=== PATIENT | female | born 1980 | race Caucasian/White ===

== ENCOUNTER 2022-10-31 08:38 | Outpatient (REF) | payer OTHER, SELFPAY ==
[2022-10-31 11:30] LABS: MANUAL DIFF FLAG NO
[2022-10-31 11:47] LABS: Basophils Absolute Auto 0.1 X10*3/uL (0.0-0.2); Eosinophils Absolute Auto 0.1 X10*3/uL (0.0-0.4); Eosinophils Percent Auto 0.8 % (0-4); Hematocrit 46.6 % (37.0-47.0); Hemoglobin 15.2 g/dl (12.0-16.0); Imm Gran Abs Auto 0.03 X10*3/uL (0.00-0.03); Imm Gran Pct Auto 0.4 % (0.0-0.4); Lymphocytes Absolute Auto 1.5 X10*3/uL (1.2-4.9); Lymphocytes Percent Auto 18.4 % (20-40); Mean Corpuscular HGB Conc 32.6 g/dl (31.0-35.0); Mean Corpuscular Volume 91.9 fL (80.0-98.0); Mean Platelet Volume 10.5 fL (9.4-12.3); Monocytes Absolute Auto 0.4 X10*3/uL (0.1-1.2); Monocytes Percent Auto 4.7 % (2-11); Neutrophils Absolute Auto 6.2 x10*3/uL (2.0-8.3); Neutrophils Percent Auto 74.7 % (45-73); Platelet Count 249 X10*3/uL (160-400); Red Blood Count 5.07 X10*6/uL (4.20-5.50); Red Cell Distribution Width 12.3 % (11.0-16.0); White Blood Count 8.3 X10*3/uL (4.8-10.8)
[2022-10-31 12:28] LABS: Alanine Aminotransferase 21 U/L (0-31); Albumin Level 3.7 g/dL (3.5-5.0); Alkaline Phosphatase 87 U/L (39-117); Anion Gap 13 (12-20); Aspartate Amino Transferase 16 U/L (5-31); Bilirubin Total 0.6 mg/dL (0.0-1.0); Blood Urea Nitrogen 11 mg/dL (9-16); Calcium 9.1 mg/dL (8.4-10.2); Carbon Dioxide 24 mmol/L (22-29); Chloride 103 mmol/L (96-108); Cholesterol 165 mg/dL; Estimated Glomerular Filt Rate > 60; Glucose Fasting 103 mg/dL (60-99); HDL Cholesterol 71 mg/dL; LDL Cholesterol Calculated 77 mg/dl; Potassium 4.3 mmol/L (3.3-5.1); Sodium 136 mmol/L (135-145); TSH reflex Free T4 2.16 uIU/mL (0.32-4.0); Total Protein 6.5 g/dL (6.5-8.0); Triglycerides 86 mg/dL
[2022-10-31 12:44] LABS: Vitamin B12 738 pg/mL (200-900)
[2022-11-06 12:33] LABS: Vitamin D 25-OH, D2 <4 ng/mL; Vitamin D 25-OH, D3 32 ng/mL; Vitamin D 25-OH, Total 32 ng/mL (30-100)
== END 2022-10-31 08:39 | disposition home or self-care (01) ==
LOC: HO.HMGCLDS 08:38
PROVIDERS: PCP Internal Medicine; Visit Provider Internal Medicine
DX: Z00.01 Encounter for general adult medical examination with abnormal findings (principal); E66.09 Other obesity due to excess calories; F33.9 Major depressive disorder, recurrent, unspecified; F41.1 Generalized anxiety disorder
CPT/HCPCS: 36415; 80053; 80061; 82306; 82607; 84443; 85025

== ENCOUNTER 2023-04-24 08:58 | Outpatient (REF) | payer OTHER, SELFPAY ==
[2023-04-24 11:34] LABS: MANUAL DIFF FLAG NO
[2023-04-24 11:43] LABS: Basophils Absolute Auto 0.1 X10*3/uL (0.0-0.2); Basophils Percent Auto 0.8 % (0-2); Eosinophils Absolute Auto 0.2 X10*3/uL (0.0-0.4); Eosinophils Percent Auto 2.2 % (0-4); Hematocrit 46.6 % (37.0-47.0); Hemoglobin 15.1 g/dl (12.0-16.0); Imm Gran Abs Auto 0.04 X10*3/uL (0.00-0.03); Imm Gran Pct Auto 0.5 % (0.0-0.4); Lymphocytes Absolute Auto 1.7 X10*3/uL (1.2-4.9); Lymphocytes Percent Auto 23.8 % (20-40); Mean Corpuscular HGB Conc 32.4 g/dl (31.0-35.0); Mean Corpuscular Hemoglobin 30.6 pg (27.0-33.0); Mean Corpuscular Volume 94.3 fL (80.0-98.0); Mean Platelet Volume 10.4 fL (9.4-12.3); Monocytes Absolute Auto 0.4 X10*3/uL (0.1-1.2); Monocytes Percent Auto 4.9 % (2-11); Neutrophils Percent Auto 67.8 % (45-73); Platelet Count 276 X10*3/uL (160-400); Red Blood Count 4.94 X10*6/uL (4.20-5.50); Red Cell Distribution Width 12.7 % (11.0-16.0); White Blood Count 7.3 X10*3/uL (4.8-10.8)
[2023-04-24 12:07] LABS: Alanine Aminotransferase 22 U/L (0-31); Albumin Level 3.6 g/dL (3.5-5.0); Alkaline Phosphatase 102 U/L (39-117); Anion Gap 11 (12-20); Aspartate Amino Transferase 19 U/L (5-31); Bilirubin Total 0.7 mg/dL (0.0-1.0); Blood Urea Nitrogen 14 mg/dL (9-16); Calcium 8.8 mg/dL (8.4-10.2); Carbon Dioxide 25 mmol/L (22-29); Chloride 104 mmol/L (96-108); Estimated Glomerular Filt Rate > 60; Glucose Random 144 mg/dL (60-115); Potassium 4.3 mmol/L (3.3-5.1); Sodium 136 mmol/L (135-145); Total Protein 6.4 g/dL (6.5-8.0)
== END 2023-04-24 08:59 | disposition home or self-care (01) ==
LOC: HO.HMGCLDS 08:58
PROVIDERS: PCP Internal Medicine; Visit Provider Internal Medicine
DX: E66.09 Other obesity due to excess calories (principal); F33.9 Major depressive disorder, recurrent, unspecified; F41.1 Generalized anxiety disorder; R73.01 Impaired fasting glucose
CPT/HCPCS: 36415; 80053; 85025

== ENCOUNTER 2023-07-24 14:59 | Outpatient (AMB) | payer OTHER, SELFPAY ==
[2023-07-24 15:02] VITALS: BP 132/80; PULSE 76; O2SAT 97; BMI 39.0
--- NOTE | 2023-07-24 15:02 | MHC.PC.OV ---
Vital Signs 07/24/23 15:02 Height 5 ft 3 in Weight 220 lb BMI 39.0 BP 132/80 Blood Pressure Location Rt brachial Position Sitting Pulse 76 Pulse Source Pulse Oximeter Pulse Oximetry (%) 97 Oxygen Delivery Method Room Air Intake Visit Reasons: 3m follow up Allergies bupropion [From Wellbutrin] Adverse Reaction (Verified 07/24/23 15:02) Panic Medication List - Last Reconciled 07/24/23 by Idalia Clements MD albuterol sulfate 90 mcg/actuation (Ventolin HFA) 1 inh inhalation QID PRN 30 days buspirone 10 mg PO TID PRN 30 days dapsone 5% topical QAM escitalopram oxalate 10 mg PO DAILY 90 days spironolactone 50 mg PO BID tretinoin 0.05% appl topical Tobacco use date assessed: 07/24/23 Dental Screening Dental Screen Date: 07/24/23 Did you have a dental visit in the last 12 months?: Yes Did you have a dental problem in the last 6 months where you did not have access to dental care?: No Was dental information given to patient?: Patient has dentist HPI 3m follow up HPI Details Patient is 43-year-old female came in today for her follow-up appointment Anxiety and depression stable with Lexapro 10 mg Impaired fasting sugar and obesity patient currently seeing a weight loss provider and is taking a new medication now Patient is questioning whether the medication is causing diarrhea. However she is trying to take more protein, she is sensitive to so a so she is trying other form of protein The other day she had protein shake and started having severe bloating. We talked about a milk protein which can also cause the symptoms. Patient would like to repeat labs and also check a mild is as she had pancreatic problem in the past She also have Raynaud's and have difficulty in winter time. Asthma is stable Follow-up 3 months [facility] Social History Housing: House Patient Tobacco Use Status: Never used Tobacco e-Cigarette/Vaping Use: Never Used service: No Current occupational status: employed Current occupational exposures/hazards: No Cognitive needs: No Hearing needs: No Vision needs: Yes Questionnaire Thrive Questionnaire Date Thrive assessed: 01/09/23 AUDIT C Alcohol Use Questionnaire (AUDIT-C) 1. How often do you have a drink containing alcohol?: Never 3. How often do you have six or more drinks on one occasion?: Never Total Score: 0 Score Reviewed/Action Taken: Yes ESTRELLA-7 AMB Questionnaire ESTRELLA-7 Date ESTRELLA - 7 assessed: 10/28/22 Source: Developed by Drs. Dickson Cates, Marni Boggs, Freeman Beckford and colleagues, with an educational monica from [employer]. Review of Systems Const Denies chills and Denies fever(s) ENT Denies epistaxis and Denies nasal discharge Card Denies chest pain Resp Denies chest congestion, Denies cough and Denies hemoptysis GI Denies diarrhea and Denies nausea Skin/Breast Denies rash Neuro Reports no additional complaints Psych Reports no additional complaints Endo Reports no additional complaints Physical exam (Primary Care) Vital Signs: Last Vital Signs Pulse 76 07/24/23 15:02 BP 132/80 07/24/23 15:02 Pulse Ox 97 07/24/23 15:02 Oxygen Delivery Method Room Air 07/24/23 15:02 BMI result Body Mass Index 39.0 Tobacco/Smoking Status: Tobacco use Status Tobacco use date assessed 07/24/23 07/24/23 15:11 Patient Tobacco Use Status Never used Tobacco 07/24/23 15:11 e-Cigarette/Vaping Use Never Used 07/24/23 15:11 Thrive Assessment: Date of Thrive Assessment Date Thrive assessed 01/09/23 07/24/23 15:11 Const General: cooperative, comfortable and no acute distress Orientation/consciousness: patient oriented x3 HENMT Head: Yes normocephalic Eyes General: appearance normal, both eyes and all related structures Neck Neck: Yes supple Resp Effort & Inspection: normal respiratory effort, no cough and no stridor Cardio Rhythm: regular rhythm Heart sounds: S1 normal heart sound present and S2 normal heart sound present Skin General skin exam: turgor normal Neuro General: patient oriented x3, tone normal and moves all extremities Extrem Right lower extremity: no edema Left lower extremity: no edema Assessment and Plan Assessment & Plan (1) Major depression, recurrent: Code(s): F33.9 - Major depressive disorder, recurrent, unspecified Qualifiers: Active/Remission status: in full remission Qualified Code(s): F33.42 - Major depressive disorder, recurrent, in full remission (2) Anxiety, generalized: Code(s): F41.1 - Generalized anxiety disorder (3) Raynaud's phenomenon: Code(s): I73.00 - Raynaud's syndrome without gangrene Qualifiers: Raynaud?s-associated gangrene presence: without gangrene Qualified Code(s): I73.00 - Raynaud's syndrome without gangrene (4) Impaired fasting blood sugar: Code(s): R73.01 - Impaired fasting glucose (5) Intermittent asthma: Code(s): J45.20 - Mild intermittent asthma, uncomplicated Qualifiers: Asthma severity: mild Asthma complication type: uncomplicated Qualified Code(s): J45.20 - Mild intermittent asthma, uncomplicated (6) Obesity due to excess calories: Code(s): E66.09 - Other obesity due to excess calories Qualifiers: Obesity classification: adult class 2 (BMI 35 - 39.9) Serious obesity comorbidity presence: without serious comorbidity Body mass index: BMI 39.0-39.9 Qualified Code(s): E66.09 - Other obesity due to excess calories; Z68.39 - Body mass index [BMI] 39.0-39.9, adult Plan Patient is 43-year-old female came in today for her follow-up appointment Anxiety and depression stable with Lexapro 10 mg Impaired fasting sugar and obesity patient currently seeing a weight loss provider and is taking a new medication now Patient is questioning whether the medication is causing diarrhea. However she is trying to take more protein, she is sensitive to so a so she is trying other form of protein The other day she had protein shake and started having severe bloating. We talked about a milk protein which can also cause the symptoms. Patient would like to repeat labs and also check a mild is as she had pancreatic problem in the past She also have Raynaud's and have difficulty in winter time. BMI is 39.0 patient is working on that No asthma flare up Asthma is stable Follow-up 3 months Orders: Orders Lipase Today E66.09 - Other obesity due to excess calories, F33.9 - Major depressive disorder, recurrent, unspecified, F41.1 - Generalized anxiety disorder, I73.00 - Raynaud's syndrome without gangrene, J45.20 - Mild intermittent asthma, uncomplicated, R73.01 - Impaired fasting glucose Complete Blood Count Auto Diff Today E66.09 - Other obesity due to excess calories, F33.9 - Major depressive disorder, recurrent, unspecified, F41.1 - Generalized anxiety disorder, I73.00 - Raynaud's syndrome without gangrene, J45.20 - Mild intermittent asthma, uncomplicated, R73.01 - Impaired fasting glucose Comprehensive Met. Panel Today E66.09 - Other obesity due to excess calories, F33.9 - Major depressive disorder, recurrent, unspecified, F41.1 - Generalized anxiety disorder, I73.00 - Raynaud's syndrome without gangrene, J45.20 - Mild intermittent asthma, uncomplicated, R73.01 - Impaired fasting glucose TSH reflex Free T4 Today E66.09 - Other obesity due to excess calories, F33.9 - Major depressive disorder, recurrent, unspecified, F41.1 - Generalized anxiety disorder, I73.00 - Raynaud's syndrome without gangrene, J45.20 - Mild intermittent asthma, uncomplicated, R73.01 - Impaired fasting glucose Amylase Today E66.09 - Other obesity due to excess calories, F33.9 - Major depressive disorder, recurrent, unspecified, F41.1 - Generalized anxiety disorder, I73.00 - Raynaud's syndrome without gangrene, J45.20 - Mild intermittent asthma, uncomplicated, R73.01 - Impaired fasting glucose Hemoglobin A1c Today R73.01 - Impaired fasting glucose Coding Level of Care Code Est Pt Level 4 (85924) Diagnoses Recurrent major depressive disorder, in full remission F33.42 Active/Remission status: in full remission Anxiety, generalized F41.1 Raynaud's phenomenon without gangrene I73.00 Raynaud?s-associated gangrene presence: without gangrene Impaired fasting blood sugar R73.01 Mild intermittent asthma without complication J45.20 Asthma severity: mild Asthma complication type: uncomplicated Class 2 obesity due to excess calories without serious comorbidity with body mass index (BMI) of 39.0 to 39.9 in adult E66.09; Z68.39 Obesity classification: adult class 2 (BMI 35 - 39.9) Serious obesity comorbidity presence: without serious comorbidity Body mass index: BMI 39.0-39.9
== END 2023-07-24 15:31 | disposition home or self-care (01) ==
PROVIDERS: Visit Provider Internal Medicine
DX: J45.20 Mild intermittent asthma, uncomplicated (principal); F33.42 Major depressive disorder, recurrent, in full remission; E66.09 Other obesity due to excess calories; Z68.39 Body mass index [BMI] 39.0-39.9, adult; F41.1 Generalized anxiety disorder; I73.00 Raynaud's syndrome without gangrene; R73.01 Impaired fasting glucose
CPT/HCPCS: 99214

== ENCOUNTER 2023-10-30 13:20 | Outpatient (AMB) | payer OTHER, SELFPAY ==
[2023-10-30 13:24] VITALS: BP 120/80; PULSE 83; O2SAT 97; BMI 39.7
--- NOTE | 2023-10-30 13:24 | MHC.PC.OV ---
Vital Signs 10/30/23 13:24 Height 5 ft 3 in Weight 224 lb BMI 39.7 BP 120/80 Blood Pressure Location Lt brachial Position Sitting Pulse 83 Pulse Source Pulse Oximeter Pulse Oximetry (%) 97 Oxygen Delivery Method Room Air Intake Visit Reasons: Annual Physical/New Patient Allergies bupropion [From Wellbutrin] Adverse Reaction (Verified 10/30/23 13:25) Panic Medication List - Last Reconciled 10/30/23 by Idalia Clements MD albuterol sulfate 90 mcg/actuation (Ventolin HFA) 1 inh inhalation QID PRN 30 days buspirone 10 mg PO TID PRN 30 days dapsone 5% topical QAM escitalopram oxalate 10 mg PO DAILY 90 days spironolactone 50 mg PO BID tretinoin 0.05% appl topical Tobacco use date assessed: 10/30/23 Dental Screening Dental Screen Date: 10/30/23 Did you have a dental visit in the last 12 months?: Yes Did you have a dental problem in the last 6 months where you did not have access to dental care?: No Was dental information given to patient?: Patient has dentist HPI Annual Physical/New Patient HPI Details Patient is 43 year female came in today for physical exam Anxiety stable patient is taking both medications Mammogram was June of this year She goes to [facility], mammograms and Pap smear through them and see Zofia Ayoub BMI is elevated patient is trying to lose weight Last set of lab in chart is from April of this year Order was placed in July has not been yet Patient fell on ice last year She does not have any back pain but every now and then she gets numbness and pain right lower extremity. I am ordering EMG, Nerve conduction to further evaluate this symptom Follow-up 4 months [facility] Social History Housing: House Patient Tobacco Use Status: Never used Tobacco e-Cigarette/Vaping Use: Never Used service: No Current occupational status: employed Current occupational exposures/hazards: No Cognitive needs: No Hearing needs: No Vision needs: Yes Questionnaire Thrive Questionnaire Date Thrive assessed: 01/09/23 AUDIT C Alcohol Use Questionnaire (AUDIT-C) 1. How often do you have a drink containing alcohol?: Monthly or less 2. How many drinks containing alcohol do you have on a typical day when you are drinking?: 1 or 2 Total Score: 1 ESTRELLA-7 AMB Questionnaire ESTRELLA-7 Date ESTRELLA - 7 assessed: 10/28/22 Source: Developed by Drs. Dickson Cates, Marni Boggs, Freeman Beckford and colleagues, with an educational monica from [employer]. ACT Questionnaire In the past 4 weeks, how much of the time did your asthma keep you from getting as much done at work, school or at home?: None of the time During the past 4 weeks, how often have you had shortness of breath?: 1-2 times a week During the past 4 weeks, how often did your asthma symptoms wake you up at night or earlier than usual in the morning?: Once or twice per week During the past 4 weeks, how often have you had to use your rescue inhaler or nebulizer medication?: Once a week or less How would you rate your asthma control during the past 4 weeks?: Well controlled ACT Interpretation: Negative Score: 21 Review of Systems Const Denies chills, Denies fever(s) and Denies headache(s) Eyes Denies blurry vision ENT Denies headache(s), Denies nasal discharge, Denies nasal obstruction, Denies odynophagia and Denies sinus pain Card Denies chest pain at rest and Denies chest pain with activity Resp Denies cough and Denies hemoptysis GI Denies diarrhea, Denies odynophagia, Denies vomiting and Denies hematemesis Reports as per HPI Musc Denies abnormal gait Skin/Breast Reports as per HPI Neuro Denies Neuro-related abnormal movements, Denies Abnormal speech present, Denies abnormal gait and Denies headache(s) Psych Denies mood swings and Denies paranoia Endo Reports as per HPI Todd/Lymph Reports as per HPI Aller/Immun Reports as per HPI Physical exam (Primary Care) Vital Signs: Last Vital Signs Pulse 83 10/30/23 13:24 BP 120/80 10/30/23 13:24 Pulse Ox 97 10/30/23 13:24 Oxygen Delivery Method Room Air 10/30/23 13:24 BMI result Body Mass Index 39.7 Tobacco/Smoking Status: Tobacco use Status Tobacco use date assessed 10/30/23 10/30/23 13:25 Patient Tobacco Use Status Never used Tobacco 10/30/23 13:25 e-Cigarette/Vaping Use Never Used 10/30/23 13:25 Thrive Assessment: Date of Thrive Assessment Date Thrive assessed 01/09/23 10/30/23 13:25 Const General: cooperative, comfortable and no acute distress Orientation/consciousness: patient oriented x3 HENMT Head: Yes normocephalic and Yes atraumatic Eyes General: appearance normal, both eyes and all related structures Pupils: Equal, round and reactive pupils present EOM: EOMs intact bilaterally Neck Neck: Yes supple and No lymphadenopathy Thyroid: Thyroid normal Lymphatic: no lymphadenopathy noted Resp Effort & Inspection: normal respiratory effort and able to speak in complete sentences Auscultation: clear to auscultation bilaterally Cardio Heart sounds: S1 normal heart sound present and S2 normal heart sound present GI Palpation (GI): Soft to palpation and nontender Auscultation: normal bowel sounds General: Yes no CVA tenderness Back/Spine/Pelvis Back: no CVA tenderness Skin General skin exam: elasticity normal and turgor normal Neuro General: patient oriented x3 and gait normal Cranial nerves: Yes Equal, round and reactive pupils present Speech: No Abnormal speech present Coordination: tandem gait normal and Romberg test negative Extrem General: Yes normal exam except as noted and No edema Assessment and Plan Assessment & Plan (1) Encounter for general adult medical examination with abnormal findings: Code(s): Z00.01 - Encounter for general adult medical examination with abnormal findings (2) Obesity due to excess calories: Code(s): E66.09 - Other obesity due to excess calories Qualifiers: Body mass index: BMI 39.0-39.9 Obesity classification: adult class 2 (BMI 35 - 39.9) Serious obesity comorbidity presence: without serious comorbidity Qualified Code(s): E66.09 - Other obesity due to excess calories; Z68.39 - Body mass index [BMI] 39.0-39.9, adult (3) Major depression, recurrent: Code(s): F33.9 - Major depressive disorder, recurrent, unspecified Qualifiers: Active/Remission status: in full remission Qualified Code(s): F33.42 - Major depressive disorder, recurrent, in full remission (4) Anxiety, generalized: Code(s): F41.1 - Generalized anxiety disorder (5) Impaired fasting blood sugar: Code(s): R73.01 - Impaired fasting glucose (6) Raynaud's phenomenon: Code(s): I73.00 - Raynaud's syndrome without gangrene Qualifiers: Raynaud?s-associated gangrene presence: without gangrene Qualified Code(s): I73.00 - Raynaud's syndrome without gangrene (7) Intermittent asthma: Code(s): J45.20 - Mild intermittent asthma, uncomplicated Qualifiers: Asthma complication type: uncomplicated Asthma severity: mild Qualified Code(s): J45.20 - Mild intermittent asthma, uncomplicated (8) Paresthesia of right lower extremity: Code(s): R20.2 - Paresthesia of skin Plan Patient is 43 year female came in today for physical exam Anxiety stable patient is taking both medications Mammogram was June of this year She goes to [facility], mammograms and Pap smear through them and see Zofia Ayoub BMI is elevated patient is trying to lose weight Last set of lab in chart is from April of this year Order was placed in July has not been yet Patient fell on ice last year She does not have any back pain but every now and then she gets numbness and pain right lower extremity. I am ordering EMG, Nerve conduction to further evaluate this symptom Follow-up 4 months Orders: Orders NE electromyogram (EMG) Today R20.2 - Paresthesia of skin NE nerve conduction velocity Today R20.2 - Paresthesia of skin Coding Level of Care Code Est Pt Prev Care 40-64y(31582) Diagnoses Encounter for general adult medical examination with abnormal findings Z00.01 Class 2 obesity due to excess calories without serious comorbidity with body mass index (BMI) of 39.0 to 39.9 in adult E66.09; Z68.39 Body mass index: BMI 39.0-39.9 Obesity classification: adult class 2 (BMI 35 - 39.9) Serious obesity comorbidity presence: without serious comorbidity Recurrent major depressive disorder, in full remission F33.42 Active/Remission status: in full remission Anxiety, generalized F41.1 Impaired fasting blood sugar R73.01 Raynaud's phenomenon without gangrene I73.00 Raynaud?s-associated gangrene presence: without gangrene Mild intermittent asthma without complication J45.20 Asthma complication type: uncomplicated Asthma severity: mild Paresthesia of right lower extremity R20.2
== END 2023-10-30 15:33 | disposition home or self-care (01) ==
PROVIDERS: Visit Provider Internal Medicine
DX: Z00.00 Encounter for general adult medical examination without abnormal findings (principal); E66.09 Other obesity due to excess calories; Z68.39 Body mass index [BMI] 39.0-39.9, adult; F33.42 Major depressive disorder, recurrent, in full remission; F41.1 Generalized anxiety disorder; R73.01 Impaired fasting glucose; I73.00 Raynaud's syndrome without gangrene; J45.20 Mild intermittent asthma, uncomplicated; R20.2 Paresthesia of skin
CPT/HCPCS: 99396

== ENCOUNTER 2023-10-30 14:00 | Outpatient (REF) | payer OTHER, SELFPAY ==
[2023-10-30 16:25] LABS: MANUAL DIFF FLAG NO
[2023-10-30 16:31] LABS: Basophils Absolute Auto 0.1 X10*3/uL (0.0-0.2); Basophils Percent Auto 0.6 % (0-2); Eosinophils Absolute Auto 0.1 X10*3/uL (0.0-0.4); Eosinophils Percent Auto 1.5 % (0-4); Hematocrit 44.5 % (37.0-47.0); Hemoglobin 15.1 g/dl (12.0-16.0); Imm Gran Abs Auto 0.03 X10*3/uL (0.00-0.03); Imm Gran Pct Auto 0.3 % (0.0-0.4); Lymphocytes Percent Auto 21.1 % (20-40); Mean Corpuscular HGB Conc 33.9 g/dl (31.0-35.0); Mean Corpuscular Hemoglobin 30.9 pg (27.0-33.0); Mean Corpuscular Volume 91.2 fL (80.0-98.0); Mean Platelet Volume 10.1 fL (9.4-12.3); Monocytes Absolute Auto 0.7 X10*3/uL (0.1-1.2); Monocytes Percent Auto 7.3 % (2-11); Neutrophils Absolute Auto 6.5 x10*3/uL (2.0-8.3); Neutrophils Percent Auto 69.2 % (45-73); Platelet Count 306 X10*3/uL (160-400); Red Blood Count 4.88 X10*6/uL (4.20-5.50); Red Cell Distribution Width 12.8 % (11.0-16.0); White Blood Count 9.3 X10*3/uL (4.8-10.8)
[2023-10-30 16:37] LABS: Estimated Average Glucose 91 mg/dL; Hemoglobin A1c % 4.8 % (<6.0)
[2023-10-30 16:49] LABS: Alanine Aminotransferase 26 U/L (0-31); Albumin Level 3.7 g/dL (3.5-5.0); Alkaline Phosphatase 88 U/L (39-117); Anion Gap 14 (12-20); Aspartate Amino Transferase 19 U/L (5-31); Bilirubin Total 0.4 mg/dL (0.0-1.0); Blood Urea Nitrogen 15 mg/dL (9-16); Calcium 9.6 mg/dL (8.4-10.2); Carbon Dioxide 24 mmol/L (22-29); Chloride 103 mmol/L (96-108); Estimated Glomerular Filt Rate > 60; Glucose Random 86 mg/dL (60-115); Potassium 4.4 mmol/L (3.3-5.1); Sodium 137 mmol/L (135-145); Total Protein 7.2 g/dL (6.5-8.0)
[2023-10-30 17:04] LABS: TSH reflex Free T4 1.81 uIU/mL (0.32-4.0)
== END 2023-10-30 14:01 | disposition home or self-care (01) ==
LOC: HO.HMGCLDS 14:00
PROVIDERS: PCP Internal Medicine; Visit Provider Internal Medicine
DX: F33.9 Major depressive disorder, recurrent, unspecified (principal); F41.1 Generalized anxiety disorder; I73.00 Raynaud's syndrome without gangrene; R73.01 Impaired fasting glucose; J45.20 Mild intermittent asthma, uncomplicated; E66.09 Other obesity due to excess calories
CPT/HCPCS: 36415; 80053; 83036; 84443; 85025

== ENCOUNTER 2023-12-11 13:57 | Outpatient (REF) | payer OTHER, SELFPAY ==
--- NOTE | 2023-12-11 13:59 | EMG_ITS ---
Chief complaint: Fell last fall, then started having sciatic pain in the spring, now intermittent numbness on right lateral knee down to right dorsal foot. Reason for referral: Evaluate for peroneal neuropathy versus sciatic neuropathy Referred by: Dr. Idalia Clements Procedure done: Right lower extremity NCS/EMG Precautions and/or limitations: None The limb temperature was monitored continuously and remained between 32-36 degrees C during the performance of the NCS. Nerve Conduction Studies Anti Sensory Summary Table ?Stim Site NR Onset (ms) Norm Onset (ms) Peak (ms) Norm Peak (ms) O-P Amp (?V) Norm O-P Amp Site1 Site2 Delta-0 (ms) Dist (cm) Rick (m/s) Norm Rick (m/s) Right Sup Peron Anti Sensory (Ankle) Lateral Leg ? 1.9 2.9 <4.4 15.1 >5.0 Lateral Leg Ankle 1.9 14.0 74 Right Sural Anti Sensory (Lat Mall) Calf ? 2.6 3.3 <4.0 11.6 >5.0 Calf Lat Mall 2.6 14.0 54 Motor Summary Table ?Stim Site NR Onset (ms) Norm Onset (ms) O-P Amp (mV) Norm O-P Amp iAmp (mV) Amp (1st) (%) Site1 Site2 Delta-0 (ms) Dist (cm) Rick (m/s) Norm Rick (m/s) Right Peroneal Motor (Ext Dig Brev) Ankle ? 3.4 <4.0 4.8 >2.5 5.2 100.0 Ankle Ext Dig Brev 3.4 0.0 B Fib ? 8.8 4.3 4.7 89.6 B Fib Ankle 5.4 30.5 56 >40 Poplt ? 9.5 4.1 4.4 85.4 Poplt B Fib 0.7 5.0 71 >40 Right Tibial Motor (Abd Bear Brev) Ankle ? 4.1 <5 3.4 >2.5 4.5 100.0 Ankle Abd Bear Brev 4.1 0.0 Knee ? 9.4 2.9 4.2 85.3 Knee Ankle 5.3 35.0 66 >40 EMG ?Side Muscle Nerve Root Ins Act Fibs Psw Amp Dur Poly Recrt Int Pat Comment Right AbdHallucis MedPlantar S1-2 Nml Nml Nml Nml Nml 0 Nml Complete Right AntTibialis Dp Br Peron L4-5 Nml Nml Nml Nml Nml 0 Nml Complete Right MedGastroc Tibial S1-2 Nml Nml Nml Nml Nml 0 Nml Complete Right VastusMed Femoral L2-4 Nml Nml Nml Nml Nml 0 Nml Complete Right Peroneus Long Sup Br Peron L5-S1 Nml Nml Nml Nml Nml 0 Nml Complete Paraspinal EMG ?Side Muscle Nerve Root Ins Act Fibs Psw Comment Right Lumbar Upper Rami Nml Nml Nml Right Lumbar Mid Rami Nml Nml Nml Right Lumbar Lower Rami Nml Nml Nml FINDINGS: All motor and sensory nerves tested showed normal latencies, amplitudes and conduction velocities. Concentric needle EMG was performed in selected muscles of the right lower extremity and lumbar paraspinals. Study did not reveal signs of electric abnormalities as shown in the table below. IMPRESSION: 1. This is a normal study. 2. There is no electrodiagnostic evidence for peroneal neuropathy, tibial neuropathy, lumbosacral plexopathy, lumbar radiculopathy, or peripheral neuropathy. CLINICAL COMMENT: Symptoms were in the distribution of sciatic or peroneal nerve, but testing normal. Consider repeat study in 3-6 months if symptoms persist. Thank you for your kind referral. Caroline Munoz MD, BARON Board Certified, [place] [employer] and [employer] (ABPMR) Board Certified, [place] Board of Electrodiagnostic Medicine (ABEM) CODIN [id number] MTDD
== END 2023-12-11 13:58 | disposition home or self-care (01) ==
LOC: HO.NEURO 13:57
PROVIDERS: PCP Internal Medicine; Visit Provider Internal Medicine
DX: R20.2 Paresthesia of skin (principal)
CPT/HCPCS: 95886; 95908

== ENCOUNTER → 2023-12-11 13:59 | Outpatient (BNV) | payer OTHER, SELFPAY | PROVIDERS: PCP Internal Medicine; Visit Provider Physical Medicine & Rehabilitation | DX: M79.661 Pain in right lower leg (principal) | CPT/HCPCS: 95886; 95908 ==

== ENCOUNTER 2024-03-08 15:12 | Outpatient (AMB) | payer OTHER, SELFPAY ==
[2024-03-08 15:13] VITALS: BP 122/84; PULSE 86; O2SAT 96; BMI 38.1
--- NOTE | 2024-03-08 15:13 | MHC.PC.OV ---
Vital Signs 03/08/24 15:13 Height 5 ft 3 in Weight 215 lb BMI 38.1 BP 122/84 Blood Pressure Location Rt brachial Position Sitting Pulse 86 Pulse Source Pulse Oximeter Pulse Oximetry (%) 96 Oxygen Delivery Method Room Air Intake Visit Reasons: 4 Month follow up Allergies bupropion [From Wellbutrin] Adverse Reaction (Verified 03/08/24 15:16) Panic Medication List - Last Reconciled 03/08/24 by Idalia Clements MD albuterol sulfate 90 mcg/actuation (Ventolin HFA) 1 inh inhalation QID PRN 30 days buspirone 10 mg PO TID PRN 30 days dapsone 5% topical QAM escitalopram oxalate 10 mg PO DAILY 90 days semaglutide (weight loss) (Wegovy) 2.4 mg subcut QWEEK spironolactone 50 mg PO BID tretinoin 0.05% appl topical Tobacco use date assessed: 03/08/24 Dental Screening Dental Screen Date: 03/08/24 Did you have a dental visit in the last 12 months?: Yes Did you have a dental problem in the last 6 months where you did not have access to dental care?: No Was dental information given to patient?: Patient has dentist HPI 4 Month follow up HPI Details Patient is a 43-year-old female came in today to have a follow-up on anxiety Patient is currently taking buspirone 10 mg t.i.d. and escitalopram 10 mg daily Anxiety stable patient is tolerating medication no side effects Her other medications as spironolactone anterior toenail through Dermatology And Semaglutide 2.5 mg for weight loss through a different prescriber Patient will return in October for physical exam now [facility] Social History Housing: House Patient Tobacco Use Status: Never used Tobacco e-Cigarette/Vaping Use: Never Used service: No Current occupational status: employed Current occupational exposures/hazards: No Cognitive needs: No Hearing needs: No Vision needs: Yes Questionnaire PHQ-9 Over the last 2 weeks, how often have you been bothered by any of the following problems? 1. Little interest or pleasure in doing things: not at all 2. Feeling down, depressed, or hopeless: not at all 3. Trouble falling or staying asleep, or sleeping too much: not at all 4. Feeling tired or having little energy: several days 5. Poor appetite or overeating: not at all 6. Feeling bad about yourself - or that you are a failure or have let yourself or your family down: not at all 7. Trouble concentrating on things, such as reading the newspaper or watching television: not at all 8. Moving or speaking so slowly that other people could have noticed. Or the opposite - being so fidgety or restless that you have been moving around a lot more than usual: not at all 9. Thoughts that you would be better off or of hurting yourself in some way: not at all Total score: 1 Depression Screening Interpretation: Negative Depression Screening Done: Yes 45865 - PHQ-9 Billing: Yes Source: Developed by Drs. Dickson Cates, Marni Boggs, Freeman Beckford and colleagues, with an educational monica from [employer]. Thrive Questionnaire Date Thrive assessed: 01/09/23 I am a: Patient What is your living situation today?: I have a steady place to live Within the past 12 months, did the food you bought not last and you didn't have the money to get more?: Never true Within the past 12 months, did you worry whether your food would run out before you got money to buy more?: Never true Please select the resources that you would like help with: None THRIVE Score: 0 AUDIT C Alcohol Use Questionnaire (AUDIT-C) 1. How often do you have a drink containing alcohol?: 2-4 times a month 2. How many drinks containing alcohol do you have on a typical day when you are drinking?: 1 or 2 3. How often do you have six or more drinks on one occasion?: Never Total Score: 2 Score Reviewed/Action Taken: Yes ESTRELLA-7 AMB Questionnaire ESTRELLA-7 Date ESTRELLA - 7 assessed: 03/08/24 Feeling nervous, anxious, or on edge: 1 = Several days Not being able to stop or control worryin = Not at all Worrying too much about different things: 1 = Several days Trouble relaxin = Not at all Being so restless that it is hard to sit still: 0 = Not at all Becoming easily annoyed or irritable: 0 = Not at all Feeling afraid as if something awful might happen: 1 = Several days Total ESTRELLA-7 score (0-4 normal; 5-9 mild; 10-14 moderate; 15-21 severe): 3 Source: Developed by Drs. Dickson Cates, Marni Boggs, Freeman Beckford and colleagues, with an educational monica from [employer]. ESTRELLA-7 Assessment Billing ESTRELLA-7 Assessment Tool: ESTRELLA-7 Assessment 54459 Review of Systems Const Denies chills and Denies fever(s) ENT Denies epistaxis and Denies nasal discharge Card Denies chest pain Resp Denies chest congestion, Denies cough and Denies hemoptysis GI Denies diarrhea and Denies nausea Skin/Breast Denies rash Neuro Reports no additional complaints Psych Reports no additional complaints Endo Reports no additional complaints Physical exam (Primary Care) Vital Signs: Last Vital Signs Pulse 86 03/08/24 15:13 BP 122/84 03/08/24 15:13 Pulse Ox 96 03/08/24 15:13 Oxygen Delivery Method Room Air 03/08/24 15:13 BMI result Body Mass Index 38.1 Tobacco/Smoking Status: Tobacco use Status Tobacco use date assessed 03/08/24 03/08/24 15:21 Patient Tobacco Use Status Never used Tobacco 03/08/24 15:13 e-Cigarette/Vaping Use Never Used 03/08/24 15:13 PHQ-9: PHQ-9 Score PHQ-9: Total score 1 03/08/24 15:22 Depression Screening Interpretation: Negative Thrive Assessment: Date of Thrive Assessment Date Thrive assessed 01/09/23 03/08/24 15:13 Const General: cooperative, comfortable and no acute distress Orientation/consciousness: patient oriented x3 HENMT Head: Yes normocephalic Eyes General: appearance normal, both eyes and all related structures Neck Neck: Yes supple Resp Effort & Inspection: normal respiratory effort, no cough and no stridor Cardio Rhythm: regular rhythm Heart sounds: S1 normal heart sound present and S2 normal heart sound present Skin General skin exam: turgor normal Neuro General: patient oriented x3, tone normal and moves all extremities Extrem Right lower extremity: no edema Left lower extremity: no edema Assessment and Plan Assessment & Plan (1) Anxiety, generalized: Code(s): F41.1 - Generalized anxiety disorder (2) Major depression, recurrent: Code(s): F33.9 - Major depressive disorder, recurrent, unspecified Qualifiers: Active/Remission status: in full remission Qualified Code(s): F33.42 - Major depressive disorder, recurrent, in full remission Plan Patient is a 43-year-old female came in today to have a follow-up on anxiety Patient is currently taking buspirone 10 mg t.i.d. and escitalopram 10 mg daily Anxiety stable patient is tolerating medication no side effects Her other medications as spironolactone anterior toenail through Dermatology And Semaglutide 2.5 mg for weight loss through a different prescriber Patient will return in October for physical exam now Coding Level of Care Code Est Pt Level 3 (49568) Diagnoses Anxiety, generalized F41.1 Recurrent major depressive disorder, in full remission F33.42 Active/Remission status: in full remission Additional Codes ESTRELLA-7 Assessment Billing - ESTRELLA-7 Assessment Tool: ESTRELLA-7 Assessment 09453 ([id number])
== END 2024-03-08 15:31 | disposition home or self-care (01) ==
PROVIDERS: PCP Internal Medicine; Visit Provider Internal Medicine
DX: F41.1 Generalized anxiety disorder (principal); F33.42 Major depressive disorder, recurrent, in full remission
CPT/HCPCS: 99213

== ENCOUNTER 2024-11-04 15:51 | Outpatient (AMB) | payer OTHER, SELFPAY ==
--- NOTE | 2024-11-04 15:52 | A.OFFPC_ITS ---
Vital Signs 11/04/24 15:53 Height 5 ft 3 in Weight 213 lb 4 oz BMI 37.8 BP 132/84 Blood Pressure Location Lt brachial Position Sitting Pulse 88 Pulse Source Pulse Oximeter Pulse Oximetry (%) 98 Oxygen Delivery Method Room Air Intake Visit Reasons: annual PE Allergies bupropion [From Wellbutrin] Adverse Reaction (Verified 11/04/24 15:54) Panic Medication List - Last Reconciled 11/04/24 by Idalia Clements MD albuterol sulfate 90 mcg/actuation (Ventolin HFA) 1 inh inhalation QID PRN 30 days buspirone 10 mg PO TID PRN 30 days dapsone 5% topical QAM escitalopram oxalate 10 mg PO DAILY 90 days semaglutide (weight loss) (Wegovy) 2.4 mg subcut QWEEK spironolactone 50 mg PO BID tretinoin 0.05% appl topical Tobacco use date assessed: 11/04/24 Dental Screening Dental Screen Date: 11/04/24 Did you have a dental visit in the last 12 months?: Yes Did you have a dental problem in the last 6 months where you did not have access to dental care?: No Was dental information given to patient?: Patient has dentist HPI annual PE HPI Details Patient is a 43-year-old female came in today to have a follow-up on anxiety Patient is currently taking buspirone 10 mg up to t.i.d. and escitalopram 10 mg daily Anxiety stable patient is tolerating medication no side effects Patient is questioning tapering off the medication she is feeling well I am reducing buspirone to 5 mg b.i.d. p.r.n. in next three-month she may taper that off Continue Lexapro for now and we will have another visit in 3 months to re- evaluate Her other medications as spironolactone anterior toenail through Dermatology Was on Semaglutide 2.5 mg for weight loss through a different prescriber But was not able to lose weight so now is taking zepbound Mammogram was November of this year [facility] for obgyn, last pap smear 2022 Labs done October of last year reviewed CBC and metabolic profile within normal limit TSH within normal limit Low vaccine up-to-date Tdap was given today [facility] Social History Housing: House Patient Tobacco Use Status: Never used Tobacco e-Cigarette/Vaping Use: Never Used service: No Current occupational status: employed Current occupational exposures/hazards: No Cognitive needs: No Hearing needs: No Vision needs: Yes Questionnaire Thrive Questionnaire Date Thrive assessed: 11/04/24 I am a: Patient What is your living situation today?: I have a steady place to live Within the past 12 months, did the food you bought not last and you didn't have the money to get more?: Never true Within the past 12 months, did you worry whether your food would run out before you got money to buy more?: Never true Do you have trouble paying for medicines?: No Do you have trouble getting transportation to medical appointments?: No Do you have trouble paying your heating and electricity bill?: No Do you have trouble taking care of your child, family member or friend?: No Do you have trouble with day-to-day activities such as bathing, preparing meals, shopping, managing finances, etc.?: No Are you currently unemployed and looking for a job?: No Are you interested in more education?: No Please select the resources that you would like help with: None Currently or been in a relationship where the following occur: No concerns reported THRIVE Score: 0 AUDIT C Alcohol Use Questionnaire (AUDIT-C) 1. How often do you have a drink containing alcohol?: 2-4 times a month 2. How many drinks containing alcohol do you have on a typical day when you are drinking?: 1 or 2 3. How often do you have six or more drinks on one occasion?: Never Total Score: 2 Score Reviewed/Action Taken: Yes ESTRELLA-7 AMB Questionnaire ESTRELLA-7 Date ESTRELLA - 7 assessed: 11/04/24 Feeling nervous, anxious, or on edge: 0 = Not at all Not being able to stop or control worryin = Not at all Worrying too much about different things: 1 = Several days Trouble relaxin = Not at all Being so restless that it is hard to sit still: 0 = Not at all Becoming easily annoyed or irritable: 0 = Not at all Feeling afraid as if something awful might happen: 0 = Not at all Total ESTRELLA-7 score (0-4 normal; 5-9 mild; 10-14 moderate; 15-21 severe): 1 Source: Developed by Drs. Dickson Cates, Marni Boggs, Freeman Beckford and colleagues, with an educational monica from [employer]. ESTRELLA-7 Assessment Billing ESTRELLA-7 Assessment Tool: ESTRELLA-7 Assessment 92612 Review of Systems Const Denies chills, Denies fever(s) and Denies headache(s) Eyes Denies blurry vision ENT Denies headache(s), Denies nasal discharge, Denies nasal obstruction, Denies odynophagia and Denies sinus pain Card Denies chest pain at rest and Denies chest pain with activity Resp Denies cough and Denies hemoptysis GI Denies diarrhea, Denies odynophagia, Denies vomiting and Denies hematemesis Reports as per HPI Musc Denies abnormal gait Skin/Breast Reports as per HPI Neuro Denies Neuro-related abnormal movements, Denies Abnormal speech present, Denies abnormal gait, Denies headache(s) and Denies Sensory deficit (Neuro) Psych Denies mood swings and Denies paranoia Endo Reports as per HPI Todd/Lymph Reports as per HPI Aller/Immun Reports as per HPI Physical exam (Primary Care) Vital Signs: Last Vital Signs Pulse 88 11/04/24 15:53 BP 132/84 11/04/24 15:53 Pulse Ox 98 11/04/24 15:53 Oxygen Delivery Method Room Air 11/04/24 15:53 BMI result Body Mass Index 37.8 Tobacco/Smoking Status: Tobacco use Status Tobacco use date assessed 11/04/24 11/04/24 15:55 Patient Tobacco Use Status Never used Tobacco 11/04/24 15:53 e-Cigarette/Vaping Use Never Used 11/04/24 15:53 Thrive Assessment: Date of Thrive Assessment Date Thrive assessed 11/04/24 11/04/24 15:55 Currently or been in a relationship where the following occur: No concerns reported Const General: cooperative, comfortable and no acute distress Orientation/consciousness: patient oriented x3 HENMT Head: Yes normocephalic and Yes atraumatic Eyes General: appearance normal, both eyes and all related structures Pupils: Equal, round and reactive pupils present EOM: EOMs intact bilaterally Neck Neck: Yes supple and No lymphadenopathy Thyroid: Thyroid normal Lymphatic: no lymphadenopathy noted Resp Effort & Inspection: normal respiratory effort and able to speak in complete sentences Auscultation: clear to auscultation bilaterally Cardio Heart sounds: S1 normal heart sound present and S2 normal heart sound present GI Palpation (GI): Soft to palpation and nontender Auscultation: normal bowel sounds General: Yes no CVA tenderness Back/Spine/Pelvis Back: no CVA tenderness Skin General skin exam: elasticity normal and turgor normal Neuro General: patient oriented x3 and gait normal Cranial nerves: Yes Equal, round and reactive pupils present Speech: No Abnormal speech present Sensory Exam: No Sensory deficit (Neuro) Coordination: tandem gait normal and Romberg test negative Extrem General: Yes normal exam except as noted and No edema Immunizations Boostrix Tdap 2.5 Lf unit-8 mcg-5 Lf/0.5 mL intramuscular syringe Performing Provider: Idalia Clements MD [place] [facility] Administered by: Gerard Escobedo CMA on 11/04/24 16:08 Dose Route Admin Location Dispensed Lot Number Expiration Date [facility] [employer] [employer] 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 0.5 mL IM Left Deltoid 0.5 mL [id number] 12/07/26 [id number] 8hands VIS Given Date VIS Provided VIS Publication Date 11/04/24 Single Vaccine 21 Eligibility Eligibility Date Funding Source Not [facility] Eligible 11/04/24 Private Coding Level of Care Code Est Pt Level 3 (78935) Est Pt Prev Care 40-64y(57059) Diagnoses Encounter for general adult medical examination with abnormal findings Z00.01 Class 2 obesity due to excess calories without serious comorbidity with body mass index (BMI) of 39.0 to 39.9 in adult E66.09; Z68.39 Body mass index: BMI 39.0-39.9 Obesity classification: adult class 2 (BMI 35 - 39.9) Serious obesity comorbidity presence: without serious comorbidity Recurrent major depressive disorder, in full remission F33.42 Active/Remission status: in full remission Anxiety, generalized F41.1 Impaired fasting blood sugar R73.01 Mild intermittent asthma without complication J45.20 Asthma complication type: uncomplicated Asthma severity: mild Additional Codes ESTRELLA-7 Assessment Billing - ESTRELLA-7 Assessment Tool: ESTRELLA-7 Assessment 79704 ([id number]) Assessment & Plan Assessment & Plan (1) Encounter for general adult medical examination with abnormal findings: Code(s): Z00.01 - Encounter for general adult medical examination with abnormal findings Category: Medical (2) Obesity due to excess calories: Code(s): E66.09 - Other obesity due to excess calories Category: Medical Qualifiers: Body mass index: BMI 39.0-39.9 Obesity classification: adult class 2 (BMI 35 - 39.9) Serious obesity comorbidity presence: without serious comorbidity Qualified Code(s): E66.09 - Other obesity due to excess calories; Z68.39 - Body mass index [BMI] 39.0-39.9, adult (3) Major depression, recurrent: Code(s): F33.9 - Major depressive disorder, recurrent, unspecified Category: Medical Qualifiers: Active/Remission status: in full remission Qualified Code(s): F33.42 - Major depressive disorder, recurrent, in full remission (4) Anxiety, generalized: Code(s): F41.1 - Generalized anxiety disorder Category: Medical (5) Impaired fasting blood sugar: Code(s): R73.01 - Impaired fasting glucose Category: Medical (6) Intermittent asthma: Code(s): J45.20 - Mild intermittent asthma, uncomplicated Category: Medical Qualifiers: Asthma complication type: uncomplicated Asthma severity: mild Qualified Code(s): J45.20 - Mild intermittent asthma, uncomplicated Plan Patient is a 43-year-old female came in today to have a follow-up on anxiety Patient is currently taking buspirone 10 mg up to t.i.d. and escitalopram 10 mg daily Anxiety stable patient is tolerating medication no side effects Patient is questioning tapering off the medication she is feeling well I am reducing buspirone to 5 mg b.i.d. p.r.n. in next three-month she may taper that off Continue Lexapro for now and we will have another visit in 3 months to re- evaluate Her other medications as spironolactone anterior toenail through Dermatology Was on Semaglutide 2.5 mg for weight loss through a different prescriber But was not able to lose weight so now is taking zepbound Mammogram was November of this year [facility] for obgyn, last pap smear 2022 Labs done October of last year reviewed CBC and metabolic profile within normal limit TSH within normal limit Low vaccine up-to-date Tdap was given today Orders: Orders Amylase Today E66.09 - Other obesity due to excess calories, F33.42 - Major depressive disorder, recurrent, in full remission, F41.1 - Generalized anxiety disorder, J45.20 - Mild intermittent asthma, uncomplicated, R73.01 - Impaired fasting glucose, Z00.01 - Encounter for general adult medical examination with abnormal findings, Z68.39 - Body mass index [BMI] 39.0-39.9, adult Hemoglobin A1c Today E66.09 - Other obesity due to excess calories, F33.42 - Major depressive disorder, recurrent, in full remission, F41.1 - Generalized anxiety disorder, J45.20 - Mild intermittent asthma, uncomplicated, R73.01 - Impaired fasting glucose, Z00.01 - Encounter for general adult medical examination with abnormal findings, Z68.39 - Body mass index [BMI] 39.0-39.9, adult Complete Blood Count Auto Diff Today E66.09 - Other obesity due to excess calories, F33.42 - Major depressive disorder, recurrent, in full remission, F41.1 - Generalized anxiety disorder, J45.20 - Mild intermittent asthma, uncomplicated, R73.01 - Impaired fasting glucose, Z00.01 - Encounter for general adult medical examination with abnormal findings, Z68.39 - Body mass index [BMI] 39.0-39.9, adult Comprehensive [place]. Panel Fast Today E66.09 - Other obesity due to excess calories, F33.42 - Major depressive disorder, recurrent, in full remission, F41.1 - Generalized anxiety disorder, J45.20 - Mild intermittent asthma, uncomplicated, R73.01 - Impaired fasting glucose, Z00.01 - Encounter for general adult medical examination with abnormal findings, Z68.39 - Body mass index [BMI] 39.0-39.9, adult Lipid Panel Today E66.09 - Other obesity due to excess calories, F33.42 - Major depressive disorder, recurrent, in full remission, F41.1 - Generalized anxiety disorder, J45.20 - Mild intermittent asthma, uncomplicated, R73.01 - Impaired fasting glucose, Z00.01 - Encounter for general adult medical examination with abnormal findings, Z68.39 - Body mass index [BMI] 39.0-39.9, adult TSH reflex Free T4 Today E66.09 - Other obesity due to excess calories, F33.42 - Major depressive disorder, recurrent, in full remission, F41.1 - Generalized anxiety disorder, J45.20 - Mild intermittent asthma, uncomplicated, R73.01 - Impaired fasting glucose, Z00.01 - Encounter for general adult medical examination with abnormal findings, Z68.39 - Body mass index [BMI] 39.0-39.9, adult Lipase Today E66.09 - Other obesity due to excess calories, F33.42 - Major depressive disorder, recurrent, in full remission, F41.1 - Generalized anxiety disorder, J45.20 - Mild intermittent asthma, uncomplicated, R73.01 - Impaired fasting glucose, Z00.01 - Encounter for general adult medical examination with abnormal findings, Z68.39 - Body mass index [BMI] 39.0-39.9, adult TDaP Immunization Today Z23 - Encounter for immunization Medications: Changed From buspirone 10 mg PO TID 30 days PRN 90 tabs 2RF anxiety To buspirone 5 mg PO BID PRN 60 tabs 2RF anxiety 30 days
[2024-11-04 15:53] VITALS: BP 132/84; PULSE 88; O2SAT 98; BMI 37.8
== END 2024-11-04 16:10 | disposition home or self-care (01) ==
LOC: HO.HMCC 15:51
PROVIDERS: PCP Internal Medicine; Visit Provider Internal Medicine
DX: Z00.00 Encounter for general adult medical examination without abnormal findings (principal); F33.42 Major depressive disorder, recurrent, in full remission; E66.09 Other obesity due to excess calories; Z68.39 Body mass index [BMI] 39.0-39.9, adult; F41.1 Generalized anxiety disorder; R73.01 Impaired fasting glucose; J45.20 Mild intermittent asthma, uncomplicated; Z23 Encounter for immunization

== ENCOUNTER → 2024-11-04 15:51 | Outpatient (BNVA) | payer OTHER, SELFPAY | PROVIDERS: PCP Internal Medicine; Visit Provider Internal Medicine | DX: Z00.01 Encounter for general adult medical examination with abnormal findings (principal); Z23 Encounter for immunization; E66.09 Other obesity due to excess calories; Z68.39 Body mass index [BMI] 39.0-39.9, adult; F33.42 Major depressive disorder, recurrent, in full remission; F41.1 Generalized anxiety disorder; R73.01 Impaired fasting glucose; J45.20 Mild intermittent asthma, uncomplicated; Z79.899 Other long term (current) drug therapy | CPT/HCPCS: 90471; 90715; 96127 ==

== ENCOUNTER 2025-02-03 15:28 | Outpatient (AMB) | payer OTHER, SELFPAY ==
--- NOTE | 2025-02-03 15:29 | MHC.PC.OV ---
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: No Accompanied by: Self / Same As Patient Allergies bupropion [From Wellbutrin] Adverse Reaction (Verified 02/03/25 15:30) Panic Medication List - Last Reconciled 02/03/25 by Idalia Clements MD albuterol sulfate 90 mcg/actuation (Ventolin HFA) 1 inh inhalation QID PRN 30 days buspirone 5 mg PO BID PRN 30 days dapsone 5% topical QAM escitalopram oxalate 10 mg PO DAILY 90 days spironolactone 50 mg PO BID tirzepatide (weight loss) (Zepbound) mg subcut tretinoin 0.05% appl topical Tobacco use date assessed: 02/03/25 Dental Screening Dental Screen Date: 02/03/25 Did you have a dental visit in the last 12 months?: Yes Did you have a dental problem in the last 6 months where you did not have access to dental care?: No Was dental information given to patient?: Patient has dentist HPI 3m follow up HPI Details History The patient is a 44-year-old female presenting with medication management for anxiety. - Patient experiences anxiety, managed with buspirone 5 mg daily, escitalopram, She shows concern about discontinuing buspirone despite effective symptom control and is testing to reduce or stop its use. - Anxiety episodes, particularly when driving, were significant, but the patient successfully managed a recent long trip, indicating medication effectiveness. - The current regimen has stabilized anxiety symptoms, though further lab testing will confirm ongoing management. - Pet ownership transition from a cat to a dog has provided emotional benefit after the cat?s demise, aiding in anxiety reduction. Problem List - Generalized Anxiety Disorder - History of Obesity - taking Zepbound through different provider - also taking spironolactone - history of impaired sugar Patient Instructions - Continue taking escitalopram as prescribed; do not discontinue. - Consider stopping buspirone; if experiencing anxiety, resume as needed. - Schedule lab tests promptly; hours of operation are from 7:30 to 2:30. - Monitor anxiety levels and report significant changes, especially during driving. - Stay active with the dog, including regular walks, to support weight management and anxiety control. - Return for follow-up in four months or earlier if issues arise. Review of Systems - General: No fever no chills - Neurological: No headaches no dizziness - Ear nose throat: No sore throat no hearing difficulty no ear pain - Cardiovascular: No syncope, no chest pain, no palpitations - Gastrointestinal: No nausea vomiting or diarrhea - Endocrine: No polyuria polydipsia no heat intolerance - Genitourinary: No dysuria , no blood in urine Physical Exam - General: No acute distress - HEENT: No acute findings - Neck: Supple - Respiratory system: Able to talk in full sentences, no audible wheeze - cardiovascular: S1-S2 regular in rate and rhythm - Gastrointestinal: No pain - Extremities: No new findings - STATEMENT PROCESSOR: Alert awake oriented x3 motor sensory intact - Skin: Normal turgor [facility] Surgical History No pertinent past surgical history Social History Housing: House Patient Tobacco Use Status: Never used Tobacco e-Cigarette/Vaping Use: Never Used service: No Current occupational status: employed Current occupational exposures/hazards: No Cognitive needs: No Hearing needs: No Vision needs: Yes Questionnaire PHQ-9 Over the last 2 weeks, how often have you been bothered by any of the following problems? 1. Little interest or pleasure in doing things: not at all 2. Feeling down, depressed, or hopeless: not at all 3. Trouble falling or staying asleep, or sleeping too much: not at all 4. Feeling tired or having little energy: not at all 5. Poor appetite or overeating: not at all 6. Feeling bad about yourself - or that you are a failure or have let yourself or your family down: not at all 7. Trouble concentrating on things, such as reading the newspaper or watching television: not at all 8. Moving or speaking so slowly that other people could have noticed. Or the opposite - being so fidgety or restless that you have been moving around a lot more than usual: not at all 9. Thoughts that you would be better off or of hurting yourself in some way: not at all Total score: 0 Depression Screening Interpretation: Negative Depression Screening Done: Yes 37064 - PHQ-9 Billing: Yes Source: Developed by Drs. Dickson Cates, Marni Boggs, Freeman Beckford and colleagues, with an educational monica from [employer]. Thrive Questionnaire Date Thrive assessed: 02/03/25 I am a: Patient What is your living situation today?: I have a steady place to live Within the past 12 months, did the food you bought not last and you didn't have the money to get more?: Never true Within the past 12 months, did you worry whether your food would run out before you got money to buy more?: Never true Do you have trouble paying for medicines?: No Do you have trouble getting transportation to medical appointments?: No Do you have trouble paying your heating and electricity bill?: No Do you have trouble taking care of your child, family member or friend?: No Do you have trouble with day-to-day activities such as bathing, preparing meals, shopping, managing finances, etc.?: No Are you currently unemployed and looking for a job?: No Are you interested in more education?: No Please select the resources that you would like help with: None Currently or been in a relationship where the following occur: No concerns reported THRIVE Score: 0 AUDIT C Alcohol Use Questionnaire (AUDIT-C) 1. How often do you have a drink containing alcohol?: Monthly or less 2. How many drinks containing alcohol do you have on a typical day when you are drinking?: 1 or 2 3. How often do you have six or more drinks on one occasion?: Never Total Score: 1 Score Reviewed/Action Taken: Yes ESTRELLA-7 AMB Questionnaire ESTRELLA-7 Date ESTRELLA - 7 assessed: 02/03/25 Feeling nervous, anxious, or on edge: 1 = Several days Not being able to stop or control worryin = Not at all Worrying too much about different things: 1 = Several days Trouble relaxin = Not at all Being so restless that it is hard to sit still: 0 = Not at all Becoming easily annoyed or irritable: 1 = Several days Feeling afraid as if something awful might happen: 0 = Not at all Total ESTRELLA-7 score (0-4 normal; 5-9 mild; 10-14 moderate; 15-21 severe): 3 Source: Developed by Drs. Dickson Cates, Marni Boggs, Freeman Beckford and colleagues, with an educational monica from [employer]. ESTRELLA-7 Assessment Billing ESTRELLA-7 Assessment Tool: ESTRELLA-7 Assessment 12176 Physical exam (Primary Care) Vital Signs: Last Vital Signs Pulse 82 02/03/25 15:30 BP 128/80 02/03/25 15:30 Pulse Ox 98 02/03/25 15:30 Oxygen Delivery Method Room Air 02/03/25 15:30 BMI result Body Mass Index 37.0 Tobacco/Smoking Status: Tobacco use Status Tobacco use date assessed 02/03/25 02/03/25 15:34 Patient Tobacco Use Status Never used Tobacco 02/03/25 15:34 e-Cigarette/Vaping Use Never Used 02/03/25 15:34 PHQ-9: PHQ-9 Score PHQ-9: Total score 0 02/03/25 15:53 Depression Screening Interpretation: Negative Thrive Assessment: Date of Thrive Assessment Date Thrive assessed 02/03/25 02/03/25 15:34 Currently or been in a relationship where the following occur: No concerns reported Coding Level of Care Code Est Pt Level 3 (68348) Diagnoses Recurrent major depressive disorder, in full remission F33.42 Active/Remission status: in full remission Anxiety, generalized F41.1 Impaired fasting blood sugar R73.01 Class 2 obesity due to excess calories without serious comorbidity with body mass index (BMI) of 39.0 to 39.9 in adult E66.09; Z68.39 Obesity classification: adult class 2 (BMI 35 - 39.9) Serious obesity comorbidity presence: without serious comorbidity Body mass index: BMI 39.0-39.9 Additional Codes ESTRELLA-7 Assessment Billing - ESTRELLA-7 Assessment Tool: ESTRELLA-7 Assessment 19945 ([id number]) PHQ-9 - 55211 - PHQ-9 Billing: Yes ([id number]) Assessment & Plan Assessment & Plan (1) Major depression, recurrent: Code(s): F33.9 - Major depressive disorder, recurrent, unspecified Category: Medical Qualifiers: Active/Remission status: in full remission Qualified Code(s): F33.42 - Major depressive disorder, recurrent, in full remission (2) Anxiety, generalized: Code(s): F41.1 - Generalized anxiety disorder Category: Medical (3) Impaired fasting blood sugar: Code(s): R73.01 - Impaired fasting glucose Category: Medical (4) Obesity due to excess calories: Code(s): E66.09 - Other obesity due to excess calories Category: Medical Qualifiers: Obesity classification: adult class 2 (BMI 35 - 39.9) Serious obesity comorbidity presence: without serious comorbidity Body mass index: BMI 39.0-39.9 Qualified Code(s): E66.09 - Other obesity due to excess calories; Z68.39 - Body mass index [BMI] 39.0-39.9, adult Plan History The patient is a 44-year-old female presenting with medication management for anxiety. - Patient experiences anxiety, managed with buspirone 5 mg daily, escitalopram, She shows concern about discontinuing buspirone despite effective symptom control and is testing to reduce or stop its use. - Anxiety episodes, particularly when driving, were significant, but the patient successfully managed a recent long trip, indicating medication effectiveness. - The current regimen has stabilized anxiety symptoms, though further lab testing will confirm ongoing management. - Pet ownership transition from a cat to a dog has provided emotional benefit after the cat?s demise, aiding in anxiety reduction. Problem List - Generalized Anxiety Disorder - History of Obesity - taking Zepbound through different provider - also taking spironolactone - history of impaired sugar Patient Instructions - Continue taking escitalopram as prescribed; do not discontinue. - Consider stopping buspirone; if experiencing anxiety, resume as needed. - Schedule lab tests promptly; hours of operation are from 7:30 to 2:30. - Monitor anxiety levels and report significant changes, especially during driving. - Stay active with the dog, including regular walks, to support weight management and anxiety control. - Return for follow-up in four months or earlier if issues arise.
[2025-02-03 15:30] VITALS: BP 128/80; PULSE 82; O2SAT 98; BMI 37.0
--- OUTSIDE RECORDS SUMMARY | 2025-02-03 17:22 | XMS_ITS ---
Author Organization [facility] Address [address] [place] [address] Care Team Providers Care Warp Changer Name Role Phone JOHANA CH Unavailable [phone] ALLERGIES Allergen (clinical drug ingredient) Drug/Non Drug Allergy documented on EMR Reaction Allergy Type Onset Date Status Wellbutrin Unknown Drug Allergy Active REASON FOR VISIT Patient presents for weight management follow up. Previous weight [id number]. Current weight is standing at 209.0lbs. No concerns needed to be addressed at this moment. MEDICATIONS Medication SIG (Take, Route, Fr equency, Duration) Notes Start Date End Date Status Zepbound 5 MG/0.5ML 5 mg Subcutaneous we ekly for 30 days 09/08/2024 Active busPIRone HCl 10 MG 1 tablet Orally Twice a day Active Spironolactone 50 MG 1 tablet Orally Once a day Active Lexapro 10 MG 1 tablet Orally Once a day Active SOCIAL HISTORY Tobacco Use: Social History Observation Description Date Details (start date - stop date) Never Smoker NA - NA Sex Assigned At : Social History Observation Description Sex Assigned At Unknown Tobacco Use/Smoking Question Answer Notes Are you a nonsmoker Section Notes: rn alcohol: 2x/month tob: denies drugs: denies caffeine: limited due to jitters PROBLEMS Problem Type ICD Code Onset Dates Problem Status W/U Status Risk SNOMED Code Notes Problem Anxiety (F41.9) Active confirmed Anxiety (06339533) Problem Raynaud's disease without gangrene (I73.00) Active confirmed Raynaud's disease (338421357) Problem History of cervical cancer (Z85.41) Active confirmed History of malignant neoplasm of cervix (666344616) VITAL SIGNS Blood pressure systolic 124 mm Hg 10/31/20 24 Blood pressure diastolic 84 mm Hg 024 Heart Rate 73 /min 10/31/2024 Height 63 in 10/31/2024 Weight 209.0 lbs 10/31/2024 BMI 37.02 kg/m2 10/31/2024 Oximetry 97 % 10/31/2024 Encounters Encounter Location Date Provider Diagnosis [facility] [address] [place] [address] 10/31/2024 JOHANA CH Obesity (BMI 30-39.9 ) E66.9 ; BMI 37.0-37.9, adult Z68.37 ; Depression, unspecified depression type F32.A and Other acne L70.8 ASSESSMENTS Encounter Date Diagnosis Assessment Notes Treatment Notes Treatment Clinical Notes Section Notes 10/31/2024 Obesity (BMI 30-39.9) (ICD-10 - E66.9) Angie Is a 42-year-old female who presented the office for weight f/u. 02/17/23: weight 215.2, BMI 38.12- Patient educated excessively on lifestyle modifications including diet, exercise, sleep hygiene, stress reduction, high-protein foods, low-cut hydrate snacks, healthy fats. She was provided with educational documentation regarding all of this as well as a new patient packet. SECA reviewed. MICC provided in office today. Most recent labs without concern. Patient was interested in Wegovy had a conversation with her regarding three consecutive months of weight loss with her insurance. Patient is understanding and aware of this protocol. Will continue with lifestyle modifications and MICC injection and try to submit for GLP-1 first month of May. 03/26/23: weight 216.2, BMI 38.29- SECA reviewed showing 1 pound of fat loss, 1 pound of muscle gain. Patient was congratulated on this. She is also on her period therefore she did gain a little of water weight/is bloated. Patient interested in Wegovy, and can submit after three consecutive months of weight loss as she does qualify. This will be at the first week of May. Patient is excited for this, but is working on lifestyle modifications in the meantime which is strongly encouraged. MICC provided. 04/27/2023: Weight 221.3, BMI 39.2-patient is struggling with lifestyle modifications/struggl ing to lose weight. Did have COVID that put her behind as well. She states that she is motivated, and interested in weight loss medications at this time. Would prefer Wegovy, but unable to get due to supply at this time. Educated on compounded semaglutide, as well as Saxenda. Patient interested in trying to submit for Saxenda. Educated on proper use, as well as side effects. 05/28/2023: Weight 223.1, BMI 39.52. Body composition scale reviewed showing fat gain. Patient is frustrated, as she is trying to make multiple lifestyle changes but is still gaining weight. We did try sending Saxenda, but will try to resubmit through [facility]. Saxenda prescription does not need to be resent, just submitting prior Auth through [facility] and will call patient. Thank patient for being understanding. Should continue with lifestyle. If unable to get covered, will consider compounded semaglutide. Obtain insulin/hemoglobin A1c prior to next visit.If compounded semaglutide, will go to [facility] for nursing visits, and follow-up in [facility] for provider visits with myself. 06/29/2023: Weight 217.8, BMI 38.58. Patient congratulated on efforts. Taking Saxenda daily with compliance, denies any known side effects. She has successfully incorporated increased physical activity into her lifestyle and reports recent hikes/bike rides. She has found portion control much easier secondary to the appetite suppression effect of Saxenda. She continues to maintain adequate water intake. Seca demonstrated maintenance of muscle mass with loss of fat mass. She is encouraged to continue to maintain her current lifestyle modifications. Patient is happy with progress and is motivated to continue pursuing weight loss/better overall health. Will provide refills for Saxenda today, discussed recent supply issues. Patient understands she may have to call around to local pharmacies to find available medication 07/20/2023: Weight 218.3, BMI 38.67. Patient states that she feels slightly discouraged as she has not significantly lost weight taking Saxenda 2.4 mg with compliance, states that she would like to continue as she is motivated to continue lose weight and doing very well with lifestyle modifications. Does admit to some localized injection site reaction that goes away fairly quickly. Educated to alternate injection sites, may be try to inject into the leg/arm, also educated to clean the area with alcohol, and let the area completely dry before injecting. She is aware. We will try for 1 more month, and if still no success, we will talk about other options. 09/07/2023: Weight 225.2 pounds, BMI 39.89. Patient gained weight since last visit. Had to stop semaglutide because of the national shortage. Patient is questioning other options. Educated on compounded semaglutide in the meantime in order to submit for Wegovy 1.7 mg. Patient understanding. We will start with semaglutide 0.25 for the next 2 weeks, and could consider increasing to 0.5 sooner than 4 weeks of patient tolerating well because she has been on Saxenda 3 mg recently. 10/13/2023: Weight 225.3, BMI 39.91. Patient's weight has plateaued over the past month. 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 In the meantime will increase to semaglutide 1 mg and submit for Wegovy 1 mg. Educated on proper use, side effects. 11/12/2023: Weight 223.5, BMI 39.59. Patient is lost 2 pounds since last visit. Will get body composition scan next visit. Taking Wegovy 1 mg with compliance, without any side effects. Doing well overall. Will try to send for Wegovy 1.7 mg, but if unable to find will taper back down to 1 mg. Discussed the importance of exercise in conjunction with weight management medications for successful weight overall. Educated on small portions and snacks at the day instead of large meals secondary to lack of appetite. 12/15/23: BMI 38, weight 219. Increase to Wegovy 2.4 given patient cannot find 1.7 mg anywhere. Denies side effects including nausea/vomiting. Discussed water intake of 80 oz of water, and increase protein intake goal of 100 gm. 02/01/2024: Weight 213.8, BMI 37.87. Patient graduated an effort, continuing to lose slow, steady weight. Very pleased with progress overall. He is going to work more on the exercise piece, as portion control has been improving. M STEVEN provided.Focused on high-protein, implementing more resistance training. 03/29/2024: Weight 210.7, BMI 37.32. Patient congratulated on effort, is losing slow, steady weight, although in reviewing body scan has lost some fat, and some muscle. Patient continues to lose muscle mass. Really focusing on eating more high-protein and implementing more resistance training.Continue Wegovy 2.4 mg. Could consider adding Topamax or metformin. Avoid Contrave as she has an intolerance to Wellbutrin 05/12/2024: Weight 207, BMI 36.79. Patient congratulated and effort, continues to lose slow, steady weight. Patient lost 3 pounds of fat, gained 2 pounds of muscle. Congratulated on effort, continuing with high-protein and resistance training. Changing body composition for the better. Patient has been feeling well on the medication, but still noticing positive effects without side effects. 07/25/2024: Weight 208, BMI 36.86. Body scan unable to be completed today as machine is out of service, will complete next visit. Continue with Wegovy 2.4 mg, could consider potentially switching over to Zepbound, patient is going to contact [employer] to see if there is coverage with that medication. Having some fatigue/bloating. Focusing on whole proteins. 09/08/2024: Weight 206 BMI 36.61. Body composition showing maintenance overall. Will discontinue Wegovy, and initiate PA for Zepbound 2.5 mg that she has not noticing significant effect on Wegovy anymore. Discussed proper use, side effects.Patient did call [employer] and they stated that they would cover the medication with PA. 10/31/2024: Weight 209, BMI 37. Patient is overall maintained weight since last visit transitioning off of Wegovy and on to Zepbound. Taking Zepbound 2.5 mg and is noticing less fatigue, less side effects overall. Is feeling better. Will continue, increase Zepbound to 5 mg and continue with Peloton/walking. #Depression: patient to continue buspirone 10 mg, Lexapro 10 mg #Acne: patient follows with dermatology, she should continue taking spironolactone 50 mg Follow-up in 6 weeks, sooner as needed. Time spent with patient 30 minutes with greater than 50% on care coordination and patient education. All quetsions answered to patients satisfaction. Patient verbalized understanding of diagnosis and treatments explained. To call sooner prior to next visit it any questions/concerns arise. Case discussed with collaborating physician Madalyn Velasquez who reviewed the assessment and plan. Chart, medications, labs, vital signs reviewed. Dictation was accomplished with the use of [employer] voice recognition software, prone to medical misidentifications and grammatical errors. This is unintentional and the practitioner does try to identify and correct these, but some could still be present. Please do not hesitate to contact practitioner for clarification. 10/31/2024 BMI 37.0-37.9, adult (ICD-10 - Z68.37) Angie Is a 42-year-old female who presented the office for weight f/u. 02/17/23: weight 215.2, BMI 38.12- Patient educated excessively on lifestyle modifications including diet, exercise, sleep hygiene, stress reduction, high-protein foods, low-cut hydrate snacks, healthy fats. She was provided with educational documentation regarding all of this as well as a new patient packet. SECA reviewed. MICC provided in office today. Most recent labs without concern. Patient was interested in Wegovy had a conversation with her regarding three consecutive months of weight loss with her insurance. Patient is understanding and aware of this protocol. Will continue with lifestyle modifications and MICC injection and try to submit for GLP-1 first month of May. 03/26/23: weight 216.2, BMI 38.29- SECA reviewed showing 1 pound of fat loss, 1 pound of muscle gain. Patient was congratulated on this. She is also on her period therefore she did gain a little of water weight/is bloated. Patient interested in Wegovy, and can submit after three consecutive months of weight loss as she does qualify. This will be at the first week of May. Patient is excited for this, but is working on lifestyle modifications in the meantime which is strongly encouraged. MICC provided. 04/27/2023: Weight 221.3, BMI 39.2-patient is struggling with lifestyle modifications/struggl ing to lose weight. Did have COVID that put her behind as well. She states that she is motivated, and interested in weight loss medications at this time. Would prefer Wegovy, but unable to get due to supply at this time. Educated on compounded semaglutide, as well as Saxenda. Patient interested in trying to submit for Saxenda. Educated on proper use, as well as side effects. 05/28/2023: Weight 223.1, BMI 39.52. Body composition scale reviewed showing fat gain. Patient is frustrated, as she is trying to make multiple lifestyle changes but is still gaining weight. We did try sending Saxenda, but will try to resubmit through [facility]. Saxenda prescription does not need to be resent, just submitting prior Auth through [facility] and will call patient. Thank patient for being understanding. Should continue with lifestyle. If unable to get covered, will consider compounded semaglutide. Obtain insulin/hemoglobin A1c prior to next visit.If compounded semaglutide, will go to [facility] for nursing visits, and follow-up in [facility] for provider visits with myself. 06/29/2023: Weight 217.8, BMI 38.58. Patient congratulated on efforts. Taking Saxenda daily with compliance, denies any known side effects. She has successfully incorporated increased physical activity into her lifestyle and reports recent hikes/bike rides. She has found portion control much easier secondary to the appetite suppression effect of Saxenda. She continues to maintain adequate water intake. Seca demonstrated maintenance of muscle mass with loss of fat mass. She is encouraged to continue to maintain her current lifestyle modifications. Patient is happy with progress and is motivated to continue pursuing weight loss/better overall health. Will provide refills for Saxenda today, discussed recent supply issues. Patient understands she may have to call around to local pharmacies to find available medication 07/20/2023: Weight 218.3, BMI 38.67. Patient states that she feels slightly discouraged as she has not significantly lost weight taking Saxenda 2.4 mg with compliance, states that she would like to continue as she is motivated to continue lose weight and doing very well with lifestyle modifications. Does admit to some localized injection site reaction that goes away fairly quickly. Educated to alternate injection sites, may be try to inject into the leg/arm, also educated to clean the area with alcohol, and let the area completely dry before injecting. She is aware. We will try for 1 more month, and if still no success, we will talk about other options. 09/07/2023: Weight 225.2 pounds, BMI 39.89. Patient gained weight since last visit. Had to stop semaglutide because of the national shortage. Patient is questioning other options. Educated on compounded semaglutide in the meantime in order to submit for Wegovy 1.7 mg. Patient understanding. We will start with semaglutide 0.25 for the next 2 weeks, and could consider increasing to 0.5 sooner than 4 weeks of patient tolerating well because she has been on Saxenda 3 mg recently. 10/13/2023: Weight 225.3, BMI 39.91. Patient's weight has plateaued over the past month. 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 In the meantime will increase to semaglutide 1 mg and submit for Wegovy 1 mg. Educated on proper use, side effects. 11/12/2023: Weight 223.5, BMI 39.59. Patient is lost 2 pounds since last visit. Will get body composition scan next visit. Taking Wegovy 1 mg with compliance, without any side effects. Doing well overall. Will try to send for Wegovy 1.7 mg, but if unable to find will taper back down to 1 mg. Discussed the importance of exercise in conjunction with weight management medications for successful weight overall. Educated on small portions and snacks at the day instead of large meals secondary to lack of appetite. 12/15/23: BMI 38, weight 219. Increase to Wegovy 2.4 given patient cannot find 1.7 mg anywhere. Denies side effects including nausea/vomiting. Discussed water intake of 80 oz of water, and increase protein intake goal of 100 gm. 02/01/2024: Weight 213.8, BMI 37.87. Patient graduated an effort, continuing to lose slow, steady weight. Very pleased with progress overall. He is going to work more on the exercise piece, as portion control has been improving. Alfonso cerrato.Focused on high-protein, implementing more resistance training. 03/29/2024: Weight 210.7, BMI 37.32. Patient congratulated on effort, is losing slow, steady weight, although in reviewing body scan has lost some fat, and some muscle. Patient continues to lose muscle mass. Really focusing on eating more high-protein and implementing more resistance training.Continue Wegovy 2.4 mg. Could consider adding Topamax or metformin. Avoid Contrave as she has an intolerance to Wellbutrin 05/12/2024: Weight 207, BMI 36.79. Patient congratulated and effort, continues to lose slow, steady weight. Patient lost 3 pounds of fat, gained 2 pounds of muscle. Congratulated on effort, continuing with high-protein and resistance training. Changing body composition for the better. Patient has been feeling well on the medication, but still noticing positive effects without side effects. 07/25/2024: Weight 208, BMI 36.86. Body scan unable to be completed today as machine is out of service, will complete next visit. Continue with Wegovy 2.4 mg, could consider potentially switching over to Zepbound, patient is going to contact [employer] to see if there is coverage with that medication. Having some fatigue/bloating. Focusing on whole proteins. 09/08/2024: Weight 206 BMI 36.61. Body composition showing maintenance overall. Will discontinue Wegovy, and initiate PA for Zepbound 2.5 mg that she has not noticing significant effect on Wegovy anymore. Discussed proper use, side effects.Patient did call [employer] and they stated that they would cover the medication with PA. 10/31/2024: Weight 209, BMI 37. Patient is overall maintained weight since last visit transitioning off of Wegovy and on to Zepbound. Taking Zepbound 2.5 mg and is noticing less fatigue, less side effects overall. Is feeling better. Will continue, increase Zepbound to 5 mg and continue with Peloton/walking. #Depression: patient to continue buspirone 10 mg, Lexapro 10 mg #Acne: patient follows with dermatology, she should continue taking spironolactone 50 mg Follow-up in 6 weeks, sooner as needed. Time spent with patient 30 minutes with greater than 50% on care coordination and patient education. All quetsions answered to patients satisfaction. Patient verbalized understanding of diagnosis and treatments explained. To call sooner prior to next visit it any questions/concerns arise. Case discussed with collaborating physician Madalyn Velasquez who reviewed the assessment and plan. Chart, medications, labs, vital signs reviewed. Dictation was accomplished with the use of [employer] voice recognition software, prone to medical misidentifications and grammatical errors. This is unintentional and the practitioner does try to identify and correct these, but some could still be present. Please do not hesitate to contact practitioner for clarification. 10/31/2024 Depression, unspecified depression type (ICD-10 - F32.A) Angie Is a 42-year-old female who presented the office for weight f/u. 02/17/23: weight 215.2, BMI 38.12- Patient educated excessively on lifestyle modifications including diet, exercise, sleep hygiene, stress reduction, high-protein foods, low-cut hydrate snacks, healthy fats. She was provided with educational documentation regarding all of this as well as a new patient packet. SECA reviewed. MICC provided in office today. Most recent labs without concern. Patient was interested in Wegovy had a conversation with her regarding three consecutive months of weight loss with her insurance. Patient is understanding and aware of this protocol. Will continue with lifestyle modifications and MICC injection and try to submit for GLP-1 first month of May. 03/26/23: weight 216.2, BMI 38.29- SECA reviewed showing 1 pound of fat loss, 1 pound of muscle gain. Patient was congratulated on this. She is also on her period therefore she did gain a little of water weight/is bloated. Patient interested in Wegovy, and can submit after three consecutive months of weight loss as she does qualify. This will be at the first week of May. Patient is excited for this, but is working on lifestyle modifications in the meantime which is strongly encouraged. MICC provided. 04/27/2023: Weight 221.3, BMI 39.2-patient is struggling with lifestyle modifications/struggl ing to lose weight. Did have COVID that put her behind as well. She states that she is motivated, and interested in weight loss medications at this time. Would prefer Wegovy, but unable to get due to supply at this time. Educated on compounded semaglutide, as well as Saxenda. Patient interested in trying to submit for Saxenda. Educated on proper use, as well as side effects. 05/28/2023: Weight 223.1, BMI 39.52. Body composition scale reviewed showing fat gain. Patient is frustrated, as she is trying to make multiple lifestyle changes but is still gaining weight. We did try sending Saxenda, but will try to resubmit through [facility]. Saxenda prescription does not need to be resent, just submitting prior Auth through [facility] and will call patient. Thank patient for being understanding. Should continue with lifestyle. If unable to get covered, will consider compounded semaglutide. Obtain insulin/hemoglobin A1c prior to next visit.If compounded semaglutide, will go to [facility] for nursing visits, and follow-up in [facility] for provider visits with myself. 06/29/2023: Weight 217.8, BMI 38.58. Patient congratulated on efforts. Taking Saxenda daily with compliance, denies any known side effects. She has successfully incorporated increased physical activity into her lifestyle and reports recent hikes/bike rides. She has found portion control much easier secondary to the appetite suppression effect of Saxenda. She continues to maintain adequate water intake. Seca demonstrated maintenance of muscle mass with loss of fat mass. She is encouraged to continue to maintain her current lifestyle modifications. Patient is happy with progress and is motivated to continue pursuing weight loss/better overall health. Will provide refills for Saxenda today, discussed recent supply issues. Patient understands she may have to call around to local pharmacies to find available medication 07/20/2023: Weight 218.3, BMI 38.67. Patient states that she feels slightly discouraged as she has not significantly lost weight taking Saxenda 2.4 mg with compliance, states that she would like to continue as she is motivated to continue lose weight and doing very well with lifestyle modifications. Does admit to some localized injection site reaction that goes away fairly quickly. Educated to alternate injection sites, may be try to inject into the leg/arm, also educated to clean the area with alcohol, and let the area completely dry before injecting. She is aware. We will try for 1 more month, and if still no success, we will talk about other options. 09/07/2023: Weight 225.2 pounds, BMI 39.89. Patient gained weight since last visit. Had to stop semaglutide because of the national shortage. Patient is questioning other options. Educated on compounded semaglutide in the meantime in order to submit for Wegovy 1.7 mg. Patient understanding. We will start with semaglutide 0.25 for the next 2 weeks, and could consider increasing to 0.5 sooner than 4 weeks of patient tolerating well because she has been on Saxenda 3 mg recently. 10/13/2023: Weight 225.3, BMI 39.91. Patient's weight has plateaued over the past month. 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 In the meantime will increase to semaglutide 1 mg and submit for Wegovy 1 mg. Educated on proper use, side effects. 11/12/2023: Weight 223.5, BMI 39.59. Patient is lost 2 pounds since last visit. Will get body composition scan next visit. Taking Wegovy 1 mg with compliance, without any side effects. Doing well overall. Will try to send for Wegovy 1.7 mg, but if unable to find will taper back down to 1 mg. Discussed the importance of exercise in conjunction with weight management medications for successful weight overall. Educated on small portions and snacks at the day instead of large meals secondary to lack of appetite. 12/15/23: BMI 38, weight 219. Increase to Wegovy 2.4 given patient cannot find 1.7 mg anywhere. Denies side effects including nausea/vomiting. Discussed water intake of 80 oz of water, and increase protein intake goal of 100 gm. 02/01/2024: Weight 213.8, BMI 37.87. Patient graduated an effort, continuing to lose slow, steady weight. Very pleased with progress overall. He is going to work more on the exercise piece, as portion control has been improving. M STEVEN provided.Focused on high-protein, implementing more resistance training. 03/29/2024: Weight 210.7, BMI 37.32. Patient congratulated on effort, is losing slow, steady weight, although in reviewing body scan has lost some fat, and some muscle. Patient continues to lose muscle mass. Really focusing on eating more high-protein and implementing more resistance training.Continue Wegovy 2.4 mg. Could consider adding Topamax or metformin. Avoid Contrave as she has an intolerance to Wellbutrin 05/12/2024: Weight 207, BMI 36.79. Patient congratulated and effort, continues to lose slow, steady weight. Patient lost 3 pounds of fat, gained 2 pounds of muscle. Congratulated on effort, continuing with high-protein and resistance training. Changing body composition for the better. Patient has been feeling well on the medication, but still noticing positive effects without side effects. 07/25/2024: Weight 208, BMI 36.86. Body scan unable to be completed today as machine is out of service, will complete next visit. Continue with Wegovy 2.4 mg, could consider potentially switching over to Zepbound, patient is going to contact [employer] to see if there is coverage with that medication. Having some fatigue/bloating. Focusing on whole proteins. 09/08/2024: Weight 206 BMI 36.61. Body composition showing maintenance overall. Will discontinue Wegovy, and initiate PA for Zepbound 2.5 mg that she has not noticing significant effect on Wegovy anymore. Discussed proper use, side effects.Patient did call [employer] and they stated that they would cover the medication with PA. 10/31/2024: Weight 209, BMI 37. Patient is overall maintained weight since last visit transitioning off of Wegovy and on to Zepbound. Taking Zepbound 2.5 mg and is noticing less fatigue, less side effects overall. Is feeling better. Will continue, increase Zepbound to 5 mg and continue with Peloton/walking. #Depression: patient to continue buspirone 10 mg, Lexapro 10 mg #Acne: patient follows with dermatology, she should continue taking spironolactone 50 mg Follow-up in 6 weeks, sooner as needed. Time spent with patient 30 minutes with greater than 50% on care coordination and patient education. All quetsions answered to patients satisfaction. Patient verbalized understanding of diagnosis and treatments explained. To call sooner prior to next visit it any questions/concerns arise. Case discussed with collaborating physician Madalyn Velasquez who reviewed the assessment and plan. Chart, medications, labs, vital signs reviewed. Dictation was accomplished with the use of [employer] voice recognition software, prone to medical misidentifications and grammatical errors. This is unintentional and the practitioner does try to identify and correct these, but some could still be present. Please do not hesitate to contact practitioner for clarification. 10/31/2024 Other acne (ICD-10 - L70.8) Angie Is a 42-year-old female who presented the office for weight f/u. 02/17/23: weight 215.2, BMI 38.12- Patient educated excessively on lifestyle modifications including diet, exercise, sleep hygiene, stress reduction, high-protein foods, low-cut hydrate snacks, healthy fats. She was provided with educational documentation regarding all of this as well as a new patient packet. SECA reviewed. MICC provided in office today. Most recent labs without concern. Patient was interested in Wegovy had a conversation with her regarding three consecutive months of weight loss with her insurance. Patient is understanding and aware of this protocol. Will continue with lifestyle modifications and MICC injection and try to submit for GLP-1 first month of May. 03/26/23: weight 216.2, BMI 38.29- SECA reviewed showing 1 pound of fat loss, 1 pound of muscle gain. Patient was congratulated on this. She is also on her period therefore she did gain a little of water weight/is bloated. Patient interested in Wegovy, and can submit after three consecutive months of weight loss as she does qualify. This will be at the first week of May. Patient is excited for this, but is working on lifestyle modifications in the meantime which is strongly encouraged. MICC provided. 04/27/2023: Weight 221.3, BMI 39.2-patient is struggling with lifestyle modifications/struggl ing to lose weight. Did have COVID that put her behind as well. She states that she is motivated, and interested in weight loss medications at this time. Would prefer Wegovy, but unable to get due to supply at this time. Educated on compounded semaglutide, as well as Saxenda. Patient interested in trying to submit for Saxenda. Educated on proper use, as well as side effects. 05/28/2023: Weight 223.1, BMI 39.52. Body composition scale reviewed showing fat gain. Patient is frustrated, as she is trying to make multiple lifestyle changes but is still gaining weight. We did try sending Saxenda, but will try to resubmit through [facility]. Saxenda prescription does not need to be resent, just submitting prior Auth through [facility] and will call patient. Thank patient for being understanding. Should continue with lifestyle. If unable to get covered, will consider compounded semaglutide. Obtain insulin/hemoglobin A1c prior to next visit.If compounded semaglutide, will go to [facility] for nursing visits, and follow-up in [facility] for provider visits with myself. 06/29/2023: Weight 217.8, BMI 38.58. Patient congratulated on efforts. Taking Saxenda daily with compliance, denies any known side effects. She has successfully incorporated increased physical activity into her lifestyle and reports recent hikes/bike rides. She has found portion control much easier secondary to the appetite suppression effect of Saxenda. She continues to maintain adequate water intake. Seca demonstrated maintenance of muscle mass with loss of fat mass. She is encouraged to continue to maintain her current lifestyle modifications. Patient is happy with progress and is motivated to continue pursuing weight loss/better overall health. Will provide refills for Saxenda today, discussed recent supply issues. Patient understands she may have to call around to local pharmacies to find available medication 07/20/2023: Weight 218.3, BMI 38.67. Patient states that she feels slightly discouraged as she has not significantly lost weight taking Saxenda 2.4 mg with compliance, states that she would like to continue as she is motivated to continue lose weight and doing very well with lifestyle modifications. Does admit to some localized injection site reaction that goes away fairly quickly. Educated to alternate injection sites, may be try to inject into the leg/arm, also educated to clean the area with alcohol, and let the area completely dry before injecting. She is aware. We will try for 1 more month, and if still no success, we will talk about other options. 09/07/2023: Weight 225.2 pounds, BMI 39.89. Patient gained weight since last visit. Had to stop semaglutide because of the national shortage. Patient is questioning other options. Educated on compounded semaglutide in the meantime in order to submit for Wegovy 1.7 mg. Patient understanding. We will start with semaglutide 0.25 for the next 2 weeks, and could consider increasing to 0.5 sooner than 4 weeks of patient tolerating well because she has been on Saxenda 3 mg recently. 10/13/2023: Weight 225.3, BMI 39.91. Patient's weight has plateaued over the past month. 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 In the meantime will increase to semaglutide 1 mg and submit for Wegovy 1 mg. Educated on proper use, side effects. 11/12/2023: Weight 223.5, BMI 39.59. Patient is lost 2 pounds since last visit. Will get body composition scan next visit. Taking Wegovy 1 mg with compliance, without any side effects. Doing well overall. Will try to send for Wegovy 1.7 mg, but if unable to find will taper back down to 1 mg. Discussed the importance of exercise in conjunction with weight management medications for successful weight overall. Educated on small portions and snacks at the day instead of large meals secondary to lack of appetite. 12/15/23: BMI 38, weight 219. Increase to Wegovy 2.4 given patient cannot find 1.7 mg anywhere. Denies side effects including nausea/vomiting. Discussed water intake of 80 oz of water, and increase protein intake goal of 100 gm. 02/01/2024: Weight 213.8, BMI 37.87. Patient graduated an effort, continuing to lose slow, steady weight. Very pleased with progress overall. He is going to work more on the exercise piece, as portion control has been improving. M STEVEN provided.Focused on high-protein, implementing more resistance training. 03/29/2024: Weight 210.7, BMI 37.32. Patient congratulated on effort, is losing slow, steady weight, although in reviewing body scan has lost some fat, and some muscle. Patient continues to lose muscle mass. Really focusing on eating more high-protein and implementing more resistance training.Continue Wegovy 2.4 mg. Could consider adding Topamax or metformin. Avoid Contrave as she has an intolerance to Wellbutrin 05/12/2024: Weight 207, BMI 36.79. Patient congratulated and effort, continues to lose slow, steady weight. Patient lost 3 pounds of fat, gained 2 pounds of muscle. Congratulated on effort, continuing with high-protein and resistance training. Changing body composition for the better. Patient has been feeling well on the medication, but still noticing positive effects without side effects. 07/25/2024: Weight 208, BMI 36.86. Body scan unable to be completed today as machine is out of service, will complete next visit. Continue with Wegovy 2.4 mg, could consider potentially switching over to Zepbound, patient is going to contact [employer] to see if there is coverage with that medication. Having some fatigue/bloating. Focusing on whole proteins. 09/08/2024: Weight 206 BMI 36.61. Body composition showing maintenance overall. Will discontinue Wegovy, and initiate PA for Zepbound 2.5 mg that she has not noticing significant effect on Wegovy anymore. Discussed proper use, side effects.Patient did call [employer] and they stated that they would cover the medication with PA. 10/31/2024: Weight 209, BMI 37. Patient is overall maintained weight since last visit transitioning off of Wegovy and on to Zepbound. Taking Zepbound 2.5 mg and is noticing less fatigue, less side effects overall. Is feeling better. Will continue, increase Zepbound to 5 mg and continue with Peloton/walking. #Depression: patient to continue buspirone 10 mg, Lexapro 10 mg #Acne: patient follows with dermatology, she should continue taking spironolactone 50 mg Follow-up in 6 weeks, sooner as needed. Time spent with patient 30 minutes with greater than 50% on care coordination and patient education. All quetsions answered to patients satisfaction. Patient verbalized understanding of diagnosis and treatments explained. To call sooner prior to next visit it any questions/concerns arise. Case discussed with collaborating physician Madalyn Velasquez who reviewed the assessment and plan. Chart, medications, labs, vital signs reviewed. Dictation was accomplished with the use of [employer] voice recognition software, prone to medical misidentifications and grammatical errors. This is unintentional and the practitioner does try to identify and correct these, but some could still be present. Please do not hesitate to contact practitioner for clarification. PLAN OF TREATMENT Medication Medication Name Sig Start Date Stop Date Notes Zepbound 5 MG/0.5ML 5 mg Subcutaneous weekly for 30 days 1 Next Appt Details Provider Name:JOHANA CH, 0 02/28/2025 02:45:00 PM, [address], [place], [id number], Progress Notes * Angie WILSONDOB: [birth year] (44 yo F)Acc No.[id number]:10/31/2024 Patient:??Angie WILSON Provider:??JOHANA CH PA-C :1980?Age:44 Y?Sex:Fe male Date:10/31/2024 Address:[address] [place], [place] [id number] Subjective: * Chief Complaints: * ?1. Patient presents fo r weight management follow up. Previous weight qvn085.7lbs. Current weight is standing at 209.0lbs. No concerns needed to be addressed at this moment.. * HPI: ?Constitutional:? Angie is a pleasant 44-year-old female who presents the office for a weight management follow-up. Last seen 09/08/2024. Tried discontinuing Wegovy 2.4 mg, and initiating Zepbound 2.5 mg. No side effects on medication and is not as tired. More motivated and having more energy. Hard to exercise with the holidays but more active. Enjoys weight lifting. Had a Pelaton as well.Very motivated, and is pleased with how she is feeling at this time. Like to increase to Zepbound 5 mg. * ROS:?Constitutional: Denies sudden weight loss, fever, night sweats, excessive fatigue, or changes in sleep. ???CV: Denies chest pain or heart palpitations. ???Respiratory: Denies SOB, cough, hemoptysis, sputum production, wheezing, or pleuritic pain. ???GI: Denies nausea, vomiting, diarrhea, constipation, blood in stools, pain associated with eating, indigestion, or difficulty/pain with swallowing. ???Integumentary: Denies skin changes. ???Neuro: Denies confusion, language dysfunction, localized weakness, dizziness, numbness or tingling. ???Psychiatric: Denies worsening symptoms of depression, anxiety, or suicidal thoughts. Feels safe at home. ???Endocrine: Denies polyuria, polyphagia, or polydipsia. No heat/cold intolerance or excessive thirst. ???Hematological: Denies easy bruising/bleeding, no lymph node swelling. * Medical History:??Depression , Anxiety, Raynaud's disease without gangrene, History of cervical cancer. * Surgical History:??trachioto my 2015, lap inocente 2020. * Hospitalization/Major Diagno stic Procedure:??Denies Past Hospitalization. * Family History:??Father: dec eased 48 yrs.??Mother: 65 yrs.??1 sister(s) . 1 daughter(s) . .?? dad lung cancer mom dm and htn. * Social History:?Tobacco Use:??Tobacco Use/Smoking??Are you a??nonsmoker.?rn ???alcohol: 2x/month ???tob: denies ???drugs: denies ???caffeine: limited due to jitters. * Medications:??Taking Lexapro 10 MG Tablet 1 tablet Orally Once a day , Taking Spironolactone 50 MG Tablet 1 tablet Orally Once a day , Taking busPIRone HCl 10 MG Tablet 1 tablet Orally Twice a day , Taking Zepbound 2.5 MG/0.5ML Solution Auto-injector 2.5 mg Subcutaneous weekly , Discontinued Sprintec 28 0.25-35 MG- MCG Tablet 1 tablet Orally Once a day , Discontinued Wegovy 2.4 MG/0.75ML Solution Auto-injector 0.75 mL Subcutaneous weekly , Medication List reviewed and reconciled with the patient * Allergies:??Wellbutrin. Objective: * Vitals:??HR:73/min, BP:124/8 4mm Hg, Wt:209.0lbs, BMI:37.02Index, Ht: 63 in, Oxygen sat %:97%. * Physical Examination:?General: Well appearing 43-year-old female in no acute distress, speaking in full sentences without respiratory compromise. Well groomed, well developed. Alert, interactive. ?Skin: Warm, dry and intact. No lesions/rashes/erythema. ?HEENT: Normocephalic/atraumatic. ?Neck/Thyroid: Supple, with no lymphadenopathy. Full ROM. ?Lungs: Clear to auscultation bilaterally, no wheezes, rales or rhonchi. Equal chest rise and fall bilaterally. ?CV: No murmurs/rubs or gallops on auscultation. ?Neuro: CN II-XI grossly intact. Steady gait with ambulation observed. ?Psych: Stable mood and affect. Assessment: * Assessment: 1.??Obesity (BMI 30-39.9) - E66.9 (Primary)??2.??BMI 37.0-37.9, adult - Z68.37??3.??Depression, unspecified depression type - F32.A??4.??Other acne - L70.8?? Angie Is a 42-year-old fem trace who presented the office for weight f/u. 02/17/23: weight 215.2, BMI 38.12- Patient educated excessively on lifestyle modifications including diet, exercise, sleep hygiene, stress reduction, high- protein foods, low-cut hydrate snacks, healthy fats. She was provided with educational documentation regarding all of this as well as a new patient packet. SECA reviewed. MICC provided in office today. Most recent labs without concern. Patient was interested in Peakosy had a conversation with her regarding three consecutive months of weight loss with her insurance. Patient is understanding and aware of this protocol. Will continue with lifestyle modifications and MICC injection and try to submit for GLP-1 first month of May. 03/26/23: weight 216.2, BMI 38.29- SECA reviewed showing 1 pound of fat loss, 1 pound of muscle gain. Patient was congratulated on this. She is also on her period therefore she did gain a little of water weight/is bloated. Patient interested in Wegovy, and can submit after three consecutive months of weight loss as she does qualify. This will be at the first week of May. Patient is excited for this, but is working on lifestyle modifications in the meantime which is strongly encouraged. [facility] provided. 04/27/2023: Weight 221.3, BMI 39.2-patient is struggling with lifestyle modifications/struggling to lose weight. Did have COVID that put her behind as well. She states that she is motivated, and interested in weight loss medications at this time. Would prefer Wegovy, but unable to get due to supply at this time. Educated on compounded semaglutide, as well as Saxenda. Patient interested in trying to submit for Saxenda. Educated on proper use, as well as side effects. 05/28/2023: Weight 223.1, BMI 39.52. Body composition scale reviewed showing fat gain. Patient is frustrated, as she is trying to make multiple lifestyle changes but is still gaining weight. We did try sending Saxenda, but will try to resubmit through [facility]. Saxenda prescription does not need to be resent, just submitting prior Auth through [facility] and will call patient. Thank patient for being understanding. Should continue with lifestyle. If unable to get covered, will consider compounded semaglutide. Obtain insulin/hemoglobin A1c prior to next visit.If compounded semaglutide, will go to [facility] for nursing visits, and follow-up in [facility] for provider visits with myself. 06/29/2023: Weight 217.8, BMI 38.58. Patient congratulated on efforts. Taking Saxenda daily with compliance, denies any known side effects. She has successfully incorporated increased physical activity into her lifestyle and reports recent hikes/bike rides. She has found portion control much easier secondary to the appetite suppression effect of Saxenda. She continues to maintain adequate water intake. Seca demonstrated maintenance of muscle mass with loss of fat mass. She is encouraged to continue to maintain her current lifestyle modifications. Patient is happy with progress and is motivated to continue pursuing weight loss/better overall health. Will provide refills for Saxenda today, discussed recent supply issues. Patient understands she may have to call around to local pharmacies to find available medication 07/20/2023: Weight 218.3, BMI 38.67. Patient states that she feels slightly discouraged as she has not significantly lost weight taking Saxenda 2.4 mg with compliance, states that she would like to continue as she is motivated to continue lose weight and doing very well with lifestyle modifications. Does admit to some localized injection site reaction that goes away fairly quickly. Educated to alternate injection sites, may be try to inject into the leg/arm, also educated to clean the area with alcohol, and let the area completely dry before injecting. She is aware. We will try for 1 more month, and if still no success, we will talk about other options. 09/07/2023: Weight 225.2 pounds, BMI 39.89. Patient gained weight since last visit. Had to stop semaglutide because of the national shortage. Patient is questioning other options. Educated on compounded semaglutide in the meantime in order to submit for Wegovy 1.7 mg. Patient understanding. We will start with semaglutide 0.25 for the next 2 weeks, and could consider increasing to 0.5 sooner than 4 weeks of patient tolerating well because she has been on Saxenda 3 mg recently. 10/13/2023: Weight 225.3, BMI 39.91. Patient's weight has plateaued over the past month. 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 In the meantime will increase to semaglutide 1 mg and submit for Wegovy 1 mg. Educated on proper use, side effects. 11/12/2023: Weight 223.5, BMI 39.59. Patient is lost 2 pounds since last visit. Will get body composition scan next visit. Taking Wegovy 1 mg with compliance, without any side effects. Doing well overall. Will try to send for Wegovy 1.7 mg, but if unable to find will taper back down to 1 mg. Discussed the importance of exercise in conjunction with weight management medications for successful weight overall. Educated on small portions and snacks at the day instead of large meals secondary to lack of appetite. 12/15/23: BMI 38, weight 219. Increase to Wegovy 2.4 given patient cannot find 1.7 mg anywhere. Denies side effects including nausea/vomiting. Discussed water intake of 80 oz of water, and increase protein intake goal of 100 gm. 02/01/2024: Weight 213.8, BMI 37.87. Patient graduated an effort, continuing to lose slow, steady weight. Very pleased with progress overall. He is going to work more on the exercise piece, as portion control has been improving. M STEVEN provided.Focused on high-protein, implementing more resistance training. 03/29/2024: Weight 210.7, BMI 37.32. Patient congratulated on effort, is losing slow, steady weight, although in reviewing body scan has lost some fat, and some muscle. Patient continues to lose muscle mass. Really focusing on eating more high- protein and implementing more resistance training.Continue Wegovy 2.4 mg. Could consider adding Topamax or metformin. Avoid Contrave as she has an intolerance to Wellbutrin 05/12/2024: Weight 207, BMI 36.79. Patient congratulated and effort, continues to lose slow, steady weight. Patient lost 3 pounds of fat, gained 2 pounds of muscle. Congratulated on effort, continuing with high-protein and resistance training. Changing body composition for the better. Patient has been feeling well on the medication, but still noticing positive effects without side effects. 07/25/2024: Weight 208, BMI 36.86. Body scan unable to be completed today as machine is out of service, will complete next visit. Continue with Wegovy 2.4 mg, could consider potentially switching over to Zepbound, patient is going to contact [employer] to see if there is coverage with that medication. Having some fatigue/bloating. Focusing on whole proteins. 09/08/2024: Weight 206 BMI 36.61. Body composition showing maintenance overall. Will discontinue Wegovy, and initiate PA for Zepbound 2.5 mg that she has not noticing significant effect on Wegovy anymore. Discussed proper use, side effects.Patient did call [employer] and they stated that they would cover the medication with PA. 10/31/2024: Weight 209, BMI 37. Patient is overall maintained weight since last visit transitioning off of Wegovy and on to Zepbound. Taking Zepbound 2.5 mg and is noticing less fatigue, less side effects overall. Is feeling better. Will continue, increase Zepbound to 5 mg and continue with Peloton/walking. #Depression: patient to continue buspirone 10 mg, Lexapro 10 mg #Acne: patient follows with dermatology, she should continue taking spironolactone 50 mg Follow-up in 6 weeks, sooner as needed. Time spent with patient 30 minutes with greater than 50% on care coordination and patient education. All quetsions answered to patients satisfaction. Patient verbalized understanding of diagnosis and treatments explained. To call sooner prior to next visit it any questions/concerns arise. Case discussed with collaborating physician Madalyn Velasquez who reviewed the assessment and plan. Chart, medications, labs, vital signs reviewed. Dictation was accomplished with the use of [employer] voice recognition software, prone to medical misidentifications and grammatical errors. This is unintentional and the practitioner does try to identify and correct these, but some could still be present. Please do not hesitate to contact practitioner for clarification. Plan: * Treatment: * Procedure Codes:??10467 P/M GENERAL PURCHASING AGENT, INDIV 15 MIN * Images: Billing Information: * Visit Code:?? 42725 Office Visit, Est Pt., Level 3. Modifiers: SA * Procedure Codes:?? 65380 P/M GENERAL PURCHASING AGENT, INDIV 15 MIN. * Sign off status: Completed true * Provider:??JOHANA CH PA-C Date:??10/16 History and Physical Notes * HPI (History of Present Illness) Category Sub-Category Detail Notes Category Not es Constitutional Angie is a pleasant 44-year-old female who presents the office for a weight management follow-up. Last seen 09/08/2024. Tried discontinuing Wegovy 2.4 mg, and initiating Zepbound 2.5 mg. No side effects on medication and is not as tired. More motivated and having more energy. Hard to exercise with the holidays but more active. Enjoys weight lifting. Had a Pel[employer] as well.Very motivated, and is pleased with how she is feeling at this time. Like to increase to Zepbound 5 mg. Physical Examination Category Sub-Category Detail Notes Section Note s General: Well appearing 43-year-old female in no acute distress, speaking in full sentences without respiratory compromise. Well groomed, well developed. Alert, interactive. Skin: Warm, dry and intact. No lesions/rashes/erythema. HEENT: Normocephalic/atraumatic. Neck/Thyroid: Supple, with no lymphadenopathy. Full ROM. Lungs: Clear to auscultation bilaterally, no wheezes, rales or rhonchi. Equal chest rise and fall bilaterally. CV: No murmurs/rubs or gallops on auscultation. Neuro: CN II-XI grossly intact. Steady gait with ambulation observed. Psych: Stable mood and affect.
--- OUTSIDE RECORDS SUMMARY | 2025-02-03 17:22 | XMS_ITS ---
Author Organization [facility] Address [address] [place] [address] Care Team Providers Care Cephalometric Tracer Name Role Phone JOHANA CH Unavailable [phone] ALLERGIES Allergen (clinical drug ingredient) Drug/Non Drug Allergy documented on EMR Reaction Allergy Type Onset Date Status Wellbutrin Unknown Drug Allergy Active REASON FOR VISIT Patient presents for weight management follow up. Previous weight was 209.0lbs, current weight is standing at 211.3lbs. The patient is interested in increasing the Zepbound 5mg to 7.5mg, she feels discouraged with the weight management & feels she is at a plateau. No additional concerns needed to be addressed MEDICATIONS Medication SIG (Take, Route, Fr equency, Duration) Notes Start Date End Date Status Zepbound 7.5 MG/0.5ML 7.5 mg Subcutaneou s weekly for 30 days 09/08/2024 Active Spironolactone 50 MG 1 tablet Orally Once a day Active busPIRone HCl 10 MG 1 tablet Orally Twice a day Active Lexapro 10 MG 1 [...] drugs: denies caffeine: limited due to jitters VITAL SIGNS Blood pressure systolic 118 mm Hg 12/05/19 25 Blood pressure diastolic 82 mm Hg 025 Heart Rate 78 /min 12/05/2024 Height 63 in 12/05/2024 Weight 211.3 lbs 12/05/2024 BMI 37.43 kg/m2 12/05/2024 Oximetry 98 % 12/05/2024 Encounters Encounter Location Date Provider Diagnosis [facility] [address] [place] [address] 12/05/2024 JOHANA CH Obesity (BMI 30-39.9 ) E66.9 ; BMI 37.0-37.9, adult Z68.37 ; Depression, unspecified depression type F32.A and Other acne L70.8 ASSESSMENTS Encounter Date Diagnosis Assessment Notes Treatment Notes Treatment Clinical Notes Section Notes 12/05/2024 Obesity (BMI 30-39.9) (ICD-10 - E66.9) Melissa Is a 42-year-old female who presented the [...] next visit.If compounded semaglutide, will go to [facility] for nursing visits, and follow-up in [facility] for provider visits with myself. 06/29/2023: Weight [...] to Zepbound, patient is going to contact [employer] to see if there is coverage with that medication. Having some fatigue/bloating. Focusing on whole proteins. 09/08/2024: Weight 206 BMI 36.61. Body composition showing maintenance overall. Will discontinue Wegovy, and initiate PA for Zepbound 2.5 mg that she has not noticing significant effect on Wegovy anymore. Discussed proper use, side effects.Patient did call [employer] and they stated that they would cover the medication with PA. 10/31/2024: Weight 209, BMI 37. Patient is overall maintained weight since last visit transitioning off of Wegovy and on to Zepbound. Taking Zepbound 2.5 mg and is noticing less fatigue, less side effects overall. Is feeling better. Will continue, increase Zepbound to 5 mg and continue with Peloton/walking. 12/05/2024: Weight 211, BMI 37. Patient expresses frustration because she has been exercising more, and focusing on nutrition with weight gain, and she is interested in increasing Zepbound from 5 mg to 7-1/2 mg. Will increase, encouraged to continue with lifestyle, follow-up in 4 to 6 weeks. #Depression: patient to continue buspirone 10 mg, Lexapro 10 mg, Discussed cortisol event sales manager, and magnesium glycinate For adrenal fatigue #Acne: patient follows with dermatology, she should continue taking spironolactone 50 mg Follow-up in 4- 6 weeks, sooner as needed. Time spent [...] Dictation was accomplished with the use of [employer] voice recognition software, prone to medical misidentifications and grammatical errors. This is unintentional and the practitioner does try to identify and correct these, but some could still be present. Please do not hesitate to contact practitioner for clarification. 12/05/2024 BMI 37.0-37.9, adult (ICD-10 - Z68.37) Melissa Is a 42-year-old female who presented the [...] next visit.If compounded semaglutide, will go to [facility] for nursing visits, and follow-up in [facility] for provider visits with myself. 06/29/2023: Weight [...] to Zepbound, patient is going to contact [employer] to see if there is coverage with that medication. Having some fatigue/bloating. Focusing on whole proteins. 09/08/2024: Weight 206 BMI 36.61. Body composition showing maintenance overall. Will discontinue Wegovy, and initiate PA for Zepbound 2.5 mg that she has not noticing significant effect on Wegovy anymore. Discussed proper use, side effects.Patient did call [employer] and they stated that they would cover the medication with PA. 10/31/2024: Weight 209, BMI 37. Patient is overall maintained weight since last visit transitioning off of Wegovy and on to Zepbound. Taking Zepbound 2.5 mg and is noticing less fatigue, less side effects overall. Is feeling better. Will continue, increase Zepbound to 5 mg and continue with Peloton/walking. 12/05/2024: Weight 211, BMI 37. Patient expresses frustration because she has been exercising more, and focusing on nutrition with weight gain, and she is interested in increasing Zepbound from 5 mg to 7-1/2 mg. Will increase, encouraged to continue with lifestyle, follow-up in 4 to 6 weeks. #Depression: patient to continue buspirone 10 mg, Lexapro 10 mg, Discussed cortisol event sales manager, and magnesium glycinate For adrenal fatigue #Acne: patient follows with dermatology, she should continue taking spironolactone 50 mg Follow-up in 4- 6 weeks, sooner as needed. Time spent [...] Dictation was accomplished with the use of [employer] voice recognition software, prone to medical misidentifications and grammatical errors. This is unintentional and the practitioner does try to identify and correct these, but some could still be present. Please do not hesitate to contact practitioner for clarification. 12/05/2024 Depression, unspecified depression type (ICD-10 - F32.A) Melissa Is a 42-year-old female who presented the [...] next visit.If compounded semaglutide, will go to [facility] for nursing visits, and follow-up in [facility] for provider visits with myself. 06/29/2023: Weight [...] to Zepbound, patient is going to contact [employer] to see if there is coverage with that medication. Having some fatigue/bloating. Focusing on whole proteins. 09/08/2024: Weight 206 BMI 36.61. Body composition showing maintenance overall. Will discontinue Wegovy, and initiate PA for Zepbound 2.5 mg that she has not noticing significant effect on Wegovy anymore. Discussed proper use, side effects.Patient did call [employer] and they stated that they would cover the medication with PA. 10/31/2024: Weight 209, BMI 37. Patient is overall maintained weight since last visit transitioning off of Wegovy and on to Zepbound. Taking Zepbound 2.5 mg and is noticing less fatigue, less side effects overall. Is feeling better. Will continue, increase Zepbound to 5 mg and continue with Peloton/walking. 12/05/2024: Weight 211, BMI 37. Patient expresses frustration because she has been exercising more, and focusing on nutrition with weight gain, and she is interested in increasing Zepbound from 5 mg to 7-1/2 mg. Will increase, encouraged to continue with lifestyle, follow-up in 4 to 6 weeks. #Depression: patient to continue buspirone 10 mg, Lexapro 10 mg, Discussed cortisol event sales manager, and magnesium glycinate For adrenal fatigue #Acne: patient follows with dermatology, she should continue taking spironolactone 50 mg Follow-up in 4- 6 weeks, sooner as needed. Time spent [...] Dictation was accomplished with the use of [employer] voice recognition software, prone to medical misidentifications and grammatical errors. This is unintentional and the practitioner does try to identify and correct these, but some could still be present. Please do not hesitate to contact practitioner for clarification. 12/05/2024 Other acne (ICD-10 - L70.8) Melissa Is a 42-year-old female who presented the [...] in the meantime which is strongly encouraged. [facility] provided. 04/27/2023: Weight 221.3, BMI [...] next visit.If compounded semaglutide, will go to [facility] for nursing visits, and follow-up in [facility] for provider visits with myself. 06/29/2023: Weight [...] to Zepbound, patient is going to contact [employer] to see if there is coverage with that medication. Having some fatigue/bloating. Focusing on whole proteins. 09/08/2024: Weight 206 BMI 36.61. Body composition showing maintenance overall. Will discontinue Wegovy, and initiate PA for Zepbound 2.5 mg that she has not noticing significant effect on Wegovy anymore. Discussed proper use, side effects.Patient did call [employer] and they stated that they would cover the medication with PA. 10/31/2024: Weight 209, BMI 37. Patient is overall maintained weight since last visit transitioning off of Wegovy and on to Zepbound. Taking Zepbound 2.5 mg and is noticing less fatigue, less side effects overall. Is feeling better. Will continue, increase Zepbound to 5 mg and continue with Peloton/walking. 12/05/2024: Weight 211, BMI 37. Patient expresses frustration because she has been exercising more, and focusing on nutrition with weight gain, and she is interested in increasing Zepbound from 5 mg to 7-1/2 mg. Will increase, encouraged to continue with lifestyle, follow-up in 4 to 6 weeks. #Depression: patient to continue buspirone 10 mg, Lexapro 10 mg, Discussed cortisol event sales manager, and magnesium glycinate For adrenal fatigue #Acne: patient follows with dermatology, she should continue taking spironolactone 50 mg Follow-up in 4- 6 weeks, sooner as needed. Time spent [...] Dictation was accomplished with the use of [employer] voice recognition software, prone to medical misidentifications and grammatical errors. This is unintentional and the practitioner does try to identify and correct these, but some could still be present. Please do not hesitate to contact practitioner for clarification. PLAN OF TREATMENT Medication Medication Name Sig Start Date Stop Date Notes Zepbound 7.5 MG/0.5ML 7.5 mg Subcutaneou s weekly for 30 days 09/08/2024 Next Appt Details Provider Name:Laurita DOWLING 02/28/2025 02:45:00 PM, [address] , [place], [address], Progress Notes * Melissa WILSONDOB: [birth year] (44 yo F)Acc No.[id number]:12/05/2024 Patient:??Melissa WILSON Provider:??JOHANA CH PA-C :1980?Age:44 Y?Sex:Fe male Date:12/05/2024 Address:[address] [place], [place] [id number] Subjective: * Chief Complaints: * ?1. Patient presents fo r weight management follow up. Previous weight was 209.0lbs, current weight is standing at 211.3lbs. The patient is interested in increasing the Zepbound 5mg to 7.5mg, she feels discouraged with the weight management & feels she is at a plateau. No additional concerns needed to be addressed. * HPI: ?Constitutional:? Heidi is a pleasant 44-year-old female who presents the office for a weight management follow-up. Currently, taking Zepbound 5 mg. Patient was last seen 10/31/2024. At that visit, patient's weight was 209 pounds, today patient's weight is 211 pounds. Patient states that she wants to increase Zepbound from 5 mg to 7.5 mg. She is feeling discouraged. Has been focusing on working out more. Twice-weekly on the [employer] or walking around the hospital. Wants to fo back to the gym. Started taking more prebiotics and more protein. Has been drinking protein shakes. Sleep and stress controlled. Water intake is better as well. * ROS:?Constitutional: Denies sudden weight loss, fever, [...] cervical cancer. * Surgical History:??trachioto my 2015, nasrin brower 2020. * Hospitalization/Major Diagno stic Procedure:??Denies Past [...] Orally Twice a day , Taking Zepbound 5 MG/0.5ML Solution Auto-injector 5 mg Subcutaneous weekly , Medication List reviewed and reconciled with the patient * Allergies:??Wellbutrin. Objective: * Vitals:??HR:78/min, BP:118/8 2mm Hg, Wt:211.3lbs, BMI:37.43Index, Ht: 63 in, Oxygen sat %:98%. * Physical Examination:?General: Well appearing 43-year-old female [...] depression type - F32.A??4.??Other acne - L70.8?? Melissa Is a 42-year-old fem trace who presented [...] next visit.If compounded semaglutide, will go to [facility] for nursing visits, and follow-up in [facility] for provider visits with myself. 06/29/2023: Weight [...] to Zepbound, patient is going to contact [employer] to see if there is coverage with that medication. Having some fatigue/bloating. Focusing on whole proteins. 09/08/2024: Weight 206 BMI 36.61. Body composition showing maintenance overall. Will discontinue Wegovy, and initiate PA for Zepbound 2.5 mg that she has not noticing significant effect on Wegovy anymore. Discussed proper use, side effects.Patient did call [employer] and they stated that they would cover the medication with PA. 10/31/2024: Weight 209, BMI 37. Patient is overall maintained weight since last visit transitioning off of Wegovy and on to Zepbound. Taking Zepbound 2.5 mg and is noticing less fatigue, less side effects overall. Is feeling better. Will continue, increase Zepbound to 5 mg and continue with Peloton/walking. 12/05/2024: Weight 211, BMI 37. Patient expresses frustration because she has been exercising more, and focusing on nutrition with weight gain, and she is interested in increasing Zepbound from 5 mg to 7-1/2 mg. Will increase, encouraged to continue with lifestyle, follow-up in 4 to 6 weeks. #Depression: patient to continue buspirone 10 mg, Lexapro 10 mg, Discussed cortisol event sales manager, and magnesium glycinate For adrenal fatigue #Acne: patient follows with dermatology, she should continue taking spironolactone 50 mg Follow-up in 4- 6 weeks, sooner as needed. Time spent [...] Dictation was accomplished with the use of [employer] voice recognition software, prone to medical misidentifications and grammatical errors. This is unintentional and the practitioner does try to identify and correct these, but some could still be present. Please do not hesitate to contact practitioner for clarification. Plan: * Treatment: * Procedure Codes:??44990 P/M ORDER WORKER, INDIV 15 MIN * Images: Billing Information: * Visit Code:?? 11591 Office Visit, Est Pt., Level 3. Modifiers: SA * Procedure Codes:?? 80404 P/M ORDER WORKER, INDIV 15 MIN. * Sign off status: Completed true * Provider:??JOHANA CH PA-C Date:??11/17 History and Physical Notes * HPI (History of Present Illness) Category Sub-Category Detail Notes Category Not es Constitutional Heidi is a pleasant 44-year-old female who presents the office for a weight management follow-up. Currently, taking Zepbound 5 mg. Patient was last seen 10/31/2024. At that visit, patient's weight was 209 pounds, today patient's weight is 211 pounds. Patient states that she wants to increase Zepbound from 5 mg to 7.5 mg. She is feeling discouraged. Has been focusing on working out more. Twice-weekly on the [employer] or walking around the hospital. Wants to fo back to the gym. Started taking more prebiotics and more protein. Has been drinking protein shakes. Sleep and stress controlled. Water intake is better as well. Physical Examination Category Sub-Category Detail Notes Section [...]
--- OUTSIDE RECORDS SUMMARY | 2025-02-03 17:22 | XMS_ITS | Patient Health Record ---
Author Organization [employer] [facility] Address [address] [place] [address] Care Team Providers Care Targeteer Name Role Phone JOHANA CH Unavailable [phone] ALLERGIES Allergen (clinical drug ingredient) Drug/Non Drug Allergy documented on EMR Reaction Allergy Type Onset Date Status Wellbutrin Unknown Drug Allergy Active REASON FOR REFERRAL No Information MEDICATIONS Medication SIG (Take, Route, Fr equency, Duration) Notes Start Date End Date Status busPIRone HCl 10 MG 1 tablet Orally Twice a day Active Lexapro 10 MG 1 tablet Orally Once a day Active Zepbound 10 MG/0.5ML 10 mg Subcutaneous weekly for 30 days Active Spironolactone 50 MG 1 tablet Orally [...] drugs: denies caffeine: limited due to jitters rn alcohol: 2x/month tob: denies drugs: denies caffeine: limited due to jitters rn alcohol: 2x/month tob: denies drugs: denies caffeine: limited due to jitters rn alcohol: 2x/month tob: denies drugs: denies caffeine: limited due to jitters rn alcohol: 2x/month tob: denies drugs: denies caffeine: limited due to jitters rn alcohol: 2x/month tob: denies drugs: denies caffeine: limited due to jitters rn alcohol: 2x/month tob: denies drugs: denies caffeine: limited due to jitters rn alcohol: 2x/month tob: denies drugs: denies caffeine: limited due to jitters rn alcohol: 2x/month tob: denies drugs: denies caffeine: limited due to jitters rn alcohol: 2x/month tob: denies drugs: denies caffeine: limited due to jitters Nurse alcohol: 2x/month tob: denies drugs: denies caffeine: limited due to jitters rn alcohol: 2x/month tob: denies drugs: denies caffeine: limited due to jitters rn alcohol: 2x/month tob: denies drugs: denies caffeine: limited due to jitters rn alcohol: 2x/month tob: denies drugs: denies caffeine: limited due to jitters rn alcohol: 2x/month tob: denies drugs: denies caffeine: limited due to jitters rn alcohol: 2x/month tob: denies drugs: denies caffeine: limited due to jitters rn alcohol: 2x/month tob: denies drugs: denies caffeine: limited due to jitters rn alcohol: 2x/month tob: denies drugs: denies caffeine: limited due to jitters PROBLEMS Problem Type ICD Code Onset Dates Problem Status W/U Status Risk SNOMED Code Notes Problem Other obesity (E66.8) Active confirmed 705728159 Problem Anxiety (F41.9) Active confirmed Anxiety (32345571) Problem Obesity (BMI 30-39.9) (E66.9) Active confirmed 603869612 Problem BMI 37.0-37.9, adult (Z68.37) Active confirmed 053208178 Problem Raynaud's disease without gangrene (I73.00) Active confirmed Raynaud's disease (860586019) Problem BMI 39.0-39.9,adul t (Z68.39) Active confirmed 443051806 Problem BMI 36.0-36.9,adul t (Z68.36) Active confirmed 781407770 Problem BMI 38.0-38.9,adul t (Z68.38) Active confirmed 400001985 Problem History of cervical cancer (Z85.41) Active confirmed History of malignant neoplasm of cervix (908235573) VITAL SIGNS Heart Rate 93 /min 01/17/2025 Oximetry 98 % 01/17/2025 Blood pressure diastolic 78 mm Hg 01/17/2025 Height 63 in 01/17/2025 Blood pressure systolic 114 mm Hg 01/17/2025 Weight 209.9 lbs 01/17/2025 BMI 37.18 kg/m2 01/17/2025 Encounters Encounter Location Date Provider Diagnosis [address] [address] 03/29/2024 JOHANA JING Other obesity E66.8 ; BMI 37.0-37.9, adult Z68.37 ; Depression, unspecified depression type F32.A and Other acne L70.8 [facility] [address] [place] [address] 05/12/2024 JOHANA JING Other obesity E66.8 ; BMI 36.0-36.9,adult Z68.36 ; Depression, unspecified depression type F32.A and Other acne L70.8 [facility] [address] [place] [address] 07/25/2024 JOHANA JING Other obesity E66.8 ; BMI 36.0-36.9,adult Z68.36 ; Depression, unspecified depression type F32.A and Other acne L70.8 [facility] [address] [place] [address] 09/08/2024 JOHANA JING BMI 36.0-36.9,adult Z68.36 ; Obesity (BMI 30-39.9) E66.9 ; Depression, unspecified depression type F32.A and Other acne L70.8 [facility] [address] [place] [address] 10/31/2024 JOHANA JING Obesity (BMI 30-39.9 ) E66.9 ; BMI 37.0-37.9, adult Z68.37 ; Depression, unspecified depression type F32.A and Other acne L70.8 [facility] [address] [place] [address] 12/05/2024 JOHANA JING Obesity (BMI 30-39.9 ) E66.9 ; BMI 37.0-37.9, adult Z68.37 ; Depression, unspecified depression type F32.A and Other acne L70.8 [facility] [address] [place] [address] 01/17/2025 JOHANA CH Obesity (BMI 30-39.9 ) E66.9 ; BMI 37.0-37.9, adult Z68.37 ; Depression, unspecified depression type F32.A and Other acne L70.[phone] [address] 03/11/2024 JOHANA JING [phone] [address] 10/07/2024 JOHANA CH ASSESSMENTS Encounter Date Diagnosis Assessment Notes Treatment Notes Treatment Clinical Notes Section Notes 03/29/2024 Other obesity (ICD-10 - E66.8) Melissa Is a 89-yjcu-rbp female who presented the office for weight [...] next visit.If compounded semaglutide, will go to [place] office for nursing visits, and follow-up in [facility] for provider visits with myself. 06/29/2023: Weight [...] as she has an intolerance to Wellbutrin #Depression: patient to continue buspirone 10 mg, Lexapro 10 mg #Acne: patient follows with dermatology, she should continue taking spironolactone 50 mg Patient with up in 6 weeks, sooner as needed. Time [...] Dictation was accomplished with the use of [employer] voice recognition software, prone to medical misidentifications and grammatical errors. This is unintentional and the practitioner does try to identify and correct these, but some could still be present. Please do not hesitate to contact practitioner for clarification. 05/12/2024 Other obesity (ICD-10 - E66.8) Melissa Is a [id number]-rzg female who presented the office for weight [...] in the meantime which is strongly encouraged. [facility] provided. 04/27/2023: Weight 221.3, BMI 39.2-patient [...] next visit.If compounded semaglutide, will go to [facility] for nursing visits, and follow-up in [facility] for provider visits with myself. 06/29/2023: Weight [...] still noticing positive effects without side effects. #Depression: patient to continue buspirone 10 mg, Lexapro 10 mg #Acne: patient follows with dermatology, she should continue taking spironolactone 50 mg Patient to follow-up in July, sooner as needed. Time spent with patient [...] Dictation was accomplished with the use of [employer] voice recognition software, prone to medical misidentifications and grammatical errors. This is unintentional and the practitioner does try to identify and correct these, but some could still be present. Please do not hesitate to contact practitioner for clarification. 05/12/2024 BMI 36.0-36.9,adul t (ICD-10 - Z68.36) Melissa Is a 89-txyv-gdd female who presented the office for weight [...] next visit.If compounded semaglutide, will go to [facility] for nursing visits, and follow-up in [place] for provider visits with myself. 06/29/2023: Weight [...] as portion control has been improving. [facility] provided.Focused on high-protein, implementing more resistance training. [...] still noticing positive effects without side effects. #Depression: patient to continue buspirone 10 mg, Lexapro 10 mg #Acne: patient follows with dermatology, she should continue taking spironolactone 50 mg Patient to follow-up in July, sooner as needed. Time spent with patient [...] Dictation was accomplished with the use of [employer] voice recognition software, prone to medical misidentifications and grammatical errors. This is unintentional and the practitioner does try to identify and correct these, but some could still be present. Please do not hesitate to contact practitioner for clarification. 09/08/2024 Obesity (BMI 30-39.9) (ICD-10 - E66.9) Melissa [...] next visit.If compounded semaglutide, will go to [facility] for nursing visits, and follow-up in [facility] for provider visits with myself. 06/29/2023: Weight [...] to Zepbound, patient is going to contact [employer] to see if there is coverage with that medication. Having some fatigue/bloating. Focusing on whole proteins. 09/08/2024: Weight 206 BMI 36.61. Body composition showing maintenance overall. Will discontinue Wegovy, and initiate PA for Zepbound 2.5 mg that she has not noticing significant effect on Wegovy anymore. Discussed proper use, side effects.Patient did call [employer] and they stated that they would cover the medication with PA. #Depression: patient to continue buspirone 10 mg, [...] Dictation was accomplished with the use of [employer] voice recognition software, prone to medical misidentifications and grammatical errors. This is unintentional and the practitioner does try to identify and correct these, but some could still be present. Please do not hesitate to contact practitioner for clarification. 09/08/2024 BMI 36.0-36.9,adul t (ICD-10 - Z68.36) Melissa Is a 42-year-old female who presented [...] next visit.If compounded semaglutide, will go to [facility] for nursing visits, and follow-up in [facility] for provider visits with myself. 06/29/2023: Weight [...] to Zepbound, patient is going to contact [employer] to see if there is coverage with that medication. Having some fatigue/bloating. Focusing on whole proteins. 09/08/2024: Weight 206 BMI 36.61. Body composition showing maintenance overall. Will discontinue Wegovy, and initiate PA for Zepbound 2.5 mg that she has not noticing significant effect on Wegovy anymore. Discussed proper use, side effects.Patient did call [employer] and they stated that they would cover the medication with PA. #Depression: patient to continue buspirone 10 mg, [...] Dictation was accomplished with the use of [employer] voice recognition software, prone to medical misidentifications and grammatical errors. This is unintentional and the practitioner does try to identify and correct these, but some could still be present. Please do not hesitate to contact practitioner for clarification. 10/31/2024 Obesity (BMI 30-39.9) (ICD-10 - E66.9) Melissa [...] next visit.If compounded semaglutide, will go to [place] office for nursing visits, and follow-up in [facility] for provider visits with myself. 06/29/2023: Weight 217.8, BMI 38.58. Patient congratulated on efforts. Taking Saxenda daily with compliance, denies any known side effects. She has successfully incorporated increased physical activity into her lifestyle and reports recent hikes/bike rides. She has found portion control much easier secondary to the appetite suppression effect of Saxenda. She continues to maintain adequate water intake. Alan demonstrated maintenance of muscle mass with loss [...] to Zepbound, patient is going to contact [employer] to see if there is coverage with that medication. Having some fatigue/bloating. Focusing on whole proteins. 09/08/2024: Weight 206 BMI 36.61. Body composition showing maintenance overall. Will discontinue Wegovy, and initiate PA for Zepbound 2.5 mg that she has not noticing significant effect on Wegovy anymore. Discussed proper use, side effects.Patient did call [employer] and they stated that they would cover [...] Dictation was accomplished with the use of [employer] voice recognition software, prone to medical misidentifications and grammatical errors. This is unintentional and the practitioner does try to identify and correct these, but some could still be present. Please do not hesitate to contact practitioner for clarification. 10/31/2024 BMI 37.0-37.9, adult (ICD-10 - Z68.37) Melissa [...] in the meantime which is strongly encouraged. [facility] provided. 04/27/2023: Weight 221.3, BMI 39.2-patient [...] next visit.If compounded semaglutide, will go to [place] office for nursing visits, and follow-up in [facility] for provider visits with myself. 06/29/2023: Weight [...] to Zepbound, patient is going to contact [employer] to see if there is coverage with that medication. Having some fatigue/bloating. Focusing on whole proteins. 09/08/2024: Weight 206 BMI 36.61. Body composition showing maintenance overall. Will discontinue Wegovy, and initiate PA for Zepbound 2.5 mg that she has not noticing significant effect on Wegovy anymore. Discussed proper use, side effects.Patient did call [employer] and they stated that they would cover [...] Dictation was accomplished with the use of [employer] voice recognition software, prone to medical misidentifications and grammatical errors. This is unintentional and the practitioner does try to identify and correct these, but some could still be present. Please do not hesitate to contact practitioner for clarification. 12/05/2024 Obesity (BMI 30-39.9) (ICD-10 - E66.9) [...] in the meantime which is strongly encouraged. [facility] provided. 04/27/2023: Weight 221.3, BMI 39.2-patient [...] next visit.If compounded semaglutide, will go to [facility] for nursing visits, and follow-up in [facility] for provider visits with myself. 06/29/2023: Weight [...] to Zepbound, patient is going to contact [employer] to see if there is coverage with that medication. Having some fatigue/bloating. Focusing on whole proteins. 09/08/2024: Weight 206 BMI 36.61. Body composition showing maintenance overall. Will discontinue Wegovy, and initiate PA for Zepbound 2.5 mg that she has not noticing significant effect on Wegovy anymore. Discussed proper use, side effects.Patient did call [employer] and they stated that they would cover [...] 10 mg, Lexapro 10 mg, Discussed cortisol supportive employment case manager, and magnesium glycinate For adrenal fatigue [...] Dictation was accomplished with the use of [employer] voice recognition software, prone to medical misidentifications [...] in the meantime which is strongly encouraged. [facility] provided. 04/27/2023: Weight 221.3, BMI 39.2-patient [...] next visit.If compounded semaglutide, will go to [facility] for nursing visits, and follow-up in [facility] for provider visits with myself. 06/29/2023: Weight [...] to Zepbound, patient is going to contact [employer] to see if there is coverage with that medication. Having some fatigue/bloating. Focusing on whole proteins. 09/08/2024: Weight 206 BMI 36.61. Body composition showing maintenance overall. Will discontinue Wegovy, and initiate PA for Zepbound 2.5 mg that she has not noticing significant effect on Wegovy anymore. Discussed proper use, side effects.Patient did call [employer] and they stated that they would cover [...] 10 mg, Lexapro 10 mg, Discussed cortisol supportive employment case manager, and magnesium glycinate For adrenal fatigue [...] Dictation was accomplished with the use of [employer] voice recognition software, prone to medical misidentifications and grammatical errors. This is unintentional and the practitioner does try to identify and correct these, but some could still be present. Please do not hesitate to contact practitioner for clarification. 01/17/2025 Obesity (BMI 30-39.9) (ICD-10 - E66.9) Melissa Is a 44-year-old female who presented the office for weight [...] next visit.If compounded semaglutide, will go to [facility] for nursing visits, and follow-up in [facility] for provider visits with myself. 06/29/2023: Weight [...] to Zepbound, patient is going to contact [employer] to see if there is coverage with that medication. Having some fatigue/bloating. Focusing on whole proteins. 09/08/2024: Weight 206 BMI 36.61. Body composition showing maintenance overall. Will discontinue Wegovy, and initiate PA for Zepbound 2.5 mg that she has not noticing significant effect on Wegovy anymore. Discussed proper use, side effects.Patient did call [employer] and they stated that they would cover [...] lifestyle, follow-up in 4 to 6 weeks. 01/17/2025: Weight 209, BMI 37. Increase Zepbound to 10 mg, patient states that she pleased with progress overall although she does wish that it was quicker. She is losing slow, steady weight, maintaining muscle, targeting fat loss which was reassuring in regards to composition. Patient thankful. Questioning Lexapro making it more challenging for patient to lose weight, but will Continue with medication for now. #Depression: patient to continue buspirone 10 mg, Lexapro 10 mg, Discussed cortisol supportive employment case manager, and magnesium glycinate For adrenal fatigue [...] Dictation was accomplished with the use of [employer] voice recognition software, prone to medical misidentifications and grammatical errors. This is unintentional and the practitioner does try to identify and correct these, but some could still be present. Please do not hesitate to contact practitioner for clarification. 07/25/2024 Other obesity (ICD-10 - E66.8) Melissa Is a 89-yjdp-pqu female who presented the office for weight [...] next visit.If compounded semaglutide, will go to [place] office for nursing visits, and [facility] with myself. 06/29/2023: Weight [...] to Zepbound, patient is going to contact [employer] to see if there is coverage with that medication. Having some fatigue/bloating. Focusing on whole proteins. #Depression: patient to continue buspirone 10 mg, [...] Dictation was accomplished with the use of [employer] voice recognition software, prone to medical misidentifications and grammatical errors. This is unintentional and the practitioner does try to identify and correct these, but some could still be present. Please do not hesitate to contact practitioner for clarification. 07/25/2024 BMI 36.0-36.9,adul t (ICD-10 - Z68.36) Melissa Is a [id number]-fah female who presented the office for weight [...] in the meantime which is strongly encouraged. [facility] provided. 04/27/2023: Weight 221.3, BMI 39.2-patient [...] next visit.If compounded semaglutide, will go to [facility] for nursing visits, and follow-up in [facility] for provider visits with myself. 06/29/2023: Weight [...] to Zepbound, patient is going to contact [employer] to see if there is coverage with that medication. Having some fatigue/bloating. Focusing on whole proteins. #Depression: patient to continue buspirone 10 mg, [...] Dictation was accomplished with the use of [employer] voice recognition software, prone to medical misidentifications and grammatical errors. This is unintentional and the practitioner does try to identify and correct these, but some could still be present. Please do not hesitate to contact practitioner for clarification. 01/17/2025 BMI 37.0-37.9, adult (ICD-10 - Z68.37) Melissa Is a 44-year-old female who presented the office for weight [...] next visit.If compounded semaglutide, will go to [facility] for nursing visits, and follow-up in [facility] for provider visits with myself. 06/29/2023: Weight [...] to Zepbound, patient is going to contact [employer] to see if there is coverage with that medication. Having some fatigue/bloating. Focusing on whole proteins. 09/08/2024: Weight 206 BMI 36.61. Body composition showing maintenance overall. Will discontinue Wegovy, and initiate PA for Zepbound 2.5 mg that she has not noticing significant effect on Wegovy anymore. Discussed proper use, side effects.Patient did call [employer] and they stated that they would cover [...] lifestyle, follow-up in 4 to 6 weeks. 01/17/2025: Weight 209, BMI 37. Increase Zepbound to 10 mg, patient states that she pleased with progress overall although she does wish that it was quicker. She is losing slow, steady weight, maintaining muscle, targeting fat loss which was reassuring in regards to composition. Patient thankful. Questioning Lexapro making it more challenging for patient to lose weight, but will Continue with medication for now. #Depression: patient to continue buspirone 10 mg, Lexapro 10 mg, Discussed cortisol supportive employment case manager, and magnesium glycinate For adrenal fatigue [...] Dictation was accomplished with the use of [employer] voice recognition software, prone to medical misidentifications [...] next visit.If compounded semaglutide, will go to [facility] for nursing visits, and follow-up in [facility] for provider visits with myself. 06/29/2023: Weight [...] to Zepbound, patient is going to contact [employer] to see if there is coverage with that medication. Having some fatigue/bloating. Focusing on whole proteins. 09/08/2024: Weight 206 BMI 36.61. Body composition showing maintenance overall. Will discontinue Wegovy, and initiate PA for Zepbound 2.5 mg that she has not noticing significant effect on Wegovy anymore. Discussed proper use, side effects.Patient did call [employer] and they stated that they would cover [...] 10 mg, Lexapro 10 mg, Discussed cortisol supportive employment case manager, and magnesium glycinate For adrenal fatigue [...] Dictation was accomplished with the use of [employer] voice recognition software, prone to medical misidentifications [...] next visit.If compounded semaglutide, will go to [facility] for nursing visits, and follow-up in [facility] for provider visits with myself. 06/29/2023: Weight [...] to Zepbound, patient is going to contact [employer] to see if there is coverage with that medication. Having some fatigue/bloating. Focusing on whole proteins. 09/08/2024: Weight 206 BMI 36.61. Body composition showing maintenance overall. Will discontinue Wegovy, and initiate PA for Zepbound 2.5 mg that she has not noticing significant effect on Wegovy anymore. Discussed proper use, side effects.Patient did call [employer] and they stated that they would cover [...] Dictation was accomplished with the use of [employer] voice recognition software, prone to medical misidentifications and grammatical errors. This is unintentional and the practitioner does try to identify and correct these, but some could still be present. Please do not hesitate to contact practitioner for clarification. 09/08/2024 Depression, unspecified depression type (ICD-10 - F32.A) [...] next visit.If compounded semaglutide, will go to [facility] for nursing visits, and follow-up in [facility] for provider visits with myself. 06/29/2023: Weight [...] to Zepbound, patient is going to contact [employer] to see if there is coverage with that medication. Having some fatigue/bloating. Focusing on whole proteins. 09/08/2024: Weight 206 BMI 36.61. Body composition showing maintenance overall. Will discontinue Wegovy, and initiate PA for Zepbound 2.5 mg that she has not noticing significant effect on Wegovy anymore. Discussed proper use, side effects.Patient did call [employer] and they stated that they would cover the medication with PA. #Depression: patient to continue buspirone 10 mg, [...] Dictation was accomplished with the use of [employer] voice recognition software, prone to medical misidentifications and grammatical errors. This is unintentional and the practitioner does try to identify and correct these, but some could still be present. Please do not hesitate to contact practitioner for clarification. 05/12/2024 Depression, unspecified depression type (ICD-10 - F32.A) Melissa Is a [id number] female who presented the office for weight [...] next visit.If compounded semaglutide, will go to [facility] for nursing visits, and follow-up in [facility] for provider visits with myself. 06/29/2023: Weight [...] still noticing positive effects without side effects. #Depression: patient to continue buspirone 10 mg, Lexapro 10 mg #Acne: patient follows with dermatology, she should continue taking spironolactone 50 mg Patient to follow-up in July, sooner as needed. Time spent with patient [...] Dictation was accomplished with the use of [employer] voice recognition software, prone to medical misidentifications and grammatical errors. This is unintentional and the practitioner does try to identify and correct these, but some could still be present. Please do not hesitate to contact practitioner for clarification. 03/29/2024 BMI 37.0-37.9, adult (ICD-10 - Z68.37) Melissa Is a [id number] female who presented the office for weight [...] next visit.If compounded semaglutide, will go to [facility] for nursing visits, and follow-up in [facility] for provider visits with myself. 06/29/2023: Weight [...] as she has an intolerance to Wellbutrin #Depression: patient to continue buspirone 10 mg, Lexapro 10 mg #Acne: patient follows with dermatology, she should continue taking spironolactone 50 mg Patient with up in 6 weeks, sooner as needed. Time [...] Dictation was accomplished with the use of [employer] voice recognition software, prone to medical misidentifications and grammatical errors. This is unintentional and the practitioner does try to identify and correct these, but some could still be present. Please do not hesitate to contact practitioner for clarification. 03/29/2024 Depression, unspecified depression type (ICD-10 - F32.A) Melissa Is a [id number] female who presented the office for weight [...] in the meantime which is strongly encouraged. [facility] provided. 04/27/2023: Weight 221.3, BMI 39.2-patient [...] next visit.If compounded semaglutide, will go to [facility] for nursing visits, and follow-up in [facility] for provider visits with myself. 06/29/2023: Weight [...] as she has an intolerance to Wellbutrin #Depression: patient to continue buspirone 10 mg, Lexapro 10 mg #Acne: patient follows with dermatology, she should continue taking spironolactone 50 mg Patient with up in 6 weeks, sooner as needed. Time [...] Dictation was accomplished with the use of [employer] voice recognition software, prone to medical misidentifications and grammatical errors. This is unintentional and the practitioner does try to identify and correct these, but some could still be present. Please do not hesitate to contact practitioner for clarification. 09/08/2024 Other acne (ICD-10 - L70.8) Melissa Is [...] next visit.If compounded semaglutide, will go to [place] office for nursing visits, and follow-up in [facility] for provider visits with myself. 06/29/2023: Weight 217.8, BMI 38.58. Patient congratulated on efforts. Taking Saxenda daily with compliance, denies any known side effects. She has successfully incorporated increased physical activity into her lifestyle and reports recent hikes/bike rides. She has found portion control much easier secondary to the appetite suppression effect of Saxenda. She continues to maintain adequate water intake. aMximea demonstrated maintenance of muscle mass with loss [...] to Zepbound, patient is going to contact [employer] to see if there is coverage with that medication. Having some fatigue/bloating. Focusing on whole proteins. 09/08/2024: Weight 206 BMI 36.61. Body composition showing maintenance overall. Will discontinue Wegovy, and initiate PA for Zepbound 2.5 mg that she has not noticing significant effect on Wegovy anymore. Discussed proper use, side effects.Patient did call [employer] and they stated that they would cover the medication with PA. #Depression: patient to continue buspirone 10 mg, [...] Dictation was accomplished with the use of [employer] voice recognition software, prone to medical misidentifications and grammatical errors. This is unintentional and the practitioner does try to identify and correct these, but some could still be present. Please do not hesitate to contact practitioner for clarification. 05/12/2024 Other acne (ICD-10 - L70.8) Melissa Is a [id number] female who presented the office for weight [...] in the meantime which is strongly encouraged. [facility] provided. 04/27/2023: Weight 221.3, BMI 39.2-patient [...] next visit.If compounded semaglutide, will go to [place] office for nursing visits, and follow-up in [facility] for provider visits with myself. 06/29/2023: Weight [...] still noticing positive effects without side effects. #Depression: patient to continue buspirone 10 mg, Lexapro 10 mg #Acne: patient follows with dermatology, she should continue taking spironolactone 50 mg Patient to follow-up in July, sooner as needed. Time spent with patient [...] Dictation was accomplished with the use of [employer] voice recognition software, prone to medical misidentifications and grammatical errors. This is unintentional and the practitioner does try to identify and correct these, but some could still be present. Please do not hesitate to contact practitioner for clarification. 10/31/2024 Other acne (ICD-10 - L70.8) Melissa Is [...] next visit.If compounded semaglutide, will go to [place] office for nursing visits, and follow-up in [place] for provider visits with myself. 06/29/2023: Weight [...] to Zepbound, patient is going to contact [employer] to see if there is coverage with that medication. Having some fatigue/bloating. Focusing on whole proteins. 09/08/2024: Weight 206 BMI 36.61. Body composition showing maintenance overall. Will discontinue Wegovy, and initiate PA for Zepbound 2.5 mg that she has not noticing significant effect on Wegovy anymore. Discussed proper use, side effects.Patient did call [employer] and they stated that they would cover [...] Dictation was accomplished with the use of [employer] voice recognition software, prone to medical misidentifications [...] as well as a new patient packet. ALAN reviewed. MICC provided in office today. Most [...] next visit.If compounded semaglutide, will go to [place] office for nursing visits, and follow-up in [facility] for provider visits with myself. 06/29/2023: Weight 217.8, BMI 38.58. Patient congratulated on efforts. Taking Saxenda daily with compliance, denies any known side effects. She has successfully incorporated increased physical activity into her lifestyle and reports recent hikes/bike rides. She has found portion control much easier secondary to the appetite suppression effect of Saxenda. She continues to maintain adequate water intake. Alan demonstrated maintenance of muscle mass with loss [...] to Zepbound, patient is going to contact [employer] to see if there is coverage with that medication. Having some fatigue/bloating. Focusing on whole proteins. 09/08/2024: Weight 206 BMI 36.61. Body composition showing maintenance overall. Will discontinue Wegovy, and initiate PA for Zepbound 2.5 mg that she has not noticing significant effect on Wegovy anymore. Discussed proper use, side effects.Patient did call [employer] and they stated that they would cover [...] 10 mg, Lexapro 10 mg, Discussed cortisol supportive employment case manager, and magnesium glycinate For adrenal fatigue [...] Dictation was accomplished with the use of [employer] voice recognition software, prone to medical misidentifications and grammatical errors. This is unintentional and the practitioner does try to identify and correct these, but some could still be present. Please do not hesitate to contact practitioner for clarification. 01/17/2025 Depression, unspecified depression type (ICD-10 - F32.A) Melissa Is a 44-year-old female who presented the office for weight [...] next visit.If compounded semaglutide, will go to [facility] for nursing visits, and follow-up in [facility] for provider visits with myself. 06/29/2023: Weight 217.8, BMI 38.58. Patient congratulated on efforts. Taking Saxenda daily with compliance, denies any known side effects. She has successfully incorporated increased physical activity into her lifestyle and reports recent hikes/bike rides. She has found portion control much easier secondary to the appetite suppression effect of Saxenda. She continues to maintain adequate water intake. aMximea demonstrated maintenance of muscle mass with loss [...] to Zepbound, patient is going to contact [employer] to see if there is coverage with that medication. Having some fatigue/bloating. Focusing on whole proteins. 09/08/2024: Weight 206 BMI 36.61. Body composition showing maintenance overall. Will discontinue Wegovy, and initiate PA for Zepbound 2.5 mg that she has not noticing significant effect on Wegovy anymore. Discussed proper use, side effects.Patient did call [employer] and they stated that they would cover [...] lifestyle, follow-up in 4 to 6 weeks. 01/17/2025: Weight 209, BMI 37. Increase Zepbound to 10 mg, patient states that she pleased with progress overall although she does wish that it was quicker. She is losing slow, steady weight, maintaining muscle, targeting fat loss which was reassuring in regards to composition. Patient thankful. Questioning Lexapro making it more challenging for patient to lose weight, but will Continue with medication for now. #Depression: patient to continue buspirone 10 mg, Lexapro 10 mg, Discussed cortisol supportive employment case manager, and magnesium glycinate For adrenal fatigue [...] Dictation was accomplished with the use of [employer] voice recognition software, prone to medical misidentifications and grammatical errors. This is unintentional and the practitioner does try to identify and correct these, but some could still be present. Please do not hesitate to contact practitioner for clarification. 07/25/2024 Depression, unspecified depression type (ICD-10 - F32.A) Melissa Is a [id number] female who presented the office for weight [...] next visit.If compounded semaglutide, will go to [facility] for nursing visits, and follow-up in [facility] for provider visits with myself. 06/29/2023: Weight [...] to Zepbound, patient is going to contact [employer] to see if there is coverage with that medication. Having some fatigue/bloating. Focusing on whole proteins. #Depression: patient to continue buspirone 10 mg, [...] Dictation was accomplished with the use of [employer] voice recognition software, prone to medical misidentifications and grammatical errors. This is unintentional and the practitioner does try to identify and correct these, but some could still be present. Please do not hesitate to contact practitioner for clarification. 07/25/2024 Other acne (ICD-10 - L70.8) Melissa Is a [id number] female who presented the office for weight [...] in the meantime which is strongly encouraged. [facility] provided. 04/27/2023: Weight 221.3, BMI 39.2-patient [...] next visit.If compounded semaglutide, will go to [place] office for nursing visits, and follow-up in [facility] for provider visits with myself. 06/29/2023: Weight [...] large meals secondary to lack of appetite. 1/30/24: BMI 38, weight 219. Increase to Wegovy [...] to Zepbound, patient is going to contact [employer] to see if there is coverage with that medication. Having some fatigue/bloating. Focusing on whole proteins. #Depression: patient to continue buspirone 10 mg, [...] Dictation was accomplished with the use of [employer] voice recognition software, prone to medical misidentifications and grammatical errors. This is unintentional and the practitioner does try to identify and correct these, but some could still be present. Please do not hesitate to contact practitioner for clarification. 01/17/2025 Other acne (ICD-10 - L70.8) Melissa Is a 44-year-old female who presented the office for weight [...] next visit.If compounded semaglutide, will go to [facility] for nursing visits, and follow-up in [facility] for provider visits with myself. 06/29/2023: Weight [...] as portion control has been improving. [facility] provided.Focused on high-protein, implementing more resistance training. [...] to Zepbound, patient is going to contact [employer] to see if there is coverage with that medication. Having some fatigue/bloating. Focusing on whole proteins. 09/08/2024: Weight 206 BMI 36.61. Body composition showing maintenance overall. Will discontinue Wegovy, and initiate PA for Zepbound 2.5 mg that she has not noticing significant effect on Wegovy anymore. Discussed proper use, side effects.Patient did call [employer] and they stated that they would cover [...] lifestyle, follow-up in 4 to 6 weeks. 01/17/2025: Weight 209, BMI 37. Increase Zepbound to 10 mg, patient states that she pleased with progress overall although she does wish that it was quicker. She is losing slow, steady weight, maintaining muscle, targeting fat loss which was reassuring in regards to composition. Patient thankful. Questioning Lexapro making it more challenging for patient to lose weight, but will Continue with medication for now. #Depression: patient to continue buspirone 10 mg, Lexapro 10 mg, Discussed cortisol supportive employment case manager, and magnesium glycinate For adrenal fatigue [...] Dictation was accomplished with the use of [employer] voice recognition software, prone to medical misidentifications and grammatical errors. This is unintentional and the practitioner does try to identify and correct these, but some could still be present. Please do not hesitate to contact practitioner for clarification. 03/29/2024 Other acne (ICD-10 - L70.8) Melissa Is a [id number] female who presented the office for weight [...] next visit.If compounded semaglutide, will go to [facility] for nursing visits, and follow-up in [facility] for provider visits with myself. 06/29/2023: Weight [...] as she has an intolerance to Wellbutrin #Depression: patient to continue buspirone 10 mg, Lexapro 10 mg #Acne: patient follows with dermatology, she should continue taking spironolactone 50 mg Patient with up in 6 weeks, sooner as needed. Time [...] Dictation was accomplished with the use of [employer] voice recognition software, prone to medical misidentifications and grammatical errors. This is unintentional and the practitioner does try to identify and correct these, but some could still be present. Please do not hesitate to contact practitioner for clarification. PLAN OF TREATMENT Pending Test Test Name Order Date HEMOGLOBIN A1c 05/28/2023 INSULIN 05/28/2023 Next Appt Details Provider Name:Laurita DOWLING 02/28/2025 02:45:00 PM, [address], [place], [id number], Insurance Providers Payer Name Payer Address Payer Phone Subscriber Number Group Number Insured Name Patient Relationship to Insured Coverage Start Date Coverage End Date [facility] [address] [place] [address] [id number] Melissa Wilson Self - patient is the insured MEDICATIONS ADMINISTERED Medication Instructions Date of Administration Dosage Notes [facility] B12 INJECTION 02/17/2023 [facility] B12 INJECTION 03/26/2023 [facility] B12 INJECTION 04/27/2023 [facility] B12 INJECTION 05/28/2023 [facility] B[facility]JE[facility] 02/01/2024 lot# [id number] Semaglutide 09/07/2023 0.25 SEMA 0.25 Semaglutide 09/14/2023 Semaglutide 09/21/2023 Semaglutide 09/28/2023 Semaglutide 10/05/2023 Semaglutide 10/13/2023 1 mg MEDICAL (GENERAL) HISTORY Medical History History ICD Code Depression F32.A Anxiety F41.9 Raynaud's disease without gangrene I73.0 0 History of cervical cancer Z85.41 Surgical History Surgery Date(Month/Year) trachiotomy 2015 lap inocente 2020
--- OUTSIDE RECORDS SUMMARY | 2025-02-03 17:22 | XMS_ITS ---
Author Organization [facility] Address [address] [facility] [place] [address] Care Team Providers Care Media Marketing Coordinator Name Role Phone JOHANA CH Unavailable [phone] ALLERGIES Allergen (clinical drug ingredient) Drug/Non Drug Allergy documented on EMR Reaction Allergy Type Onset Date Status Wellbutrin Unknown Drug Allergy Active REASON FOR VISIT Patient presents for weight management follow up. Previous weight was 211lbs, currently weight is standing at 209lbs. 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: denies drugs: denies caffeine: limited due to jitters VITAL SIGNS Blood pressure systolic 114 mm Hg 01/18/20 25 Blood pressure diastolic 78 mm Hg 025 Heart Rate 93 /min 01/17/2025 Height 63 in 01/17/2025 Weight 209.9 lbs 01/17/2025 BMI 37.18 kg/m2 01/17/2025 Oximetry 98 % 01/17/2025 Encounters Encounter Location Date Provider Diagnosis [facility] [address] [place] [address] 01/17/2025 JOHANA CH Obesity (BMI 30-39.9 ) E66.9 ; BMI 37.0-37.9, adult Z68.37 ; Depression, unspecified depression type F32.A and Other acne L70.8 ASSESSMENTS Encounter Date Diagnosis Assessment Notes Treatment Notes Treatment Clinical Notes Section Notes 01/17/2025 Obesity (BMI 30-39.9) (ICD-10 - E66.9) [...] next visit.If compounded semaglutide, will go to [facility] for nursing visits, and follow-up in [facility] for provider visits with myself. 06/29/2023: Weight [...] to Zepbound, patient is going to contact [employer] to see if there is coverage with that medication. Having some fatigue/bloating. Focusing on whole proteins. 09/08/2024: Weight 206 BMI 36.61. Body composition showing maintenance overall. Will discontinue Wegovy, and initiate PA for Zepbound 2.5 mg that she has not noticing significant effect on Wegovy anymore. Discussed proper use, side effects.Patient did call [employer] and they stated that they would cover [...] 10 mg, Lexapro 10 mg, Discussed cortisol network project manager, and magnesium glycinate For adrenal fatigue [...] Dictation was accomplished with the use of [employer]me voice recognition software, prone to medical misidentifications [...] labs without concern. Patient was interested in [employer] had a conversation with her regarding three [...] in the meantime which is strongly encouraged. [facility] provided. 04/27/2023: Weight 221.3, BMI [...] next visit.If compounded semaglutide, will go to [facility] for nursing visits, and follow-up in [facility] for provider visits with myself. 06/29/2023: Weight [...] to Zepbound, patient is going to contact [employer] to see if there is coverage with that medication. Having some fatigue/bloating. Focusing on whole proteins. 09/08/2024: Weight 206 BMI 36.61. Body composition showing maintenance overall. Will discontinue Wegovy, and initiate PA for Zepbound 2.5 mg that she has not noticing significant effect on Wegovy anymore. Discussed proper use, side effects.Patient did call [employer] and they stated that they would cover [...] 10 mg, Lexapro 10 mg, Discussed cortisol network project manager, and magnesium glycinate For adrenal fatigue [...] Dictation was accomplished with the use of [employer]me voice recognition software, prone to medical misidentifications [...] next visit.If compounded semaglutide, will go to [place] office for nursing visits, and follow-up in [facility] for provider visits with myself. 06/29/2023: Weight [...] to Zepbound, patient is going to contact [employer] to see if there is coverage with that medication. Having some fatigue/bloating. Focusing on whole proteins. 09/08/2024: Weight 206 BMI 36.61. Body composition showing maintenance overall. Will discontinue Wegovy, and initiate PA for Zepbound 2.5 mg that she has not noticing significant effect on Wegovy anymore. Discussed proper use, side effects.Patient did call [employer] and they stated that they would cover [...] 10 mg, Lexapro 10 mg, Discussed cortisol network project manager, and magnesium glycinate For adrenal fatigue [...] Dictation was accomplished with the use of [employer]me voice recognition software, prone to medical misidentifications [...] She continues to maintain adequate water intake. Maximea demonstrated maintenance of muscle mass with loss [...] to Zepbound, patient is going to contact [employer] to see if there is coverage with that medication. Having some fatigue/bloating. Focusing on whole proteins. 09/08/2024: Weight 206 BMI 36.61. Body composition showing maintenance overall. Will discontinue Wegovy, and initiate PA for Zepbound 2.5 mg that she has not noticing significant effect on Wegovy anymore. Discussed proper use, side effects.Patient did call [employer] and they stated that they would cover [...] 10 mg, Lexapro 10 mg, Discussed cortisol network project manager, and magnesium glycinate For adrenal fatigue [...] Dictation was accomplished with the use of [employer]me voice recognition software, prone to medical misidentifications and grammatical errors. This is unintentional and the practitioner does try to identify and correct these, but some could still be present. Please do not hesitate to contact practitioner for clarification. PLAN OF TREATMENT Medication Medication Name Sig Start Date Stop Date Notes Zepbound 10 MG/0.5ML 10 mg Subcutaneous weekly for 30 days Next Appt Details Provider Name:Laurita DOWLING 02/28/2025 02:45:00 PM, [address], [place], [address], Progress Notes * WILSON, KatangellaDOB: [birth year] (44 yo F)Acc No.[id number]:01/17/2025 Patient:??Wanda WILSONhryn Provider:??JOHANA CH PA-C :1980?Age:44 Y?Sex:Fe male Date:01/17/2025 Address:[address] [place], [place] [id number] Subjective: * Chief Complaints: * ?1. Patient presents fo r weight management follow up. Previous weight was 211lbs, currently weight is standing at 209lbs. The patient has no questions or concerns needed to be addressed. * HPI: ?Constitutional:? Melissa Is a pleasant 44-year-old female who presents to the office for a weight management follow-up. Taking Zepbound 7.5 mg with compliance, without any side effects. Last seen 12/05/2024. Patient's BMI at that time 37, with a weight of 211. Continue to encourage lifestyle at that time. Staying on the dose and feeling well. Noticing appetite suppression and feeling full longer. Focus more on protein. Feels like she is eating enough most days. Exercise is better as well. Going to the gym more consistently. * ROS:?Constitutional: Denies sudden weight loss, fever, [...] yrs.??1 sister(s) . 1 daughter(s) . .?? Father: Lung cancer Mother: Diabetes, and hypertension. 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 * Medications:??Taking Lexapro 10 MG Tablet 1 tablet Orally Once a day , Taking Spironolactone 50 MG Tablet 1 tablet Orally Once a day , Taking busPIRone HCl 10 MG Tablet 1 tablet Orally Twice a day , Taking Zepbound 7.5 MG/0.5ML Solution Auto-injector 7.5 mg Subcutaneous weekly , Medication List reviewed and reconciled with the patient * Allergies:??Wellbutrin. Objective: * Vitals:??HR:93/min, BP:114/7 8mm Hg, Wt:209.9lbs, BMI:37.18Index, Ht: 63 in, Oxygen sat %:98%. * [...] F32.A??4.??Other acne - L70.8?? Melissa Is a 44-year-old fem trace who presented the office for [...] in the meantime which is strongly encouraged. [facility] provided. 04/27/2023: Weight 221.3, BMI [...] next visit.If compounded semaglutide, will go to [place] office for nursing visits, and follow-up in [facility] for provider visits with myself. 06/29/2023: Weight [...] to Zepbound, patient is going to contact [employer] to see if there is coverage with that medication. Having some fatigue/bloating. Focusing on whole proteins. 09/08/2024: Weight 206 BMI 36.61. Body composition showing maintenance overall. Will discontinue Wegovy, and initiate PA for Zepbound 2.5 mg that she has not noticing significant effect on Wegovy anymore. Discussed proper use, side effects.Patient did call [employer] and they stated that they would cover [...] 10 mg, Lexapro 10 mg, Discussed cortisol network project manager, and magnesium glycinate For adrenal fatigue [...] Dictation was accomplished with the use of [employer]me voice recognition software, prone to medical misidentifications and grammatical errors. This is unintentional and the practitioner does try to identify and correct these, but some could still be present. Please do not hesitate to contact practitioner for clarification. Plan: * Treatment: * Procedure Codes:??67934 P/M CT TECHNICIAN, INDIV 15 MIN * Images: Billing Information: * Visit Code:?? 59909 Office Visit, Est Pt., Level 3. Modifiers: 25, SA * Procedure Codes:?? 31136 P/M CT TECHNICIAN, INDIV 15 MIN. * Sign off status: Completed true * Provider:??JOHANA CH PA-C Date:??02/2025 History and Physical Notes * HPI (History of Present Illness) Category Sub-Category Detail Notes Category Not es Constitutional Melissa Is a pleasant 44-year-old female who presents to the office for a weight management follow-up. Taking Zepbound 7.5 mg with compliance, without any side effects. Last seen 12/05/2024. Patient's BMI at that time 37, with a weight of 211. Continue to encourage lifestyle at that time. Staying on the dose and feeling well. Noticing appetite suppression and feeling full longer. Focus more on protein. Feels like she is eating enough most days. Exercise is better as well. Going to the gym more consistently. Physical Examination Category Sub-Category Detail Notes Section [...]
== END 2025-02-03 15:55 | disposition home or self-care (01) ==
LOC: HO.HMCC 15:29
PROVIDERS: PCP Internal Medicine; Visit Provider Internal Medicine
DX: F33.42 Major depressive disorder, recurrent, in full remission (principal); F41.1 Generalized anxiety disorder; R73.01 Impaired fasting glucose; E66.09 Other obesity due to excess calories; Z68.39 Body mass index [BMI] 39.0-39.9, adult

== ENCOUNTER → 2025-02-03 15:28 | Outpatient (BNVA) | payer OTHER, SELFPAY | PROVIDERS: PCP Internal Medicine; Visit Provider Internal Medicine | DX: F33.42 Major depressive disorder, recurrent, in full remission (principal); F41.1 Generalized anxiety disorder; R73.01 Impaired fasting glucose; E66.09 Other obesity due to excess calories; Z68.39 Body mass index [BMI] 39.0-39.9, adult; Z79.899 Other long term (current) drug therapy | CPT/HCPCS: 96127 ==

== ENCOUNTER 2025-02-04 08:07 | Outpatient (REF) | payer OTHER, SELFPAY ==
--- OUTSIDE RECORDS SUMMARY | 2025-02-04 08:09 | XMS_ITS ---
Author Organization [facility] Address [address] [facility] [place] [address] Care Team Providers Care Harness Inspector Name Role Phone JOHANA CH Unavailable [phone] ALLERGIES Allergen (clinical drug ingredient) Drug/Non Drug [...] 01/17/2025 Encounters Encounter Location Date Provider Diagnosis [facility] [address] [place] [address] 01/17/2025 JOHANA CH Obesity (BMI 30-39.9 ) [...] next visit.If compounded semaglutide, will go to [facility] for nursing visits, and follow-up in [facility] for provider visits with myself. 06/29/2023: Weight [...] to Zepbound, patient is going to contact [employer] to see if there is coverage with that medication. Having some fatigue/bloating. Focusing on whole proteins. 09/08/2024: Weight 206 BMI 36.61. Body composition showing maintenance overall. Will discontinue Wegovy, and initiate PA for Zepbound 2.5 mg that she has not noticing significant effect on Wegovy anymore. Discussed proper use, side effects.Patient did call [employer] and they stated that they would cover [...] 10 mg, Lexapro 10 mg, Discussed cortisol manager administrative, and magnesium glycinate For adrenal fatigue #Acne: [...] Dictation was accomplished with the use of [employer]O voice recognition software, prone to medical misidentifications [...] labs without concern. Patient was interested in [employer] had a conversation with her regarding three [...] in the meantime which is strongly encouraged. [facility] provided. 04/27/2023: Weight 221.3, BMI 39.2-patient is [...] next visit.If compounded semaglutide, will go to [facility] for nursing visits, and follow-up in [facility] for provider visits with myself. 06/29/2023: Weight [...] to Zepbound, patient is going to contact [employer] to see if there is coverage with that medication. Having some fatigue/bloating. Focusing on whole proteins. 09/08/2024: Weight 206 BMI 36.61. Body composition showing maintenance overall. Will discontinue Wegovy, and initiate PA for Zepbound 2.5 mg that she has not noticing significant effect on Wegovy anymore. Discussed proper use, side effects.Patient did call [employer] and they stated that they would cover [...] 10 mg, Lexapro 10 mg, Discussed cortisol manager administrative, and magnesium glycinate For adrenal fatigue #Acne: [...] Dictation was accomplished with the use of [employer]O voice recognition software, prone to medical misidentifications [...] next visit.If compounded semaglutide, will go to [place] office for nursing visits, and follow-up in [facility] for provider visits with myself. 06/29/2023: Weight [...] to Zepbound, patient is going to contact [employer] to see if there is coverage with that medication. Having some fatigue/bloating. Focusing on whole proteins. 09/08/2024: Weight 206 BMI 36.61. Body composition showing maintenance overall. Will discontinue Wegovy, and initiate PA for Zepbound 2.5 mg that she has not noticing significant effect on Wegovy anymore. Discussed proper use, side effects.Patient did call [employer] and they stated that they would cover [...] 10 mg, Lexapro 10 mg, Discussed cortisol manager administrative, and magnesium glycinate For adrenal fatigue #Acne: [...] Dictation was accomplished with the use of [employer]O voice recognition software, prone to medical misidentifications [...] to Zepbound, patient is going to contact [employer] to see if there is coverage with that medication. Having some fatigue/bloating. Focusing on whole proteins. 09/08/2024: Weight 206 BMI 36.61. Body composition showing maintenance overall. Will discontinue Wegovy, and initiate PA for Zepbound 2.5 mg that she has not noticing significant effect on Wegovy anymore. Discussed proper use, side effects.Patient did call [employer] and they stated that they would cover [...] 10 mg, Lexapro 10 mg, Discussed cortisol manager administrative, and magnesium glycinate For adrenal fatigue #Acne: [...] Dictation was accomplished with the use of [employer]O voice recognition software, prone to medical misidentifications [...] DOWLING 02/28/2025 02:45:00 PM, [address], [place], [address], Progress Notes * WILSON, KatangellaDOB: [birth year] (44 yo F)Acc No.[id number]:01/17/2025 Patient:??Wanda WILSONhryn Provider:??JOHANA CH PA-C :1980?Age:44 Y?Sex:Fe male Date:01/17/2025 Address:[address] [place], [place] [id number] Subjective: * Chief Complaints: * ?1. Patient [...] in the meantime which is strongly encouraged. [facility] provided. 04/27/2023: Weight 221.3, BMI 39.2-patient is [...] next visit.If compounded semaglutide, will go to [place] office for nursing visits, and follow-up in [facility] for provider visits with myself. 06/29/2023: Weight [...] to Zepbound, patient is going to contact [employer] to see if there is coverage with that medication. Having some fatigue/bloating. Focusing on whole proteins. 09/08/2024: Weight 206 BMI 36.61. Body composition showing maintenance overall. Will discontinue Wegovy, and initiate PA for Zepbound 2.5 mg that she has not noticing significant effect on Wegovy anymore. Discussed proper use, side effects.Patient did call [employer] and they stated that they would cover [...] 10 mg, Lexapro 10 mg, Discussed cortisol manager administrative, and magnesium glycinate For adrenal fatigue #Acne: [...] Dictation was accomplished with the use of Y[employer]O voice recognition software, prone to medical misidentifications and grammatical errors. This is unintentional and the practitioner does try to identify and correct these, but some could still be present. Please do not hesitate to contact practitioner for clarification. Plan: * Treatment: * Procedure Codes:??46314 P/M FLEXOGRAPHIC PRESS SET UP OPERATOR, INDIV 15 MIN * Images: Billing Information: * Visit Code:?? 42705 Office Visit, Est Pt., Level 3. Modifiers: 25, SA * Procedure Codes:?? 79135 P/M FLEXOGRAPHIC PRESS SET UP OPERATOR, INDIV 15 MIN. * Sign off status: [...]
--- OUTSIDE RECORDS SUMMARY | 2025-02-04 08:09 | XMS_ITS ---
Author Organization [facility] Address [address] [facility] [place] [address] Care Team Providers Care Line Fixer Name Role Phone JOHANA CH Unavailable [phone] ALLERGIES Allergen (clinical drug ingredient) Drug/Non Drug [...] [facility] [address] [place] [address] 12/05/2024 JOHANA CH Obesity (BMI 30-39.9 ) [...] next visit.If compounded semaglutide, will go to [facility] for nursing visits, and follow-up in [facility] for provider visits with myself. 06/29/2023: [...] to Zepbound, patient is going to contact [employer] to see if there is coverage with that medication. Having some fatigue/bloating. Focusing on whole proteins. 09/08/2024: Weight 206 BMI 36.61. Body composition showing maintenance overall. Will discontinue Wegovy, and initiate PA for Zepbound 2.5 mg that she has not noticing significant effect on Wegovy anymore. Discussed proper use, side effects.Patient did call [employer] and they stated that they would cover [...] 10 mg, Lexapro 10 mg, Discussed cortisol sports betting manager, and magnesium glycinate For adrenal fatigue [...] Dictation was accomplished with the use of [employer] voice recognition software, prone to medical misidentifications [...] next visit.If compounded semaglutide, will go to [facility] for nursing visits, and follow-up in [facility] for provider visits with myself. 06/29/2023: [...] to Zepbound, patient is going to contact [employer] to see if there is coverage with that medication. Having some fatigue/bloating. Focusing on whole proteins. 09/08/2024: Weight 206 BMI 36.61. Body composition showing maintenance overall. Will discontinue Wegovy, and initiate PA for Zepbound 2.5 mg that she has not noticing significant effect on Wegovy anymore. Discussed proper use, side effects.Patient did call [employer] and they stated that they would cover [...] 10 mg, Lexapro 10 mg, Discussed cortisol sports betting manager, and magnesium glycinate For adrenal fatigue [...] Dictation was accomplished with the use of [employer] voice recognition software, prone to medical misidentifications [...] next visit.If compounded semaglutide, will go to [facility] for nursing visits, and follow-up in [facility] for provider visits with myself. 06/29/2023: [...] to Zepbound, patient is going to contact [employer] to see if there is coverage with that medication. Having some fatigue/bloating. Focusing on whole proteins. 09/08/2024: Weight 206 BMI 36.61. Body composition showing maintenance overall. Will discontinue Wegovy, and initiate PA for Zepbound 2.5 mg that she has not noticing significant effect on Wegovy anymore. Discussed proper use, side effects.Patient did call [employer] and they stated that they would cover [...] 10 mg, Lexapro 10 mg, Discussed cortisol sports betting manager, and magnesium glycinate For adrenal fatigue [...] Dictation was accomplished with the use of [employer] voice recognition software, prone to medical misidentifications [...] in the meantime which is strongly encouraged. [facility] provided. 04/27/2023: Weight 221.3, BMI 39.2-patient [...] next visit.If compounded semaglutide, will go to [facility] for nursing visits, and follow-up in [facility] for provider visits with myself. 06/29/2023: [...] to Zepbound, patient is going to contact [employer] to see if there is coverage with that medication. Having some fatigue/bloating. Focusing on whole proteins. 09/08/2024: Weight 206 BMI 36.61. Body composition showing maintenance overall. Will discontinue Wegovy, and initiate PA for Zepbound 2.5 mg that she has not noticing significant effect on Wegovy anymore. Discussed proper use, side effects.Patient did call [employer] and they stated that they would cover [...] 10 mg, Lexapro 10 mg, Discussed cortisol sports betting manager, and magnesium glycinate For adrenal fatigue [...] Dictation was accomplished with the use of [employer] voice recognition software, prone to medical misidentifications [...] DOWLING 02/28/2025 02:45:00 PM, [address] [place], [address], Progress Notes * Melissa WILSONDOB: [birth year] (44 yo F)Acc No.[id number]:12/05/2024 Patient:??Melissa WILSON Provider:??JOHANA CH PA-C :1980?Age:44 Y?Sex:Fe male Date:12/05/2024 Address:[address] [place], [place] [id number] Subjective: * Chief Complaints: * ?1. Patient [...] on working out more. Twice-weekly on the [employer] or walking around the hospital. Wants to [...] next visit.If compounded semaglutide, will go to [facility] for nursing visits, and follow-up in [facility] for provider visits with myself. 06/29/2023: [...] to Zepbound, patient is going to contact [employer] to see if there is coverage with that medication. Having some fatigue/bloating. Focusing on whole proteins. 09/08/2024: Weight 206 BMI 36.61. Body composition showing maintenance overall. Will discontinue Wegovy, and initiate PA for Zepbound 2.5 mg that she has not noticing significant effect on Wegovy anymore. Discussed proper use, side effects.Patient did call [employer] and they stated that they would cover [...] 10 mg, Lexapro 10 mg, Discussed cortisol sports betting manager, and magnesium glycinate For adrenal fatigue [...] Dictation was accomplished with the use of [employer] voice recognition software, prone to medical misidentifications and grammatical errors. This is unintentional and the practitioner does try to identify and correct these, but some could still be present. Please do not hesitate to contact practitioner for clarification. Plan: * Treatment: * Procedure Codes:??63762 P/M FOUNTAIN ROLLER ASSEMBLER, INDIV 15 MIN * Images: Billing Information: * Visit Code:?? 29060 Office Visit, Est Pt., Level 3. Modifiers: SA * Procedure Codes:?? 84796 P/M FOUNTAIN ROLLER ASSEMBLER, INDIV 15 MIN. * Sign off status: [...] on working out more. Twice-weekly on the [employer] or walking around the hospital. Wants to [...]
--- OUTSIDE RECORDS SUMMARY | 2025-02-04 08:09 | XMS_ITS ---
Author Organization [facility] Address [address] [facility] [place] [address] Care Team Providers Care Jewel Bearing Broacher Name Role Phone JOHANA CH Unavailable [phone] ALLERGIES Allergen (clinical drug ingredient) Drug/Non Drug Allergy documented on EMR Reaction Allergy Type Onset Date Status Wellbutrin Unknown Drug Allergy Active REASON FOR VISIT Patient presents for weight management follow up. Previous weight oov282.7lbs. Current weight is standing at 209.0lbs. No [...] Notes Problem Anxiety (F41.9) Active confirmed Anxiety (38520587) Problem Raynaud's disease without gangrene (I73.00) Active confirmed Raynaud's disease (862102706) Problem History of cervical cancer (Z85.41) Active confirmed History of malignant neoplasm of cervix (103067741) VITAL SIGNS Blood pressure systolic 124 mm Hg 10/31/20 24 Blood pressure diastolic 84 mm Hg 024 Heart Rate 73 /min 10/31/2024 Height 63 in 10/31/2024 Weight 209.0 lbs 10/31/2024 BMI 37.02 kg/m2 10/31/2024 Oximetry 97 % 10/31/2024 Encounters Encounter Location Date Provider Diagnosis [facility] [address] [place] [address] 10/31/2024 JOHANA CH Obesity (BMI 30-39.9 ) [...] next visit.If compounded semaglutide, will go to [facility] for nursing visits, and follow-up in [facility] for provider visits with myself. 06/29/2023: [...] to Zepbound, patient is going to contact [employer] to see if there is coverage with that medication. Having some fatigue/bloating. Focusing on whole proteins. 09/08/2024: Weight 206 BMI 36.61. Body composition showing maintenance overall. Will discontinue Wegovy, and initiate PA for Zepbound 2.5 mg that she has not noticing significant effect on Wegovy anymore. Discussed proper use, side effects.Patient did call [employer] and they stated that they would cover [...] Dictation was accomplished with the use of [email or web address] voice recognition software, prone to medical misidentifications [...] next visit.If compounded semaglutide, will go to [facility] for nursing visits, and follow-up in [facility] for provider visits with myself. 06/29/2023: [...] to Zepbound, patient is going to contact [employer] to see if there is coverage with that medication. Having some fatigue/bloating. Focusing on whole proteins. 09/08/2024: Weight 206 BMI 36.61. Body composition showing maintenance overall. Will discontinue Wegovy, and initiate PA for Zepbound 2.5 mg that she has not noticing significant effect on Wegovy anymore. Discussed proper use, side effects.Patient did call [employer] and they stated that they would cover [...] Dictation was accomplished with the use of [email or web address] voice recognition software, prone to medical misidentifications [...] next visit.If compounded semaglutide, will go to [facility] for nursing visits, and follow-up in [facility] for provider visits with myself. 06/29/2023: [...] to Zepbound, patient is going to contact [employer] to see if there is coverage with that medication. Having some fatigue/bloating. Focusing on whole proteins. 09/08/2024: Weight 206 BMI 36.61. Body composition showing maintenance overall. Will discontinue Wegovy, and initiate PA for Zepbound 2.5 mg that she has not noticing significant effect on Wegovy anymore. Discussed proper use, side effects.Patient did call [employer] and they stated that they would cover [...] Dictation was accomplished with the use of [email or web address] voice recognition software, prone to medical misidentifications [...] next visit.If compounded semaglutide, will go to [facility] for nursing visits, and follow-up in [facility] for provider visits with myself. 06/29/2023: [...] to Zepbound, patient is going to contact [employer] to see if there is coverage with that medication. Having some fatigue/bloating. Focusing on whole proteins. 09/08/2024: Weight 206 BMI 36.61. Body composition showing maintenance overall. Will discontinue Wegovy, and initiate PA for Zepbound 2.5 mg that she has not noticing significant effect on Wegovy anymore. Discussed proper use, side effects.Patient did call [employer] and they stated that they would cover [...] Dictation was accomplished with the use of [email or web address] voice recognition software, prone to medical misidentifications [...] 0 02/28/2025 02:45:00 PM, [address], [place], [address], Progress Notes * Angie WILSONDOB: [birth year] (44 yo F)Acc No.[id number]:10/31/2024 Patient:??Angie WILSON Provider:??JOHANA CH PA-C :1980?Age:44 Y?Sex:Fe male Date:10/31/2024 Address:[address] [place], [place] [id number] Subjective: * Chief Complaints: * ?1. Patient presents fo r weight management follow up. Previous weight ddj644.7lbs. Current weight is standing at 209.0lbs. No [...] labs without concern. Patient was interested in [place] had a conversation with her regarding three [...] in the meantime which is strongly encouraged. [facility] provided. 04/27/2023: Weight 221.3, BMI 39.2-patient [...] next visit.If compounded semaglutide, will go to [facility] for nursing visits, and follow-up in [facility] for provider visits with myself. 06/29/2023: [...] to Zepbound, patient is going to contact [employer] to see if there is coverage with that medication. Having some fatigue/bloating. Focusing on whole proteins. 09/08/2024: Weight 206 BMI 36.61. Body composition showing maintenance overall. Will discontinue Wegovy, and initiate PA for Zepbound 2.5 mg that she has not noticing significant effect on Wegovy anymore. Discussed proper use, side effects.Patient did call [employer] and they stated that they would cover [...] Dictation was accomplished with the use of [email or web address] voice recognition software, prone to medical misidentifications and grammatical errors. This is unintentional and the practitioner does try to identify and correct these, but some could still be present. Please do not hesitate to contact practitioner for clarification. Plan: * Treatment: * Procedure Codes:??24864 P/M [employer], INDIV 15 MIN * Images: Billing Information: * Visit Code:?? 11342 Office Visit, Est Pt., Level 3. Modifiers: SA * Procedure Codes:?? 80118 P/M [employer] SAL[employer]SULTANT, INDIV 15 MIN. * Sign off status: [...]
--- OUTSIDE RECORDS SUMMARY | 2025-02-04 08:09 | XMS_ITS | Patient Health Record ---
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 Name Role Phone JOHANA HC Unavailable [phone] ALLERGIES Allergen (clinical drug ingredient) Drug/Non Drug [...] Notes Problem Other obesity (E66.8) Active confirmed [id number] Problem Anxiety (F41.9) Active confirmed Anxiety (17074979) Problem Obesity (BMI 30-39.9) (E66.9) Active confirmed [id number] Problem BMI 37.0-37.9, adult (Z68.37) Active confirmed 835539160 Problem Raynaud's disease without gangrene (I73.00) Active confirmed Raynaud's disease (688859798) Problem BMI 39.0-39.9,adul t (Z68.39) Active confirmed [id number] Problem BMI 36.0-36.9,adul t (Z68.36) Active confirmed 733064460 Problem BMI 38.0-38.9,adul t (Z68.38) Active confirmed 648458228 Problem History of cervical cancer (Z85.41) Active confirmed History of malignant neoplasm of cervix (919435038) VITAL SIGNS Heart Rate 93 /min 01/17/2025 Blood pressure diastolic 78 mm Hg 01/17/2025 Oximetry 98 % 01/17/2025 Height 63 in 01/17/2025 Blood pressure systolic 114 mm Hg 01/17/2025 Weight 209.9 lbs 01/17/2025 BMI 37.18 kg/m2 01/17/2025 Encounters Encounter Location Date Provider Diagnosis [facility] [address] [place] [address] 03/29/2024 JOHANA JING Other obesity E66.8 ; BMI 37.0-37.9, adult Z68.37 ; Depression, unspecified depression type F32.A and Other acne L70.8 [facility] [address] [place] [address] 05/12/2024 JOHANA JING Other obesity E66.8 ; BMI 36.0-36.9,adult Z68.36 ; Depression, unspecified depression type F32.A and Other acne L70.8 [facility] [address] [place] [address] 07/25/2024 JOHANA JING Other obesity E66.8 ; BMI 36.0-36.9,adult Z68.36 ; Depression, unspecified depression type F32.A and Other acne L70.8 [facility] [address] [place] [address] 09/08/2024 JOHANA JING BMI 36.0-36.9,adult Z68.36 ; Obesity (BMI 30-39.9) E66.9 ; Depression, unspecified depression type F32.A and Other acne L70.8 [facility] [address] [place] [address] 10/31/2024 JOHANA JING Obesity (BMI 30-39.9 ) E66.9 ; BMI 37.0-37.9, adult Z68.37 ; Depression, unspecified depression type F32.A and Other acne L70.8 [facility] [address] [place] [address] 12/05/2024 JOHANA JING Obesity (BMI 30-39.9 ) E66.9 ; BMI 37.0-37.9, adult Z68.37 ; Depression, unspecified depression type F32.A and Other acne L70.8 [facility] [address] [place] [address] 01/17/2025 JOHANA CH Obesity (BMI 30-39.9 ) E66.9 ; BMI 37.0-37.9, adult Z68.37 ; Depression, unspecified depression type F32.A and Other acne L70.8 [phone] [address] 03/11/2024 JOHANA JING [phone] [address] 10/07/2024 JOHANA CH ASSESSMENTS Encounter Date Diagnosis Assessment Notes Treatment Notes Treatment Clinical Notes Section Notes 03/29/2024 Other obesity (ICD-10 - E66.8) Melissa Is a 89-ypua-hbj female who presented the office for weight [...] next visit.If compounded semaglutide, will go to [facility] office for nursing visits, and follow-up in [facility] for provider visits with myself. 06/29/2023: [...] Dictation was accomplished with the use of [employer] voice recognition software, prone to medical misidentifications and grammatical errors. This is unintentional and the practitioner does try to identify and correct these, but some could still be present. Please do not hesitate to contact practitioner for clarification. 05/12/2024 Other obesity (ICD-10 - E66.8) Melissa Is a 89-vili-eub female who presented the office for weight [...] in the meantime which is strongly encouraged. [facility] provided. 04/27/2023: Weight 221.3, BMI 39.2-patient is [...] Center for nursing visits, and follow-up in [facility] for provider visits with myself. 06/29/2023: [...] Dictation was accomplished with the use of [employer] voice recognition software, prone to medical misidentifications and grammatical errors. This is unintentional and the practitioner does try to identify and correct these, but some could still be present. Please do not hesitate to contact practitioner for clarification. 05/12/2024 BMI 36.0-36.9,adul t (ICD-10 - Z68.36) Melissa Is a 89-cxkj-klc female who presented the office for weight [...] Center for nursing visits, and follow-up in [place] [...] Dictation was accomplished with the use of [employer] voice recognition software, prone to medical misidentifications and grammatical errors. This is unintentional and the practitioner does try to identify and correct these, but some could still be present. Please do not hesitate to contact practitioner for clarification. 07/25/2024 Other obesity (ICD-10 - E66.8) Melissa Is a 89-ahhw-zxl female who presented the office for weight [...] Center for nursing visits, and follow-up in [facility] for provider visits with myself. 06/29/2023: [...] to Zepbound, patient is going to contact [employer] to see if there is coverage with [...] Dictation was accomplished with the use of [employer] voice recognition software, prone to medical misidentifications [...] Center for nursing visits, and follow-up in [facility] for provider visits with myself. 06/29/2023: Weight 217.8, BMI 38.58. Patient congratulated on efforts. Taking Saxenda daily with compliance, denies any known side effects. She has successfully incorporated increased physical activity into her lifestyle and reports recent hikes/bike rides. She has found portion control much easier secondary to the appetite suppression effect of Saxenda. She continues to maintain adequate water intake. Bridgett demonstrated maintenance of muscle mass with loss [...] to Zepbound, patient is going to contact [employer] to see if there is coverage with that medication. Having some fatigue/bloating. Focusing on whole proteins. 09/08/2024: Weight 206 BMI 36.61. Body composition showing maintenance overall. Will discontinue Wegovy, and initiate PA for Zepbound 2.5 mg that she has not noticing significant effect on Wegovy anymore. Discussed proper use, side effects.Patient did call [employer] and they stated that they would cover [...] Dictation was accomplished with the use of [employer] voice recognition software, prone to medical misidentifications [...] in the meantime which is strongly encouraged. [facility] provided. 04/27/2023: Weight 221.3, BMI 39.2-patient is [...] Center for nursing visits, and follow-up in [facility] for provider visits with myself. 06/29/2023: [...] to Zepbound, patient is going to contact [employer] to see if there is coverage with that medication. Having some fatigue/bloating. Focusing on whole proteins. 09/08/2024: Weight 206 BMI 36.61. Body composition showing maintenance overall. Will discontinue Wegovy, and initiate PA for Zepbound 2.5 mg that she has not noticing significant effect on Wegovy anymore. Discussed proper use, side effects.Patient did call [employer] and they stated that they would cover [...] Dictation was accomplished with the use of [employer] voice recognition software, prone to medical misidentifications [...] Center for nursing visits, and follow-up in [facility] for provider visits with myself. 06/29/2023: [...] as portion control has been improving. [facility] provided.Focused on high-protein, implementing more resistance training. [...] to Zepbound, patient is going to contact [employer] to see if there is coverage with that medication. Having some fatigue/bloating. Focusing on whole proteins. 09/08/2024: Weight 206 BMI 36.61. Body composition showing maintenance overall. Will discontinue Wegovy, and initiate PA for Zepbound 2.5 mg that she has not noticing significant effect on Wegovy anymore. Discussed proper use, side effects.Patient did call [employer] and they stated that they would cover [...] Dictation was accomplished with the use of [employer] voice recognition software, prone to medical misidentifications [...] Center for nursing visits, and follow-up in [facility] for provider visits with myself. 06/29/2023: [...] to Zepbound, patient is going to contact [employer] to see if there is coverage with that medication. Having some fatigue/bloating. Focusing on whole proteins. 09/08/2024: Weight 206 BMI 36.61. Body composition showing maintenance overall. Will discontinue Wegovy, and initiate PA for Zepbound 2.5 mg that she has not noticing significant effect on Wegovy anymore. Discussed proper use, side effects.Patient did call [employer] and they stated that they would cover [...] Dictation was accomplished with the use of [employer] voice recognition software, prone to medical misidentifications [...] Center for nursing visits, and follow-up in [facility] for provider visits with myself. 06/29/2023: [...] to Zepbound, patient is going to contact [employer] to see if there is coverage with that medication. Having some fatigue/bloating. Focusing on whole proteins. 09/08/2024: Weight 206 BMI 36.61. Body composition showing maintenance overall. Will discontinue Wegovy, and initiate PA for Zepbound 2.5 mg that she has not noticing significant effect on Wegovy anymore. Discussed proper use, side effects.Patient did call [employer] and they stated that they would cover [...] mg, Lexapro 10 mg, Discussed cortisol manager general, and magnesium glycinate For adrenal fatigue #Acne: [...] Dictation was accomplished with the use of [employer] voice recognition software, prone to medical misidentifications [...] Center for nursing visits, and follow-up in [facility] for provider visits with myself. 06/29/2023: [...] to Zepbound, patient is going to contact [employer] to see if there is coverage with that medication. Having some fatigue/bloating. Focusing on whole proteins. 09/08/2024: Weight 206 BMI 36.61. Body composition showing maintenance overall. Will discontinue Wegovy, and initiate PA for Zepbound 2.5 mg that she has not noticing significant effect on Wegovy anymore. Discussed proper use, side effects.Patient did call [employer] and they stated that they would cover [...] mg, Lexapro 10 mg, Discussed cortisol manager general, and magnesium glycinate For adrenal fatigue #Acne: [...] Dictation was accomplished with the use of [employer] voice recognition software, prone to medical misidentifications [...] Center for nursing visits, and follow-up in [facility] for provider visits with myself. 06/29/2023: [...] to Zepbound, patient is going to contact [employer] to see if there is coverage with that medication. Having some fatigue/bloating. Focusing on whole proteins. 09/08/2024: Weight 206 BMI 36.61. Body composition showing maintenance overall. Will discontinue Wegovy, and initiate PA for Zepbound 2.5 mg that she has not noticing significant effect on Wegovy anymore. Discussed proper use, side effects.Patient did call [employer] and they stated that they would cover [...] mg, Lexapro 10 mg, Discussed cortisol manager general, and magnesium glycinate For adrenal fatigue #Acne: [...] Dictation was accomplished with the use of [employer] voice recognition software, prone to medical misidentifications [...] in the meantime which is strongly encouraged. [facility] provided. 04/27/2023: Weight 221.3, BMI 39.2-patient is [...] Center for nursing visits, and follow-up in [facility] for provider visits with myself. 06/29/2023: [...] to Zepbound, patient is going to contact [employer] to see if there is coverage with that medication. Having some fatigue/bloating. Focusing on whole proteins. 09/08/2024: Weight 206 BMI 36.61. Body composition showing maintenance overall. Will discontinue Wegovy, and initiate PA for Zepbound 2.5 mg that she has not noticing significant effect on Wegovy anymore. Discussed proper use, side effects.Patient did call [employer] and they stated that they would cover [...] mg, Lexapro 10 mg, Discussed cortisol manager general, and magnesium glycinate For adrenal fatigue #Acne: [...] Dictation was accomplished with the use of [employer] voice recognition software, prone to medical misidentifications [...] Center for nursing visits, and follow-up in [facility] for provider visits with myself. 06/29/2023: Weight 217.8, BMI 38.58. Patient congratulated on efforts. Taking Saxenda daily with compliance, denies any known side effects. She has successfully incorporated increased physical activity into her lifestyle and reports recent hikes/bike rides. She has found portion control much easier secondary to the appetite suppression effect of Saxenda. She continues to maintain adequate water intake. Bridgett demonstrated maintenance of muscle mass with loss [...] to Zepbound, patient is going to contact [employer] to see if there is coverage with that medication. Having some fatigue/bloating. Focusing on whole proteins. 09/08/2024: Weight 206 BMI 36.61. Body composition showing maintenance overall. Will discontinue Wegovy, and initiate PA for Zepbound 2.5 mg that she has not noticing significant effect on Wegovy anymore. Discussed proper use, side effects.Patient did call [employer] and they stated that they would cover [...] mg, Lexapro 10 mg, Discussed cortisol manager general, and magnesium glycinate For adrenal fatigue #Acne: [...] Dictation was accomplished with the use of [employer] voice recognition software, prone to medical misidentifications [...] Center for nursing visits, and follow-up in [facility] for provider visits with myself. 06/29/2023: Weight 217.8, BMI 38.58. Patient congratulated on efforts. Taking Saxenda daily with compliance, denies any known side effects. She has successfully incorporated increased physical activity into her lifestyle and reports recent hikes/bike rides. She has found portion control much easier secondary to the appetite suppression effect of Saxenda. She continues to maintain adequate water intake. Bridgett demonstrated maintenance of muscle mass with loss [...] to Zepbound, patient is going to contact [employer] to see if there is coverage with that medication. Having some fatigue/bloating. Focusing on whole proteins. 09/08/2024: Weight 206 BMI 36.61. Body composition showing maintenance overall. Will discontinue Wegovy, and initiate PA for Zepbound 2.5 mg that she has not noticing significant effect on Wegovy anymore. Discussed proper use, side effects.Patient did call [employer] and they stated that they would cover [...] Dictation was accomplished with the use of [employer] voice recognition software, prone to medical misidentifications [...] in the meantime which is strongly encouraged. [facility] provided. 04/27/2023: Weight 221.3, BMI 39.2-patient is [...] next visit.If compounded semaglutide, will go to [place] office for nursing visits, and follow-up in [facility] for provider visits with myself. 06/29/2023: [...] to Zepbound, patient is going to contact [employer] to see if there is coverage with that medication. Having some fatigue/bloating. Focusing on whole proteins. 09/08/2024: Weight 206 BMI 36.61. Body composition showing maintenance overall. Will discontinue Wegovy, and initiate PA for Zepbound 2.5 mg that she has not noticing significant effect on Wegovy anymore. Discussed proper use, side effects.Patient did call [employer] and they stated that they would cover [...] Dictation was accomplished with the use of [employer] voice recognition software, prone to medical misidentifications and grammatical errors. This is unintentional and the practitioner does try to identify and correct these, but some could still be present. Please do not hesitate to contact practitioner for clarification. 07/25/2024 BMI 36.0-36.9,adul t (ICD-10 - Z68.36) Melissa Is a 89-sdvg-gmt female who presented the office for weight [...] Center for nursing visits, and follow-up in [facility] for provider visits with myself. 06/29/2023: [...] to Zepbound, patient is going to contact [employer] to see if there is coverage with [...] Dictation was accomplished with the use of [employer] voice recognition software, prone to medical misidentifications and grammatical errors. This is unintentional and the practitioner does try to identify and correct these, but some could still be present. Please do not hesitate to contact practitioner for clarification. 05/12/2024 Depression, unspecified depression type (ICD-10 - F32.A) Melissa Is a 112-mzqr-rnc female who presented the office for weight [...] Center for nursing visits, and follow-up in [facility] for provider visits with myself. 06/29/2023: [...] Dictation was accomplished with the use of [employer] voice recognition software, prone to medical misidentifications and grammatical errors. This is unintentional and the practitioner does try to identify and correct these, but some could still be present. Please do not hesitate to contact practitioner for clarification. 03/29/2024 BMI 37.0-37.9, adult (ICD-10 - Z68.37) Melissa Is a 642-etbp-npj female who presented the office for weight [...] Center for nursing visits, and follow-up in [facility] for provider visits with myself. 06/29/2023: [...] Dictation was accomplished with the use of [employer] voice recognition software, prone to medical misidentifications and grammatical errors. This is unintentional and the practitioner does try to identify and correct these, but some could still be present. Please do not hesitate to contact practitioner for clarification. 03/29/2024 Depression, unspecified depression type (ICD-10 - F32.A) Melissa Is a 294-upvh-tyy female who presented the office for weight [...] in the meantime which is strongly encouraged. [facility] provided. 04/27/2023: Weight 221.3, BMI 39.2-patient is [...] Center for nursing visits, and follow-up in [facility] for provider visits with myself. 06/29/2023: [...] Dictation was accomplished with the use of [employer] voice recognition software, prone to medical misidentifications and grammatical errors. This is unintentional and the practitioner does try to identify and correct these, but some could still be present. Please do not hesitate to contact practitioner for clarification. 05/12/2024 Other acne (ICD-10 - L70.8) Melissa Is a 735-hjvb-emb female who presented the office for weight [...] Center for nursing visits, and follow-up in [facility] for provider visits with myself. 06/29/2023: Weight 217.8, BMI 38.58. Patient congratulated on efforts. Taking Saxenda daily with compliance, denies any known side effects. She has successfully incorporated increased physical activity into her lifestyle and reports recent hikes/bike rides. She has found portion control much easier secondary to the appetite suppression effect of Saxenda. She continues to maintain adequate water intake. Bridgett demonstrated maintenance of muscle mass with loss [...] Dictation was accomplished with the use of [employer] voice recognition software, prone to medical misidentifications and grammatical errors. This is unintentional and the practitioner does try to identify and correct these, but some could still be present. Please do not hesitate to contact practitioner for clarification. 07/25/2024 Depression, unspecified depression type (ICD-10 - F32.A) Melissa Is a 251-qryr-zsd female who presented the office for weight [...] Center for nursing visits, and follow-up in [facility] for provider visits with myself. 06/29/2023: [...] to Zepbound, patient is going to contact [employer] to see if there is coverage with [...] Dictation was accomplished with the use of [employer] voice recognition software, prone to medical misidentifications [...] next visit.If compounded semaglutide, will go to [facility] office for nursing visits, and follow-up in [facility] for provider visits with myself. 06/29/2023: Weight 217.8, BMI 38.58. Patient congratulated on efforts. Taking Saxenda daily with compliance, denies any known side effects. She has successfully incorporated increased physical activity into her lifestyle and reports recent hikes/bike rides. She has found portion control much easier secondary to the appetite suppression effect of Saxenda. She continues to maintain adequate water intake. Bridgett demonstrated maintenance of muscle mass with loss [...] to Zepbound, patient is going to contact [employer] to see if there is coverage with that medication. Having some fatigue/bloating. Focusing on whole proteins. 09/08/2024: Weight 206 BMI 36.61. Body composition showing maintenance overall. Will discontinue Wegovy, and initiate PA for Zepbound 2.5 mg that she has not noticing significant effect on Wegovy anymore. Discussed proper use, side effects.Patient did call [employer] and they stated that they would cover [...] Dictation was accomplished with the use of [employer] voice recognition software, prone to medical misidentifications [...] in the meantime which is strongly encouraged. [facility] provided. 04/27/2023: Weight 221.3, BMI 39.2-patient is [...] Center for nursing visits, and follow-up in [facility] for provider visits with myself. 06/29/2023: [...] to Zepbound, patient is going to contact [employer] to see if there is coverage with that medication. Having some fatigue/bloating. Focusing on whole proteins. 09/08/2024: Weight 206 BMI 36.61. Body composition showing maintenance overall. Will discontinue Wegovy, and initiate PA for Zepbound 2.5 mg that she has not noticing significant effect on Wegovy anymore. Discussed proper use, side effects.Patient did call [employer] and they stated that they would cover [...] Dictation was accomplished with the use of [employer] voice recognition software, prone to medical misidentifications [...] Center for nursing visits, and follow-up in [facility] for provider visits with myself. 06/29/2023: [...] to Zepbound, patient is going to contact [employer] to see if there is coverage with that medication. Having some fatigue/bloating. Focusing on whole proteins. 09/08/2024: Weight 206 BMI 36.61. Body composition showing maintenance overall. Will discontinue Wegovy, and initiate PA for Zepbound 2.5 mg that she has not noticing significant effect on Wegovy anymore. Discussed proper use, side effects.Patient did call [employer] and they stated that they would cover [...] mg, Lexapro 10 mg, Discussed cortisol manager general, and magnesium glycinate For adrenal fatigue #Acne: [...] Dictation was accomplished with the use of [employer] [employer] voice recognition software, prone to medical misidentifications [...] Center for nursing visits, and follow-up in [facility] for provider visits with myself. 06/29/2023: [...] as portion control has been improving. Alfonso HARRIS provided.Focused on high-protein, implementing more resistance training. [...] to Zepbound, patient is going to contact [employer] to see if there is coverage with that medication. Having some fatigue/bloating. Focusing on whole proteins. 09/08/2024: Weight 206 BMI 36.61. Body composition showing maintenance overall. Will discontinue Wegovy, and initiate PA for Zepbound 2.5 mg that she has not noticing significant effect on Wegovy anymore. Discussed proper use, side effects.Patient did call [employer] and they stated that they would cover [...] mg, Lexapro 10 mg, Discussed cortisol manager general, and magnesium glycinate For adrenal fatigue #Acne: [...] Dictation was accomplished with the use of [employer] voice recognition software, prone to medical misidentifications [...] in the meantime which is strongly encouraged. [facility] provided. 04/27/2023: Weight 221.3, BMI 39.2-patient is [...] next visit.If compounded semaglutide, will go to [place] office for nursing visits, and follow-up in [facility] for provider visits with myself. 06/29/2023: [...] to Zepbound, patient is going to contact [employer] to see if there is coverage with that medication. Having some fatigue/bloating. Focusing on whole proteins. 09/08/2024: Weight 206 BMI 36.61. Body composition showing maintenance overall. Will discontinue Wegovy, and initiate PA for Zepbound 2.5 mg that she has not noticing significant effect on Wegovy anymore. Discussed proper use, side effects.Patient did call [employer] and they stated that they would cover [...] mg, Lexapro 10 mg, Discussed cortisol manager general, and magnesium glycinate For adrenal fatigue #Acne: [...] Dictation was accomplished with the use of [employer] voice recognition software, prone to medical misidentifications and grammatical errors. This is unintentional and the practitioner does try to identify and correct these, but some could still be present. Please do not hesitate to contact practitioner for clarification. 07/25/2024 Other acne (ICD-10 - L70.8) Melissa Is a [id number]-pszj-vun female who presented the office for weight [...] Center for nursing visits, and follow-up in [facility] for provider visits with myself. 06/29/2023: Weight 217.8, BMI 38.58. Patient congratulated on efforts. Taking Saxenda daily with compliance, denies any known side effects. She has successfully incorporated increased physical activity into her lifestyle and reports recent hikes/bike rides. She has found portion control much easier secondary to the appetite suppression effect of Saxenda. She continues to maintain adequate water intake. Bridgett demonstrated maintenance of muscle mass with loss [...] to Zepbound, patient is going to contact [employer] to see if there is coverage with [...] Dictation was accomplished with the use of [employer] voice recognition software, prone to medical misidentifications and grammatical errors. This is unintentional and the practitioner does try to identify and correct these, but some could still be present. Please do not hesitate to contact practitioner for clarification. 03/29/2024 Other acne (ICD-10 - L70.8) Melissa Is a [id number]-tzhd-mvx female who presented the office for weight [...] Center for nursing visits, and follow-up in [facility] for provider visits with myself. 06/29/2023: [...] Dictation was accomplished with the use of [employer] voice recognition software, prone to medical misidentifications [...] DOWLING 02/28/2025 02:45:00 PM, [address], [place], [address], Insurance Providers Payer Name Payer Address Payer Phone Subscriber Number Group Number Insured Name Patient Relationship to Insured Coverage Start Date Coverage End Date [facility] [address] [place] [address] [id number] Melissa Wilson Self - patient is the insured MEDICATIONS ADMINISTERED Medication Instructions Date of Administration Dosage Notes [facility] B12 INJECTION 02/17/2023 [facility] B12 INJECTION 03/26/2023 [facility] B12 INJECTION 04/27/2023 [facility]24 lot# [id number] Semaglutide 09/07/2023 0.25 SEMA 0.25 Semaglutide 09/14/2023 Semaglutide 09/21/2023 Semaglutide 09/28/2023 Semaglutide 10/05/2023 Semaglutide 10/13/2023 1 mg MEDICAL (GENERAL) HISTORY Medical History History ICD Code Depression F32.A Anxiety F41.9 Raynaud's disease without gangrene I73.0 0 History of cervical cancer Z85.41 Surgical History Surgery Date(Month/Year) trachiotomy 2015 lap inocente 2020
[2025-02-04 12:01] LABS: MANUAL DIFF FLAG NO
[2025-02-04 12:08] LABS: Basophils Absolute Auto 0.1 X10*3/uL (0.0-0.2); Basophils Percent Auto 0.7 % (0-2); Eosinophils Absolute Auto 0.1 X10*3/uL (0.0-0.4); Eosinophils Percent Auto 1.7 % (0-4); Hematocrit 46.1 % (37.0-47.0); Hemoglobin 15.4 g/dl (12.0-16.0); Imm Gran Abs Auto 0.02 X10*3/uL (0.00-0.03); Imm Gran Pct Auto 0.3 % (0.0-0.4); Lymphocytes Absolute Auto 1.9 X10*3/uL (1.2-4.9); Lymphocytes Percent Auto 26.9 % (20-40); Mean Corpuscular HGB Conc 33.4 g/dl (31.0-35.0); Mean Corpuscular Hemoglobin 30.2 pg (27.0-33.0); Mean Corpuscular Volume 90.4 fL (80.0-98.0); Monocytes Absolute Auto 0.5 X10*3/uL (0.1-1.2); Monocytes Percent Auto 6.3 % (2-11); Neutrophils Absolute Auto 4.6 x10*3/uL (2.0-8.3); Neutrophils Percent Auto 64.1 % (45-73); Platelet Count 313 X10*3/uL (160-400); Red Cell Distribution Width 12.4 % (11.0-16.0); White Blood Count 7.2 X10*3/uL (4.8-10.8)
[2025-02-04 12:28] LABS: Alanine Aminotransferase 28 U/L (0-31); Albumin Level 3.7 g/dL (3.5-5.0); Alkaline Phosphatase 134 U/L (39-117); Amylase 40 U/L (28-100); Anion Gap 10 (12-20); Aspartate Amino Transferase 26 U/L (5-31); Bilirubin Total 0.6 mg/dL (0.0-1.0); Blood Urea Nitrogen 11 mg/dL (9-16); Calcium 8.9 mg/dL (8.4-10.2); Carbon Dioxide 24 mmol/L (22-29); Chloride 106 mmol/L (96-108); Cholesterol 143 mg/dL (<200); Estimated Glomerular Filt Rate > 60; Glucose Fasting 88 mg/dL (60-99); HDL Cholesterol 52 mg/dL (>40); LDL Cholesterol Calculated 77 mg/dL (<100); Lipase 17 U/L (8-78); Potassium 4.1 mmol/L (3.3-5.1); Sodium 136 mmol/L (135-145); Total Protein 7.3 g/dL (6.5-8.0); Triglycerides 70 mg/dL (<150)
[2025-02-04 12:48] LABS: TSH reflex Free T4 1.76 uIU/mL (0.32-4.0)
[2025-02-04 12:51] LABS: Estimated Average Glucose 91 mg/dL; Hemoglobin A1C 119.2598 umol/L; Hemoglobin A1c % 4.8 % (<6.0); Total Hemoglobin (HGBA1C) 4058.4972 umol/L
== END 2025-02-04 08:08 | disposition home or self-care (01) ==
LOC: HO.HMGCLDS 08:07
PROVIDERS: PCP Internal Medicine; Visit Provider Internal Medicine
DX: Z00.01 Encounter for general adult medical examination with abnormal findings (principal); E66.09 Other obesity due to excess calories; Z68.39 Body mass index [BMI] 39.0-39.9, adult; F33.42 Major depressive disorder, recurrent, in full remission; F41.1 Generalized anxiety disorder; R73.01 Impaired fasting glucose; J45.20 Mild intermittent asthma, uncomplicated
CPT/HCPCS: 36415; 80053; 80061; 82150; 83036; 83690; 84443; 85025

== ENCOUNTER 2025-06-09 13:00 | Outpatient (AMB) | payer OTHER, SELFPAY ==
--- OUTSIDE RECORDS SUMMARY | 2025-06-06 11:15 | XMS_ITS ---
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 tob: denies drugs: denies caffeine: limited due to jitters Vital Signs Blood pressure systolic 118 mm Hg 06/06/20 25 Blood pressure diastolic 82 mm Hg 025 Heart Rate 80 /min 06/06/2025 Height 63 in 06/06/2025 Weight 205.0 lbs 06/06/2025 BMI 36.31 kg/m2 06/06/2025 Oximetry 98 % 06/06/2025 Encounters Encounter Location Date Provider Diagnosis [facility] [address] [place] [address] 06/06/2025 JOHANA SAMANIEGO Obesity (BMI 30-39.9 ) E66.9 ; BMI 36.0-36.9,adult Z68.36 ; Other acne L70.8 ; Recurrent depression F33.9 and Encounter for examination of blood pressure without abnormal findings Z01.30 Assessments Encounter Date Diagnosis (ICD Code) Assessment Notes Treatment Notes Treatment Clinical Notes Section Notes 06/06/2025 Obesity (BMI 30-39.9) (ICD-10 - E66.9) Angie Is a 44-year-old female who presented the [...] next visit.If compounded semaglutide, will go to [facility] for nursing visits, and follow-up in [facility] for provider visits with myself. 06/29/2023: Weight [...] to Zepbound, patient is going to contact [employer] to see if there is coverage with that medication. Having some fatigue/bloating. Focusing on whole proteins. 09/08/2024: Weight 206 BMI 36.61. Body composition showing maintenance overall. Will discontinue Wegovy, and initiate PA for Zepbound 2.5 mg that she has not noticing significant effect on Wegovy anymore. Discussed proper use, side effects.Patient did call [employer] and they stated that they would cover [...] but will Continue with medication for now. 02/28/2025: Weight 208, BMI 36. Continue zepbound 10 mg. Lost 1 pound in fat mass, lost 1 pound of muscle. Discussed the importance of strength training and consistency in losing fat mass and maintaining muscle. Follow up in 6 weeks. 04/20/2025: Weight 208, BMI 36. Continue Zepbound 10 mg, increase resistance training, follow-up in 4 to 6 weeks. Recently had blood work through PCP, ruling out organic causes. Patient also there are hormonal changes which she can follow with [employer] PROGRAM[employer] as needed. 06/06/2025: Weight 205, BMI 36. Patient feeling really well, congratulated and effort. Increase Zepbound to 12.5 mg, follow-up in 6 weeks. Pleased with progress overall. #Depression: patient to continue buspirone 10 mg, Lexapro 10 mg, Discussed cortisol fleet sales manager, and magnesium glycinate For adrenal [...] Dictation was accomplished with the use of [employer] voice recognition software, prone to medical misidentifications and grammatical errors. This is unintentional and the practitioner does try to identify and correct these, but some could still be present. Please do not hesitate to contact practitioner for clarification. 06/06/2025 BMI 36.0-36.9,adul t (ICD-10 - Z68.36) Angie Is a 44-year-old female who presented the [...] next visit.If compounded semaglutide, will go to [place] office for nursing visits, and follow-up in [facility] for provider visits with myself. 06/29/2023: Weight [...] to Zepbound, patient is going to contact [employer] to see if there is coverage with that medication. Having some fatigue/bloating. Focusing on whole proteins. 09/08/2024: Weight 206 BMI 36.61. Body composition showing maintenance overall. Will discontinue Wegovy, and initiate PA for Zepbound 2.5 mg that she has not noticing significant effect on Wegovy anymore. Discussed proper use, side effects.Patient did call [employer] and they stated that they would cover [...] but will Continue with medication for now. 02/28/2025: Weight 208, BMI 36. Continue zepbound 10 mg. Lost 1 pound in fat mass, lost 1 pound of muscle. Discussed the importance of strength training and consistency in losing fat mass and maintaining muscle. Follow up in 6 weeks. 04/20/2025: Weight 208, BMI 36. Continue Zepbound 10 mg, increase resistance training, follow-up in 4 to 6 weeks. Recently had blood work through PCP, ruling out organic causes. Patient also there are hormonal changes which she can follow with [employer] PRO[employer] as needed. 06/06/2025: Weight 205, BMI 36. Patient feeling really well, congratulated and effort. Increase Zepbound to 12.5 mg, follow-up in 6 weeks. Pleased with progress overall. #Depression: patient to continue buspirone 10 mg, Lexapro 10 mg, Discussed cortisol fleet sales manager, and magnesium glycinate For adrenal [...] Dictation was accomplished with the use of [employer] voice recognition software, prone to medical misidentifications and grammatical errors. This is unintentional and the practitioner does try to identify and correct these, but some could still be present. Please do not hesitate to contact practitioner for clarification. 06/06/2025 Other acne (ICD-10 - L70.8) Angie Is a 44-year-old female who presented the [...] next visit.If compounded semaglutide, will go to [facility] for nursing visits, and follow-up in [facility] for provider visits with myself. 06/29/2023: Weight [...] to Zepbound, patient is going to contact [employer] to see if there is coverage with that medication. Having some fatigue/bloating. Focusing on whole proteins. 09/08/2024: Weight 206 BMI 36.61. Body composition showing maintenance overall. Will discontinue Wegovy, and initiate PA for Zepbound 2.5 mg that she has not noticing significant effect on Wegovy anymore. Discussed proper use, side effects.Patient did call [employer] and they stated that they would cover [...] but will Continue with medication for now. 02/28/2025: Weight 208, BMI 36. Continue zepbound 10 mg. Lost 1 pound in fat mass, lost 1 pound of muscle. Discussed the importance of strength training and consistency in losing fat mass and maintaining muscle. Follow up in 6 weeks. 04/20/2025: Weight 208, BMI 36. Continue Zepbound 10 mg, increase resistance training, follow-up in 4 to 6 weeks. Recently had blood work through PCP, ruling out organic causes. Patient also there are hormonal changes which she can follow with [employer] PRO[employer] as needed. 06/06/2025: Weight 205, BMI 36. Patient feeling really well, congratulated and effort. Increase Zepbound to 12.5 mg, follow-up in 6 weeks. Pleased with progress overall. #Depression: patient to continue buspirone 10 mg, Lexapro 10 mg, Discussed cortisol fleet sales manager, and magnesium glycinate For adrenal [...] Dictation was accomplished with the use of [employer] voice recognition software, prone to medical misidentifications and grammatical errors. This is unintentional and the practitioner does try to identify and correct these, but some could still be present. Please do not hesitate to contact practitioner for clarification. 06/06/2025 Recurrent depression (ICD-10 - F33.9) Angie Is a 44-year-old female who presented the [...] next visit.If compounded semaglutide, will go to [facility] for nursing visits, and follow-up in [facility] for provider visits with myself. 06/29/2023: Weight [...] to Zepbound, patient is going to contact [employer] to see if there is coverage with that medication. Having some fatigue/bloating. Focusing on whole proteins. 09/08/2024: Weight 206 BMI 36.61. Body composition showing maintenance overall. Will discontinue Wegovy, and initiate PA for Zepbound 2.5 mg that she has not noticing significant effect on Wegovy anymore. Discussed proper use, side effects.Patient did call [employer] and they stated that they would cover [...] but will Continue with medication for now. 02/28/2025: Weight 208, BMI 36. Continue zepbound 10 mg. Lost 1 pound in fat mass, lost 1 pound of muscle. Discussed the importance of strength training and consistency in losing fat mass and maintaining muscle. Follow up in 6 weeks. 04/20/2025: Weight 208, BMI 36. Continue Zepbound 10 mg, increase resistance training, follow-up in 4 to 6 weeks. Recently had blood work through PCP, ruling out organic causes. Patient also there are hormonal changes which she can follow with S[employer] NET PROGRAMMER as needed. 06/06/2025: Weight 205, BMI 36. Patient feeling really well, congratulated and effort. Increase Zepbound to 12.5 mg, follow-up in 6 weeks. Pleased with progress overall. #Depression: patient to continue buspirone 10 mg, Lexapro 10 mg, Discussed cortisol fleet sales manager, and magnesium glycinate For adrenal [...] Dictation was accomplished with the use of [employer] voice recognition software, prone to medical misidentifications and grammatical errors. This is unintentional and the practitioner does try to identify and correct these, but some could still be present. Please do not hesitate to contact practitioner for clarification. 06/06/2025 Encounter for examination of blood pressure without abnormal findings (ICD-10 - Z01.30) nAgie Is a 44-year-old female who presented the [...] in the meantime which is strongly encouraged. [facility] provided. 04/27/2023: Weight 221.3, BMI 39.2-patient [...] next visit.If compounded semaglutide, will go to [facility] for nursing visits, and follow-up in [facility] for provider visits with myself. 06/29/2023: Weight [...] to Zepbound, patient is going to contact [employer] to see if there is coverage with that medication. Having some fatigue/bloating. Focusing on whole proteins. 09/08/2024: Weight 206 BMI 36.61. Body composition showing maintenance overall. Will discontinue Wegovy, and initiate PA for Zepbound 2.5 mg that she has not noticing significant effect on Wegovy anymore. Discussed proper use, side effects.Patient did call [employer] and they stated that they would cover [...] but will Continue with medication for now. 02/28/2025: Weight 208, BMI 36. Continue zepbound 10 mg. Lost 1 pound in fat mass, lost 1 pound of muscle. Discussed the importance of strength training and consistency in losing fat mass and maintaining muscle. Follow up in 6 weeks. 04/20/2025: Weight 208, BMI 36. Continue Zepbound 10 mg, increase resistance training, follow-up in 4 to 6 weeks. Recently had blood work through PCP, ruling out organic causes. Patient also there are hormonal changes which she can follow with [employer] PRO[employer] as needed. 06/06/2025: Weight 205, BMI 36. Patient feeling really well, congratulated and effort. Increase Zepbound to 12.5 mg, follow-up in 6 weeks. Pleased with progress overall. #Depression: patient to continue buspirone 10 mg, Lexapro 10 mg, Discussed cortisol fleet sales manager, and magnesium glycinate For adrenal [...] Dictation was accomplished with the use of [employer] voice recognition software, prone to medical misidentifications and grammatical errors. This is unintentional and the practitioner does try to identify and correct these, but some could still be present. Please do not hesitate to contact practitioner for clarification. Plan Of Treatment Medication Medication Name Sig Start Date Stop Date Notes Zepbound 12.5 MG/0.5ML 12.5 mg Subcutane ous weekly; Duration: 30 days Next Appt Details Provider Name:JOHANA SAMANIEGO, 08/01/2025 03:15:00 PM, [address], [place], [address], Progress Notes * Angie WILSONDOB: [birth year] (44 yo F)Acc No.[id number]:06/06/2025 Patient: Angie MCDONALD Provider: Sylvia CH PA-C :1980 A ge:44 Y S ex:Female Date:06/06/2025 Address:[address] [place] [address] [address] [id number] Subjective: * Chief Complaints: * 1 . Pt is here for weight management follow up. seca pd. * HPI: C onstitutional: Angie Is a pleasant 44-year-old female presents the office for weight management follow-up. Currently, taking Zepbound 10 mg with compliance, without any side effects. Last seen April 20, 2025. Weight at that time 208 pounds with a BMI of 36, weight today 205 with a BMI of 36.3. Feeling well with no side effects and less appetite. Breakfast includes protein oatmeal and apple. Sometimes will have protein shake. Lunch is salad with grilled chicken and cooks at home or eats from salad bar at work. Dinner will eat burger and limit carbs. A lot of grilled food at this time. Snacking is limited. Exercise is better as well, kettlebell workouts at home and extending her walks for longer time and placed with progress. Water intake is better as well. * ROS: C onstitutional: Denies sudden weight loss, fever, night sweats, excessive fatigue, or changes in sleep. CV: Denies chest pain or heart palpitations. Respiratory: Denies SOB, cough, hemoptysis, sputum production, wheezing, or pleuritic pain. GI: Denies nausea, vomiting, diarrhea, constipation, blood in stools, pain associated with eating, indigestion, or difficulty/pain with swallowing. Integumentary: Denies skin changes. Neuro: Denies confusion, language dysfunction, localized weakness, dizziness, numbness or tingling. Psychiatric: Denies worsening symptoms of depression, anxiety, or suicidal thoughts. Feels safe at home. Endocrine: Denies polyuria, polyphagia, or polydipsia. No heat/cold intolerance or excessive thirst. Hematological: Denies easy bruising/bleeding, no lymph node swelling. * Medical History: D epression, Anxiety, Raynaud's disease without gangrene, History of cervical cancer. * Surgical History: t rachiotomy 2015, lap inocente 2020. * Family History: F ather: 48 yrs. M other: 65 yrs. 1 sister(s) . 1 daughter(s) . .? Father: Lung cancer Mother: Diabetes, and hypertension. * Social History: T obacco Use: T obacco Use/Smoking A re you a n onsmoker. N urse alcohol: 2x/month tob: denies drugs: denies caffeine: limited due to jitters. * Medications: T aking Lexapro 10 MG Tablet 1 tablet Orally Once a day , Taking Spironolactone 50 MG Tablet 1 tablet Orally Once a day , Taking busPIRone HCl 10 MG Tablet 1 tablet Orally Twice a day , Taking Zepbound 10 MG/0.5ML Solution Auto-injector 10 mg Subcutaneous weekly , Medication List reviewed and reconciled with the patient * Allergies: W ellbutrin. Objective: * Vitals: H R:80/min, BP:118/82mm Hg, Wt:205.0lbs, BMI:36.31Index, Ht: 63 in, Oxygen sat %:98%. * Physical Examination: G eneral: Well appearing 44-year-old female in no acute distress, speaking in [...] ambulation observed. Psych: Stable mood and affect. Assessment: * Assessment: 1. O besity (BMI 30-39.9) - E66.9 (Primary) 2 . B NV 36.0-36.9,adult - Z68.36 3 . O ther acne - L70.8 4 . R ecurrent depression - F33.9? 5. E ncounter for examination of blood pressure without abnormal findings - Z01.30 Angie Is a 44-year-old fem trace who presented [...] next visit.If compounded semaglutide, will go to [facility] for nursing visits, and follow-up in [facility] for provider visits with myself. 06/29/2023: Weight [...] to Zepbound, patient is going to contact [employer] to see if there is coverage with that medication. Having some fatigue/bloating. Focusing on whole proteins. 09/08/2024: Weight 206 BMI 36.61. Body composition showing maintenance overall. Will discontinue Wegovy, and initiate PA for Zepbound 2.5 mg that she has not noticing significant effect on Wegovy anymore. Discussed proper use, side effects.Patient did call [employer] and they stated that they would cover [...] but will Continue with medication for now. 02/28/2025: Weight 208, BMI 36. Continue zepbound 10 mg. Lost 1 pound in fat mass, lost 1 pound of muscle. Discussed the importance of strength training and consistency in losing fat mass and maintaining muscle. Follow up in 6 weeks. 04/20/2025: Weight 208, BMI 36. Continue Zepbound 10 mg, increase resistance training, follow-up in 4 to 6 weeks. Recently had blood work through PCP, ruling out organic causes. Patient also there are hormonal changes which she can follow with SENIOR NET PROGRAMMER as needed. 06/06/2025: Weight 205, BMI 36. Patient feeling really well, congratulated and effort. Increase Zepbound to 12.5 mg, follow-up in 6 weeks. Pleased with progress overall. #Depression: patient to continue buspirone 10 mg, Lexapro 10 mg, Discussed cortisol fleet sales manager, and magnesium glycinate For adrenal [...] Dictation was accomplished with the use of [employer] voice recognition software, prone to medical misidentifications and grammatical errors. This is unintentional and the practitioner does try to identify and correct these, but some could still be present. Please do not hesitate to contact practitioner for clarification. Plan: * Treatment: * Procedure Codes: 9 9401 P/M FOOD AND BEVERAGE ASSOCIATE, INDIV 15 MIN, Modifiers: 33 , SA, 3074F SYST BP LT 130 MM HG, 3079F DIAST BP 80-89 MM HG * Images: Billing Information: * Visit Code: 66016 Office Visit, Est Pt., Level 3. Modifiers: SA * Procedure Codes: 09203 P/M [employer] BEVERAGE ASSOCIATE, INDIV 15 MIN. Modifiers: 33, SA 3074F SYST BP LT 130 MM HG. 3079F DIAST BP 80-89 MM HG. * Sign off status: Completed true * Provider: Sylvia CH PA-C Date: 0 06/06/2025 Generated for Maura moncada/Abelino/Lm on: 0 06/09/2025 01:02 PM EDT History and Physical Notes * HPI (History of Present Illness) Category Sub-Category Detail Notes Category Not es Constitutional Angie Is a pleasant 44-year-old female presents the office for weight management follow-up. Currently, taking Zepbound 10 mg with compliance, without any side effects. Last seen April 20, 2025. Weight at that time 208 pounds with a BMI of 36, weight today 205 with a BMI of 36.3. Feeling well with no side effects and less appetite. Breakfast includes protein oatmeal and apple. Sometimes will have protein shake. Lunch is salad with grilled chicken and cooks at home or eats from salad bar at work. Dinner will eat burger and limit carbs. A lot of grilled food at this time. Snacking is limited. Exercise is better as well, kettlebell workouts at home and extending her walks for longer time and placed with progress. Water intake is better as well. Physical Examination Category Sub-Category Detail Notes Section Note s General: Well appearing 44-year-old female in no acute distress, speaking in [...]
[2025-06-09 13:10] VITALS: BP 114/80; PULSE 81; RESP 16; O2SAT 100; BMI 36.5
--- NOTE | 2025-06-09 13:10 | A.OFFPC_ITS ---
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 Required: No Accompanied by: Self / Same As Patient Allergies bupropion (From Wellbutrin) Adverse Reaction (Verified 06/09/25 13:15) Panic Medication List - Last Reconciled 06/09/25 by Idalia Clements MD albuterol sulfate 90 mcg/actuation (Ventolin HFA) 1 inh inhalation QID PRN 30 days buspirone 5 mg PO BID PRN 30 days dapsone 5% topical QAM escitalopram oxalate 10 mg PO DAILY 90 days spironolactone 50 mg PO BID tirzepatide (weight loss) (Zepbound) mg subcut tretinoin 0.05% appl topical Tobacco use date assessed: 06/09/25 Dental Screening Dental Screen Date: 06/09/25 Did you have a dental visit in the last 12 months?: Yes Did you have a dental problem in the last 6 months where you did not have access to dental care?: No Was dental information given to patient?: Patient has dentist HPI 4 months f/up HPI Details Medical History - Anxiety - Acne, currently managed with spironola ctone and topical cream thru [facility] - Weight management, using semaglutide, thru [facility] lose program History of Present Illness - The patient is a 44-year-old female pr esenting with concerns regarding mood swings potentially associated with recent medication adjustments. by herself - The patient expresses concern about mo od swings, citing increased irritability and instances of snapping at work. - She previously adjusted her escitalopr am dosage, reducing it to half, which seemed to alleviate symptoms for two weeks, but subsequent irritability and mood swings ensued. - She reduced buspirone usage to once da [place]. - Mood swings are suspected to be exacer bated by external stressors, including a family member?s recent cancer diagnosis. - She has a history of anxiety, with rec ent modifications to her escitalopram and buspirone regimen. - Additionally concerned about elevated alkaline phosphatase levels from labs conducted in January, with no reported symptoms such as abdominal pain or digestive issues. Medications: - Buspirone 5 mg, taken once daily for a nxiety - Escitalopram (Lexapro), previously tap ered down - Spironolactone, for acne - Topical cream from dermatology, for ac ne - Semaglutide (brand name Zepbound), for weight management - Albuterol inhaler, as needed Social History: - Currently employed - Faces stress due to her stepfather's c ancer diagnosis, affecting psychological well-being. Family History: - Stepfather diagnosed with cancer Diagnostic Results: - Labs from January 2023: - Complete Blood Count (CBC) normal - Electrolytes normal - Kidney function normal - Blood sugar normal - Liver enzymes: Alkaline phosphatase el evated at 134 U/L - LDL cholesterol at 77 mg/dL, considere d favorable - Thyroid function normal Problem List - Anxiety - Acne - Abnormal liver enzymes: elevated alkal ine phosphatase - Obesity Patient Instructions - continue meds, both buspiron and lexap ro 10 mg - Attend next appointment scheduled for October for a physical examination - Repeat liver function test during the current visit Review of Systems. - General: No fever no chills - Neurological: No headaches no dizziness - Ear nose throat: No sore throat no hearing difficulty no ear pain - Cardiovascular: No syncope, no chest pain, no palpitations - Gastrointestinal: No nausea vomiting or diarrhea - Endocrine: No polyuria polydipsia no heat intolerance - Genitourinary: No dysuria , no blood in urine Physical Exam - General: No acute distress - HEENT: No acute findings - Neck: Supple - Respiratory system: Able to talk in f ull sentences, no audible wheeze - Cardiovascular: S1-S2 regular in rate and rhythm - Gastrointestinal: No pain - Extremities: No new findings - [employer]: Alert awake oriented x3 motor se nsory intact - Skin: Normal turgor [facility] Surgical History No pertinent past surgical history Social History Housing: House Patient Tobacco Use Status: Never used Tobacco e-Cigarette/Vaping Use: Never Used service: No Current occupational status: employed Current occupational exposures/hazards: No Cognitive needs: No Hearing needs: No Vision needs: Yes Questionnaire PHQ-9 Over the last 2 weeks, how often have you been bothered by any of the following problems? 1. Little interest or pleasure in doing things: not at all 2. Feeling down, depressed, or hopeless: not at all 3. Trouble falling or staying asleep, or sleeping too much: not at all 4. Feeling tired or having little energy: not at all 5. Poor appetite or overeating: not at all 6. Feeling bad about yourself - or that you are a failure or have let yourself or your family down: not at all 7. Trouble concentrating on things, such as reading the newspaper or watching television: not at all 8. Moving or speaking so slowly that other people could have noticed. Or the opposite - being so fidgety or restless that you have been moving around a lot more than usual: not at all 9. Thoughts that you would be better off or of hurting yourself in some way: not at all Total score: 0 Depression Screening Interpretation: Negative Depression Screening Done: Yes 49840 - PHQ-9 Billing: Yes Source: Developed by Drs. Dickson Cates, Marni Boggs, Freeman Beckford and colleagues, with an educational monica from [employer]. Thrive Questionnaire Date Thrive assessed: 02/03/25 I am a: Patient What is your living situation today?: I have a steady place to live Within the past 12 months, did the food you bought not last and you didn't have the money to get more?: Never true Within the past 12 months, did you worry whether your food would run out before you got money to buy more?: Never true Do you have trouble paying for medicines?: No Do you have trouble getting transportation to medical appointments?: No Do you have trouble paying your heating and electricity bill?: No Do you have trouble taking care of your child, family member or friend?: No Do you have trouble with day-to-day activities such as bathing, preparing meals, shopping, managing finances, etc.?: No Are you currently unemployed and looking for a job?: No Are you interested in more education?: No Please select the resources that you would like help with: None Currently or been in a relationship where the following occur: No concerns reported THRIVE Score: 0 ESTRELLA-7 AMB Questionnaire ESTRELLA-7 Date ESTRELLA - 7 assessed: 02/03/25 Feeling nervous, anxious, or on edge: 1 = Several days Not being able to stop or control worryin = Not at all Worrying too much about different things: 1 = Several days Trouble relaxin = Not at all Being so restless that it is hard to sit still: 0 = Not at all Becoming easily annoyed or irritable: 1 = Several days Feeling afraid as if something awful might happen: 0 = Not at all Total ESTRELLA-7 score (0-4 normal; 5-9 mild; 10-14 moderate; 15-21 severe): 3 Source: Developed by Drs. Dickson Cates, Marni Boggs, Freeman Beckford and colleagues, with an educational monica from [employer]. ESTRELLA-7 Assessment Billing ESTRELLA-7 Assessment Tool: ESTRELLA-7 Assessment 91856 Physical exam (Primary Care) Vital Signs: Last Vital Signs Pulse 81 06/09/25 13:10 Resp 16 06/09/25 13:10 BP 114/80 06/09/25 13:10 Pulse Ox 100 06/09/25 13:10 Oxygen Delivery Method Room Air 06/09/25 13:10 BMI result Body Mass Index 36.5 Tobacco/Smoking Status: Tobacco use Status Tobacco use date assessed 06/09/25 06/09/25 13:15 Patient Tobacco Use Status Never used Tobacco 06/09/25 13:15 e-Cigarette/Vaping Use Never Used 06/09/25 13:15 PHQ-9: PHQ-9 Score PHQ-9: Total score 0 06/09/25 13:15 Depression Screening Interpretation: Negative Thrive Assessment: Date of Thrive Assessment Date Thrive assessed 02/03/25 06/09/25 13:15 Currently or been in a relationship where the following occur: No concerns reported Coding Level of Care Code Est Pt Level 3 (93497) Diagnoses LFT elevation R79.89 Recurrent major depressive disorder, in full remission F33.42 Active/Remission status: in full remission Anxiety, generalized F41.1 Impaired fasting blood sugar R73.01 Class 2 obesity due to excess calories without serious comorbidity with body mass index (BMI) of 39.0 to 39.9 in adult E66.09; Z68.39 Obesity classification: adult class 2 (BMI 35 - 39.9) Serious obesity comorbidity presence: without serious comorbidity Body mass index: BMI 39.0-39.9 Additional Codes ESTRELLA-7 Assessment Billing - ESTRELLA-7 Assessment Tool: ESTRELLA-7 Assessment 12142 ([id number]) PHQ-9 - 56505 - PHQ-9 Billing: Yes ([id number]) Assessment & Plan Assessment & Plan (1) LFT elevation: Code(s): R79.89 - Other specified abnormal findings of blood chemistry Category: Medical (2) Major depression, recurrent: Code(s): F33.9 - Major depressive disorder, recurrent, unspecified Category: Medical Qualifiers: Active/Remission status: in full remission Qualified Code(s): F33.42 - Major depressive disorder, recurrent, in full remission (3) Anxiety, generalized: Code(s): F41.1 - Generalized anxiety disorder Category: Medical (4) Impaired fasting blood sugar: Code(s): R73.01 - Impaired fasting glucose Category: Medical (5) Obesity due to excess calories: Code(s): E66.09 - Other obesity due to excess calories Category: Medical Qualifiers: Obesity classification: adult class 2 (BMI 35 - 39.9) Serious obesity comorbidity presence: without serious comorbidity Body mass index: BMI 39.0- 39.9 Qualified Code(s): E66.09 - Other obesity due to excess calories; Z68.39 - Body mass index [BMI] 39.0-39.9, adult Plan Medical History - Anxiety - Acne, currently managed with spironolactone and topical cream thru [facility] - Weight management, using semaglutide, thru [facility] lose program History of Present Illness - The patient is a 44-year-old female presenting with concerns regarding mood swings potentially associated with recent medication adjustments. by herself - The patient expresses concern about mood swings, citing increased irritability and instances of snapping at work. - She previously adjusted her escitalopram dosage, reducing it to half, which seemed to alleviate symptoms for two weeks, but subsequent irritability and mood swings ensued. - She reduced buspirone usage to once daily. - Mood swings are suspected to be exacerbated by external stressors, including a family member?s recent cancer diagnosis. - She has a history of anxiety, with recent modifications to her escitalopram and buspirone regimen. - Additionally concerned about elevated alkaline phosphatase levels from labs conducted in January, with no reported symptoms such as abdominal pain or digestive issues. Medications: - Buspirone 5 mg, taken once daily for anxiety - Escitalopram (Lexapro), previously tapered down - Spironolactone, for acne - Topical cream from dermatology, for acne - Semaglutide (brand name Zepbound), for weight management - Albuterol inhaler, as needed Social History: - Currently employed - Faces stress due to her stepfather's cancer diagnosis, affecting psychological well-being. Family History: - Stepfather diagnosed with cancer Diagnostic Results: - Labs from January 2023: - Complete Blood Count (CBC) normal - Electrolytes normal - Kidney function normal - Blood sugar normal - Liver enzymes: Alkaline phosphatase elevated at 134 U/L - LDL cholesterol at 77 mg/dL, considered favorable - Thyroid function normal Problem List - Anxiety - Acne - Abnormal liver enzymes: elevated alkaline phosphatase - Obesity Patient Instructions - continue meds, both buspiron and lexapro 10 mg - Attend next appointment scheduled for October for a physical examination - Repeat liver function test during the current visit Orders: Orders Liver Panel Today R79.89 - Other specified abnormal findings of blood chemistry
== END 2025-06-09 13:26 | disposition home or self-care (01) ==
LOC: HO.HMCC 13:00
PROVIDERS: PCP Internal Medicine; Visit Provider Internal Medicine
DX: R79.89 Other specified abnormal findings of blood chemistry (principal); F33.42 Major depressive disorder, recurrent, in full remission; F41.1 Generalized anxiety disorder; R73.01 Impaired fasting glucose; E66.09 Other obesity due to excess calories; Z68.39 Body mass index [BMI] 39.0-39.9, adult

== ENCOUNTER 2025-06-09 13:00 | Outpatient (REF) | payer OTHER, SELFPAY ==
[2025-06-09 16:15] LABS: Alanine Aminotransferase 30 U/L (0-31); Albumin Level 4.1 g/dL (3.5-5.0); Alkaline Phosphatase 141 U/L (39-117); Aspartate Amino Transferase 26 U/L (5-31); Total Protein 7.0 g/dL (6.5-8.0)
== END 2025-06-09 13:01 | disposition home or self-care (01) ==
LOC: HO.HMGCLDS 13:00
PROVIDERS: PCP Internal Medicine; Visit Provider Internal Medicine
DX: R79.89 Other specified abnormal findings of blood chemistry (principal); F33.42 Major depressive disorder, recurrent, in full remission; F41.1 Generalized anxiety disorder; R73.01 Impaired fasting glucose; E66.09 Other obesity due to excess calories; Z68.36 Body mass index [BMI] 36.0-36.9, adult; Z79.899 Other long term (current) drug therapy; Z13.31 Encounter for screening for depression
CPT/HCPCS: 36415; 80076; 96127

== ENCOUNTER 2025-08-22 08:30 | Outpatient (REF) | payer OTHER, SELFPAY ==
--- OUTSIDE RECORDS SUMMARY | 2025-04-13 10:45 | XMS_ITS ---
Author Organization [facility] [address] Address [address] [place] [address] Care Team Providers Care Sanitation Technician Name Role Phone JOHANA SAMANIEGO Unavailable [phone] REASON FOR VISIT 6 week f/u Encounters Encounter Location Date Provider Diagnosis [facility] [address] [place] [address] 04/13/2025 JOHANA SAMANIEGO Plan Of Treatment Next Appt Details Provider Name:JOHANA SAMANIEGO, 09/13/2025 02:30:00 PM, [address] [place], [address], Progress Notes * Melissa WILSONDOB: [birth year] (45 yo F)Acc No.[id number]:04/13/2025 Patient: Allan Melissa NGO Provider: Sylvia CH PA-C :1980 A ge:44 Y S ex:Female Date:04/13/2025 Address:[address] [place] [address] [place], [place] Subjective: * Chief Complaints: * 1 . 6 week f/u. * Medical History: Objective: * Vitals: Assessment: Plan: * Treatment: * Images: Billing Information: * Visit Code: * Procedure Codes: * Electronic signature of GALILEA SAMANIEGO PA-C on 08/22/2025 at 09:02 AM EDT Sign off status: Pending * Provider: Sylvia CH PA-C Date: 0 04/13/2025 Generated for Maura moncada/Abelino/Lm on: 1 09:02 AM EDT
--- OUTSIDE RECORDS SUMMARY | 2025-04-18 06:00 | XMS_ITS ---
Author Organization [facility] [address] Address [address] [place] [address] Care Team Providers Care Insurance Agents Supervisor Name Role Phone JOHANA SAMANIEGO Unavailable [phone] REASON FOR VISIT 6 week f/u Encounters Encounter Location Date Provider Diagnosis [facility] [address] [place] [address] 04/18/2025 JOHANA SAMANIEGO Plan Of Treatment Next Appt Details Provider Name:JOHANA SAMANIEGO, 09/13/2025 02:30:00 PM, [address] [place], [address], Progress Notes * Melissa WILSONDOB: [birth year] (45 yo F)Acc No.[id number]:04/18/2025 Patient: Allan Melissa NGO Provider: Sylvia CH PA-C :1980 A ge:44 Y S ex:Female Date:04/18/2025 Address:[address] [place] [address] [place], [place] Subjective: * Chief Complaints: * 1 . 6 week f/u. * Medical History: Objective: * Vitals: Assessment: Plan: * Treatment: * Images: Billing Information: * Visit Code: * Procedure Codes: * Electronic signature of GALILEA SAMANIEGO PA-C on 08/22/2025 at 09:02 AM EDT Sign off status: Pending * Provider: Sylvia CH PA-C Date: 0 04/18/2025 Generated for Maura moncada/Abelino/Lm on: 1 09:02 AM EDT
--- NOTE | ~2025-08-22 | US_ITS ---
CLINICAL HISTORY: R74.8 - Abnormal levels of other serum enzymes US abdomen limited with color Doppler Comparison: None Findings: Visualized pancreas is normal. Tail obscured by bowel gas. Liver is normal in size and mild increased echotexture throughout. Right lobe length 14.0 cm. No focal hepatic masses. Common duct 3.1 mm diameter. Post cholecystectomy. Right kidney measures, 9.7 cm in length. Normal cortical width and echotexture. Renal cortical cyst midpole measuring 2.2 x 1.1 x 1.6 cm and midpole laterally measuring 0.9 x 0.7 x 0.8 cm with peripheral calcification. Impression: 1. Normal-sized liver with increased echotexture reflecting mild diffuse hepatocellular disease or hepatic steatosis. 2. Post cholecystectomy 3. Renal cortical cysts on the right. This document has been electronically signed by: Nate Briones MD on 08/22/2025 11:39:49
--- OUTSIDE RECORDS SUMMARY | 2025-08-22 09:02 | XMS_ITS | Patient Health Record ---
Author Organization [facility] [address] Address [address] [place] [address] Care Team Providers Care [employer] Agent Name Role Phone JOHANA SAMANIEGO Unavailable [phone] Allergies Allergen (clinical drug ingredient) Drug/Non Drug Allergy documented on EMR Reaction Allergy Type Onset Date Status Wellbutrin Unknown Drug Allergy Active Reason For Referral No Information Medications Medication SIG (Take, Route, Fr equency, Duration) Notes Start Date End Date Status busPIRone HCl 10 MG 1 tablet Orally Twice a day Active Zepbound 12.5 MG/0.5ML 12.5 mg Subcutane ous weekly; Duration: 30 days Active Lexapro 10 MG 1 tablet Orally [...] drugs: denies caffeine: limited due to jitters Problems Problem Type SNOMED Code ICD Code Onset Dates Problem Status W/U Status Risk Notes Problem Obesity (691373113) Other obesity (E66.8) Active confirmed Problem Anxiety (48477104) Anxiety (F41.9) Active confirmed Problem Obesity (318354090) Obesity (BMI 30-39.9) (E66.9) Active confirmed Problem Obese class II (98602887018168 5) BMI 37.0-37.9, adult (Z68.37) Active confirmed Problem Raynaud's disease (332812344) Raynaud's disease without gangrene (I73.00) Active confirmed Problem Obese class II (52448392295413 5) BMI 39.0-39.9,adult (Z68.39) Active confirmed Problem Obese class II (29808186292740 5) BMI 36.0-36.9,adult (Z68.36) Active confirmed Problem Obese class II (22966436730934 5) BMI 38.0-38.9,adult (Z68.38) Active confirmed Problem Recurrent depression (224954196) Recurrent depression (F33.9) Active confirmed Problem History of malignant neoplasm of cervix (650227449) History of cervical cancer (Z85.41) Active confirmed Vital Signs Heart Rate 80 /min 08/01/2025 Oximetry 97 % 08/01/2025 Blood pressure diastolic 84 mm Hg 08/01/2025 Height 63 in 08/01/2025 Blood pressure systolic 122 mm Hg 08/01/2025 Weight 203.6 lbs 08/01/2025 BMI 36.06 kg/m2 08/01/2025 Encounters Encounter Location Date Provider Diagnosis [facility] [address] [place], [place] 09/08/2024 JOHANA SAMANIEGO BMI 36.0-36.9,adult Z68.36 ; Obesity (BMI 30-39.9) E66.9 ; Depression, unspecified depression type F32.A and Other acne L70.8 [facility] [address] [place], [place] 10/31/2024 JOHANA SAMANIEGO Obesity (BMI 30-39.9 ) E66.9 ; BMI 37.0-37.9, adult Z68.37 ; Depression, unspecified depression type F32.A and Other acne L70.[address] [facility] [address] [place], [place] 12/05/2024 JOHANA SAMANIEGO Obesity (BMI 30-39.9 ) E66.9 ; BMI 37.0-37.9, adult Z68.37 ; Depression, unspecified depression type F32.A and Other acne L70.[address] [facility] [address] [place], [place] 01/17/2025 JOHANA SAMANIEGO Obesity (BMI 30-39.9 ) E66.9 ; BMI 37.0-37.9, adult Z68.37 ; Depression, unspecified depression type F32.A and Other acne L70.[address] [facility] [address] [place] [address] 02/28/2025 JOHANA SAMANIEGO Obesity (BMI 30-39.9 ) E66.9 ; BMI 36.0-36.9,adult Z68.36 ; Other acne L70.8 and Recurrent depression F33.[address] [facility] [address] [place] [address] 04/20/2025 JOHANA ASMANIEGO Obesity (BMI 30-39.9 ) E66.9 ; BMI 36.0-36.9,adult Z68.36 ; Other acne L70.8 ; Recurrent depression F33.9 and Encounter for examination of blood pressure without abnormal findings Z01.30 [facility] [address] [place] [address] 06/06/2025 JOHANA SAMANIEGO Obesity (BMI 30-39.9 ) E66.9 ; BMI 36.0-36.9,adult Z68.36 ; Other acne L70.8 ; Recurrent depression F33.9 and Encounter for examination of blood pressure without abnormal findings Z01.[address] [address] 08/01/2025 JOHANA SAMANIEGO Obesity (BMI 30-39.9 ) E66.9 ; BMI 36.0-36.9,adult Z68.36 ; Other acne L70.8 ; Recurrent depression F33.9 and Encounter for examination of blood pressure without abnormal findings Z01.30 [facility] [phone] [address] 10/07/2024 JOHANA SAMANIEGO [facility] [address] [address] 05/05/2025 JOHANA SAMANIEGO Assessments Encounter Date Diagnosis (ICD Code) Assessment Notes Treatment Notes Treatment Clinical Notes Section Notes 09/08/2024 Obesity (BMI 30-39.9) (ICD-10 - E66.9) [...] next visit.If compounded semaglutide, will go to [facility] for nursing visits, and follow-up in [facility] for provider visits with myself. [...] to Zepbound, patient is going to contact [employer] to see if there is coverage with that medication. Having some fatigue/bloating. Focusing on whole proteins. 09/08/2024: Weight 206 BMI 36.61. Body composition showing maintenance overall. Will discontinue Wegovy, and initiate PA for Zepbound 2.5 mg that she has not noticing significant effect on Wegovy anymore. Discussed proper use, side effects.Patient did call [employer] and they stated that they would cover [...] Dictation was accomplished with the use of [employer] voice recognition software, prone to medical misidentifications [...] meantime which is strongly encouraged. [facility] provided. 04/27/2023: Weight 221.3, BMI 39.2-patient [...] next visit.If compounded semaglutide, will go to [facility] for nursing visits, and follow-up in [facility] for provider visits with myself. [...] to Zepbound, patient is going to contact [employer] to see if there is coverage with that medication. Having some fatigue/bloating. Focusing on whole proteins. 09/08/2024: Weight 206 BMI 36.61. Body composition showing maintenance overall. Will discontinue Wegovy, and initiate PA for Zepbound 2.5 mg that she has not noticing significant effect on Wegovy anymore. Discussed proper use, side effects.Patient did call [employer] and they stated that they would cover [...] Dictation was accomplished with the use of [employer] voice recognition software, prone to medical misidentifications [...] next visit.If compounded semaglutide, will go to [facility] for nursing visits, and follow-up in [facility] for provider visits with myself. [...] to Zepbound, patient is going to contact [employer] to see if there is coverage with that medication. Having some fatigue/bloating. Focusing on whole proteins. 09/08/2024: Weight 206 BMI 36.61. Body composition showing maintenance overall. Will discontinue Wegovy, and initiate PA for Zepbound 2.5 mg that she has not noticing significant effect on Wegovy anymore. Discussed proper use, side effects.Patient did call [employer] and they stated that they would cover [...] Dictation was accomplished with the use of [employer] voice recognition software, prone to medical misidentifications [...] next visit.If compounded semaglutide, will go to [facility] for nursing visits, and follow-up in [facility] for provider visits with myself. [...] to Zepbound, patient is going to contact [employer] to see if there is coverage with that medication. Having some fatigue/bloating. Focusing on whole proteins. 09/08/2024: Weight 206 BMI 36.61. Body composition showing maintenance overall. Will discontinue Wegovy, and initiate PA for Zepbound 2.5 mg that she has not noticing significant effect on Wegovy anymore. Discussed proper use, side effects.Patient did call [employer] and they stated that they would cover [...] Dictation was accomplished with the use of [employer] voice recognition software, prone to medical misidentifications [...] next visit.If compounded semaglutide, will go to [facility] for nursing visits, and follow-up in [facility] for provider visits with myself. [...] to Zepbound, patient is going to contact [employer] to see if there is coverage with that medication. Having some fatigue/bloating. Focusing on whole proteins. 09/08/2024: Weight 206 BMI 36.61. Body composition showing maintenance overall. Will discontinue Wegovy, and initiate PA for Zepbound 2.5 mg that she has not noticing significant effect on Wegovy anymore. Discussed proper use, side effects.Patient did call [employer] and they stated that they would cover [...] 10 mg, Lexapro 10 mg, Discussed cortisol medication care manager, and magnesium glycinate For adrenal fatigue [...] Dictation was accomplished with the use of [employer] voice recognition software, prone to medical misidentifications [...] next visit.If compounded semaglutide, will go to [facility] for nursing visits, and follow-up in [facility] for provider visits with myself. [...] to Zepbound, patient is going to contact [employer] to see if there is coverage with that medication. Having some fatigue/bloating. Focusing on whole proteins. 09/08/2024: Weight 206 BMI 36.61. Body composition showing maintenance overall. Will discontinue Wegovy, and initiate PA for Zepbound 2.5 mg that she has not noticing significant effect on Wegovy anymore. Discussed proper use, side effects.Patient did call [employer] and they stated that they would cover [...] 10 mg, Lexapro 10 mg, Discussed cortisol medication care manager, and magnesium glycinate For adrenal fatigue [...] Dictation was accomplished with the use of [employer] voice recognition software, prone to medical misidentifications [...] next visit.If compounded semaglutide, will go to [facility] for nursing visits, and follow-up in [facility] for provider visits with myself. [...] to Zepbound, patient is going to contact [employer] to see if there is coverage with that medication. Having some fatigue/bloating. Focusing on whole proteins. 09/08/2024: Weight 206 BMI 36.61. Body composition showing maintenance overall. Will discontinue Wegovy, and initiate PA for Zepbound 2.5 mg that she has not noticing significant effect on Wegovy anymore. Discussed proper use, side effects.Patient did call [employer] and they stated that they would cover [...] 10 mg, Lexapro 10 mg, Discussed cortisol medication care manager, and magnesium glycinate For adrenal fatigue [...] Dictation was accomplished with the use of [employer] voice recognition software, prone to medical misidentifications and grammatical errors. This is unintentional and the practitioner does try to identify and correct these, but some could still be present. Please do not hesitate to contact practitioner for clarification. 02/28/2025 Obesity (BMI 30-39.9) (ICD-10 - E66.9) Melissa [...] meantime which is strongly encouraged. [facility] provided. 04/27/2023: Weight 221.3, BMI 39.2-patient [...] next visit.If compounded semaglutide, will go to [facility] for nursing visits, and follow-up in [facility] for provider visits with myself. [...] to Zepbound, patient is going to contact [employer] to see if there is coverage with that medication. Having some fatigue/bloating. Focusing on whole proteins. 09/08/2024: Weight 206 BMI 36.61. Body composition showing maintenance overall. Will discontinue Wegovy, and initiate PA for Zepbound 2.5 mg that she has not noticing significant effect on Wegovy anymore. Discussed proper use, side effects.Patient did call [employer] and they stated that they would cover [...] maintaining muscle. Follow up in 6 weeks. #Depression: patient to continue buspirone 10 mg, Lexapro 10 mg, Discussed cortisol medication care manager, and magnesium glycinate For adrenal fatigue [...] Dictation was accomplished with the use of [employer] voice recognition software, prone to medical misidentifications and grammatical errors. This is unintentional and the practitioner does try to identify and correct these, but some could still be present. Please do not hesitate to contact practitioner for clarification. 02/28/2025 BMI 36.0-36.9,adul t (ICD-10 - Z68.36) Melissa Is a 44-year-old female who presented [...] next visit.If compounded semaglutide, will go to [place] office for nursing visits, and follow-up in [facility] for provider visits with myself. [...] to Zepbound, patient is going to contact [employer] to see if there is coverage with that medication. Having some fatigue/bloating. Focusing on whole proteins. 09/08/2024: Weight 206 BMI 36.61. Body composition showing maintenance overall. Will discontinue Wegovy, and initiate PA for Zepbound 2.5 mg that she has not noticing significant effect on Wegovy anymore. Discussed proper use, side effects.Patient did call [employer] and they stated that they would cover [...] maintaining muscle. Follow up in 6 weeks. #Depression: patient to continue buspirone 10 mg, Lexapro 10 mg, Discussed cortisol medication care manager, and magnesium glycinate For adrenal fatigue [...] Dictation was accomplished with the use of [employer] voice recognition software, prone to medical misidentifications and grammatical errors. This is unintentional and the practitioner does try to identify and correct these, but some could still be present. Please do not hesitate to contact practitioner for clarification. 04/20/2025 Obesity (BMI 30-39.9) (ICD-10 - E66.9) Melissa [...] next visit.If compounded semaglutide, will go to [facility] for nursing visits, and follow-up in [facility] for provider visits with myself. [...] to Zepbound, patient is going to contact [employer] to see if there is coverage with that medication. Having some fatigue/bloating. Focusing on whole proteins. 09/08/2024: Weight 206 BMI 36.61. Body composition showing maintenance overall. Will discontinue Wegovy, and initiate PA for Zepbound 2.5 mg that she has not noticing significant effect on Wegovy anymore. Discussed proper use, side effects.Patient did call [employer] and they stated that they would cover [...] hormonal changes which she can follow with [employer] as needed. #Depression: patient to continue buspirone 10 mg, Lexapro 10 mg, Discussed cortisol medication care manager, and magnesium glycinate For adrenal fatigue [...] Dictation was accomplished with the use of [employer] voice recognition software, prone to medical misidentifications and grammatical errors. This is unintentional and the practitioner does try to identify and correct these, but some could still be present. Please do not hesitate to contact practitioner for clarification. 04/20/2025 BMI 36.0-36.9,adul t (ICD-10 - Z68.36) Melissa Is a 44-year-old female who presented [...] meantime which is strongly encouraged. [facility] provided. 04/27/2023: Weight 221.3, BMI 39.2-patient [...] next visit.If compounded semaglutide, will go to [facility] for nursing visits, and follow-up in [facility] for provider visits with myself. [...] to Zepbound, patient is going to contact [employer] to see if there is coverage with that medication. Having some fatigue/bloating. Focusing on whole proteins. 09/08/2024: Weight 206 BMI 36.61. Body composition showing maintenance overall. Will discontinue Wegovy, and initiate PA for Zepbound 2.5 mg that she has not noticing significant effect on Wegovy anymore. Discussed proper use, side effects.Patient did call [employer] and they stated that they would cover [...] hormonal changes which she can follow with [employer] as needed. #Depression: patient to continue buspirone 10 mg, Lexapro 10 mg, Discussed cortisol medication care manager, and magnesium glycinate For adrenal fatigue [...] Dictation was accomplished with the use of [employer] voice recognition software, prone to medical misidentifications and grammatical errors. This is unintentional and the practitioner does try to identify and correct these, but some could still be present. Please do not hesitate to contact practitioner for clarification. 06/06/2025 Obesity (BMI 30-39.9) (ICD-10 - E66.9) Melissa [...] next visit.If compounded semaglutide, will go to [facility] for nursing visits, and follow-up in [facility] for provider visits with myself. [...] to Zepbound, patient is going to contact [employer] to see if there is coverage with that medication. Having some fatigue/bloating. Focusing on whole proteins. 09/08/2024: Weight 206 BMI 36.61. Body composition showing maintenance overall. Will discontinue Wegovy, and initiate PA for Zepbound 2.5 mg that she has not noticing significant effect on Wegovy anymore. Discussed proper use, side effects.Patient did call [employer] and they stated that they would cover [...] hormonal changes which she can follow with [employer] as needed. 06/06/2025: Weight 205, BMI 36. Patient feeling really well, congratulated and effort. Increase Zepbound to 12.5 mg, follow-up in 6 weeks. Pleased with progress overall. #Depression: patient to continue buspirone 10 mg, Lexapro 10 mg, Discussed cortisol medication care manager, and magnesium glycinate For adrenal fatigue [...] Dictation was accomplished with the use of [employer] voice recognition software, prone to medical misidentifications and grammatical errors. This is unintentional and the practitioner does try to identify and correct these, but some could still be present. Please do not hesitate to contact practitioner for clarification. 08/01/2025 Obesity (BMI 30-39.9) (ICD-10 - E66.9) Melissa Is a 45-year-old female who presented the office for weight [...] meantime which is strongly encouraged. [facility] provided. 04/27/2023: Weight 221.3, BMI 39.2-patient [...] next visit.If compounded semaglutide, will go to [place] office for nursing visits, and follow-up in [facility] for provider visits with myself. [...] to Zepbound, patient is going to contact [employer] to see if there is coverage with that medication. Having some fatigue/bloating. Focusing on whole proteins. 09/08/2024: Weight 206 BMI 36.61. Body composition showing maintenance overall. Will discontinue Wegovy, and initiate PA for Zepbound 2.5 mg that she has not noticing significant effect on Wegovy anymore. Discussed proper use, side effects.Patient did call [employer] and they stated that they would cover [...] hormonal changes which she can follow with [employer] as needed. 06/06/2025: Weight 205, BMI 36. Patient feeling really well, congratulated and effort. Increase Zepbound to 12.5 mg, follow-up in 6 weeks. Pleased with progress overall. 08/01/2025: Weight 203, BMI 36 continue Zepbound 12.5 mg, follow-up in 4 to 6 weeks. Doing well with increased muscle and decreased fat. #Depression: patient to continue buspirone 10 mg, Lexapro 10 mg, Discussed cortisol medication care manager, and magnesium glycinate For adrenal fatigue [...] Dictation was accomplished with the use of [employer] voice recognition software, prone to medical misidentifications and grammatical errors. This is unintentional and the practitioner does try to identify and correct these, but some could still be present. Please do not hesitate to contact practitioner for clarification. 02/28/2025 Other acne (ICD-10 - L70.8) Melissa Is [...] next visit.If compounded semaglutide, will go to [facility] for nursing visits, and follow-up in [facility] for provider visits with myself. [...] to Zepbound, patient is going to contact [employer] to see if there is coverage with that medication. Having some fatigue/bloating. Focusing on whole proteins. 09/08/2024: Weight 206 BMI 36.61. Body composition showing maintenance overall. Will discontinue Wegovy, and initiate PA for Zepbound 2.5 mg that she has not noticing significant effect on Wegovy anymore. Discussed proper use, side effects.Patient did call [employer] and they stated that they would cover [...] maintaining muscle. Follow up in 6 weeks. #Depression: patient to continue buspirone 10 mg, Lexapro 10 mg, Discussed cortisol medication care manager, and magnesium glycinate For adrenal fatigue [...] Dictation was accomplished with the use of [employer] voice recognition software, prone to medical misidentifications and grammatical errors. This is unintentional and the practitioner does try to identify and correct these, but some could still be present. Please do not hesitate to contact practitioner for clarification. 08/01/2025 BMI 36.0-36.9,adul t (ICD-10 - Z68.36) Melissa Is a 45-year-old female who presented the office for weight [...] meantime which is strongly encouraged. [facility] provided. 04/27/2023: Weight 221.3, BMI 39.2-patient [...] next visit.If compounded semaglutide, will go to [place] office for nursing visits, and follow-up in [facility] for provider visits with myself. [...] to Zepbound, patient is going to contact [employer] to see if there is coverage with that medication. Having some fatigue/bloating. Focusing on whole proteins. 09/08/2024: Weight 206 BMI 36.61. Body composition showing maintenance overall. Will discontinue Wegovy, and initiate PA for Zepbound 2.5 mg that she has not noticing significant effect on Wegovy anymore. Discussed proper use, side effects.Patient did call [employer] and they stated that they would cover [...] hormonal changes which she can follow with [employer] as needed. 06/06/2025: Weight 205, BMI 36. Patient feeling really well, congratulated and effort. Increase Zepbound to 12.5 mg, follow-up in 6 weeks. Pleased with progress overall. 08/01/2025: Weight 203, BMI 36 continue Zepbound 12.5 mg, follow-up in 4 to 6 weeks. Doing well with increased muscle and decreased fat. #Depression: patient to continue buspirone 10 mg, Lexapro 10 mg, Discussed cortisol medication care manager, and magnesium glycinate For adrenal fatigue [...] Dictation was accomplished with the use of [employer] voice recognition software, prone to medical misidentifications and grammatical errors. This is unintentional and the practitioner does try to identify and correct these, but some could still be present. Please do not hesitate to contact practitioner for clarification. 06/06/2025 BMI 36.0-36.9,adul t (ICD-10 - Z68.36) Melissa Is a 44-year-old female who presented [...] next visit.If compounded semaglutide, will go to [facility] for nursing visits, and follow-up in [facility] for provider visits with myself. [...] to Zepbound, patient is going to contact [employer] to see if there is coverage with that medication. Having some fatigue/bloating. Focusing on whole proteins. 09/08/2024: Weight 206 BMI 36.61. Body composition showing maintenance overall. Will discontinue Wegovy, and initiate PA for Zepbound 2.5 mg that she has not noticing significant effect on Wegovy anymore. Discussed proper use, side effects.Patient did call [employer] and they stated that they would cover [...] hormonal changes which she can follow with [employer] as needed. 06/06/2025: Weight 205, BMI 36. Patient feeling really well, congratulated and effort. Increase Zepbound to 12.5 mg, follow-up in 6 weeks. Pleased with progress overall. #Depression: patient to continue buspirone 10 mg, Lexapro 10 mg, Discussed cortisol medication care manager, and magnesium glycinate For adrenal fatigue [...] Dictation was accomplished with the use of [employer] voice recognition software, prone to medical misidentifications and grammatical errors. This is unintentional and the practitioner does try to identify and correct these, but some could still be present. Please do not hesitate to contact practitioner for clarification. 04/20/2025 Other acne (ICD-10 - L70.8) Melissa Is [...] next visit.If compounded semaglutide, will go to [facility] for nursing visits, and follow-up in [facility] for provider visits with myself. [...] to Zepbound, patient is going to contact [employer] to see if there is coverage with that medication. Having some fatigue/bloating. Focusing on whole proteins. 09/08/2024: Weight 206 BMI 36.61. Body composition showing maintenance overall. Will discontinue Wegovy, and initiate PA for Zepbound 2.5 mg that she has not noticing significant effect on Wegovy anymore. Discussed proper use, side effects.Patient did call [employer] and they stated that they would cover [...] hormonal changes which she can follow with [employer] [facility] as needed. #Depression: patient to continue buspirone 10 mg, Lexapro 10 mg, Discussed cortisol medication care manager, and magnesium glycinate For adrenal fatigue [...] Dictation was accomplished with the use of [employer] voice recognition software, prone to medical misidentifications [...] next visit.If compounded semaglutide, will go to [facility] for nursing visits, and follow-up in [facility] for provider visits with myself. [...] to Zepbound, patient is going to contact [employer] to see if there is coverage with that medication. Having some fatigue/bloating. Focusing on whole proteins. 09/08/2024: Weight 206 BMI 36.61. Body composition showing maintenance overall. Will discontinue Wegovy, and initiate PA for Zepbound 2.5 mg that she has not noticing significant effect on Wegovy anymore. Discussed proper use, side effects.Patient did call [employer] and they stated that they would cover [...] 10 mg, Lexapro 10 mg, Discussed cortisol medication care manager, and magnesium glycinate For adrenal fatigue [...] Dictation was accomplished with the use of [employer] voice recognition software, prone to medical misidentifications [...] meantime which is strongly encouraged. [facility] provided. 04/27/2023: Weight 221.3, BMI 39.2-patient [...] next visit.If compounded semaglutide, will go to [facility] for nursing visits, and follow-up in [facility] for provider visits with myself. [...] to Zepbound, patient is going to contact [employer] to see if there is coverage with that medication. Having some fatigue/bloating. Focusing on whole proteins. 09/08/2024: Weight 206 BMI 36.61. Body composition showing maintenance overall. Will discontinue Wegovy, and initiate PA for Zepbound 2.5 mg that she has not noticing significant effect on Wegovy anymore. Discussed proper use, side effects.Patient did call [employer] and they stated that they would cover [...] 10 mg, Lexapro 10 mg, Discussed cortisol medication care manager, and magnesium glycinate For adrenal fatigue [...] Dictation was accomplished with the use of [employer] voice recognition software, prone to medical misidentifications [...] meantime which is strongly encouraged. [facility] provided. 04/27/2023: Weight 221.3, BMI 39.2-patient [...] next visit.If compounded semaglutide, will go to [place] office for nursing visits, and follow-up in [facility] for provider visits with myself. [...] to Zepbound, patient is going to contact [employer] to see if there is coverage with that medication. Having some fatigue/bloating. Focusing on whole proteins. 09/08/2024: Weight 206 BMI 36.61. Body composition showing maintenance overall. Will discontinue Wegovy, and initiate PA for Zepbound 2.5 mg that she has not noticing significant effect on Wegovy anymore. Discussed proper use, side effects.Patient did call [employer] and they stated that they would cover [...] Dictation was accomplished with the use of [employer] voice recognition software, prone to medical misidentifications [...] meantime which is strongly encouraged. [facility] provided. 04/27/2023: Weight 221.3, BMI 39.2-patient [...] next visit.If compounded semaglutide, will go to [place] office for nursing visits, and follow-up in [facility] for provider visits with myself. [...] to Zepbound, patient is going to contact [employer] to see if there is coverage with that medication. Having some fatigue/bloating. Focusing on whole proteins. 09/08/2024: Weight 206 BMI 36.61. Body composition showing maintenance overall. Will discontinue Wegovy, and initiate PA for Zepbound 2.5 mg that she has not noticing significant effect on Wegovy anymore. Discussed proper use, side effects.Patient did call [employer] and they stated that they would cover [...] Dictation was accomplished with the use of [employer] voice recognition software, prone to medical misidentifications [...] next visit.If compounded semaglutide, will go to [facility] for nursing visits, and follow-up in [facility] for provider visits with myself. [...] to Zepbound, patient is going to contact [employer] to see if there is coverage with that medication. Having some fatigue/bloating. Focusing on whole proteins. 09/08/2024: Weight 206 BMI 36.61. Body composition showing maintenance overall. Will discontinue Wegovy, and initiate PA for Zepbound 2.5 mg that she has not noticing significant effect on Wegovy anymore. Discussed proper use, side effects.Patient did call [employer] and they stated that they would cover [...] Dictation was accomplished with the use of [employer] voice recognition software, prone to medical misidentifications [...] next visit.If compounded semaglutide, will go to [facility] for nursing visits, and follow-up in [facility] for provider visits with myself. [...] to Zepbound, patient is going to contact [employer] to see if there is coverage with that medication. Having some fatigue/bloating. Focusing on whole proteins. 09/08/2024: Weight 206 BMI 36.61. Body composition showing maintenance overall. Will discontinue Wegovy, and initiate PA for Zepbound 2.5 mg that she has not noticing significant effect on Wegovy anymore. Discussed proper use, side effects.Patient did call [employer] and they stated that they would cover [...] Dictation was accomplished with the use of [employer] voice recognition software, prone to medical misidentifications [...] next visit.If compounded semaglutide, will go to [facility] for nursing visits, and follow-up in [facility] for provider visits with myself. [...] to Zepbound, patient is going to contact [employer] to see if there is coverage with that medication. Having some fatigue/bloating. Focusing on whole proteins. 09/08/2024: Weight 206 BMI 36.61. Body composition showing maintenance overall. Will discontinue Wegovy, and initiate PA for Zepbound 2.5 mg that she has not noticing significant effect on Wegovy anymore. Discussed proper use, side effects.Patient did call [employer] and they stated that they would cover [...] 10 mg, Lexapro 10 mg, Discussed cortisol medication care manager, and magnesium glycinate For adrenal fatigue [...] Dictation was accomplished with the use of [employer] voice recognition software, prone to medical misidentifications [...] next visit.If compounded semaglutide, will go to [facility] for nursing visits, and follow-up [...] to Zepbound, patient is going to contact [employer] to see if there is coverage with that medication. Having some fatigue/bloating. Focusing on whole proteins. 09/08/2024: Weight 206 BMI 36.61. Body composition showing maintenance overall. Will discontinue Wegovy, and initiate PA for Zepbound 2.5 mg that she has not noticing significant effect on Wegovy anymore. Discussed proper use, side effects.Patient did call [employer] and they stated that they would cover [...] 10 mg, Lexapro 10 mg, Discussed cortisol medication care manager, and magnesium glycinate For adrenal fatigue [...] Dictation was accomplished with the use of [employer] voice recognition software, prone to medical misidentifications and grammatical errors. This is unintentional and the practitioner does try to identify and correct these, but some could still be present. Please do not hesitate to contact practitioner for clarification. 02/28/2025 Recurrent depression (ICD-10 - F33.9) Melissa Is a 44-year-old female who presented [...] next visit.If compounded semaglutide, will go to [facility] for nursing visits, and follow-up in [facility] for provider visits with myself. [...] to Zepbound, patient is going to contact [employer] to see if there is coverage with that medication. Having some fatigue/bloating. Focusing on whole proteins. 09/08/2024: Weight 206 BMI 36.61. Body composition showing maintenance overall. Will discontinue Wegovy, and initiate PA for Zepbound 2.5 mg that she has not noticing significant effect on Wegovy anymore. Discussed proper use, side effects.Patient did call [employer] and they stated that they would cover [...] maintaining muscle. Follow up in 6 weeks. #Depression: patient to continue buspirone 10 mg, Lexapro 10 mg, Discussed cortisol medication care manager, and magnesium glycinate For adrenal fatigue [...] Dictation was accomplished with the use of [employer] voice recognition software, prone to medical misidentifications and grammatical errors. This is unintentional and the practitioner does try to identify and correct these, but some could still be present. Please do not hesitate to contact practitioner for clarification. 04/20/2025 Recurrent depression (ICD-10 - F33.9) Melissa Is a 44-year-old female who presented [...] meantime which is strongly encouraged. [facility] provided. 04/27/2023: Weight 221.3, BMI 39.2-patient [...] next visit.If compounded semaglutide, will go to [facility] for nursing visits, and follow-up in [facility] for provider visits with myself. [...] to Zepbound, patient is going to contact [employer] to see if there is coverage with that medication. Having some fatigue/bloating. Focusing on whole proteins. 09/08/2024: Weight 206 BMI 36.61. Body composition showing maintenance overall. Will discontinue Wegovy, and initiate PA for Zepbound 2.5 mg that she has not noticing significant effect on Wegovy anymore. Discussed proper use, side effects.Patient did call [employer] and they stated that they would cover [...] hormonal changes which she can follow with [employer] as needed. #Depression: patient to continue buspirone 10 mg, Lexapro 10 mg, Discussed cortisol medication care manager, and magnesium glycinate For adrenal fatigue [...] Dictation was accomplished with the use of [employer] voice recognition software, prone to medical misidentifications and grammatical errors. This is unintentional and the practitioner does try to identify and correct these, but some could still be present. Please do not hesitate to contact practitioner for clarification. 06/06/2025 Other acne (ICD-10 - L70.8) Melissa Is [...] office for nursing visits, and follow-up in [facility] for provider visits with myself. 06/29/2023: Weight [...] to Zepbound, patient is going to contact [employer] to see if there is coverage with that medication. Having some fatigue/bloating. Focusing on whole proteins. 09/08/2024: Weight 206 BMI 36.61. Body composition showing maintenance overall. Will discontinue Wegovy, and initiate PA for Zepbound 2.5 mg that she has not noticing significant effect on Wegovy anymore. Discussed proper use, side effects.Patient did call [employer] and they stated that they would cover [...] hormonal changes which she can follow with [employer] as needed. 06/06/2025: Weight 205, BMI 36. Patient feeling really well, congratulated and effort. Increase Zepbound to 12.5 mg, follow-up in 6 weeks. Pleased with progress overall. #Depression: patient to continue buspirone 10 mg, Lexapro 10 mg, Discussed cortisol medication care manager, and magnesium glycinate For adrenal fatigue [...] Dictation was accomplished with the use of [employer] voice recognition software, prone to medical misidentifications and grammatical errors. This is unintentional and the practitioner does try to identify and correct these, but some could still be present. Please do not hesitate to contact practitioner for clarification. 08/01/2025 Other acne (ICD-10 - L70.8) Melissa Is a 45-year-old female who presented the office for weight [...] meantime which is strongly encouraged. [facility] provided. 04/27/2023: Weight 221.3, BMI 39.2-patient [...] next visit.If compounded semaglutide, will go to [facility] for nursing visits, and follow-up in [facility] for provider visits with myself. [...] to Zepbound, patient is going to contact [employer] to see if there is coverage with that medication. Having some fatigue/bloating. Focusing on whole proteins. 09/08/2024: Weight 206 BMI 36.61. Body composition showing maintenance overall. Will discontinue Wegovy, and initiate PA for Zepbound 2.5 mg that she has not noticing significant effect on Wegovy anymore. Discussed proper use, side effects.Patient did call [employer] and they stated that they would cover [...] hormonal changes which she can follow with [facility] [facility] as needed. 06/06/2025: Weight 205, BMI 36. Patient feeling really well, congratulated and effort. Increase Zepbound to 12.5 mg, follow-up in 6 weeks. Pleased with progress overall. 08/01/2025: Weight 203, BMI 36 continue Zepbound 12.5 mg, follow-up in 4 to 6 weeks. Doing well with increased muscle and decreased fat. #Depression: patient to continue buspirone 10 mg, Lexapro 10 mg, Discussed cortisol medication care manager, and magnesium glycinate For adrenal fatigue [...] Dictation was accomplished with the use of [employer] voice recognition software, prone to medical misidentifications and grammatical errors. This is unintentional and the practitioner does try to identify and correct these, but some could still be present. Please do not hesitate to contact practitioner for clarification. 08/01/2025 Recurrent depression (ICD-10 - F33.9) Melissa Is a 45-year-old female who presented the office for weight [...] next visit.If compounded semaglutide, will go to [facility] for nursing visits, and follow-up in [facility] for provider visits with myself. [...] to Zepbound, patient is going to contact [employer] to see if there is coverage with that medication. Having some fatigue/bloating. Focusing on whole proteins. 09/08/2024: Weight 206 BMI 36.61. Body composition showing maintenance overall. Will discontinue Wegovy, and initiate PA for Zepbound 2.5 mg that she has not noticing significant effect on Wegovy anymore. Discussed proper use, side effects.Patient did call [employer] and they stated that they would cover [...] hormonal changes which she can follow with [employer] as needed. 06/06/2025: Weight 205, BMI 36. Patient feeling really well, congratulated and effort. Increase Zepbound to 12.5 mg, follow-up in 6 weeks. Pleased with progress overall. 08/01/2025: Weight 203, BMI 36 continue Zepbound 12.5 mg, follow-up in 4 to 6 weeks. Doing well with increased muscle and decreased fat. #Depression: patient to continue buspirone 10 mg, Lexapro 10 mg, Discussed cortisol medication care manager, and magnesium glycinate For adrenal fatigue [...] Dictation was accomplished with the use of [employer] voice recognition software, prone to medical misidentifications and grammatical errors. This is unintentional and the practitioner does try to identify and correct these, but some could still be present. Please do not hesitate to contact practitioner for clarification. 04/20/2025 Encounter for examination of blood pressure without abnormal findings (ICD-10 - Z01.30) Melissa Is a 44-year-old female who presented [...] next visit.If compounded semaglutide, will go to [facility] for nursing visits, and follow-up in [facility] for provider visits with myself. [...] to Zepbound, patient is going to contact [employer] to see if there is coverage with that medication. Having some fatigue/bloating. Focusing on whole proteins. 09/08/2024: Weight 206 BMI 36.61. Body composition showing maintenance overall. Will discontinue Wegovy, and initiate PA for Zepbound 2.5 mg that she has not noticing significant effect on Wegovy anymore. Discussed proper use, side effects.Patient did call [employer] and they stated that they would cover [...] hormonal changes which she can follow with [employer] as needed. #Depression: patient to continue buspirone 10 mg, Lexapro 10 mg, Discussed cortisol medication care manager, and magnesium glycinate For adrenal fatigue [...] Dictation was accomplished with the use of [employer] voice recognition software, prone to medical misidentifications and grammatical errors. This is unintentional and the practitioner does try to identify and correct these, but some could still be present. Please do not hesitate to contact practitioner for clarification. 06/06/2025 Recurrent depression (ICD-10 - F33.9) Melissa Is a 44-year-old female who presented [...] next visit.If compounded semaglutide, will go to [facility] for nursing visits, and follow-up in [facility] for provider visits with myself. [...] to Zepbound, patient is going to contact [employer] to see if there is coverage with that medication. Having some fatigue/bloating. Focusing on whole proteins. 09/08/2024: Weight 206 BMI 36.61. Body composition showing maintenance overall. Will discontinue Wegovy, and initiate PA for Zepbound 2.5 mg that she has not noticing significant effect on Wegovy anymore. Discussed proper use, side effects.Patient did call [employer] and they stated that they would cover [...] hormonal changes which she can follow with [employer] as needed. 06/06/2025: Weight 205, BMI 36. Patient feeling really well, congratulated and effort. Increase Zepbound to 12.5 mg, follow-up in 6 weeks. Pleased with progress overall. #Depression: patient to continue buspirone 10 mg, Lexapro 10 mg, Discussed cortisol medication care manager, and magnesium glycinate For adrenal fatigue [...] Dictation was accomplished with the use of [employer] voice recognition software, prone to medical misidentifications [...] next visit.If compounded semaglutide, will go to [facility] for nursing visits, and follow-up in [facility] for provider visits with myself. [...] to Zepbound, patient is going to contact [employer] to see if there is coverage with that medication. Having some fatigue/bloating. Focusing on whole proteins. 09/08/2024: Weight 206 BMI 36.61. Body composition showing maintenance overall. Will discontinue Wegovy, and initiate PA for Zepbound 2.5 mg that she has not noticing significant effect on Wegovy anymore. Discussed proper use, side effects.Patient did call [employer] and they stated that they would cover [...] 10 mg, Lexapro 10 mg, Discussed cortisol medication care manager, and magnesium glycinate For adrenal fatigue [...] Dictation was accomplished with the use of [employer] voice recognition software, prone to medical misidentifications and grammatical errors. This is unintentional and the practitioner does try to identify and correct these, but some could still be present. Please do not hesitate to contact practitioner for clarification. 06/06/2025 Encounter for examination of blood pressure without abnormal findings (ICD-10 - Z01.30) Melissa Is a 44-year-old female who presented [...] next visit.If compounded semaglutide, will go to [facility] for nursing visits, and follow-up in [facility] for provider visits with myself. [...] to Zepbound, patient is going to contact [employer] to see if there is coverage with that medication. Having some fatigue/bloating. Focusing on whole proteins. 09/08/2024: Weight 206 BMI 36.61. Body composition showing maintenance overall. Will discontinue Wegovy, and initiate PA for Zepbound 2.5 mg that she has not noticing significant effect on Wegovy anymore. Discussed proper use, side effects.Patient did call [employer] and they stated that they would cover [...] hormonal changes which she can follow with [employer] as needed. 06/06/2025: Weight 205, BMI 36. Patient feeling really well, congratulated and effort. Increase Zepbound to 12.5 mg, follow-up in 6 weeks. Pleased with progress overall. #Depression: patient to continue buspirone 10 mg, Lexapro 10 mg, Discussed cortisol medication care manager, and magnesium glycinate For adrenal fatigue [...] Dictation was accomplished with the use of [employer] voice recognition software, prone to medical misidentifications and grammatical errors. This is unintentional and the practitioner does try to identify and correct these, but some could still be present. Please do not hesitate to contact practitioner for clarification. 08/01/2025 Encounter for examination of blood pressure without abnormal findings (ICD-10 - Z01.30) Melissa Is a 45-year-old female who presented the office for weight [...] meantime which is strongly encouraged. [facility] provided. 04/27/2023: Weight 221.3, BMI 39.2-patient [...] next visit.If compounded semaglutide, will go to [facility] for nursing visits, and follow-up in [facility] for provider visits with myself. [...] to Zepbound, patient is going to contact [employer] to see if there is coverage with that medication. Having some fatigue/bloating. Focusing on whole proteins. 09/08/2024: Weight 206 BMI 36.61. Body composition showing maintenance overall. Will discontinue Wegovy, and initiate PA for Zepbound 2.5 mg that she has not noticing significant effect on Wegovy anymore. Discussed proper use, side effects.Patient did call [employer] and they stated that they would cover [...] hormonal changes which she can follow with [employer] as needed. 06/06/2025: Weight 205, BMI 36. Patient feeling really well, congratulated and effort. Increase Zepbound to 12.5 mg, follow-up in 6 weeks. Pleased with progress overall. 08/01/2025: Weight 203, BMI 36 continue Zepbound 12.5 mg, follow-up in 4 to 6 weeks. Doing well with increased muscle and decreased fat. #Depression: patient to continue buspirone 10 mg, Lexapro 10 mg, Discussed cortisol medication care manager, and magnesium glycinate For adrenal fatigue [...] Dictation was accomplished with the use of [employer] voice recognition software, prone to medical misidentifications and grammatical errors. This is unintentional and the practitioner does try to identify and correct these, but some could still be present. Please do not hesitate to contact practitioner for clarification. Plan Of Treatment Pending Test Test Name Order Date HEMOGLOBIN A1c 05/28/2023 INSULIN 05/28/2023 Next Appt Details Provider Name:JOHANA SAMANIEGO, 09/13/2025 02:30:00 PM, [address], [place], [id number], Insurance Providers Payer Name Payer Address Payer Phone Subscriber Number Group Number Insured Name Patient Relationship to Insured Coverage Start Date Coverage End Date [facility] [address] [place] [address] [id number] Melissa Wilson Self - patient is the insured Medications Administered Medication Instructions Date of Administration Dosage Notes MICC B12 INJECTION 02/17/2023 MICC B12 INJECTION 03/26/2023 MICC B12 INJECTION 04/27/2023 MICC B12 INJECTION 05/28/2023 MICC B12 INJECTION 02/01/2024 lot# [id number] Semaglutide 09/07/2023 0.25 SEMA 0.25 Semaglutide 09/14/2023 Semaglutide 09/21/2023 Semaglutide 09/28/2023 Semaglutide 10/05/2023 Semaglutide 10/13/2023 1 mg Medical (General) History Medical History History ICD Code Depression F32.A Anxiety F41.9 Raynaud's disease without gangrene I73.0 0 History of cervical cancer Z85.41 Surgical History Surgery Date(Month/Year) trachiotomy 2015 lap inocente 2020
== END 2025-08-22 08:31 | disposition home or self-care (01) ==
LOC: HO.HMGCX 08:30
PROVIDERS: PCP Internal Medicine; Visit Provider Internal Medicine
DX: R74.8 Abnormal levels of other serum enzymes (principal)
CPT/HCPCS: 76705

== ENCOUNTER → 2025-08-22 08:32 | Outpatient (BNV) | payer OTHER, SELFPAY | PROVIDERS: PCP Internal Medicine; Visit Provider Radiology Diagnostic Radiology | DX: N28.1 Cyst of kidney, acquired (principal); Z90.49 Acquired absence of other specified parts of digestive tract | CPT/HCPCS: 76705 ==

== ENCOUNTER 2025-08-25 13:37 | Outpatient (AMB) | payer OTHER, SELFPAY ==
[2025-08-25 13:39] VITALS: BP 118/74; PULSE 83; O2SAT 99; BMI 36.1
--- NOTE | 2025-08-25 13:39 | A.OFFPC_ITS ---
Vital Signs 08/25/25 13:39 Height 5 ft 3 in Weight 204 lb BMI 36.1 BP 118/74 Blood Pressure Location Rt brachial Position Sitting Pulse 83 Pulse Source Pulse Oximeter Pulse Oximetry (%) 99 Intake Visit Reasons: Results review Allergies bupropion (From Wellbutrin) Adverse Reaction (Verified 08/25/25 13:40) Panic Medication List - Last Reconciled 08/25/25 by Idalia Clements MD albuterol sulfate 90 mcg/actuation (Ventolin HFA) 1 inh inhalation QID PRN 30 days buspirone 5 mg PO BID PRN 30 days dapsone 5% topical QAM escitalopram oxalate 10 mg PO DAILY 90 days spironolactone 50 mg PO BID tirzepatide (weight loss) (Zepbound) mg subcut tretinoin 0.05% appl topical Tobacco use date assessed: 06/09/25 Dental Screening Dental Screen Date: 06/09/25 HPI Results review HPI Details History of Present Illness The patient is a 45-year-old female presenting for follow-up regarding liver and kidney findings. Mild diffuse fatty liver: - Patient had an ultrasound which revea led mild diffuse fatty liver.. - Experiences occasional bloating attrib uted to absence of gallbladder, but it has been improving. - Patient has no nausea or abdominal maria n. Renal cysts: - Right kidney ultrasound indicated a 2. 2 x 1.1 x 1.6 cm cyst at the mid pole, along with another smaller cyst on the periphery. - The patient is unaware of any kidney i ssues within her family. - No symptoms such as pain were reported . Elevated alkaline phosphatase: - Patient had elevated levels of alkalin e phosphatase in May. - No jaundice, nausea, or abdominal pain reported. 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 - Reported to have no alcohol use Problem List - Mild diffuse fatty liver. - Renal cysts. - Elevated alkaline phosphatase. Plan - Plan to have a follow-up bilateral ult rasound to further evaluate both kidneys - Gastroenterology referral initiated fo r further evaluation of liver findings and possible nonalcoholic fatty liver disease management. Patient would like to go to [facility] Gastro[facility]ology - Recommendation for blood tests on live r enzymes, including a liver fibrosis panel, to assess current liver function. - Patient advised to monitor symptoms an d report any changes such as abdominal pain, jaundice, or significant digestive issues. Follow-up Jeremy Review of Systems - General: No fever no chills - Neurological: No headaches no dizziness - Ear nose throat: No sore throat no hearing difficulty no ear pain - Cardiovascular: No syncope, no chest pain, no palpitations - Gastrointestinal: No nausea vomiting or diarrhea Physical Exam General: No acute distress HEENT: No acute findings Neck: Supple Respiratory system: Able to talk in full sentences, no audible wheeze Cardiovascular: S1-S2 regular in rate and rhythm Gastrointestinal: No pain Back: No CVAT Extremities: No new findings [employer]: Alert awake oriented x3 motor intact Skin: Normal turgor [facility] Surgical History No pertinent past surgical history Social History Housing: House Patient Tobacco Use Status: Never used Tobacco e-Cigarette/Vaping Use: Never Used service: No Current occupational status: employed Current occupational exposures/hazards: No Cognitive needs: No Hearing needs: No Vision needs: Yes Questionnaire Thrive Questionnaire Date Thrive assessed: 02/03/25 I am a: Patient What is your living situation today?: I have a steady place to live Within the past 12 months, did the food you bought not last and you didn't have the money to get more?: Never true Within the past 12 months, did you worry whether your food would run out before you got money to buy more?: Never true Do you have trouble paying for medicines?: No Do you have trouble getting transportation to medical appointments?: No Do you have trouble paying your heating and electricity bill?: No Do you have trouble taking care of your child, family member or friend?: No Do you have trouble with day-to-day activities such as bathing, preparing meals, shopping, managing finances, etc.?: No Are you currently unemployed and looking for a job?: No Are you interested in more education?: No Please select the resources that you would like help with: None Currently or been in a relationship where the following occur: No concerns reported THRIVE Score: 0 ESTRELLA-7 AMB Questionnaire ESTRELLA-7 Date ESTRELLA - 7 assessed: 02/03/25 Source: Developed by Drs. Dickson Cates, Marni B.W. Freeman Boggs and colleagues, with an educational monica from [employer]. Physical exam (Primary Care) Vital Signs: Last Vital Signs Pulse 83 08/25/25 13:39 BP 118/74 08/25/25 13:39 Pulse Ox 99 08/25/25 13:39 BMI result Body Mass Index 36.1 Tobacco/Smoking Status: Tobacco use Status Tobacco use date assessed 06/09/25 08/25/25 13:44 Patient Tobacco Use Status Never used Tobacco 08/25/25 13:44 e-Cigarette/Vaping Use Never Used 08/25/25 13:44 Thrive Assessment: Date of Thrive Assessment Date Thrive assessed 02/03/25 08/25/25 13:44 Currently or been in a relationship where the following occur: No concerns reported Coding Level of Care Code Est Pt Level 3 (80008) Diagnoses LFT elevation R79.89 Renal cyst, right N28.1 Assessment & Plan Assessment & Plan (1) LFT elevation: Code(s): R79.89 - Other specified abnormal findings of blood chemistry Category: Medical (2) Renal cyst, right: Code(s): N28.1 - Cyst of kidney, acquired Category: Medical Plan History of Present Illness The patient is a 45-year-old female presenting for follow-up regarding liver and kidney findings. Mild diffuse fatty liver: - Patient had an ultrasound which revealed mild diffuse fatty liver.. - Experiences occasional bloating attributed to absence of gallbladder, but it has been improving. - Patient has no nausea or abdominal pain. Renal cysts: - Right kidney ultrasound indicated a 2.2 x 1.1 x 1.6 cm cyst at the mid pole, along with another smaller cyst on the periphery. - The patient is unaware of any kidney issues within her family. - No symptoms such as pain were reported. Elevated alkaline phosphatase: - Patient had elevated levels of alkaline phosphatase in May. - No jaundice, nausea, or abdominal pain reported. 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 - Reported to have no alcohol use Problem List - Mild diffuse fatty liver. - Renal cysts. - Elevated alkaline phosphatase. Plan - Plan to have a follow-up bilateral ultrasound to further evaluate both kidneys - Gastroenterology referral initiated for further evaluation of liver findings and possible nonalcoholic fatty liver disease management. Patient would like to go to [facility] G[facility] - Recommendation for blood tests on liver enzymes, including a liver fibrosis panel, to assess current liver function. - Patient advised to monitor symptoms and report any changes such as abdominal pain, jaundice, or significant digestive issues. Follow-up October Orders: Orders Liver Panel Today R79.89 - Other specified abnormal findings of blood chemistry US renal BI Today N28.1 - Cyst of kidney, acquired Liver Fibrosis Pnl Today R79.89 - Other specified abnormal findings of blood chemistry Referrals Gastroenterology Referral R79.89 - Other specified abnormal findings of blood chemistry
== END 2025-08-25 14:14 | disposition home or self-care (01) ==
LOC: HO.HMCC 13:38
PROVIDERS: PCP Internal Medicine; Visit Provider Internal Medicine
DX: R79.89 Other specified abnormal findings of blood chemistry (principal); N28.1 Cyst of kidney, acquired

== ENCOUNTER 2025-08-25 13:37 | Outpatient (REF) | payer OTHER, SELFPAY ==
[2025-08-25 17:01] LABS: Alanine Aminotransferase 28 U/L (0-31); Albumin Level 4.3 g/dL (3.5-5.0); Alkaline Phosphatase 134 U/L (39-117); Aspartate Amino Transferase 28 U/L (5-31); Total Protein 7.4 g/dL (6.5-8.0)
[2025-08-31 00:18] LABS: FIB-ALT 22 U/L (6-29); FIB-Alpha-2-Macroglobulin 161 mg/dL (106-279); FIB-Apolipoprotein A1 184 mg/dL (101-198); FIB-GGT 24 U/L (3-55); FIB-Haptoglobin 176 mg/dL (43-212); FIB-Total Bilirubin 0.5 mg/dL (0.2-1.2); Liver Fibrosis Score 0.06; Liver Fibrosis Stage F0; Nec Inflam Act Grade A0; Nec Inflam Act Score 0.07
== END 2025-08-25 13:38 | disposition home or self-care (01) ==
LOC: HO.HMGCLDS 13:37
PROVIDERS: PCP Internal Medicine; Visit Provider Internal Medicine
DX: R79.89 Other specified abnormal findings of blood chemistry (principal); N28.1 Cyst of kidney, acquired; Z79.899 Other long term (current) drug therapy
CPT/HCPCS: 36415; 80076; 81596

== ENCOUNTER 2025-09-28 15:17 | Outpatient (AMB) | payer OTHER, SELFPAY ==
--- OUTSIDE RECORDS SUMMARY | 2025-04-13 09:45 | XMS_ITS ---
Author Organization [facility] [address] Address [address] [place] [address] Care Team Providers Care Rn Transition Name Role Phone JOHANA SAMANIEGO Unavailable [phone] REASON FOR VISIT 6 week f/u Encounters Encounter Location Date Provider Diagnosis [facility] [address] [place] [address] 04/13/2025 JOHANA SAMANIEGO Plan Of Treatment Next Appt Details Provider Name:JOHANA SAMANIEGO, 10/10/2025 01:30:00 PM, [address] , [place], [address], Progress Notes * Melissa WILSONDOB: [birth year] (45 yo F)Acc No.[id number]:04/13/2025 Patient: Allan Melissa wadsworth Provider: Sylvia SAMANIEGO PA-C :1980 A ge:44 Y S ex:Female Date:04/13/2025 Address:[address] [place], [place] [address] Subjective: * Chief Complaints: * 6 week f/u * Electronic signature of GALILEA SAMANIEGO PA-C on 09/28/2025 at 06:28 PM EST Sign off status: Pending * Provider: Sylvia SAMANIEGO PA-C Date: 0 04/13/2025 Generated for Printi ng/Faxing/eTransmitting on: 1 11/28/2024 06:28 PM EST
--- OUTSIDE RECORDS SUMMARY | 2025-04-18 05:00 | XMS_ITS ---
Author Organization [facility] [address] Address [address] [place] [address] Care Team Providers Care Assembler Ping Pong Table Name Role Phone JOHANA SAMANIEGO Unavailable [phone] REASON FOR VISIT 6 week f/u Encounters Encounter Location Date Provider Diagnosis [facility] [address] [place] [address] 04/18/2025 JOHANA SAMANIEGO Plan Of Treatment Next Appt Details Provider Name:JOHANA SAMANIEGO, 10/10/2025 01:30:00 PM, [address] , [place], [address], Progress Notes * Melissa WILSONDOB: [birth year] (45 yo F)Acc No.[id number]:04/18/2025 Patient: Allan Melissa wadsworth Provider: Sylvia SAMANIEGO PA-C :1980 A ge:44 Y S ex:Female Date:04/18/2025 Address:[address] [place], [place] [address] Subjective: * Chief Complaints: * 6 week f/u * Electronic signature of GALILEA SAMANIEGO PA-C on 09/28/2025 at 06:28 PM EST Sign off status: Pending * Provider: Sylvia SAMANIEGO PA-C Date: 0 04/18/2025 Generated for Printi ng/Faxing/eTransmitting on: 1 11/28/2024 06:28 PM EST
--- NOTE | 2025-09-28 15:20 | HO.NEPHOV_ITS ---
Vital Signs 09/28/25 15:29 Height 5 ft 3 in Weight 207 lb 4 oz BMI 36.7 BP 110/70 Blood Pressure Location Lt brachial Position Sitting Pulse 82 Pulse Source Pulse Oximeter Pulse Oximetry (%) 99 Oxygen Delivery Method Room Air Intake Visit Reasons: INP: Other specified disorders of kidney and urete Film Developer Required: No Accompanied by: Self / Same As Patient Allergies bupropion (From Wellbutrin) Adverse Reaction (Verified 09/28/25 15:28) Panic HPI Comments Details: I had the privilege of seeing Angie in consultation for renal cysts. She was found to have increased alkaline phosphatase and underwent abdominal ultrasound which showed cyst/mass in the kidney. She underwent renal ultrasound which confirmed the same but that imaging was not able to delineate the details of the imaging abnormality. She does not have any hematuria, flank pain, kidney stones, hypertension, renal dysfunction or any urinary symptoms. She has no history of vascular disease but has history of Raynaud's. She has no edema. She has family history of renal cysts in a grandparent. She has no family history of polycystic kidney disease, cerebral aneurysm, ESRD or renal transplantation. Her renal functions are normal. She is on spironolactone for acne and is on Zepbound which is helping her with weight loss. [facility] Surgical History No pertinent past surgical history Social History Housing: House Patient Tobacco Use Status: Never used Tobacco e-Cigarette/Vaping Use: Never Used service: No Current occupational status: employed Current occupational exposures/hazards: No Cognitive needs: No Hearing needs: No Vision needs: Yes Review of Systems Const All systems reviewed & are unremarkable except as noted in HPI and below Physical Exam Vital Signs: Last Vital Signs Pulse 82 09/28/25 15:29 BP 110/70 09/28/25 15:29 Pulse Ox 99 09/28/25 15:29 Oxygen Delivery Method Room Air 09/28/25 15:29 BMI result Body Mass Index 36.7 Const General: comfortable and no acute distress Orientation/consciousness: patient oriented x3 HEENT Head: Yes normocephalic Mouth: Normal oral and palatal mucosa present Eyes EOM: EOMs intact bilaterally Neck Neck: Yes supple Resp Auscultation: clear to auscultation bilaterally Cardio Jugular venous distension: no JVD Rate: regular rate Heart sounds: Murmur heart sound present GI Palpation (GI): Soft to palpation Auscultation: normal bowel sounds General: Yes no CVA tenderness Back/Spine/Pelvis Back: no CVA tenderness Skin General skin exam: no rashes or lesions noted Neuro General: patient oriented x3 and moves all extremities Extrem General: Yes no pedal edema Results Reviewed Nephrology Results: Hgb, (12.0-16.0) 15.4 g/dl 02/04/25 WBC, (4.8-10.8) 7.2 X10*3/uL 02/04/25 Plt Count, (160-400) 313 X10*3/uL 02/04/25 Sodium, (135-145) 136 mmol/L 02/04/25 Potassium, (3.3-5.1) 4.1 mmol/L 02/04/25 Chloride, (96-108) 106 mmol/L 02/04/25 Carbon Dioxide, (22-29) 24 mmol/L 02/04/25 BUN, (9-16) 11 mg/dL 02/04/25 Creatinine, (0.5-1.4) 0.67 mg/dL 02/04/25 Calcium, (8.4-10.2) 8.9 mg/dL Δ 02/04/25 Assessment & Plan Assessment & Plan (1) Right renal mass: Code(s): N28.89 - Other specified disorders of kidney and ureter Category: Medical (2) Renal cyst: Code(s): N28.1 - Cyst of kidney, acquired Category: Medical Plan Tawanna has an incidental finding radiologically when an ultrasound abdomen was done for elevated alkaline phosphatase. She has no urinary symptoms, renal dysfunction, hypertension, flank pain, family history of polycystic kidney disease, ESRD, family history renal transplantation. She may be having benign renal cysts along with a renal angiomyolipoma. Determination of this needs MRI of the kidney with contrast which I have ordered. (Her renal functions are normal). I did not make any medication changes today but all these possibilities have been discussed and answered all questions. Follow-up appointment was given Orders: Orders MR abdomen wo/w con Today N28.1 - Cyst of kidney, acquired, N28.89 - Other specified disorders of kidney and ureter Coding Level of Care Code New Pt Level 4 (64977) Diagnoses Right renal mass N28.89 Renal cyst N28.1
[2025-09-28 15:29] VITALS: BP 110/70; PULSE 82; O2SAT 99; BMI 36.7
--- OUTSIDE RECORDS SUMMARY | 2025-09-28 18:29 | XMS_ITS | Patient Health Record ---
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 Name Role Phone JOHANA SAMANIEGO Unavailable [phone] Allergies Allergen (clinical drug ingredient) Drug/Non Drug Allergy documented on EMR Reaction Allergy Type Onset Date Status Wellbutrin Unknown Drug Allergy Active Reason For Referral No Information Medications Medication SIG (Take, Route, Frequency, Duration) Notes Start Date End Date Status busPIRone HCl 10 MG Tablet 1 tablet Oral ly Twice a day Active Spironolactone 50 MG Tablet 1 tablet Ora lly Once a day Active Lexapro 10 MG Tablet 1 tablet Orally Onc e a day Active Zepbound 15 MG/0.5ML Solution Auto-injector 15 mg Subcutaneous weekly; Duration: 30 days Active Social History Tobacco Use: Social History Observation Description Date Details (start date - stop date) Never Smoker NA - NA Social History Tobacco Use: Social Info Question Answer Notes Tobacco Use/Smoking Are you a nonsmoker Section Notes: rn [...] Status W/U Status Risk Notes Problem Obesity (766059397) Other obesity (E66.8) Active confirmed Problem Anxiety (76088427) Anxiety (F41.9) Active confirmed Problem Obesity (630438548) Obesity (BMI 30-39.9) (E66.9) Active confirmed Problem Obese class II (83205372011812 5) BMI 37.0-37.9, adult (Z68.37) Active confirmed Problem Obese class II (14569389912464 5) BMI 35.0-35.9,adult (Z68.35) Active confirmed Problem Raynaud's disease (032282705) Raynaud's disease without gangrene (I73.00) Active confirmed Problem Obese class II (75981545178202 5) BMI 39.0-39.9,adult (Z68.39) Active confirmed Problem Obese class II (73249604113657 5) BMI 36.0-36.9,adult (Z68.36) Active confirmed Problem Obese class II (95769914115538 5) BMI 38.0-38.9,adult (Z68.38) Active confirmed Problem Recurrent depression (405114484) Recurrent depression (F33.9) Active confirmed Problem History of malignant neoplasm of cervix (531090610) History of cervical cancer (Z85.41) Active confirmed Vital Signs Heart Rate 71 /min 09/13/2025 Oximetry 98 % 09/13/2025 Blood pressure diastolic 80 mm Hg 09/13/2025 Height 63 in 09/13/2025 Blood pressure systolic 122 mm Hg 09/13/2025 Weight 202.0 lbs 09/13/2025 BMI 35.78 kg/m2 09/13/2025 Encounters Encounter Location Date Provider Diagnosis [facility] [address] [place], [place] 10/31/2024 JOHANA SAMANIEGO Obesity (BMI 30-39.9 ) E66.9 ; BMI 37.0-37.9, adult Z68.37 ; Depression, unspecified depression type F32.A and Other acne L70.[address] [facility] [address] [place], [place] 12/05/2024 JOHANA SAMANIEGO Obesity (BMI 30-39.9 ) E66.9 ; BMI 37.0-37.9, adult Z68.37 ; Depression, unspecified depression type F32.A and Other acne L70.[address] [facility] [address] [place], [place] 01/17/2025 JOHANA SAMANIEGO Obesity (BMI 30-39.9 ) E66.9 ; BMI 37.0-37.9, adult Z68.37 ; Depression, unspecified depression type F32.A and Other acne L70.[address] [facility] [address] [place], [place] 02/28/2025 JOHANA SAMANIEGO Obesity (BMI 30-39.9 ) E66.9 ; BMI 36.0-36.9,adult Z68.36 ; Other acne L70.8 and Recurrent depression F33.[address] [facility] [address] [place], [place] 04/20/2025 JOHANA SAMANIEGO Obesity (BMI 30-39.9 ) E66.9 ; BMI 36.0-36.9,adult Z68.36 ; Other acne L70.8 ; Recurrent depression F33.9 and Encounter for examination of blood pressure without abnormal findings Z01.[address] [facility] [address] [place], [place] 06/06/2025 JOHANA SAMANIEGO Obesity (BMI 30-39.9 ) E66.9 ; BMI 36.0-36.9,adult Z68.36 ; Other acne L70.8 ; Recurrent depression F33.9 and Encounter for examination of blood pressure without abnormal findings Z01.[address] [facility] [address] [place], [place] 08/01/2025 JOHANA SAMANIEGO Obesity (BMI 30-39.9 ) E66.9 ; BMI 36.0-36.9,adult Z68.36 ; Other acne L70.8 ; Recurrent depression F33.9 and Encounter for examination of blood pressure without abnormal findings Z01.[address] [facility] [address] [place], [place] 09/13/2025 JOHANA SAMANIEGO Obesity (BMI 30-39.9 ) E66.9 ; BMI 35.0-35.9,adult Z68.35 ; Other acne L70.8 ; Recurrent depression F33.9 and Encounter for examination of blood pressure without abnormal findings Z01.30 [facility] [phone] [address] 10/07/2024 JOHANA SAMANIEGO [facility] [phone] [address] 05/05/2025 JOHANA SAMANIEGO Assessments Encounter Date Diagnosis [...] next visit.If compounded semaglutide, will go to [facility] for nursing visits, and [facility] with myself. 06/29/2023: [...] to Zepbound, patient is going to contact [employer] to see if there is coverage with that medication. Having some fatigue/bloating. Focusing on whole proteins. 09/08/2024: Weight 206 BMI 36.61. Body composition showing maintenance overall. Will discontinue Wegovy, and initiate PA for Zepbound 2.5 mg that she has not noticing significant effect on Wegovy anymore. Discussed proper use, side effects.Patient did call [employer] and they stated that they would cover [...] Dictation was accomplished with the use of [employer] voice recognition software, prone to medical misidentifications [...] next visit.If compounded semaglutide, will go to [facility] for nursing visits, and follow-up in [facility] for provider visits with myself. [...] to Zepbound, patient is going to contact [employer] to see if there is coverage with that medication. Having some fatigue/bloating. Focusing on whole proteins. 09/08/2024: Weight 206 BMI 36.61. Body composition showing maintenance overall. Will discontinue Wegovy, and initiate PA for Zepbound 2.5 mg that she has not noticing significant effect on Wegovy anymore. Discussed proper use, side effects.Patient did call [employer] and they stated that they would cover [...] Dictation was accomplished with the use of [employer] voice recognition software, prone to medical misidentifications [...] next visit.If compounded semaglutide, will go to [place] office for nursing visits, and follow-up in [facility] for provider visits with myself. [...] to Zepbound, patient is going to contact [employer] to see if there is coverage with that medication. Having some fatigue/bloating. Focusing on whole proteins. 09/08/2024: Weight 206 BMI 36.61. Body composition showing maintenance overall. Will discontinue Wegovy, and initiate PA for Zepbound 2.5 mg that she has not noticing significant effect on Wegovy anymore. Discussed proper use, side effects.Patient did call [employer] and they stated that they would cover [...] 10 mg, Lexapro 10 mg, Discussed cortisol program management manager, and magnesium glycinate For adrenal fatigue [...] Dictation was accomplished with the use of [employer] voice recognition software, prone to medical misidentifications [...] next visit.If compounded semaglutide, will go to [facility] for nursing visits, and follow-up in [facility] for provider visits with myself. [...] to Zepbound, patient is going to contact [employer] to see if there is coverage with that medication. Having some fatigue/bloating. Focusing on whole proteins. 09/08/2024: Weight 206 BMI 36.61. Body composition showing maintenance overall. Will discontinue Wegovy, and initiate PA for Zepbound 2.5 mg that she has not noticing significant effect on Wegovy anymore. Discussed proper use, side effects.Patient did call [employer] and they stated that they would cover [...] 10 mg, Lexapro 10 mg, Discussed cortisol program management manager, and magnesium glycinate For adrenal fatigue [...] Dictation was accomplished with the use of [employer] voice recognition software, prone to medical misidentifications [...] next visit.If compounded semaglutide, will go to [facility] for nursing visits, and follow-up in [...] She continues to maintain adequate water intake. Isidroa demonstrated maintenance of muscle mass with loss [...] to Zepbound, patient is going to contact [employer] to see if there is coverage with that medication. Having some fatigue/bloating. Focusing on whole proteins. 09/08/2024: Weight 206 BMI 36.61. Body composition showing maintenance overall. Will discontinue Wegovy, and initiate PA for Zepbound 2.5 mg that she has not noticing significant effect on Wegovy anymore. Discussed proper use, side effects.Patient did call [employer] and they stated that they would cover [...] 10 mg, Lexapro 10 mg, Discussed cortisol program management manager, and magnesium glycinate For adrenal fatigue [...] Dictation was accomplished with the use of [employer] voice recognition software, prone to medical misidentifications [...] next visit.If compounded semaglutide, will go to [facility] for nursing visits, and follow-up in [facility] for provider visits with myself. [...] to Zepbound, patient is going to contact [employer] to see if there is coverage with that medication. Having some fatigue/bloating. Focusing on whole proteins. 09/08/2024: Weight 206 BMI 36.61. Body composition showing maintenance overall. Will discontinue Wegovy, and initiate PA for Zepbound 2.5 mg that she has not noticing significant effect on Wegovy anymore. Discussed proper use, side effects.Patient did call [employer] and they stated that they would cover [...] 10 mg, Lexapro 10 mg, Discussed cortisol program management manager, and magnesium glycinate For adrenal fatigue [...] Dictation was accomplished with the use of [employer] voice recognition software, prone to medical misidentifications [...] in the meantime which is strongly encouraged. [facility] provided. 04/27/2023: Weight 221.3, BMI 39.2-patient [...] next visit.If compounded semaglutide, will go to [facility] for nursing visits, and follow-up in [facility] for provider visits with myself. [...] to Zepbound, patient is going to contact [employer] to see if there is coverage with that medication. Having some fatigue/bloating. Focusing on whole proteins. 09/08/2024: Weight 206 BMI 36.61. Body composition showing maintenance overall. Will discontinue Wegovy, and initiate PA for Zepbound 2.5 mg that she has not noticing significant effect on Wegovy anymore. Discussed proper use, side effects.Patient did call [employer] and they stated that they would cover [...] 10 mg, Lexapro 10 mg, Discussed cortisol program management manager, and magnesium glycinate For adrenal fatigue [...] Dictation was accomplished with the use of [employer] voice recognition software, prone to medical misidentifications [...] next visit.If compounded semaglutide, will go to [facility] for nursing visits, and follow-up in [facility] for provider visits with myself. [...] to Zepbound, patient is going to contact [employer] to see if there is coverage with that medication. Having some fatigue/bloating. Focusing on whole proteins. 09/08/2024: Weight 206 BMI 36.61. Body composition showing maintenance overall. Will discontinue Wegovy, and initiate PA for Zepbound 2.5 mg that she has not noticing significant effect on Wegovy anymore. 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 #Depression: patient to continue buspirone 10 mg, Lexapro 10 mg, Discussed cortisol program management manager, and magnesium glycinate For adrenal fatigue [...] Dictation was accomplished with the use of [employer] voice recognition software, prone to medical misidentifications [...] next visit.If compounded semaglutide, will go to [facility] for nursing visits, and follow-up in [facility] for provider visits with myself. [...] to Zepbound, patient is going to contact [employer] to see if there is coverage with that medication. Having some fatigue/bloating. Focusing on whole proteins. 09/08/2024: Weight 206 BMI 36.61. Body composition showing maintenance overall. Will discontinue Wegovy, and initiate PA for Zepbound 2.5 mg that she has not noticing significant effect on Wegovy anymore. 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 #Depression: patient to continue buspirone 10 mg, Lexapro 10 mg, Discussed cortisol program management manager, and magnesium glycinate For adrenal fatigue [...] Dictation was accomplished with the use of [employer] voice recognition software, prone to medical misidentifications [...] next visit.If compounded semaglutide, will go to [place] office for nursing visits, and follow-up in [facility] for provider visits with myself. [...] to Zepbound, patient is going to contact [employer] to see if there is coverage with that medication. Having some fatigue/bloating. Focusing on whole proteins. 09/08/2024: Weight 206 BMI 36.61. Body composition showing maintenance overall. Will discontinue Wegovy, and initiate PA for Zepbound 2.5 mg that she has not noticing significant effect on Wegovy anymore. 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 06/06/2025: Weight 205, BMI 36. Patient feeling really well, congratulated and effort. Increase Zepbound to 12.5 mg, follow-up in 6 weeks. Pleased with progress overall. #Depression: patient to continue buspirone 10 mg, Lexapro 10 mg, Discussed cortisol program management manager, and magnesium glycinate For adrenal fatigue [...] Dictation was accomplished with the use of [employer] voice recognition software, prone to medical misidentifications [...] next visit.If compounded semaglutide, will go to [facility] for nursing visits, and follow-up in [facility] for provider visits with myself. [...] to Zepbound, patient is going to contact [employer] to see if there is coverage with that medication. Having some fatigue/bloating. Focusing on whole proteins. 09/08/2024: Weight 206 BMI 36.61. Body composition showing maintenance overall. Will discontinue Wegovy, and initiate PA for Zepbound 2.5 mg that she has not noticing significant effect on Wegovy anymore. 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 06/06/2025: Weight 205, BMI 36. Patient feeling really well, congratulated and effort. Increase Zepbound to 12.5 mg, follow-up in 6 weeks. Pleased with progress overall. 08/01/2025: Weight 203, BMI 36 continue Zepbound 12.5 mg, follow-up in 4 to 6 weeks. Doing well with increased muscle and decreased fat. #Depression: patient to continue buspirone 10 mg, Lexapro 10 mg, Discussed cortisol program management manager, and magnesium glycinate For adrenal fatigue [...] Dictation was accomplished with the use of [employer] voice recognition software, prone to medical misidentifications and grammatical errors. This is unintentional and the practitioner does try to identify and correct these, but some could still be present. Please do not hesitate to contact practitioner for clarification. 09/13/2025 Obesity (BMI 30-39.9) (ICD-10 - E66.9) Melissa [...] next visit.If compounded semaglutide, will go to [facility] for nursing visits, and [facility] with myself. 06/29/2023: Weight [...] to Zepbound, patient is going to contact [employer] to see if there is coverage with that medication. Having some fatigue/bloating. Focusing on whole proteins. 09/08/2024: Weight 206 BMI 36.61. Body composition showing maintenance overall. Will discontinue Wegovy, and initiate PA for Zepbound 2.5 mg that she has not noticing significant effect on Wegovy anymore. 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 06/06/2025: Weight 205, BMI 36. Patient feeling really well, congratulated and effort. Increase Zepbound to 12.5 mg, follow-up in 6 weeks. Pleased with progress overall. 08/01/2025: Weight 203, BMI 36 continue Zepbound 12.5 mg, follow-up in 4 to 6 weeks. Doing well with increased muscle and decreased fat. 09/13/2025: Weight 202, BMI 35. Increased Zepbound to 15 mg, follow-up in 4 weeks. Consider 3-month supply at that time. #Depression: patient to continue buspirone 10 mg, Lexapro 10 mg, Discussed cortisol program management manager, and magnesium glycinate For adrenal fatigue [...] Dictation was accomplished with the use of [employer] voice recognition software, prone to medical misidentifications and grammatical errors. This is unintentional and the practitioner does try to identify and correct these, but some could still be present. Please do not hesitate to contact practitioner for clarification. 09/13/2025 BMI 35.0-35.9,adul t (ICD-10 - Z68.35) Melissa Is a 45-year-old female who presented [...] next visit.If compounded semaglutide, will go to [facility] for nursing visits, and follow-up in [facility] for provider visits with myself. [...] to Zepbound, patient is going to contact [employer] to see if there is coverage with that medication. Having some fatigue/bloating. Focusing on whole proteins. 09/08/2024: Weight 206 BMI 36.61. Body composition showing maintenance overall. Will discontinue Wegovy, and initiate PA for Zepbound 2.5 mg that she has not noticing significant effect on Wegovy anymore. 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 06/06/2025: Weight 205, BMI 36. Patient feeling really well, congratulated and effort. Increase Zepbound to 12.5 mg, follow-up in 6 weeks. Pleased with progress overall. 08/01/2025: Weight 203, BMI 36 continue Zepbound 12.5 mg, follow-up in 4 to 6 weeks. Doing well with increased muscle and decreased fat. 09/13/2025: Weight 202, BMI 35. Increased Zepbound to 15 mg, follow-up in 4 weeks. Consider 3-month supply at that time. #Depression: patient to continue buspirone 10 mg, Lexapro 10 mg, Discussed cortisol program management manager, and magnesium glycinate For adrenal fatigue [...] Dictation was accomplished with the use of [employer] voice recognition software, prone to medical misidentifications and grammatical errors. This is unintentional and the practitioner does try to identify and correct these, but some could still be present. Please do not hesitate to contact practitioner for clarification. 09/13/2025 Other acne (ICD-10 - L70.8) Melissa Is [...] in the meantime which is strongly encouraged. [facility] provided. 04/27/2023: Weight 221.3, BMI 39.2-patient [...] next visit.If compounded semaglutide, will go to [facility] for nursing visits, and follow-up in [facility] for provider visits with myself. [...] to Zepbound, patient is going to contact [employer] to see if there is coverage with that medication. Having some fatigue/bloating. Focusing on whole proteins. 09/08/2024: Weight 206 BMI 36.61. Body composition showing maintenance overall. Will discontinue Wegovy, and initiate PA for Zepbound 2.5 mg that she has not noticing significant effect on Wegovy anymore. 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 06/06/2025: Weight 205, BMI 36. Patient feeling really well, congratulated and effort. Increase Zepbound to 12.5 mg, follow-up in 6 weeks. Pleased with progress overall. 08/01/2025: Weight 203, BMI 36 continue Zepbound 12.5 mg, follow-up in 4 to 6 weeks. Doing well with increased muscle and decreased fat. 09/13/2025: Weight 202, BMI 35. Increased Zepbound to 15 mg, follow-up in 4 weeks. Consider 3-month supply at that time. #Depression: patient to continue buspirone 10 mg, Lexapro 10 mg, Discussed cortisol program management manager, and magnesium glycinate For adrenal fatigue [...] Dictation was accomplished with the use of [employer] voice recognition software, prone to medical misidentifications [...] next visit.If compounded semaglutide, will go to [facility] for nursing visits, and follow-up in [facility] for provider visits with myself. [...] to Zepbound, patient is going to contact [employer] to see if there is coverage with that medication. Having some fatigue/bloating. Focusing on whole proteins. 09/08/2024: Weight 206 BMI 36.61. Body composition showing maintenance overall. Will discontinue Wegovy, and initiate PA for Zepbound 2.5 mg that she has not noticing significant effect on Wegovy anymore. 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 06/06/2025: Weight 205, BMI 36. Patient feeling really well, congratulated and effort. Increase Zepbound to 12.5 mg, follow-up in 6 weeks. Pleased with progress overall. 08/01/2025: Weight 203, BMI 36 continue Zepbound 12.5 mg, follow-up in 4 to 6 weeks. Doing well with increased muscle and decreased fat. #Depression: patient to continue buspirone 10 mg, Lexapro 10 mg, Discussed cortisol program management manager, and magnesium glycinate For adrenal fatigue [...] Dictation was accomplished with the use of [employer] voice recognition software, prone to medical misidentifications [...] next visit.If compounded semaglutide, will go to [place] office for nursing visits, and follow-up in [facility] for provider visits with myself. [...] to Zepbound, patient is going to contact [employer] to see if there is coverage with that medication. Having some fatigue/bloating. Focusing on whole proteins. 09/08/2024: Weight 206 BMI 36.61. Body composition showing maintenance overall. Will discontinue Wegovy, and initiate PA for Zepbound 2.5 mg that she has not noticing significant effect on Wegovy anymore. Discussed proper use, side effects.Patient did call [employer] and they stated that they would cover [...] 10 mg, Lexapro 10 mg, Discussed cortisol program management manager, and magnesium glycinate For adrenal fatigue [...] Dictation was accomplished with the use of [employer] voice recognition software, prone to medical misidentifications [...] next visit.If compounded semaglutide, will go to [facility] for nursing visits, and follow-up in [facility] for provider visits with myself. [...] to Zepbound, patient is going to contact [employer] to see if there is coverage with that medication. Having some fatigue/bloating. Focusing on whole proteins. 09/08/2024: Weight 206 BMI 36.61. Body composition showing maintenance overall. Will discontinue Wegovy, and initiate PA for Zepbound 2.5 mg that she has not noticing significant effect on Wegovy anymore. 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 06/06/2025: Weight 205, BMI 36. Patient feeling really well, congratulated and effort. Increase Zepbound to 12.5 mg, follow-up in 6 weeks. Pleased with progress overall. #Depression: patient to continue buspirone 10 mg, Lexapro 10 mg, Discussed cortisol program management manager, and magnesium glycinate For adrenal fatigue [...] Dictation was accomplished with the use of [employer] voice recognition software, prone to medical misidentifications [...] as well as a new patient packet. ISIDROA reviewed. MICC provided in office today. Most [...] next visit.If compounded semaglutide, will go to [facility] for nursing visits, and follow-up in [facility] for provider visits with myself. [...] to Zepbound, patient is going to contact [employer] to see if there is coverage with that medication. Having some fatigue/bloating. Focusing on whole proteins. 09/08/2024: Weight 206 BMI 36.61. Body composition showing maintenance overall. Will discontinue Wegovy, and initiate PA for Zepbound 2.5 mg that she has not noticing significant effect on Wegovy anymore. 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 #Depression: patient to continue buspirone 10 mg, Lexapro 10 mg, Discussed cortisol program management manager, and magnesium glycinate For adrenal fatigue [...] Dictation was accomplished with the use of [employer] voice recognition software, prone to medical misidentifications [...] next visit.If compounded semaglutide, will go to [facility] for nursing visits, and follow-up in [facility] for provider visits with myself. [...] to Zepbound, patient is going to contact [employer] to see if there is coverage with that medication. Having some fatigue/bloating. Focusing on whole proteins. 09/08/2024: Weight 206 BMI 36.61. Body composition showing maintenance overall. Will discontinue Wegovy, and initiate PA for Zepbound 2.5 mg that she has not noticing significant effect on Wegovy anymore. Discussed proper use, side effects.Patient did call [employer] and they stated that they would cover [...] 10 mg, Lexapro 10 mg, Discussed cortisol program management manager, and magnesium glycinate For adrenal fatigue [...] Dictation was accomplished with the use of [employer] voice recognition software, prone to medical misidentifications [...] next visit.If compounded semaglutide, will go to [facility] for nursing visits, and follow-up in [facility] for provider visits with myself. [...] to Zepbound, patient is going to contact [employer] to see if there is coverage with that medication. Having some fatigue/bloating. Focusing on whole proteins. 09/08/2024: Weight 206 BMI 36.61. Body composition showing maintenance overall. Will discontinue Wegovy, and initiate PA for Zepbound 2.5 mg that she has not noticing significant effect on Wegovy anymore. Discussed proper use, side effects.Patient did call [employer] and they stated that they would cover [...] 10 mg, Lexapro 10 mg, Discussed cortisol program management manager, and magnesium glycinate For adrenal fatigue [...] Dictation was accomplished with the use of [employer] voice recognition software, prone to medical misidentifications [...] in the meantime which is strongly encouraged. [facility] provided. 04/27/2023: Weight 221.3, BMI 39.2-patient [...] next visit.If compounded semaglutide, will go to [facility] for nursing visits, and follow-up in [facility] for provider visits with myself. [...] to Zepbound, patient is going to contact [employer] to see if there is coverage with that medication. Having some fatigue/bloating. Focusing on whole proteins. 09/08/2024: Weight 206 BMI 36.61. Body composition showing maintenance overall. Will discontinue Wegovy, and initiate PA for Zepbound 2.5 mg that she has not noticing significant effect on Wegovy anymore. Discussed proper use, side effects.Patient did call [employer] and they stated that they would cover [...] Dictation was accomplished with the use of [employer] voice recognition software, prone to medical misidentifications [...] next visit.If compounded semaglutide, will go to [facility] for nursing visits, and follow-up in [facility] for provider visits with myself. [...] to Zepbound, patient is going to contact [employer] to see if there is coverage with that medication. Having some fatigue/bloating. Focusing on whole proteins. 09/08/2024: Weight 206 BMI 36.61. Body composition showing maintenance overall. Will discontinue Wegovy, and initiate PA for Zepbound 2.5 mg that she has not noticing significant effect on Wegovy anymore. Discussed proper use, side effects.Patient did call [employer] and they stated that they would cover [...] Dictation was accomplished with the use of [employer] voice recognition software, prone to medical misidentifications [...] next visit.If compounded semaglutide, will go to [facility] for nursing visits, and follow-up in [facility] for provider visits with myself. [...] to Zepbound, patient is going to contact [employer] to see if there is coverage with that medication. Having some fatigue/bloating. Focusing on whole proteins. 09/08/2024: Weight 206 BMI 36.61. Body composition showing maintenance overall. Will discontinue Wegovy, and initiate PA for Zepbound 2.5 mg that she has not noticing significant effect on Wegovy anymore. Discussed proper use, side effects.Patient did call [employer] and they stated that they would cover [...] 10 mg, Lexapro 10 mg, Discussed cortisol program management manager, and magnesium glycinate For adrenal fatigue [...] Dictation was accomplished with the use of [employer] voice recognition software, prone to medical misidentifications [...] next visit.If compounded semaglutide, will go to [facility] for nursing visits, and follow-up in [facility] for provider visits with myself. [...] to Zepbound, patient is going to contact [employer] to see if there is coverage with that medication. Having some fatigue/bloating. Focusing on whole proteins. 09/08/2024: Weight 206 BMI 36.61. Body composition showing maintenance overall. Will discontinue Wegovy, and initiate PA for Zepbound 2.5 mg that she has not noticing significant effect on Wegovy anymore. Discussed proper use, side effects.Patient did call [employer] and they stated that they would cover [...] 10 mg, Lexapro 10 mg, Discussed cortisol program management manager, and magnesium glycinate For adrenal fatigue [...] Dictation was accomplished with the use of [employer] voice recognition software, prone to medical misidentifications [...] in the meantime which is strongly encouraged. [facility] provided. 04/27/2023: Weight 221.3, BMI 39.2-patient [...] next visit.If compounded semaglutide, will go to [facility] for nursing visits, and follow-up in [facility] for provider visits with myself. [...] to Zepbound, patient is going to contact [employer] to see if there is coverage with that medication. Having some fatigue/bloating. Focusing on whole proteins. 09/08/2024: Weight 206 BMI 36.61. Body composition showing maintenance overall. Will discontinue Wegovy, and initiate PA for Zepbound 2.5 mg that she has not noticing significant effect on Wegovy anymore. Discussed proper use, side effects.Patient did call [employer] and they stated that they would cover [...] 10 mg, Lexapro 10 mg, Discussed cortisol program management manager, and magnesium glycinate For adrenal fatigue [...] Dictation was accomplished with the use of [employer] voice recognition software, prone to medical misidentifications [...] next visit.If compounded semaglutide, will go to [facility] for nursing visits, and follow-up in [facility] for provider visits with myself. [...] to Zepbound, patient is going to contact [employer] to see if there is coverage with that medication. Having some fatigue/bloating. Focusing on whole proteins. 09/08/2024: Weight 206 BMI 36.61. Body composition showing maintenance overall. Will discontinue Wegovy, and initiate PA for Zepbound 2.5 mg that she has not noticing significant effect on Wegovy anymore. 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 #Depression: patient to continue buspirone 10 mg, Lexapro 10 mg, Discussed cortisol program management manager, and magnesium glycinate For adrenal fatigue [...] Dictation was accomplished with the use of [employer] voice recognition software, prone to medical misidentifications [...] next visit.If compounded semaglutide, will go to [facility] for nursing visits, and follow-up in [facility] for provider visits with myself. [...] to Zepbound, patient is going to contact [employer] to see if there is coverage with that medication. Having some fatigue/bloating. Focusing on whole proteins. 09/08/2024: Weight 206 BMI 36.61. Body composition showing maintenance overall. Will discontinue Wegovy, and initiate PA for Zepbound 2.5 mg that she has not noticing significant effect on Wegovy anymore. 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 06/06/2025: Weight 205, BMI 36. Patient feeling really well, congratulated and effort. Increase Zepbound to 12.5 mg, follow-up in 6 weeks. Pleased with progress overall. #Depression: patient to continue buspirone 10 mg, Lexapro 10 mg, Discussed cortisol program management manager, and magnesium glycinate For adrenal fatigue [...] Dictation was accomplished with the use of [employer] voice recognition software, prone to medical misidentifications [...] next visit.If compounded semaglutide, will go to [facility] for nursing visits, and follow-up in [facility] for provider visits with myself. [...] to Zepbound, patient is going to contact [employer] to see if there is coverage with that medication. Having some fatigue/bloating. Focusing on whole proteins. 09/08/2024: Weight 206 BMI 36.61. Body composition showing maintenance overall. Will discontinue Wegovy, and initiate PA for Zepbound 2.5 mg that she has not noticing significant effect on Wegovy anymore. 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 06/06/2025: Weight 205, BMI 36. Patient feeling really well, congratulated and effort. Increase Zepbound to 12.5 mg, follow-up in 6 weeks. Pleased with progress overall. 08/01/2025: Weight 203, BMI 36 continue Zepbound 12.5 mg, follow-up in 4 to 6 weeks. Doing well with increased muscle and decreased fat. #Depression: patient to continue buspirone 10 mg, Lexapro 10 mg, Discussed cortisol program management manager, and magnesium glycinate For adrenal fatigue [...] Dictation was accomplished with the use of [employer] voice recognition software, prone to medical misidentifications and grammatical errors. This is unintentional and the practitioner does try to identify and correct these, but some could still be present. Please do not hesitate to contact practitioner for clarification. 09/13/2025 Recurrent depression (ICD-10 - F33.9) Melissa Is [...] in the meantime which is strongly encouraged. [facility] provided. 04/27/2023: Weight 221.3, BMI 39.2-patient [...] next visit.If compounded semaglutide, will go to [facility] for nursing visits, and follow-up in [facility] for provider visits with myself. [...] to Zepbound, patient is going to contact [employer] to see if there is coverage with that medication. Having some fatigue/bloating. Focusing on whole proteins. 09/08/2024: Weight 206 BMI 36.61. Body composition showing maintenance overall. Will discontinue Wegovy, and initiate PA for Zepbound 2.5 mg that she has not noticing significant effect on Wegovy anymore. 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 06/06/2025: Weight 205, BMI 36. Patient feeling really well, congratulated and effort. Increase Zepbound to 12.5 mg, follow-up in 6 weeks. Pleased with progress overall. 08/01/2025: Weight 203, BMI 36 continue Zepbound 12.5 mg, follow-up in 4 to 6 weeks. Doing well with increased muscle and decreased fat. 09/13/2025: Weight 202, BMI 35. Increased Zepbound to 15 mg, follow-up in 4 weeks. Consider 3-month supply at that time. #Depression: patient to continue buspirone 10 mg, Lexapro 10 mg, Discussed cortisol program management manager, and magnesium glycinate For adrenal fatigue [...] Dictation was accomplished with the use of [employer] voice recognition software, prone to medical misidentifications and grammatical errors. This is unintentional and the practitioner does try to identify and correct these, but some could still be present. Please do not hesitate to contact practitioner for clarification. 09/13/2025 Encounter for examination of blood pressure without [...] next visit.If compounded semaglutide, will go to [facility] for nursing visits, and follow-up in [facility] for provider visits with myself. [...] to Zepbound, patient is going to contact [employer] to see if there is coverage with that medication. Having some fatigue/bloating. Focusing on whole proteins. 09/08/2024: Weight 206 BMI 36.61. Body composition showing maintenance overall. Will discontinue Wegovy, and initiate PA for Zepbound 2.5 mg that she has not noticing significant effect on Wegovy anymore. 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 06/06/2025: Weight 205, BMI 36. Patient feeling really well, congratulated and effort. Increase Zepbound to 12.5 mg, follow-up in 6 weeks. Pleased with progress overall. 08/01/2025: Weight 203, BMI 36 continue Zepbound 12.5 mg, follow-up in 4 to 6 weeks. Doing well with increased muscle and decreased fat. 09/13/2025: Weight 202, BMI 35. Increased Zepbound to 15 mg, follow-up in 4 weeks. Consider 3-month supply at that time. #Depression: patient to continue buspirone 10 mg, Lexapro 10 mg, Discussed cortisol program management manager, and magnesium glycinate For adrenal fatigue [...] Dictation was accomplished with the use of [employer] voice recognition software, prone to medical misidentifications [...] next visit.If compounded semaglutide, will go to [place] office for nursing visits, and follow-up in [facility] for provider visits with myself. 06/29/2023: Weight [...] to Zepbound, patient is going to contact [employer] to see if there is coverage with that medication. Having some fatigue/bloating. Focusing on whole proteins. 09/08/2024: Weight 206 BMI 36.61. Body composition showing maintenance overall. Will discontinue Wegovy, and initiate PA for Zepbound 2.5 mg that she has not noticing significant effect on Wegovy anymore. 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 06/06/2025: Weight 205, BMI 36. Patient feeling really well, congratulated and effort. Increase Zepbound to 12.5 mg, follow-up in 6 weeks. Pleased with progress overall. 08/01/2025: Weight 203, BMI 36 continue Zepbound 12.5 mg, follow-up in 4 to 6 weeks. Doing well with increased muscle and decreased fat. #Depression: patient to continue buspirone 10 mg, Lexapro 10 mg, Discussed cortisol program management manager, and magnesium glycinate For adrenal fatigue [...] Dictation was accomplished with the use of [employer] voice recognition software, prone to medical misidentifications [...] in the meantime which is strongly encouraged. [facility] provided. 04/27/2023: Weight 221.3, BMI 39.2-patient [...] next visit.If compounded semaglutide, will go to [facility] for nursing visits, and follow-up in [facility] for provider visits with myself. [...] to Zepbound, patient is going to contact [employer] to see if there is coverage with that medication. Having some fatigue/bloating. Focusing on whole proteins. 09/08/2024: Weight 206 BMI 36.61. Body composition showing maintenance overall. Will discontinue Wegovy, and initiate PA for Zepbound 2.5 mg that she has not noticing significant effect on Wegovy anymore. 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 #Depression: patient to continue buspirone 10 mg, Lexapro 10 mg, Discussed cortisol program management manager, and magnesium glycinate For adrenal fatigue [...] Dictation was accomplished with the use of [employer] voice recognition software, prone to medical misidentifications [...] next visit.If compounded semaglutide, will go to [place] office for nursing visits, and follow-up in [facility] for provider visits with myself. [...] to Zepbound, patient is going to contact [employer] to see if there is coverage with that medication. Having some fatigue/bloating. Focusing on whole proteins. 09/08/2024: Weight 206 BMI 36.61. Body composition showing maintenance overall. Will discontinue Wegovy, and initiate PA for Zepbound 2.5 mg that she has not noticing significant effect on Wegovy anymore. 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 06/06/2025: Weight 205, BMI 36. Patient feeling really well, congratulated and effort. Increase Zepbound to 12.5 mg, follow-up in 6 weeks. Pleased with progress overall. #Depression: patient to continue buspirone 10 mg, Lexapro 10 mg, Discussed cortisol program management manager, and magnesium glycinate For adrenal fatigue [...] Dictation was accomplished with the use of [employer] voice recognition software, prone to medical misidentifications [...] in the meantime which is strongly encouraged. [facility] provided. 04/27/2023: Weight 221.3, BMI 39.2-patient [...] next visit.If compounded semaglutide, will go to [facility] for nursing visits, and follow-up in [facility] for provider visits with myself. [...] to Zepbound, patient is going to contact [employer] to see if there is coverage with that medication. Having some fatigue/bloating. Focusing on whole proteins. 09/08/2024: Weight 206 BMI 36.61. Body composition showing maintenance overall. Will discontinue Wegovy, and initiate PA for Zepbound 2.5 mg that she has not noticing significant effect on Wegovy anymore. Discussed proper use, side effects.Patient did call [employer] and they stated that they would cover [...] 10 mg, Lexapro 10 mg, Discussed cortisol program management manager, and magnesium glycinate For adrenal fatigue [...] Dictation was accomplished with the use of [employer] voice recognition software, prone to medical misidentifications [...] next visit.If compounded semaglutide, will go to [facility] for nursing visits, and follow-up in [facility] for provider visits with myself. [...] to Zepbound, patient is going to contact [employer] to see if there is coverage with that medication. Having some fatigue/bloating. Focusing on whole proteins. 09/08/2024: Weight 206 BMI 36.61. Body composition showing maintenance overall. Will discontinue Wegovy, and initiate PA for Zepbound 2.5 mg that she has not noticing significant effect on Wegovy anymore. 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 06/06/2025: Weight 205, BMI 36. Patient feeling really well, congratulated and effort. Increase Zepbound to 12.5 mg, follow-up in 6 weeks. Pleased with progress overall. #Depression: patient to continue buspirone 10 mg, Lexapro 10 mg, Discussed cortisol program management manager, and magnesium glycinate For adrenal fatigue [...] Dictation was accomplished with the use of [employer] voice recognition software, prone to medical misidentifications [...] next visit.If compounded semaglutide, will go to [facility] for nursing visits, and follow-up in [facility] for provider visits with myself. [...] to Zepbound, patient is going to contact [employer] to see if there is coverage with that medication. Having some fatigue/bloating. Focusing on whole proteins. 09/08/2024: Weight 206 BMI 36.61. Body composition showing maintenance overall. Will discontinue Wegovy, and initiate PA for Zepbound 2.5 mg that she has not noticing significant effect on Wegovy anymore. 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 06/06/2025: Weight 205, BMI 36. Patient feeling really well, congratulated and effort. Increase Zepbound to 12.5 mg, follow-up in 6 weeks. Pleased with progress overall. 08/01/2025: Weight 203, BMI 36 continue Zepbound 12.5 mg, follow-up in 4 to 6 weeks. Doing well with increased muscle and decreased fat. #Depression: patient to continue buspirone 10 mg, Lexapro 10 mg, Discussed cortisol program management manager, and magnesium glycinate For adrenal fatigue [...] Dictation was accomplished with the use of [employer] voice recognition software, prone to medical misidentifications and grammatical errors. This is unintentional and the practitioner does try to identify and correct these, but some could still be present. Please do not hesitate to contact practitioner for clarification. Plan Of Treatment Pending Test Test Name Order Date HEMOGLOBIN A1c 05/28/2023 INSULIN 05/28/2023 Next Appt Details Provider Name:JOHANA SAMANIEGO, 10/10/2025 01:30:00 PM, [address], [place], [id number], Insurance Providers Payer Name Payer Address Payer Phone Subscriber Number Group Number Insured Name Patient Relationship to Insured Coverage Start Date Coverage End Date [facility] [address] [place] [address] [id number] Melissa Wilson Self - patient is the insured Medications Administered Medication Instructions Date of Administration Dosage Notes MICC B12 INJECTION 02/17/2023 MICC B12 INJECTION 03/26/2023 MICC B12 INJECTION 04/27/2023 MICC B12 INJECTION 05/28/2023 MICC B12 INJECTION 02/01/2024 lot# [id number] Semaglutide 09/07/2023 0.25 SEMA 0.25 Semaglutide 09/14/2023 Semaglutide 09/21/2023 Semaglutide 09/28/2023 Semaglutide 10/05/2023 Semaglutide 10/13/2023 1 mg Medical (General) History Medical History History ICD Code Depression F32.A Anxiety F41.9 Raynaud's disease without gangrene I73.0 0 History of cervical cancer Z85.41 Surgical History Surgery Date(Month/Year) trachiotomy 2015 lap inocente 2020
--- OUTSIDE RECORDS SUMMARY | 2025-09-28 18:29 | XMS_ITS ---
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 This is a 45 year old female who is following up for acne (Acne vulgaris). She was seen on April 25, 2025, at which time the following treatment recommendations were given: Continue the following treatments: Spironolactone 100mg dailyTretinoin 0.05% cream apply at night, alternating nights if dryi ngAzelaic acid 20% topical cream apply to affected areas daily. and she was prescribed Tretinoin 0.05 % topical cream (Apply pea sized amount to face QHS, as tolerated), Spironolactone 50 mg tablet (Take one tablet BID), and Azelaic acid 20 % topical cream (Apply thin layer to face daily).The patient presents for further evaluation and management and focused visit.Today the patient reports: Modifying factors: better with medication.The patient followed the treatment plan as directed.Interval History: Patient continuing spironolactone tretinoin, dc???d azelaic acid. Acne reports well controlled and stable. 2. This is a 45 year old female who is following up for rosacea on the left cheek and right cheek. She was seen on April 25, 2025, at which time the following treatment recommendations were given: Continue the following treatments: Metronidazole 0.75% cream BID. and she was prescribed Metronidazole 0.75 % topical cream (Apply thin layer to face bid).The patient presents for focused visit and further evaluation and management.Today the patient reports: Modifying factors: better with medication.The patient followed the treatment plan as directed.Interval History: Patient continuing metronidazolewith improvement. Some mild redness on nose. Allergies, Adverse Reactions, Alerts Substance RxNorm Reaction(s) Severity Status Start Da te Wellbutrin unspecified active Medications Medication Generic Name RxNorm Strength Strength Unit Route Dose Dose Form Frequency Date Started Date Ended Status Indication Sig azelaic acid azelaic acid 6283583 15 % Topica l gel 11/15/20 21 suspend ed Appl y to face qAM azelaic acid azelaic acid 7839639 20 % Topica l cream 10/18/20 24 suspend ed Appl y thin laye r to face once a day. azelaic acid azelaic acid 7519791 20 % Topica l 1 cream qd 04/25/20 25 suspend ed Appl y thin laye r to face selma y clindamycin phosphate clindamy earlene phosphat e 804250 1 % Topica l lotio n 12/24/19 21 suspend ed Appl y pea size amou nt to face selma y. dapsone dapsone 6371058 7.5 % Topica l gel with pump 01/31/20 22 suspend ed Appl y to face selma y. Foll ow with mois turi zer. dapsone dapsone 907028 5 % Topica l gel 04/02/20 22 suspend ed Appl y thin laye r to face qAM for acne . Finacea azelaic acid 4526081 15 % Topica l gel 01/01/20 22 suspend ed Appl y to face selma y for acne and damien cea. metronidazo le metronid azole 563005 0.75 % Topica l 1 cream bid 01/18/20 25 active Appl y twic e selma y to face . Rhofade oxymetaz oline 0968327 1 % Topica l cream 09/25/20 25 active AAA QAM tretinoin tretinoi n 037454 0.025 % Topica l cream 12/24/19 21 suspend ed Appl y a pea size d amou nt to a dry face qHS. tretinoin tretinoi n 377616 0.05 % Topica l cream 06/27/20 21 suspend ed Appl y a thin laye r to enti re face qHS. May need to appl y ever y othe r nigh t with the goal to ever y nigh t appl icat ion. Can alte rnat e with 0.02 5% crea m at firs t. May foll ow with mois turi zer. tretinoin tretinoi n 076817 0.05 % Topica l cream 07/03/20 22 suspend ed Appl y pea- size d amou nt to enti re face at [facility]. Wait 30mi nute s to 1hou r afte r wash ing face to appl y. Can appl y mois turi zers befo re and afte r. tretinoin tretinoi n 140632 0.05 % Topica l 1 cream QHS 10/14/20 22 active Appl y pea- size d amou nt to enti re face at [facility] t. Wait 30mi nute s to 1hou r afte r wash ing face to appl y. Can appl y mois turi zers befo re and afte r. buspirone 505183 5 mg Oral 1 table t qd active doxycycline monohydrate doxycycl ine monohydr ate 6590195 100 mg Oral 1 capsu le BID 12/24/19 21 suspend ed Take 1 caps ule by mout h twic e selma y with food . Phot o-se nsit linnea. Do not lay down for 1 hour afte r taki ng medi juanito on. doxycycline monohydrate doxycycl ine monohydr ate 3647507 50 mg Oral capsu le 09/30/20 21 suspend ed Take 1 caps ule PO once selma y with food . escitalopra m oxalate 718460 10 mg Oral 1 table t qd active minocycline minocycl ine 808526 100 mg Oral capsu le 04/02/20 22 suspend ed Take 1 caps ule PO BID selma y. May decr ease dose to selma y as tole rate d. spironolact one spironol actone 19811219 50 mg Oral 1 table t twice a day 07/03/20 22 active Take one tabl et once selma y x1 janiya h, then incr ease to two tabl ets once selma y for the anthony inin g janiya hs. Stephanie beltran ty of flui ds whil e on medi juanito on. Sprintec (28) norgesti mate-eth inyl estradio l 0.25-35 mg-mcg Oral table t suspend ed Zepbound 1655927 12.5 mg/0.5 mL Subcut aneous 1 Pen Injec tor weekly active Doxycycline Hyclate NULL 10/16/20 06 active Doxycycline Monohydrate NULL 10/0 02/02 14 suspend ed Klaron NULL 10/16/20 06 active MetroNIDAZO LE NULL 08/18/20 14 suspend ed Mupirocin NULL 08/18/20 14 suspend ed suldeslot NULL 03/08/20 08 active Problems Problem Code Type Status Date of Diagnosis Da te of Resolution Asthma (disorder) 971683010(SNO MED) Problem active Neoplasm of uncertain behavior of skin (disorder) 29087740(SNOM ED) Diagnosis active 08/18/2014 Acne vulgaris L70.0(ICD-10) Diagnosis active 12/24/2020 Acne (disorder) 29755107(SNOM ED) Diagnosis active 03/25/2021 Acne (disorder) 53839086(SNOM ED) Diagnosis active 06/27/2021 Melanocytic nevus (disorder) 597548684(SNO MED) Diagnosis active 06/27/2021 Acne (disorder) 61048024(SNOM ED) Diagnosis active 09/30/2021 Benign neoplasm of skin of left lower limb (disorder) 7656248186119 109(SNOMED) Diagnosis active 01/01/2022 Acne (disorder) 74614379(SNOM ED) Diagnosis active 01/01/2022 Benign neoplasm of skin of left lower limb (disorder) 4179073270029 109(SNOMED) Diagnosis active 01/28/2022 Benign neoplasm of skin of left lower limb (disorder) 2393079810527 109(SNOMED) Diagnosis active 03/25/2022 Acne (disorder) 61321178(SNOM ED) Diagnosis active 04/02/2022 Surgical follow-up (finding) 213364159(SNO MED) Diagnosis active 04/01/2022 Surgical follow-up (finding) 909841578(SNO MED) Diagnosis active 04/08/2022 Acne (disorder) 50806124(SNOM ED) Diagnosis active 07/03/2022 Rosacea (disorder) 836203210(SNO MED) Diagnosis active 07/03/2022 Acne vulgaris (disorder) 98191355(SNOM ED) Diagnosis active 10/14/2022 Rosacea (disorder) 226959077(SNO MED) Diagnosis active 10/14/2022 Acne vulgaris (disorder) 88762961(SNOM ED) Diagnosis active 10/13/2023 Acne (disorder) 65812352(SNOM ED) Problem active Neoplasm of uncertain behavior of skin (disorder) 89031812(SNOM ED) Diagnosis active 01/20/2024 Acne vulgaris (disorder) 71922884(SNOM ED) Diagnosis active 10/18/2024 Acne vulgaris (disorder) 66658727(SNOM ED) Diagnosis active 01/17/2025 Rosacea (disorder) 791522549(SNO MED) Diagnosis active 01/17/2025 Acne vulgaris (disorder) 63271498(SNOM ED) Diagnosis active 04/25/2025 Rosacea (disorder) 641440486(SNO MED) Diagnosis active 04/25/2025 Seborrheic keratosis (disorder) 296900655(SNO MED) Diagnosis active 09/25/2025 Acne vulgaris (disorder) 79304354(SNOM ED) Diagnosis active 09/25/2025 Rosacea (disorder) 532426278(SNO MED) Diagnosis active 09/25/2025 Anxiety disorder (disorder) 765707533(SNO MED) Problem active Rosacea (disorder) 393160836(SNO MED) Problem active Results No data Encounters Service provided at [address], [facility], [place], [place] [id number]. Office phonenumber is [phone]. Office fax number is [phone]. Encounter Diagnosis Location Date / Time Type Disc harge Status Seborrheic Keratoses (L82.1)Acne (L70.0)Rosacea (L71.9) [facility] 09/25/2025 12:30:00 [facility] [id number] Reason For Referral No data Procedures Procedure Date Destruction of lesion of skin (procedure ) 09/25/2025 12:00 am UTC Shave biopsy (procedure) 01/20/2024 12:0 0 am UTC Excision (procedure) 03/25/2022 12:00 am UTC Documentation of past medical history (p rocedure) Documentation of past medical history (p rocedure) Documentation of past medical history (p rocedure) Documentation of past medical history (p rocedure) Documentation of past medical history (p rocedure) Documentation of past medical history (p rocedure) Documentation of past medical history (p rocedure) Documentation of past medical history (p rocedure) Documentation of past medical history (p rocedure) Documentation of past medical history (p rocedure) Documentation of past medical history (p rocedure) Documentation of past medical history (p rocedure) Documentation of past medical history (p rocedure) Documentation of past medical history (p rocedure) Documentation of past medical history (p rocedure) Documentation of past medical history (p rocedure) Documentation of past medical history (p rocedure) Documentation of past medical history (p rocedure) Documentation of past medica l history (procedure) Trachelectomy Review Of Systems Provider reviewed on Sep 25, 2025.A complete review of systems was performed and was notable for anxiety.No Problems With Healing, No Problems With Scarring (hypertrophic Or Keloid), No Problems WithBleeding, No Immunosuppression, No Hay Fever, No Chest Pain, No Fever Or Chills, No Night Sweats, No Unintentional Weight Loss, No Thyroid Problems, No Sore Throat, No Blurry Vision, No Abdominal Pain, No Bloody Stool, No Bloody Urine, No Joint Aches, No Muscle Weakness, No Neck Stiffness, No Headaches, No Seizures, No Shortness Of Breath, No Wheezing, And No Depression. Assessment 1.Seborrheic KeratosesBenign Destruction Cosmetic: right medial superior chest; left inframammary crease (inner quadrant); left rib cage; left rib cage; left medial trapezial neck; Method - liquid nitrogen.Additional Notes2.Acne, Status: Well ControlledCounselingPrescription Medication Management: Continue Regimen - Spironolactone 100mg dailyTretinoin 0.05% cream apply at night, alternating nights if drying; Discontinue Regimen - Azelaic Acid 20% (pt did not notice any improvement);.3.Rosacea, Status: Not At Treatment GoalCounselingPrescription Medication Management: Continue Regimen - Metronidazole 0.75% cream BID; Initiate Treatment - Rhofade 1% cream - AAA QAM; Plan - Consider Azelaic Acid 15% gel (QD, and metro QD) - pt will call if interested.Prescription: Rhofade 1 % topical cream TPMedication Counseling Plan of Care Future visit for 09/25/2026 - Follow up in 1 year for: Acne Code Detail Instructions [id number] Rhofade 1 % topical cream AAA QA M 210759 metronidazole 0.75 % topical cre am Apply thin layer to face bid 8712917 azelaic acid 20 % topical cream Apply thin layer to face daily 19811219 spironolactone 50 mg tablet Take one tablet BID 701956 tretinoin 0.05 % topical cream A pply pea sized amount to face QHS, as tolerated 642605 metronidazole 0.75 % topical cre am Apply twice daily to face. 7321506 azelaic acid 20 % topical cream Apply thin layer to face once a day. 602492 tretinoin 0.05 % topical cream A pply pea-sized amount to entire face at night. Wait 30minutes to 1hour after washing face to apply. Can apply moisturizers before and after. 19811219 spironolactone 50 mg tablet Take one tablet twice daily. Drink plenty of fluids while on medication. 937224 dapsone 5 % topical gel Apply th in layer to face qAM for acne. 19811219 spironolactone 50 mg tablet Take one tablet twice daily. Drink plenty of fluids while on medication. 802869 tretinoin 0.05 % topical cream A pply pea-sized amount to entire face at night. Wait 30minutes to 1hour after washing face to apply. Can apply moisturizers before and after. 762700 dapsone 5 % topical gel Apply th in layer to face qAM for acne. 19811219 spironolactone 50 mg tablet Take one tablet twice daily. Drink plenty of fluids while on medication. 410395 tretinoin 0.05 % topical cream A pply pea-sized amount to entire face at night. Wait 30minutes to 1hour after washing face to apply. Can apply moisturizers before and after. 730356 tretinoin 0.05 % topical cream A pply pea-sized amount to entire face at night. Wait 30minutes to 1hour after washing face to apply. Can apply moisturizers before and after. 19811219 spironolactone 50 mg tablet Take one tablet once daily x1 month, then increase to two tablets once daily for the remaining months. Drink plenty of fluids while on medication. 398460 dapsone 5 % topical gel Apply th in layer to face qAM for acne. 19790619 minocycline 100 mg capsule Take 1 capsule PO BID daily. May decrease dose to daily as tolerated. 365352 dapsone 5 % topical gel Apply th in layer to face qAM for acne. 5203523 dapsone 7.5 % topical gel with p ump Apply to face daily. Follow with moisturizer. 6395495 Finacea 15 % topical gel Apply t o face daily for acne and rosacea. 5646513 doxycycline monohydrate 50 mg ca psule Take 1 capsule PO once daily with food. 4099264 doxycycline monohydrate 50 mg ca psule Take 1 capsule PO once daily with food. 3648422 azelaic acid 15 % topical gel Ap ply to face qAM 913877 tretinoin 0.05 % topical cream A pply a thin layer to entire face qHS. May need to apply every other night with the goal to every night application. Can alternate with 0.025% cream at first. May follow with moisturizer. 0397872 doxycycline monohydrate 100 mg c apsule Take 1 capsule by mouth twice daily with food. Photo-sensitive. Do not lay down for 1 hour after taking medication. 431877 clindamycin 1 % lotion Apply pea size amount to face daily. 468607 tretinoin 0.025 % topical cream Apply a pea sized amount to a dry face qHS. 5735436 doxycycline monohydrate 100 mg c apsule Take 1 capsule by mouth twice daily with food. Photo-sensitive. Do not lay down for 1 hour after taking medication. Instructions * I counseled the regarding the following:Skin care: I discussed with the patient the importance of using cleansers, moisturizers and cosmetics that are non-comedogenic.Expectations: The patient is aware that it may take up to 2-3 months to see a 60-80% improvement of acne.Contact office if: Acne worsens or fails to improve despite months of treatment; patient develops new scars, significantly morenodules or cysts. * I counseled the patient regarding the following:Expectations: Rosacea is chronic. Flushing and pimples can be triggered by: alcohol, stress, exercise, hot temperatures or spicy foods, wind and sun exposure. Telangiectasias can be improved with laser, or Mirvaso or Rhofade topicals.Contact office if: Rosacea worsens or fails to improve despite months of treatment; patient develops nodules or cysts. * Rhofade Counseling: Rhofade is a topical medication which can decrease superficial blood flow whereapplied. Side effects are uncommon and include stinging, redness and allergic reactions. Social History Code Activity Start Date End Date [id number] (SNOMED) Never smoker Sex Female Sexual orientation Unspecified Gender identity Unspecified Vital Signs Vital Sign Measurement Date Recorded Systolic Blood Pressure 110 mm[Hg] ThuSep 25 12:56:55 [facility] 2024 Diastolic Blood Pressure 72 mm[Hg] ThuSep 25 12:56:55 [facility] 2024 Insurances Coverage Status Coverage Type Relationship to Subscriber Member Identifier Subscriber Identifier Group Identifier Payer Identifier Active 1 Self [id number] Inactive 2 Self [id number]
== END 2025-09-28 16:00 | disposition home or self-care (01) ==
LOC: HO.HKAS 15:18
PROVIDERS: PCP Internal Medicine; Referring Provider Internal Medicine; Visit Provider Internal Medicine Nephrology
DX: N28.89 Other specified disorders of kidney and ureter (principal); N28.1 Cyst of kidney, acquired
CPT/HCPCS: 99204

== ENCOUNTER → 2025-10-13 13:31 | Outpatient (BNV) | payer OTHER, SELFPAY | PROVIDERS: PCP Internal Medicine; Visit Provider Radiology Diagnostic Radiology | DX: N28.1 Cyst of kidney, acquired (principal) | CPT/HCPCS: 74183 ==

== ENCOUNTER 2025-10-13 13:41 | Outpatient (REF) | payer OTHER, SELFPAY ==
--- OUTSIDE RECORDS SUMMARY | 2025-04-13 09:45 | XMS_ITS ---
Author Organization [facility] [address] Address [address] [place] [address] Care Team Providers Care Supervisor Fertilizer Processing Name Role Phone GALILEA SAMANIEGOY Unavailable [phone] REASON FOR VISIT 6 week f/u Encounters Encounter Location Date Provider Diagnosis [facility] [address] [place] [address] 04/13/2025 JOHANA SAMANIEGO Plan Of Treatment Next Appt Details Provider Name:JOHANA SAMANIEGO, 12/14/2025 03:00:00 PM, [address] , [place], [address], Progress Notes * Melissa WILSONDOB: [birth year] (45 yo F)Acc No.[id number]:04/13/2025 Patient: Allan Melissa wadsworth Provider: Sylvia SAMANIEGO PA-C :1980 A ge:44 Y S ex:Female Date:04/13/2025 Address:[address] [place], [place] [address] Subjective: * Chief Complaints: * 6 week f/u * Electronic signature of GALILEA SAMANIEGO PA-C on 10/13/2025 at 01:44 PM EST Sign off status: Pending * Provider: Sylvia SAMANIEGO PA-C Date: 0 04/13/2025 Generated for Printi ng/Faxing/eTransmitting on: 1 12/13/2024 01:44 PM EST
--- OUTSIDE RECORDS SUMMARY | 2025-04-18 05:00 | XMS_ITS ---
Author Organization [facility] [address] Address [address] [place] [address] Care Team Providers Care Certified Hand Therapist Name Role Phone JOHANA SAMANIEGO Unavailable [phone] REASON FOR VISIT 6 week f/u Encounters Encounter Location Date Provider Diagnosis [facility] [address] [place] [address] 04/18/2025 JOHANA SAMANIEGO Plan Of Treatment Next Appt Details Provider Name:JOHANA SAMANIEGO, 12/14/2025 03:00:00 PM, [address] , [place], [address], Progress Notes * Melissa WILSONDOB: [birth year] (45 yo F)Acc No.[id number]:04/18/2025 Patient: Allan Melissa wadsworth Provider: Sylvia SAMANIEGO PA-C :1980 A ge:44 Y S ex:Female Date:04/18/2025 Address:[address] [place], [place] [address] Subjective: * Chief Complaints: * 6 week f/u * Electronic signature of GALILEA SAMANIEGO PA-C on 10/13/2025 at 01:44 PM EST Sign off status: Pending * Provider: Sylvia SAMANIEGO PA-C Date: 0 04/18/2025 Generated for Printi ng/Faxing/eTransmitting on: 1 12/13/2024 01:44 PM EST
--- OUTSIDE RECORDS SUMMARY | 2025-10-10 08:30 | XMS_ITS ---
Author Organization [facility] [address] Address [address] [place] [address] Care Team Providers Care Infection Prevention Practitioner Name Role Phone JOHANA SAMANIEGO Unavailable [phone] Allergies Allergen (clinical drug ingredient) Drug/Non Drug Allergy documented on EMR Reaction Allergy Type Onset Date Status Wellbutrin Unknown Drug Allergy Active REASON FOR VISIT pt is here for weight management follow up seca pd Medications Medication SIG (Take, Route, Frequency, Duration) Notes Start Date End Date Status Lexapro 10 MG Tablet 1 tablet Orally Onc e a day Active Zepbound 15 MG/0.5ML Solution Auto-injector 15 mg Subcutaneous weekly; Duration: 90 days 10/10/2025 Active busPIRone HCl 10 MG Tablet 1 tablet Oral ly Twice a day Active Spironolactone 50 MG Tablet 1 tablet Ora lly Once a day Active Social History Tobacco Use: Social History Observation Description Date Details (start date - stop date) Never Smoker NA - NA Social History Tobacco Use: Social Info Question Answer Notes Tobacco Use/Smoking Are you a 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 tob: denies drugs: denies caffeine: limited due to jitters Problems Problem Type SNOMED Code ICD Code Onset Dates Problem Status W/U Status Risk Notes Problem Body mass index 30.00 to 34.99 ([id number]) BMI 34.0-34.9,a dult (Z68.34) Active confirmed Vital Signs Blood pressure systolic 120 mm Hg 10/10/20 25 Blood pressure diastolic 84 mm Hg 025 Heart Rate 82 /min 10/10/2025 Height 63 in 10/10/2025 Weight 197.2 lbs 10/10/2025 BMI 34.93 kg/m2 10/10/2025 Oximetry 97 % 10/10/2025 Encounters Encounter Location Date Provider Diagnosis [facility] [address] [place] [address] 10/10/2025 JOHANA SAMANIEGO Obesity (BMI 30-39.9 ) E66.9 ; BMI 34.0-34.9,adult Z68.34 ; Other acne L70.8 ; Recurrent depression F33.9 and Encounter for examination of blood pressure without abnormal findings Z01.30 Assessments Encounter Date Diagnosis (ICD Code) Assessment Notes Treatment Notes Treatment Clinical Notes Section Notes 10/10/2025 Obesity (BMI 30-39.9) (ICD-10 - E66.9) Angie Is a 45-year-old female who presented the [...] Hospital for nursing visits, and follow-up in [facility] for provider visits with myself. 06/29/2023: [...] to Zepbound, patient is going to contact [employer] to see if there is coverage with that medication. Having some fatigue/bloating. Focusing on whole proteins. 09/08/2024: Weight 206 BMI 36.61. Body composition showing maintenance overall. Will discontinue Wegovy, and initiate PA for Zepbound 2.5 mg that she has not noticing significant effect on Wegovy anymore. Discussed proper use, side effects.Patient did call [employer] and they stated that they would cover [...] hormonal changes which she can follow with [employer] as needed. 06/06/2025: Weight 205, BMI 36. [...] weeks. Consider 3-month supply at that time. 10/10/2025: Weight 197, BMI 34. Continue Zepbound 15 mg. Insurance may be blocking coverage as of November. Will try to submit a 3-month supply. Will follow-up in November and discussed [id number] cost. 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 This is unintentional and the practitioner does try to identify and correct these, but some could still be present. Please do not hesitate to contact practitioner for clarification. 10/10/2025 BMI 34.0-34.9,adul t (ICD-10 - Z68.34) Angie Is a 45-year-old female who presented the [...] Hospital for nursing visits, and follow-up in [facility] for provider visits with myself. 06/29/2023: [...] to Zepbound, patient is going to contact [employer] to see if there is coverage with that medication. Having some fatigue/bloating. Focusing on whole proteins. 09/08/2024: Weight 206 BMI 36.61. Body composition showing maintenance overall. Will discontinue Wegovy, and initiate PA for Zepbound 2.5 mg that she has not noticing significant effect on Wegovy anymore. Discussed proper use, side effects.Patient did call [employer] and they stated that they would cover [...] hormonal changes which she can follow with [employer] as needed. 06/06/2025: Weight 205, BMI 36. [...] weeks. Consider 3-month supply at that time. 10/10/2025: Weight 197, BMI 34. Continue Zepbound 15 mg. Insurance may be blocking coverage as of November. Will try to submit a 3-month supply. Will follow-up in November and discussed [id number]-[id number] cost. 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 This is unintentional and the practitioner does try to identify and correct these, but some could still be present. Please do not hesitate to contact practitioner for clarification. 10/10/2025 Other acne (ICD-10 - L70.8) Angie Is a 45-year-old female who presented the [...] Hospital for nursing visits, and follow-up in [facility] for provider visits with myself. 06/29/2023: [...] to Zepbound, patient is going to contact [employer] to see if there is coverage with that medication. Having some fatigue/bloating. Focusing on whole proteins. 09/08/2024: Weight 206 BMI 36.61. Body composition showing maintenance overall. Will discontinue Wegovy, and initiate PA for Zepbound 2.5 mg that she has not noticing significant effect on Wegovy anymore. Discussed proper use, side effects.Patient did call [employer] and they stated that they would cover [...] hormonal changes which she can follow with [employer] as needed. 06/06/2025: Weight 205, BMI 36. [...] weeks. Consider 3-month supply at that time. 10/10/2025: Weight 197, BMI 34. Continue Zepbound 15 mg. Insurance may be blocking coverage as of November. Will try to submit a 3-month supply. Will follow-up in November and discussed [id number] cost. 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 This is unintentional and the practitioner does try to identify and correct these, but some could still be present. Please do not hesitate to contact practitioner for clarification. 10/10/2025 Recurrent depression (ICD-10 - F33.9) Angie Is a 45-year-old female who presented the [...] next visit.If compounded semaglutide, will go to [place] office for nursing visits, and follow-up in [facility] for provider visits with myself. 06/29/2023: [...] to Zepbound, patient is going to contact [employer] to see if there is coverage with that medication. Having some fatigue/bloating. Focusing on whole proteins. 09/08/2024: Weight 206 BMI 36.61. Body composition showing maintenance overall. Will discontinue Wegovy, and initiate PA for Zepbound 2.5 mg that she has not noticing significant effect on Wegovy anymore. Discussed proper use, side effects.Patient did call [employer] and they stated that they would cover [...] hormonal changes which she can follow with [employer] as needed. 06/06/2025: Weight 205, BMI 36. [...] weeks. Consider 3-month supply at that time. 10/10/2025: Weight 197, BMI 34. Continue Zepbound 15 mg. Insurance may be blocking coverage as of November. Will try to submit a 3-month supply. Will follow-up in November and discussed [id number] cost. 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 This is unintentional and the practitioner does try to identify and correct these, but some could still be present. Please do not hesitate to contact practitioner for clarification. 10/10/2025 Encounter for examination of blood pressure without abnormal findings (ICD-10 - Z01.30) Angie Is a 45-year-old female who presented the [...] in the meantime which is strongly encouraged. [facility] provided. 04/27/2023: Weight 221.3, BMI 39.2-patient [...] Hospital for nursing visits, and follow-up in [facility] for provider visits with myself. 06/29/2023: [...] to Zepbound, patient is going to contact [employer] to see if there is coverage with that medication. Having some fatigue/bloating. Focusing on whole proteins. 09/08/2024: Weight 206 BMI 36.61. Body composition showing maintenance overall. Will discontinue Wegovy, and initiate PA for Zepbound 2.5 mg that she has not noticing significant effect on Wegovy anymore. Discussed proper use, side effects.Patient did call [employer] and they stated that they would cover [...] hormonal changes which she can follow with [employer] as needed. 06/06/2025: Weight 205, BMI 36. [...] weeks. Consider 3-month supply at that time. 10/10/2025: Weight 197, BMI 34. Continue Zepbound 15 mg. Insurance may be blocking coverage as of November. Will try to submit a 3-month supply. Will follow-up in November and discussed [id number] cost. 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 This is unintentional and the practitioner does try to identify and correct these, but some could still be present. Please do not hesitate to contact practitioner for clarification. Plan Of Treatment Medication Medication Name Sig Start Date Stop Date Notes Zepbound 15 MG/0.5ML Solution Auto-injector 15 mg Subcutaneous weekly; Duration: 90 days 10/10/2025 Next Appt Details Provider Name:JOHANA SAMANIEGO, 12/14/2025 03:00:00 PM, [address] [place] [address], [place], [phone], History and Physical Notes * HPI (History of Present Illness) Category Sub-Category Detail Notes Category Not es Constitutional Angie is a pleasant 45-year-old female who presents the office for weight management follow-up. Currently, taking Zepbound 15 mg with compliance, no any side effects. Last seen September 13, 2025. Weight at that time 202 with a BMI of 35. Insurance is dropping coverage as of November. Doing well with exercise and doing kettlebell exercises and yard work. Nutritionally has been doing better as well. Physical Examination Category Sub-Category Detail Notes Section Note s General: Well appearing 45-year-old female in no acute distress, speaking in [...] ambulation observed. Psych: Stable mood and affect. Progress Notes * Angie WILSONDOB: [birth year] (45 yo F)Acc No.[id number]:10/10/2025 Patient: Angie Handy Provider: Sylvia SAMANIEGO PA-C :1980 A ge:45 Y S ex:Female Date:10/10/2025 Address:[address] [place] [address] [id number] Subjective: * Chief Complaints: * 1 . Pt is here for weight management follow up seca pd. * HPI: C onstitutional: Angie is a pleasant 45-year-old female who presents the office for weight management follow-up. Currently, taking Zepbound 15 mg with compliance, no any side effects. Last seen September 13, 2025. Weight at that time 202 with a BMI of 35. Insurance is dropping coverage as of November. Doing well with exercise and doing kettlebell exercises and yard work. Nutritionally has been doing better as well. * ROS: C onstitutional: [...] no lymph node swelling. * Medical History: * Surgical History: * Hospitalization/Major Diagno stic Procedure: * Family History: F ather: 48 yrs. M other: 65 yrs. 1 sister(s) . 1 daughter(s) . .?Family History Verified.. Father: Lung cancer Mother: Diabetes, and hypertension. * Social History: T obacco Use: T obacco Use/Smoking A re you a n onsmoker. Social History Verified. N urse alcohol: 2x/month tob: denies drugs: denies caffeine: limited due to jitters. * Medications: T aking Lexapro 10 MG Tablet 1 tablet Orally Once a day , Taking Spironolactone 50 MG Tablet 1 tablet Orally Once a day , Taking busPIRone HCl 10 MG Tablet 1 tablet Orally Twice a day , Taking Zepbound 15 MG/0.5ML Solution Auto-injector 15 mg Subcutaneous weekly , Medication List reviewed and reconciled with the patient * Allergies: W ellbutrin. Allergies Verified. Objective: * Vitals: H R:82/min, BP:120/84mm Hg, Wt:197.2lbs, BMI:34.93Index, Ht: 63 in, Oxygen sat %:97%. * Physical Examination: G eneral: Well appearing 45-year-old female in no acute distress, speaking in [...] 30-39.9) - E66.9 (Primary) 2 . B [place] 34.0-34.9,adult - Z68.34 3 . O ther acne - L70.8 4 . R ecurrent depression - F33.9? 5. E ncounter for examination of blood pressure without abnormal findings - Z01.30 Angie Is a 45-year-old fem trace who presented the office for [...] Hospital for nursing visits, and follow-up in [facility] for provider visits with myself. 06/29/2023: [...] to Zepbound, patient is going to contact [employer] to see if there is coverage with that medication. Having some fatigue/bloating. Focusing on whole proteins. 09/08/2024: Weight 206 BMI 36.61. Body composition showing maintenance overall. Will discontinue Wegovy, and initiate PA for Zepbound 2.5 mg that she has not noticing significant effect on Wegovy anymore. Discussed proper use, side effects.Patient did call [employer] and they stated that they would cover [...] hormonal changes which she can follow with [employer] as needed. 06/06/2025: Weight 205, BMI 36. [...] weeks. Consider 3-month supply at that time. 10/10/2025: Weight 197, BMI 34. Continue Zepbound 15 mg. Insurance may be blocking coverage as of November. Will try to submit a 3-month supply. Will follow-up in November and discussed [id number] cost. 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 This is unintentional and the practitioner does try to identify and correct these, but some could still be present. Please do not hesitate to contact practitioner for clarification. Plan: * Treatment: * Procedure Codes: 3 079F DIAST BP 80-89 MM HG, 3074F SYST BP LT 130 MM HG Billing Information: * Visit Code: 96470 Office Visit, Est Pt., Level 3. Modifiers: SA * Procedure Codes: 3079F DIAST BP 80-89 MM HG. 3074F SYST BP LT 130 MM HG. * Sign off status: Completed true * Provider: Sylvia SAMANIEGO PA-C Date: 12/10/2024 Generated for Maura moncada/Abelino/Lm on: 12/13/2024 01:44 PM EST
--- NOTE | ~2025-10-13 | MR_ITS ---
EXAMINATION: MR ABDOMEN WITHOUT THEN WITH IV CONTRAST HISTORY: N28.1 - Cyst of kidney, acquired COMPARISON: Correlation is made with an abdominal ultrasound dated 08/22/2025. TECHNIQUE: Axial in and out of phase T1-weighted gradient echo, axial diffusion weighted, and axial and coronal HASTE T2 with fat saturation images were obtained through the abdomen. Subsequently, fat suppressed axial and coronal T1-weighted images were obtained after the intravenous administration of 9 mL Gadavist. FINDINGS: Liver: There is no loss of signal intensity in the liver on opposed phase imaging to suggest steatosis. There is no enhancing liver mass. The hepatic and portal veins are patent. There is no intrahepatic biliary dilatation. Gallbladder/biliary tree: The patient is status post cholecystectomy. The common bile duct is normal in caliber. No intraluminal filling defects are identified to suggest choledocholithiasis. Spleen: The spleen is unremarkable. Pancreas: The pancreas is unremarkable. There is no enhancing pancreatic mass. The pancreatic duct is normal in caliber. Adrenals: The adrenal glands are unremarkable. Kidneys: There is scarring in the interpolar region of the right kidney. There are multiple right renal cysts measuring up to 1.6 cm in size at the upper pole. This may contain thin septations. No enhancing solid component is identified. There are multiple smaller right cysts which are too small to accurately characterize. The left kidney is unremarkable.. There is no hydronephrosis. Lymph nodes: There is no retroperitoneal lymphadenopathy in the upper abdomen. Fluid: There is no ascites in the upper abdomen. Visualized bowel: The visualized small and large bowel loops are unremarkable in appearance. Visualized bones: The visualized bones demonstrate normal marrow signal intensity. MR/MR abdomen wo/w con IMPRESSION: Multiple right renal cysts measuring up to 1.6 cm in size. The largest cyst may contain thin septations. Follow-up is recommended. Electronically signed by: Dickson Melendez MD 10/13/2025 02:46 PM EST
--- OUTSIDE RECORDS SUMMARY | 2025-10-13 13:44 | XMS_ITS | Patient Health Record ---
Author Organization [facility] [address] Address [address] [place] [address] Care Team Providers Care Irrigator Head Name Role Phone JOHANA SAMANIEGO Unavailable [phone] Allergies Allergen (clinical drug ingredient) Drug/Non Drug [...] Status W/U Status Risk Notes Problem Obesity (972635264) Other obesity (E66.8) Active confirmed Problem Anxiety (67132650) Anxiety (F41.9) Active confirmed Problem Obesity (723580011) Obesity (BMI 30-39.9) (E66.9) Active confirmed Problem Obese class II (97517092217217 5) BMI 37.0-37.9, adult (Z68.37) Active confirmed Problem Obese class II (62269244364229 5) BMI 35.0-35.9,adult (Z68.35) Active confirmed Problem Raynaud's disease (853071038) Raynaud's disease without gangrene (I73.00) Active confirmed Problem Obese class II (72066224595780 5) BMI 39.0-39.9,adult (Z68.39) Active confirmed Problem Obese class II (65356776324328 5) BMI 36.0-36.9,adult (Z68.36) Active confirmed Problem Obese class II (31760461268153 5) BMI 38.0-38.9,adult (Z68.38) Active confirmed Problem Body mass index 30.00 to 34.99 (39685420773426 7) BMI 34.0-34.9,adult (Z68.34) Active confirmed Problem Recurrent depression (902026099) Recurrent depression (F33.9) Active confirmed Problem History of malignant neoplasm of cervix (075255951) History of cervical cancer (Z85.41) Active confirmed Vital Signs Heart Rate 82 /min 10/10/2025 Oximetry 97 % 10/10/2025 Blood pressure diastolic 84 mm Hg 10/10/2025 Height 63 in 10/10/2025 Blood pressure systolic 120 mm Hg 10/10/2025 Weight 197.2 lbs 10/10/2025 BMI 34.93 kg/m2 10/10/2025 Encounters Encounter Location Date Provider Diagnosis [facility] [address] [place], [place] 10/31/2024 JOHANA SAMANIEGO Obesity (BMI 30-39.9 ) E66.9 ; BMI 37.0-37.9, adult Z68.37 ; Depression, unspecified depression type F32.A and Other acne L70.[address] [facility] [address] [place], [place] 12/05/2024 JOHANA SAMANIEGO Obesity (BMI 30-39.9 ) E66.9 ; BMI 37.0-37.9, adult Z68.37 ; Depression, unspecified depression type F32.A and Other acne L70.[address] [facility] [address] [place], [place] 01/17/2025 JOHANA SAMANIEGO Obesity (BMI 30-39.9 ) E66.9 ; BMI 37.0-37.9, adult Z68.37 ; Depression, unspecified depression type F32.A and Other acne L70.8 [facility] [address] [place], [place] 02/28/2025 JOHANA SAMANIEGO Obesity (BMI 30-39.9 ) E66.9 ; BMI 36.0-36.9,adult Z68.36 ; Other acne L70.8 and Recurrent depression F33.[address] [facility] [address] 04/20/2025 JOHANA SAMANIEGO Obesity (BMI 30-39.9 ) E66.9 ; BMI 36.0-36.9,adult Z68.36 ; Other acne L70.8 ; Recurrent depression F33.9 and Encounter for examination of blood pressure without abnormal findings Z01.[address] 06/06/2025 JOHANA SAMANIEGO Obesity (BMI 30-39.9 ) E66.9 ; BMI 36.0-36.9,adult Z68.36 ; Other acne L70.8 ; Recurrent depression F33.9 and Encounter for examination of blood pressure without abnormal findings Z01.[address] 08/01/2025 JOHANA SAMANIEGO Obesity (BMI 30-39.9 ) E66.9 ; BMI 36.0-36.9,adult Z68.36 ; Other acne L70.8 ; Recurrent depression F33.9 and Encounter for examination of blood pressure without abnormal findings Z01.[address] 09/13/2025 JOHANA SAMANIEGO Obesity (BMI 30-39.9 ) E66.9 ; BMI 35.0-35.9,adult Z68.35 ; Other acne L70.8 ; Recurrent depression F33.9 and Encounter for examination of blood pressure without abnormal findings Z01.[address] 10/10/2025 JOHANA SAMANIEGO Obesity (BMI 30-39.9 ) E66.9 ; BMI 34.0-34.9,adult Z68.34 ; Other acne L70.8 ; Recurrent depression F33.9 and Encounter for examination of blood pressure without abnormal findings Z01.30 [facility] [phone] [address] 05/05/2025 JOHANA SAMANIEGO Assessments Encounter Date Diagnosis (ICD Code) Assessment Notes Treatment Notes Treatment Clinical Notes Section Notes 12/05/2024 Obesity (BMI 30-39.9) (ICD-10 - E66.9) Angie [...] next visit.If compounded semaglutide, will go to [facility] for nursing visits, and follow-up in [facility] for provider visits with myself. 06/29/2023: [...] to Zepbound, patient is going to contact [employer] to see if there is coverage with that medication. Having some fatigue/bloating. Focusing on whole proteins. 09/08/2024: Weight 206 BMI 36.61. Body composition showing maintenance overall. Will discontinue Wegovy, and initiate PA for Zepbound 2.5 mg that she has not noticing significant effect on Wegovy anymore. Discussed proper use, side effects.Patient did call [employer] and they stated that they would cover [...] 10 mg, Lexapro 10 mg, Discussed cortisol [employer] assistant [employer], and magnesium glycinate For adrenal fatigue [...] Dictation was accomplished with the use of [employer]pe[employer] voice recognition software, prone to medical misidentifications and grammatical errors. This is unintentional and the practitioner does try to identify and correct these, but some could still be present. Please do not hesitate to contact practitioner for clarification. 12/05/2024 BMI 37.0-37.9, adult (ICD-10 - Z68.37) Angie [...] next visit.If compounded semaglutide, will go to [place] office for nursing visits, and follow-up in [facility] for provider visits with myself. 06/29/2023: [...] to Zepbound, patient is going to contact [employer] to see if there is coverage with that medication. Having some fatigue/bloating. Focusing on whole proteins. 09/08/2024: Weight 206 BMI 36.61. Body composition showing maintenance overall. Will discontinue Wegovy, and initiate PA for Zepbound 2.5 mg that she has not noticing significant effect on Wegovy anymore. Discussed proper use, side effects.Patient did call [employer] and they stated that they would cover [...] 10 mg, Lexapro 10 mg, Discussed cortisol [employer] assistant manager, and magnesium glycinate For adrenal fatigue [...] Dictation was accomplished with the use of [employer] voice recognition software, prone to medical misidentifications and grammatical errors. This is unintentional and the practitioner does try to identify and correct these, but some could still be present. Please do not hesitate to contact practitioner for clarification. 01/17/2025 Obesity (BMI 30-39.9) (ICD-10 - E66.9) Angie [...] next visit.If compounded semaglutide, will go to [facility] for nursing visits, and follow-up in [facility] for provider visits with myself. 06/29/2023: [...] to Zepbound, patient is going to contact [employer] to see if there is coverage with that medication. Having some fatigue/bloating. Focusing on whole proteins. 09/08/2024: Weight 206 BMI 36.61. Body composition showing maintenance overall. Will discontinue Wegovy, and initiate PA for Zepbound 2.5 mg that she has not noticing significant effect on Wegovy anymore. Discussed proper use, side effects.Patient did call [employer] and they stated that they would cover [...] 10 mg, Lexapro 10 mg, Discussed cortisol [employer] assistant manager, and magnesium glycinate For adrenal fatigue [...] Dictation was accomplished with the use of [employer] voice recognition software, prone to medical misidentifications and grammatical errors. This is unintentional and the practitioner does try to identify and correct these, but some could still be present. Please do not hesitate to contact practitioner for clarification. 02/28/2025 Obesity (BMI 30-39.9) (ICD-10 - E66.9) Angie [...] meantime which is strongly encouraged. [facility] provided. 04/27/2023: Weight 221.3, BMI 39.2-patient [...] next visit.If compounded semaglutide, will go to [facility] for nursing visits, and follow-up in [facility] for provider visits with myself. 06/29/2023: [...] to Zepbound, patient is going to contact [employer] to see if there is coverage with that medication. Having some fatigue/bloating. Focusing on whole proteins. 09/08/2024: Weight 206 BMI 36.61. Body composition showing maintenance overall. Will discontinue Wegovy, and initiate PA for Zepbound 2.5 mg that she has not noticing significant effect on Wegovy anymore. Discussed proper use, side effects.Patient did call [employer] and they stated that they would cover [...] 10 mg, Lexapro 10 mg, Discussed cortisol [employer] assistant manager, and magnesium glycinate For adrenal fatigue [...] Dictation was accomplished with the use of [employer] voice recognition software, prone to medical misidentifications and grammatical errors. This is unintentional and the practitioner does try to identify and correct these, but some could still be present. Please do not hesitate to contact practitioner for clarification. 02/28/2025 BMI 36.0-36.9,adul t (ICD-10 - Z68.36) Angie [...] next visit.If compounded semaglutide, will go to [facility] for nursing visits, and follow-up in [place] [...] to Zepbound, patient is going to contact [employer] to see if there is coverage with that medication. Having some fatigue/bloating. Focusing on whole proteins. 09/08/2024: Weight 206 BMI 36.61. Body composition showing maintenance overall. Will discontinue Wegovy, and initiate PA for Zepbound 2.5 mg that she has not noticing significant effect on Wegovy anymore. Discussed proper use, side effects.Patient did call [employer] and they stated that they would cover [...] 10 mg, Lexapro 10 mg, Discussed cortisol [employer] assistant manager, and magnesium glycinate For adrenal fatigue [...] Dictation was accomplished with the use of [employer] voice recognition software, prone to medical misidentifications and grammatical errors. This is unintentional and the practitioner does try to identify and correct these, but some could still be present. Please do not hesitate to contact practitioner for clarification. 04/20/2025 Obesity (BMI 30-39.9) (ICD-10 - E66.9) Angie [...] next visit.If compounded semaglutide, will go to [facility] for nursing visits, and follow-up in [facility] for provider visits with myself. 06/29/2023: [...] to Zepbound, patient is going to contact [employer] to see if there is coverage with that medication. Having some fatigue/bloating. Focusing on whole proteins. 09/08/2024: Weight 206 BMI 36.61. Body composition showing maintenance overall. Will discontinue Wegovy, and initiate PA for Zepbound 2.5 mg that she has not noticing significant effect on Wegovy anymore. Discussed proper use, side effects.Patient did call [employer] and they stated that they would cover [...] hormonal changes which she can follow with [employer] as needed. #Depression: patient to continue buspirone 10 mg, Lexapro 10 mg, Discussed cortisol [employer] assistant manager, and magnesium glycinate For adrenal fatigue [...] Dictation was accomplished with the use of [employer] voice recognition software, prone to medical misidentifications and grammatical errors. This is unintentional and the practitioner does try to identify and correct these, but some could still be present. Please do not hesitate to contact practitioner for clarification. 04/20/2025 BMI 36.0-36.9,adul t (ICD-10 - Z68.36) Angie [...] next visit.If compounded semaglutide, will go to [facility] for nursing visits, and follow-up in [facility] for provider visits with myself. 06/29/2023: [...] to Zepbound, patient is going to contact [employer] to see if there is coverage with that medication. Having some fatigue/bloating. Focusing on whole proteins. 09/08/2024: Weight 206 BMI 36.61. Body composition showing maintenance overall. Will discontinue Wegovy, and initiate PA for Zepbound 2.5 mg that she has not noticing significant effect on Wegovy anymore. Discussed proper use, side effects.Patient did call [employer] and they stated that they would cover [...] hormonal changes which she can follow with [employer] as needed. #Depression: patient to continue buspirone 10 mg, Lexapro 10 mg, Discussed cortisol [employer] assistant manager, and magnesium glycinate For adrenal fatigue [...] Dictation was accomplished with the use of [employer] voice recognition software, prone to medical misidentifications and grammatical errors. This is unintentional and the practitioner does try to identify and correct these, but some could still be present. Please do not hesitate to contact practitioner for clarification. 08/01/2025 Obesity (BMI 30-39.9) (ICD-10 - E66.9) Angie [...] next visit.If compounded semaglutide, will go to [facility] for nursing visits, and follow-up in [facility] for provider visits with myself. 06/29/2023: [...] to Zepbound, patient is going to contact [employer] to see if there is coverage with that medication. Having some fatigue/bloating. Focusing on whole proteins. 09/08/2024: Weight 206 BMI 36.61. Body composition showing maintenance overall. Will discontinue Wegovy, and initiate PA for Zepbound 2.5 mg that she has not noticing significant effect on Wegovy anymore. Discussed proper use, side effects.Patient did call [employer] and they stated that they would cover [...] hormonal changes which she can follow with [employer] as needed. 06/06/2025: Weight 205, BMI 36. Patient feeling really well, congratulated and effort. Increase Zepbound to 12.5 mg, follow-up in 6 weeks. Pleased with progress overall. 08/01/2025: Weight 203, BMI 36 continue Zepbound 12.5 mg, follow-up in 4 to 6 weeks. Doing well with increased muscle and decreased fat. #Depression: patient to continue buspirone 10 mg, Lexapro 10 mg, Discussed cortisol [employer] assistant manager, and magnesium glycinate For adrenal fatigue [...] Dictation was accomplished with the use of [employer] voice recognition software, prone to medical misidentifications and grammatical errors. This is unintentional and the practitioner does try to identify and correct these, but some could still be present. Please do not hesitate to contact practitioner for clarification. 09/13/2025 Obesity (BMI 30-39.9) (ICD-10 - E66.9) Angie [...] next visit.If compounded semaglutide, will go to [facility] for nursing visits, and follow-up in [...] to Zepbound, patient is going to contact [employer] to see if there is coverage with that medication. Having some fatigue/bloating. Focusing on whole proteins. 09/08/2024: Weight 206 BMI 36.61. Body composition showing maintenance overall. Will discontinue Wegovy, and initiate PA for Zepbound 2.5 mg that she has not noticing significant effect on Wegovy anymore. Discussed proper use, side effects.Patient did call [employer] and they stated that they would cover [...] hormonal changes which she can follow with [employer] as needed. 06/06/2025: Weight 205, BMI 36. [...] 10 mg, Lexapro 10 mg, Discussed cortisol [employer] assistant manager, and magnesium glycinate For adrenal fatigue [...] Dictation was accomplished with the use of [employer] voice recognition software, prone to medical misidentifications and grammatical errors. This is unintentional and the practitioner does try to identify and correct these, but some could still be present. Please do not hesitate to contact practitioner for clarification. 09/13/2025 BMI 35.0-35.9,adul t (ICD-10 - Z68.35) Angie Is a 45-year-old female who presented [...] meantime which is strongly encouraged. [facility] provided. 04/27/2023: Weight 221.3, BMI 39.2-patient [...] next visit.If compounded semaglutide, will go to [facility] for nursing visits, and follow-up in [facility] for provider visits with myself. 06/29/2023: [...] to Zepbound, patient is going to contact [employer] to see if there is coverage with that medication. Having some fatigue/bloating. Focusing on whole proteins. 09/08/2024: Weight 206 BMI 36.61. Body composition showing maintenance overall. Will discontinue Wegovy, and initiate PA for Zepbound 2.5 mg that she has not noticing significant effect on Wegovy anymore. Discussed proper use, side effects.Patient did call [employer] and they stated that they would cover [...] hormonal changes which she can follow with [employer] as needed. 06/06/2025: Weight 205, BMI 36. [...] 10 mg, Lexapro 10 mg, Discussed cortisol [employer] assistant manager, and magnesium glycinate For adrenal fatigue [...] Dictation was accomplished with the use of [employer] voice recognition software, prone to medical misidentifications and grammatical errors. This is unintentional and the practitioner does try to identify and correct these, but some could still be present. Please do not hesitate to contact practitioner for clarification. 10/10/2025 Obesity (BMI 30-39.9) (ICD-10 - E66.9) [...] next visit.If compounded semaglutide, will go to [facility] for nursing visits, and follow-up in [facility] for provider visits with myself. 06/29/2023: [...] to Zepbound, patient is going to contact [employer] to see if there is coverage with that medication. Having some fatigue/bloating. Focusing on whole proteins. 09/08/2024: Weight 206 BMI 36.61. Body composition showing maintenance overall. Will discontinue Wegovy, and initiate PA for Zepbound 2.5 mg that she has not noticing significant effect on Wegovy anymore. Discussed proper use, side effects.Patient did call [employer] and they stated that they would cover [...] hormonal changes which she can follow with [employer] as needed. 06/06/2025: Weight 205, BMI 36. [...] supply. Will follow-up in November and discussed [id number] cost. #Depression: patient to continue buspirone 10 mg, Lexapro 10 mg, Discussed cortisol [employer] assistant manager, and magnesium glycinate For adrenal fatigue [...] Dictation was accomplished with the use of [employer] voice recognition software, prone to medical misidentifications [...] next visit.If compounded semaglutide, will go to [facility] for nursing visits, and follow-up in [facility] for provider visits with myself. 06/29/2023: [...] to Zepbound, patient is going to contact [employer] to see if there is coverage with that medication. Having some fatigue/bloating. Focusing on whole proteins. 09/08/2024: Weight 206 BMI 36.61. Body composition showing maintenance overall. Will discontinue Wegovy, and initiate PA for Zepbound 2.5 mg that she has not noticing significant effect on Wegovy anymore. Discussed proper use, side effects.Patient did call [employer] and they stated that they would cover [...] hormonal changes which she can follow with [employer] as needed. 06/06/2025: Weight 205, BMI 36. [...] supply. Will follow-up in November and discussed [id number] cost. #Depression: patient to continue buspirone 10 mg, Lexapro 10 mg, Discussed cortisol [employer] assistant manager, and magnesium glycinate For adrenal fatigue [...] Dictation was accomplished with the use of [employer] voice recognition software, prone to medical misidentifications [...] next visit.If compounded semaglutide, will go to [facility] for nursing visits, and follow-up in [facility] for provider visits with myself. 06/29/2023: Weight [...] to Zepbound, patient is going to contact [employer] to see if there is coverage with that medication. Having some fatigue/bloating. Focusing on whole proteins. 09/08/2024: Weight 206 BMI 36.61. Body composition showing maintenance overall. Will discontinue Wegovy, and initiate PA for Zepbound 2.5 mg that she has not noticing significant effect on Wegovy anymore. Discussed proper use, side effects.Patient did call [employer] and they stated that they would cover [...] hormonal changes which she can follow with [employer] as needed. 06/06/2025: Weight 205, BMI 36. Patient feeling really well, congratulated and effort. Increase Zepbound to 12.5 mg, follow-up in 6 weeks. Pleased with progress overall. #Depression: patient to continue buspirone 10 mg, Lexapro 10 mg, Discussed cortisol [employer] assistant manager, and magnesium glycinate For adrenal fatigue [...] Dictation was accomplished with the use of [employer] voice recognition software, prone to medical misidentifications [...] meantime which is strongly encouraged. [facility] provided. 04/27/2023: Weight 221.3, BMI 39.2-patient [...] next visit.If compounded semaglutide, will go to [facility] for nursing visits, and follow-up in [facility] for provider visits with myself. 06/29/2023: [...] to Zepbound, patient is going to contact [employer] to see if there is coverage with that medication. Having some fatigue/bloating. Focusing on whole proteins. 09/08/2024: Weight 206 BMI 36.61. Body composition showing maintenance overall. Will discontinue Wegovy, and initiate PA for Zepbound 2.5 mg that she has not noticing significant effect on Wegovy anymore. Discussed proper use, side effects.Patient did call [employer] and they stated that they would cover [...] Dictation was accomplished with the use of [employer] voice recognition software, prone to medical misidentifications [...] meantime which is strongly encouraged. [facility] provided. 04/27/2023: Weight 221.3, BMI 39.2-patient [...] next visit.If compounded semaglutide, will go to [facility] for nursing visits, and follow-up in [facility] for provider visits with myself. 06/29/2023: [...] to Zepbound, patient is going to contact [employer] to see if there is coverage with that medication. Having some fatigue/bloating. Focusing on whole proteins. 09/08/2024: Weight 206 BMI 36.61. Body composition showing maintenance overall. Will discontinue Wegovy, and initiate PA for Zepbound 2.5 mg that she has not noticing significant effect on Wegovy anymore. Discussed proper use, side effects.Patient did call [employer] and they stated that they would cover [...] Dictation was accomplished with the use of [employer] voice recognition software, prone to medical misidentifications and grammatical errors. This is unintentional and the practitioner does try to identify and correct these, but some could still be present. Please do not hesitate to contact practitioner for clarification. 02/28/2025 Other acne (ICD-10 - L70.8) Angie Is [...] next visit.If compounded semaglutide, will go to [facility] for nursing visits, and follow-up in [facility] for provider visits with myself. 06/29/2023: [...] to Zepbound, patient is going to contact [employer] to see if there is coverage with that medication. Having some fatigue/bloating. Focusing on whole proteins. 09/08/2024: Weight 206 BMI 36.61. Body composition showing maintenance overall. Will discontinue Wegovy, and initiate PA for Zepbound 2.5 mg that she has not noticing significant effect on Wegovy anymore. Discussed proper use, side effects.Patient did call [employer] and they stated that they would cover [...] 10 mg, Lexapro 10 mg, Discussed cortisol [employer] assistant manager, and magnesium glycinate For adrenal fatigue [...] Dictation was accomplished with the use of [employer] voice recognition software, prone to medical misidentifications [...] next visit.If compounded semaglutide, will go to [facility] for nursing visits, and follow-up in [facility] for provider visits with myself. 06/29/2023: [...] to Zepbound, patient is going to contact [employer] to see if there is coverage with that medication. Having some fatigue/bloating. Focusing on whole proteins. 09/08/2024: Weight 206 BMI 36.61. Body composition showing maintenance overall. Will discontinue Wegovy, and initiate PA for Zepbound 2.5 mg that she has not noticing significant effect on Wegovy anymore. Discussed proper use, side effects.Patient did call [employer] and they stated that they would cover [...] Dictation was accomplished with the use of [employer] voice recognition software, prone to medical misidentifications [...] labs without concern. Patient was interested in [employer] had a conversation with her regarding three [...] meantime which is strongly encouraged. [facility] provided. 04/27/2023: Weight 221.3, BMI 39.2-patient [...] next visit.If compounded semaglutide, will go to [facility] for nursing visits, and follow-up in [facility] for provider visits with myself. 06/29/2023: [...] to Zepbound, patient is going to contact [employer] to see if there is coverage with that medication. Having some fatigue/bloating. Focusing on whole proteins. 09/08/2024: Weight 206 BMI 36.61. Body composition showing maintenance overall. Will discontinue Wegovy, and initiate PA for Zepbound 2.5 mg that she has not noticing significant effect on Wegovy anymore. Discussed proper use, side effects.Patient did call [employer] and they stated that they would cover [...] hormonal changes which she can follow with [employer] as needed. 06/06/2025: Weight 205, BMI 36. Patient feeling really well, congratulated and effort. Increase Zepbound to 12.5 mg, follow-up in 6 weeks. Pleased with progress overall. #Depression: patient to continue buspirone 10 mg, Lexapro 10 mg, Discussed cortisol [employer] assistant manager, and magnesium glycinate For adrenal fatigue [...] Dictation was accomplished with the use of [employer] voice recognition software, prone to medical misidentifications [...] next visit.If compounded semaglutide, will go to [facility] for nursing visits, and follow-up in [facility] for provider visits with myself. 06/29/2023: [...] to Zepbound, patient is going to contact [employer] to see if there is coverage with that medication. Having some fatigue/bloating. Focusing on whole proteins. 09/08/2024: Weight 206 BMI 36.61. Body composition showing maintenance overall. Will discontinue Wegovy, and initiate PA for Zepbound 2.5 mg that she has not noticing significant effect on Wegovy anymore. Discussed proper use, side effects.Patient did call [employer] and they stated that they would cover [...] hormonal changes which she can follow with [employer] as needed. 06/06/2025: Weight 205, BMI 36. [...] supply. Will follow-up in November and discussed [id number] cost. #Depression: patient to continue buspirone 10 mg, Lexapro 10 mg, Discussed cortisol [employer] assistant manager, and magnesium glycinate For adrenal fatigue [...] Dictation was accomplished with the use of [employer]pe[employer] voice recognition software, prone to medical misidentifications and grammatical errors. This is unintentional and the practitioner does try to identify and correct these, but some could still be present. Please do not hesitate to contact practitioner for clarification. 09/13/2025 Other acne (ICD-10 - L70.8) Angie Is [...] next visit.If compounded semaglutide, will go to [facility] for nursing visits, and follow-up [facility] for provider visits with myself. 06/29/2023: Weight [...] to Zepbound, patient is going to contact [employer] to see if there is coverage with that medication. Having some fatigue/bloating. Focusing on whole proteins. 09/08/2024: Weight 206 BMI 36.61. Body composition showing maintenance overall. Will discontinue Wegovy, and initiate PA for Zepbound 2.5 mg that she has not noticing significant effect on Wegovy anymore. Discussed proper use, side effects.Patient did call [employer] and they stated that they would cover [...] hormonal changes which she can follow with [employer] as needed. 06/06/2025: Weight 205, BMI 36. [...] 10 mg, Lexapro 10 mg, Discussed cortisol [employer] assistant manager, and magnesium glycinate For adrenal fatigue [...] Dictation was accomplished with the use of [employer] voice recognition software, prone to medical misidentifications and grammatical errors. This is unintentional and the practitioner does try to identify and correct these, but some could still be present. Please do not hesitate to contact practitioner for clarification. 08/01/2025 BMI 36.0-36.9,adul t (ICD-10 - Z68.36) Angie Is a 45-year-old female who presented [...] meantime which is strongly encouraged. [facility] provided. 04/27/2023: Weight 221.3, BMI 39.2-patient [...] next visit.If compounded semaglutide, will go to [facility] for nursing visits, and follow-up in [facility] for provider visits with myself. 06/29/2023: [...] to Zepbound, patient is going to contact [employer] to see if there is coverage with that medication. Having some fatigue/bloating. Focusing on whole proteins. 09/08/2024: Weight 206 BMI 36.61. Body composition showing maintenance overall. Will discontinue Wegovy, and initiate PA for Zepbound 2.5 mg that she has not noticing significant effect on Wegovy anymore. Discussed proper use, side effects.Patient did call [employer] and they stated that they would cover [...] hormonal changes which she can follow with [employer] as needed. 06/06/2025: Weight 205, BMI 36. Patient feeling really well, congratulated and effort. Increase Zepbound to 12.5 mg, follow-up in 6 weeks. Pleased with progress overall. 08/01/2025: Weight 203, BMI 36 continue Zepbound 12.5 mg, follow-up in 4 to 6 weeks. Doing well with increased muscle and decreased fat. #Depression: patient to continue buspirone 10 mg, Lexapro 10 mg, Discussed cortisol [employer] assistant manager, and magnesium glycinate For adrenal fatigue [...] Dictation was accomplished with the use of Brightpearl voice recognition software, prone to medical misidentifications and grammatical errors. This is unintentional and the practitioner does try to identify and correct these, but some could still be present. Please do not hesitate to contact practitioner for clarification. 04/20/2025 Other acne (ICD-10 - L70.8) Angie Is [...] next visit.If compounded semaglutide, will go to [facility] for nursing visits, and follow-up in [facility] for provider visits with myself. 06/29/2023: [...] to Zepbound, patient is going to contact [employer] to see if there is coverage with that medication. Having some fatigue/bloating. Focusing on whole proteins. 09/08/2024: Weight 206 BMI 36.61. Body composition showing maintenance overall. Will discontinue Wegovy, and initiate PA for Zepbound 2.5 mg that she has not noticing significant effect on Wegovy anymore. Discussed proper use, side effects.Patient did call [employer] and they stated that they would cover [...] hormonal changes which she can follow with [employer] as needed. #Depression: patient to continue buspirone 10 mg, Lexapro 10 mg, Discussed cortisol [employer] assistant manager, and magnesium glycinate For adrenal fatigue [...] Dictation was accomplished with the use of Brightpearl voice recognition software, prone to medical misidentifications and grammatical errors. This is unintentional and the practitioner does try to identify and correct these, but some could still be present. Please do not hesitate to contact practitioner for clarification. 01/17/2025 BMI 37.0-37.9, adult (ICD-10 - Z68.37) Angie Is a 44-year-old female who presented [...] next visit.If compounded semaglutide, will go to [place] office for nursing visits, and follow-up in [facility] for provider visits with myself. 06/29/2023: [...] to Zepbound, patient is going to contact [employer] to see if there is coverage with that medication. Having some fatigue/bloating. Focusing on whole proteins. 09/08/2024: Weight 206 BMI 36.61. Body composition showing maintenance overall. Will discontinue Wegovy, and initiate PA for Zepbound 2.5 mg that she has not noticing significant effect on Wegovy anymore. Discussed proper use, side effects.Patient did call [employer] and they stated that they would cover [...] 10 mg, Lexapro 10 mg, Discussed cortisol [employer] assistant manager, and magnesium glycinate For adrenal fatigue [...] Dictation was accomplished with the use of Brightpearl voice recognition software, prone to medical misidentifications [...] next visit.If compounded semaglutide, will go to [facility] for nursing visits, and [facility] visits with myself. 06/29/2023: Weight [...] piece, as portion control has been improving. lAfonso cerrato.Focused on high-protein, implementing more resistance training. [...] to Zepbound, patient is going to contact [employer] to see if there is coverage with that medication. Having some fatigue/bloating. Focusing on whole proteins. 09/08/2024: Weight 206 BMI 36.61. Body composition showing maintenance overall. Will discontinue Wegovy, and initiate PA for Zepbound 2.5 mg that she has not noticing significant effect on Wegovy anymore. Discussed proper use, side effects.Patient did call [employer] and they stated that they would cover [...] 10 mg, Lexapro 10 mg, Discussed cortisol [employer] assistant manager, and magnesium glycinate For adrenal fatigue [...] Dictation was accomplished with the use of Brightpearl voice recognition software, prone to medical misidentifications and grammatical errors. This is unintentional and the practitioner does try to identify and correct these, but some could still be present. Please do not hesitate to contact practitioner for clarification. 12/05/2024 Other acne (ICD-10 - L70.8) Angie Is [...] next visit.If compounded semaglutide, will go to [facility] for nursing visits, and follow-up in [facility] for provider visits with myself. 06/29/2023: [...] to Zepbound, patient is going to contact [employer] to see if there is coverage with that medication. Having some fatigue/bloating. Focusing on whole proteins. 09/08/2024: Weight 206 BMI 36.61. Body composition showing maintenance overall. Will discontinue Wegovy, and initiate PA for Zepbound 2.5 mg that she has not noticing significant effect on Wegovy anymore. Discussed proper use, side effects.Patient did call [employer] and they stated that they would cover [...] 10 mg, Lexapro 10 mg, Discussed cortisol [employer] assistant manager, and magnesium glycinate For adrenal fatigue [...] Dictation was accomplished with the use of Dragon voice recognition software, prone to medical misidentifications and grammatical errors. This is unintentional and the practitioner does try to identify and correct these, but some could still be present. Please do not hesitate to contact practitioner for clarification. 01/17/2025 Depression, unspecified depression type (ICD-10 - F32.A) Angie Is a 44-year-old female who presented [...] next visit.If compounded semaglutide, will go to [facility] for nursing visits, and follow-up in [facility] for provider visits with myself. 06/29/2023: [...] to Zepbound, patient is going to contact [employer] to see if there is coverage with that medication. Having some fatigue/bloating. Focusing on whole proteins. 09/08/2024: Weight 206 BMI 36.61. Body composition showing maintenance overall. Will discontinue Wegovy, and initiate PA for Zepbound 2.5 mg that she has not noticing significant effect on Wegovy anymore. Discussed proper use, side effects.Patient did call [employer] and they stated that they would cover [...] 10 mg, Lexapro 10 mg, Discussed cortisol [employer] assistant manager, and magnesium glycinate For adrenal fatigue [...] Dictation was accomplished with the use of Brightpearl voice recognition software, prone to medical misidentifications and grammatical errors. This is unintentional and the practitioner does try to identify and correct these, but some could still be present. Please do not hesitate to contact practitioner for clarification. 02/28/2025 Recurrent depression (ICD-10 - F33.9) Angie Is [...] next visit.If compounded semaglutide, will go to [facility] for nursing visits, and follow-up in [facility] for provider visits with myself. 06/29/2023: [...] to Zepbound, patient is going to contact [employer] to see if there is coverage with that medication. Having some fatigue/bloating. Focusing on whole proteins. 09/08/2024: Weight 206 BMI 36.61. Body composition showing maintenance overall. Will discontinue Wegovy, and initiate PA for Zepbound 2.5 mg that she has not noticing significant effect on Wegovy anymore. Discussed proper use, side effects.Patient did call [employer] and they stated that they would cover [...] 10 mg, Lexapro 10 mg, Discussed cortisol [employer] assistant manager, and magnesium glycinate For adrenal fatigue [...] Dictation was accomplished with the use of Brightpearl voice recognition software, prone to medical misidentifications and grammatical errors. This is unintentional and the practitioner does try to identify and correct these, but some could still be present. Please do not hesitate to contact practitioner for clarification. 04/20/2025 Recurrent depression (ICD-10 - F33.9) Angie Is [...] next visit.If compounded semaglutide, will go to [facility] for nursing visits, and follow-up in [facility] for provider visits with myself. 06/29/2023: [...] to Zepbound, patient is going to contact [employer] to see if there is coverage with that medication. Having some fatigue/bloating. Focusing on whole proteins. 09/08/2024: Weight 206 BMI 36.61. Body composition showing maintenance overall. Will discontinue Wegovy, and initiate PA for Zepbound 2.5 mg that she has not noticing significant effect on Wegovy anymore. Discussed proper use, side effects.Patient did call [employer] and they stated that they would cover [...] hormonal changes which she can follow with [employer] as needed. #Depression: patient to continue buspirone 10 mg, Lexapro 10 mg, Discussed cortisol [employer] assistant manager, and magnesium glycinate For adrenal fatigue [...] Dictation was accomplished with the use of Brightpearl voice recognition software, prone to medical misidentifications and grammatical errors. This is unintentional and the practitioner does try to identify and correct these, but some could still be present. Please do not hesitate to contact practitioner for clarification. 08/01/2025 Other acne (ICD-10 - L70.8) Angie Is [...] next visit.If compounded semaglutide, will go to [facility] for nursing visits, and follow-up in [facility] for provider visits with myself. 06/29/2023: [...] the meantime in order to submit for Дмитрийvy 1.7 mg. Patient understanding. We will start [...] to Zepbound, patient is going to contact [employer] to see if there is coverage with that medication. Having some fatigue/bloating. Focusing on whole proteins. 09/08/2024: Weight 206 BMI 36.61. Body composition showing maintenance overall. Will discontinue Wegovy, and initiate PA for Zepbound 2.5 mg that she has not noticing significant effect on Wegovy anymore. Discussed proper use, side effects.Patient did call [employer] and they stated that they would cover [...] hormonal changes which she can follow with [employer] as needed. 06/06/2025: Weight 205, BMI 36. Patient feeling really well, congratulated and effort. Increase Zepbound to 12.5 mg, follow-up in 6 weeks. Pleased with progress overall. 08/01/2025: Weight 203, BMI 36 continue Zepbound 12.5 mg, follow-up in 4 to 6 weeks. Doing well with increased muscle and decreased fat. #Depression: patient to continue buspirone 10 mg, Lexapro 10 mg, Discussed cortisol [employer] assistant manager, and magnesium glycinate For adrenal fatigue [...] Dictation was accomplished with the use of Brightpearl voice recognition software, prone to medical misidentifications and grammatical errors. This is unintentional and the practitioner does try to identify and correct these, but some could still be present. Please do not hesitate to contact practitioner for clarification. 09/13/2025 Recurrent depression (ICD-10 - F33.9) Angie Is a 45-year-old female who presented the office for weight f/u. 02/17/23: weight 215.2, BMI 38.12- Patient educated excessively on lifestyle modifications including diet, exercise, sleep hygiene, stress reduction, high-protein foods, low-cut hydrate snacks, healthy fats. She was provided with educational documentation regarding all of this as well as a new patient packet. [facility] reviewed. [facility]. Most recent labs [...] next visit.If compounded semaglutide, will go to [place] office for nursing visits, and follow-up in [facility] for provider visits with myself. 06/29/2023: [...] to Zepbound, patient is going to contact [employer] to see if there is coverage with that medication. Having some fatigue/bloating. Focusing on whole proteins. 09/08/2024: Weight 206 BMI 36.61. Body composition showing maintenance overall. Will discontinue Wegovy, and initiate PA for Zepbound 2.5 mg that she has not noticing significant effect on Wegovy anymore. Discussed proper use, side effects.Patient did call [employer] and they stated that they would cover [...] hormonal changes which she can follow with [employer] as needed. 06/06/2025: Weight 205, BMI 36. [...] 10 mg, Lexapro 10 mg, Discussed cortisol [employer] assistant manager, and magnesium glycinate For adrenal fatigue [...] Dictation was accomplished with the use of Brightpearl voice recognition software, prone to medical misidentifications [...] meantime which is strongly encouraged. [facility] provided. 04/27/2023: Weight 221.3, BMI 39.2-patient [...] next visit.If compounded semaglutide, will go to [facility] for nursing visits, and follow-up in [facility] for provider visits with myself. 06/29/2023: [...] to Zepbound, patient is going to contact [employer] to see if there is coverage with that medication. Having some fatigue/bloating. Focusing on whole proteins. 09/08/2024: Weight 206 BMI 36.61. Body composition showing maintenance overall. Will discontinue Wegovy, and initiate PA for Zepbound 2.5 mg that she has not noticing significant effect on Wegovy anymore. Discussed proper use, side effects.Patient did call [employer] and they stated that they would cover [...] hormonal changes which she can follow with [employer] as needed. 06/06/2025: Weight 205, BMI 36. [...] supply. Will follow-up in November and discussed [id number] cost. #Depression: patient to continue buspirone 10 mg, Lexapro 10 mg, Discussed cortisol [employer] assistant manager, and magnesium glycinate For adrenal fatigue [...] Dictation was accomplished with the use of Brightpearl voice recognition software, prone to medical misidentifications [...] next visit.If compounded semaglutide, will go to [facility] for nursing visits, and follow-up in [facility] for provider visits with myself. 06/29/2023: [...] to Zepbound, patient is going to contact [employer] to see if there is coverage with that medication. Having some fatigue/bloating. Focusing on whole proteins. 09/08/2024: Weight 206 BMI 36.61. Body composition showing maintenance overall. Will discontinue Wegovy, and initiate PA for Zepbound 2.5 mg that she has not noticing significant effect on Wegovy anymore. Discussed proper use, side effects.Patient did call [employer] and they stated that they would cover [...] hormonal changes which she can follow with [employer] as needed. 06/06/2025: Weight 205, BMI 36. Patient feeling really well, congratulated and effort. Increase Zepbound to 12.5 mg, follow-up in 6 weeks. Pleased with progress overall. #Depression: patient to continue buspirone 10 mg, Lexapro 10 mg, Discussed cortisol [employer] assistant manager, and magnesium glycinate For adrenal fatigue [...] Dictation was accomplished with the use of Brightpearl voice recognition software, prone to medical misidentifications [...] next visit.If compounded semaglutide, will go to [facility] for nursing visits, and follow-up in [facility] for provider visits with myself. 06/29/2023: [...] to Zepbound, patient is going to contact [employer] to see if there is coverage with that medication. Having some fatigue/bloating. Focusing on whole proteins. 09/08/2024: Weight 206 BMI 36.61. Body composition showing maintenance overall. Will discontinue Wegovy, and initiate PA for Zepbound 2.5 mg that she has not noticing significant effect on Wegovy anymore. Discussed proper use, side effects.Patient did call [employer] and they stated that they would cover [...] Dictation was accomplished with the use of Brightpearl voice recognition software, prone to medical misidentifications [...] of water weight/is bloated. Patient interested in [employer], and can submit after three consecutive months [...] loss medications at this time. Would prefer [employer], but unable to get due to supply [...] next visit.If compounded semaglutide, will go to [facility] for nursing visits, and follow-up in [facility] for provider visits with myself. 06/29/2023: [...] to Zepbound, patient is going to contact [employer] to see if there is coverage with that medication. Having some fatigue/bloating. Focusing on whole proteins. 09/08/2024: Weight 206 BMI 36.61. Body composition showing maintenance overall. Will discontinue Wegovy, and initiate PA for Zepbound 2.5 mg that she has not noticing significant effect on Wegovy anymore. Discussed proper use, side effects.Patient did call [employer] and they stated that they would cover [...] hormonal changes which she can follow with [employer] as needed. 06/06/2025: Weight 205, BMI 36. [...] supply. Will follow-up in November and discussed [id number] cost. #Depression: patient to continue buspirone 10 mg, Lexapro 10 mg, Discussed cortisol [employer] assistant manager, and magnesium glycinate For adrenal fatigue [...] Dictation was accomplished with the use of Brightpearl voice recognition software, prone to medical misidentifications [...] meantime which is strongly encouraged. [facility] provided. 04/27/2023: Weight 221.3, BMI 39.2-patient [...] next visit.If compounded semaglutide, will go to [facility] for nursing visits, and follow-up in [facility] for provider visits with myself. 06/29/2023: [...] to Zepbound, patient is going to contact [employer] to see if there is coverage with that medication. Having some fatigue/bloating. Focusing on whole proteins. 09/08/2024: Weight 206 BMI 36.61. Body composition showing maintenance overall. Will discontinue Wegovy, and initiate PA for Zepbound 2.5 mg that she has not noticing significant effect on Wegovy anymore. Discussed proper use, side effects.Patient did call [employer] and they stated that they would cover [...] hormonal changes which she can follow with [employer] as needed. 06/06/2025: Weight 205, BMI 36. Patient feeling really well, congratulated and effort. Increase Zepbound to 12.5 mg, follow-up in 6 weeks. Pleased with progress overall. #Depression: patient to continue buspirone 10 mg, Lexapro 10 mg, Discussed cortisol [employer] assistant manager, and magnesium glycinate For adrenal fatigue [...] Dictation was accomplished with the use of [employer] voice recognition software, prone to medical misidentifications [...] next visit.If compounded semaglutide, will go to [facility] for nursing visits, and follow-up in [facility] for provider visits with myself. 06/29/2023: [...] to Zepbound, patient is going to contact [employer] to see if there is coverage with that medication. Having some fatigue/bloating. Focusing on whole proteins. 09/08/2024: Weight 206 BMI 36.61. Body composition showing maintenance overall. Will discontinue Wegovy, and initiate PA for Zepbound 2.5 mg that she has not noticing significant effect on Wegovy anymore. Discussed proper use, side effects.Patient did call [employer] and they stated that they would cover [...] hormonal changes which she can follow with [employer] as needed. 06/06/2025: Weight 205, BMI 36. [...] 10 mg, Lexapro 10 mg, Discussed cortisol [employer] assistant manager, and magnesium glycinate For adrenal fatigue [...] Dictation was accomplished with the use of [employer] voice recognition software, prone to medical misidentifications and grammatical errors. This is unintentional and the practitioner does try to identify and correct these, but some could still be present. Please do not hesitate to contact practitioner for clarification. 04/20/2025 Encounter for examination of blood pressure without abnormal findings (ICD-10 - Z01.30) Angie Is a 44-year-old female who presented [...] next visit.If compounded semaglutide, will go to [facility] for nursing visits, and follow-up in [facility] for provider visits with myself. 06/29/2023: [...] to Zepbound, patient is going to contact [employer] to see if there is coverage with that medication. Having some fatigue/bloating. Focusing on whole proteins. 09/08/2024: Weight 206 BMI 36.61. Body composition showing maintenance overall. Will discontinue Wegovy, and initiate PA for Zepbound 2.5 mg that she has not noticing significant effect on Wegovy anymore. Discussed proper use, side effects.Patient did call [employer] and they stated that they would cover [...] hormonal changes which she can follow with [employer] as needed. #Depression: patient to continue buspirone 10 mg, Lexapro 10 mg, Discussed cortisol [employer] assistant manager, and magnesium glycinate For adrenal fatigue [...] Dictation was accomplished with the use of [employer] voice recognition software, prone to medical misidentifications and grammatical errors. This is unintentional and the practitioner does try to identify and correct these, but some could still be present. Please do not hesitate to contact practitioner for clarification. 08/01/2025 Recurrent depression (ICD-10 - F33.9) Angie Is [...] next visit.If compounded semaglutide, will go to [facility] for nursing visits, and follow-up in [facility] for provider visits with myself. 06/29/2023: [...] to Zepbound, patient is going to contact [employer] to see if there is coverage with that medication. Having some fatigue/bloating. Focusing on whole proteins. 09/08/2024: Weight 206 BMI 36.61. Body composition showing maintenance overall. Will discontinue Wegovy, and initiate PA for Zepbound 2.5 mg that she has not noticing significant effect on Wegovy anymore. Discussed proper use, side effects.Patient did call [employer] and they stated that they would cover [...] hormonal changes which she can follow with [employer] as needed. 06/06/2025: Weight 205, BMI 36. Patient feeling really well, congratulated and effort. Increase Zepbound to 12.5 mg, follow-up in 6 weeks. Pleased with progress overall. 08/01/2025: Weight 203, BMI 36 continue Zepbound 12.5 mg, follow-up in 4 to 6 weeks. Doing well with increased muscle and decreased fat. #Depression: patient to continue buspirone 10 mg, Lexapro 10 mg, Discussed cortisol [employer] assistant manager, and magnesium glycinate For adrenal fatigue [...] Dictation was accomplished with the use of [employer] voice recognition software, prone to medical misidentifications and grammatical errors. This is unintentional and the practitioner does try to identify and correct these, but some could still be present. Please do not hesitate to contact practitioner for clarification. 01/17/2025 Other acne (ICD-10 - L70.8) Angie Is [...] next visit.If compounded semaglutide, will go to [facility] for nursing visits, and follow-[facility] provider visits with myself. 06/29/2023: Weight [...] to Zepbound, patient is going to contact [employer] to see if there is coverage with that medication. Having some fatigue/bloating. Focusing on whole proteins. 09/08/2024: Weight 206 BMI 36.61. Body composition showing maintenance overall. Will discontinue Wegovy, and initiate PA for Zepbound 2.5 mg that she has not noticing significant effect on Wegovy anymore. Discussed proper use, side effects.Patient did call [employer] and they stated that they would cover [...] 10 mg, Lexapro 10 mg, Discussed cortisol [employer] assistant manager, and magnesium glycinate For adrenal fatigue [...] Dictation was accomplished with the use of [employer] voice recognition software, prone to medical misidentifications [...] next visit.If compounded semaglutide, will go to [facility] for nursing visits, and follow-up in [facility] for provider visits with myself. 06/29/2023: [...] to Zepbound, patient is going to contact [employer] to see if there is coverage with that medication. Having some fatigue/bloating. Focusing on whole proteins. 09/08/2024: Weight 206 BMI 36.61. Body composition showing maintenance overall. Will discontinue Wegovy, and initiate PA for Zepbound 2.5 mg that she has not noticing significant effect on Wegovy anymore. Discussed proper use, side effects.Patient did call [employer] and they stated that they would cover [...] hormonal changes which she can follow with [employer] as needed. 06/06/2025: Weight 205, BMI 36. Patient feeling really well, congratulated and effort. Increase Zepbound to 12.5 mg, follow-up in 6 weeks. Pleased with progress overall. 08/01/2025: Weight 203, BMI 36 continue Zepbound 12.5 mg, follow-up in 4 to 6 weeks. Doing well with increased muscle and decreased fat. #Depression: patient to continue buspirone 10 mg, Lexapro 10 mg, Discussed cortisol [employer] assistant manager, and magnesium glycinate For adrenal fatigue [...] Dictation was accomplished with the use of [employer] voice recognition software, prone to medical misidentifications and grammatical errors. This is unintentional and the practitioner does try to identify and correct these, but some could still be present. Please do not hesitate to contact practitioner for clarification. 06/06/2025 Encounter for examination of blood pressure without abnormal findings (ICD-10 - Z01.30) Angie Is a 44-year-old female who presented [...] next visit.If compounded semaglutide, will go to [facility] for nursing visits, and follow-up in [facility] for provider visits with myself. 06/29/2023: [...] to Zepbound, patient is going to contact [employer] to see if there is coverage with that medication. Having some fatigue/bloating. Focusing on whole proteins. 09/08/2024: Weight 206 BMI 36.61. Body composition showing maintenance overall. Will discontinue Wegovy, and initiate PA for Zepbound 2.5 mg that she has not noticing significant effect on Wegovy anymore. Discussed proper use, side effects.Patient did call [employer] and they stated that they would cover [...] hormonal changes which she can follow with [employer] as needed. 06/06/2025: Weight 205, BMI 36. Patient feeling really well, congratulated and effort. Increase Zepbound to 12.5 mg, follow-up in 6 weeks. Pleased with progress overall. #Depression: patient to continue buspirone 10 mg, Lexapro 10 mg, Discussed cortisol [employer] assistant manager, and magnesium glycinate For adrenal fatigue [...] Dictation was accomplished with the use of [employer] voice recognition software, prone to medical misidentifications and grammatical errors. This is unintentional and the practitioner does try to identify and correct these, but some could still be present. Please do not hesitate to contact practitioner for clarification. Plan Of Treatment Pending Test Test Name Order Date HEMOGLOBIN A1c 05/28/2023 INSULIN 05/28/2023 Next Appt Details Provider Name:JOHANA SAMANIEGO, 12/14/2025 03:00:00 PM, [address] [facility], [place], [address], Insurance Providers Payer Name Payer Address Payer Phone Subscriber Number Group Number Insured Name Patient Relationship to Insured Coverage Start Date Coverage End Date [facility] [address] [place] [address] [id number] Angie Wilson Self - patient is the insured Medications Administered Medication Instructions Date of Administration Dosage Notes MICC B12 INJECTION 02/17/2023 MICC B12 INJECTION 03/26/2023 MICC B12 INJECTION 04/27/2023 MICC B12 INJECTION 05/28/2023 MICC B12 INJECTION 02/01/2024 lot# [id number] Semaglutide 09/07/2023 0.25 SEMA 0.25 Semaglutide 09/14/2023 Semaglutide 09/21/2023 Semaglutide 09/28/2023 Semaglutide 10/05/2023 Semaglutide 10/13/2023 1 mg Medical (General) History Medical History History ICD Code Depression F32.A Anxiety F41.9 Raynaud's disease without gangrene I73.0 0 History of cervical cancer Z85.41 Surgical History Surgery Date(Month/Year) trachiotomy 2015 lap inocente 2020
== END 2025-10-13 13:42 | disposition home or self-care (01) ==
LOC: HO.MRI 13:41
PROVIDERS: PCP Internal Medicine; Visit Provider Internal Medicine Nephrology
DX: N28.1 Cyst of kidney, acquired (principal); N28.89 Other specified disorders of kidney and ureter
CPT/HCPCS: 74183; A9585

== ENCOUNTER 2025-10-19 11:31 | Outpatient (AMB) | payer OTHER, SELFPAY ==
--- NOTE | 2025-10-19 11:34 | HO.NEPHOV_ITS ---
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 Initially she was found to have increased alkaline phosphatase and underwent abdominal ultrasound which showed cyst/mass in the kidney. She underwent renal ultrasound which conf irmed the same but that imaging was not able to delineate the details of the imaging abnormality. She does not have any hematuria, flank pain, kidney stones, hypertension, renal dysfunction or any urinary symptoms. She has no history of vascular disease but has history of Raynaud's. She has no edema. She has family history of renal cysts in a grandparent. She has no family history of polycystic kidney disease, cerebral aneurysm, ESRD or renal transplantation. Her renal functions are normal. She is on spironolactone for acne and is on Zepbound which is helping her with weight loss. [facility] Surgical History No pertinent past surgical history Social History Housing: House Patient Tobacco Use Status: Never used Tobacco e-Cigarette/Vaping Use: Never Used service: No Current occupational status: employed Current occupational exposures/hazards: No Cognitive needs: No Hearing needs: No Vision needs: Yes Review of Systems Const All systems reviewed & are unremarkable except as noted in HPI and below Physical Exam Const General: comfortable and no acute distress Orientation/consciousness: patient oriented x3 HEENT Head: Yes normocephalic Mouth: Normal oral and palatal mucosa present Eyes EOM: EOMs intact bilaterally Neck Neck: Yes supple Resp Auscultation: clear to auscultation bilaterally Cardio Jugular venous distension: no JVD Rate: regular rate GI Palpation (GI): Soft to palpation Auscultation: normal bowel sounds General: Yes no CVA tenderness Back/Spine/Pelvis Back: no CVA tenderness Skin General skin exam: no rashes or lesions noted Neuro General: patient oriented x3 and moves all extremities Extrem General: Yes no pedal edema Results Reviewed Nephrology Results: Hgb, (12.0-16.0) 15.4 g/dl 02/04/25 WBC, (4.8-10.8) 7.2 X10*3/uL 02/04/25 Plt Count, (160-400) 313 X10*3/uL 02/04/25 Sodium, (135-145) 136 mmol/L 02/04/25 Potassium, (3.3-5.1) 4.1 mmol/L 02/04/25 Chloride, (96-108) 106 mmol/L 02/04/25 Carbon Dioxide, (22-29) 24 mmol/L 02/04/25 BUN, (9-16) 11 mg/dL 02/04/25 Creatinine, (0.5-1.4) 0.67 mg/dL 02/04/25 Calcium, (8.4-10.2) 8.9 mg/dL Δ 02/04/25 Assessment & Plan Assessment & Plan (1) Unilateral cystic renal dysplasia: Code(s): Q61.4 - Renal dysplasia Category: Medical Plan Tawanna had an incidental finding radiologically when an ultrasound abdomen was done for elevated alkaline phosphatase. She has no urinary symptoms, renal dysfunction, hypertension, flank pain, family history of polycystic kidney disease, ESRD, family history renal transplantation. MRI of the kidney showed scarring in the interpolar region of the right kidney. There are multiple right renal cysts measuring up to 1.6 cm in size at the upper pole. This may contain thin septations. No enhancing solid component is identified. There are multiple smaller right cysts which are too small to accurately characterize. The left kidney is unremarkable. There is no hydronephrosis. She may have Unilateral polycystic kidney, also known as unilateral renal cystic disease, which is?a rare condition where only one kidney is affected by multiple cysts, while the other kidney is normal.?Unlike the more common bilateral polycystic kidney disease, it is non-progressive, does not have a hereditary genetic basis, and does not typically lead to progressive deterioration in renal function. ( Unlikely that she has unilateral multicystic kidney disease given her imaging and functioning kidneys bilaterally. Her renal functions are normal. I did not make any medication changes today but all these possibilities have been discussed and answered all questions. Needs F/U MRI in one year. May consider split function of kidney with time. Follow-up appointment was given Orders: Orders Protein Creatinine Ratio, Ur 1 Year Q61.4 - Renal dysplasia Creatinine 1 Year Q61.4 - Renal dysplasia Electrolytes 1 Year Q61.4 - Renal dysplasia Blood Urea Nitrogen 1 Year Q61.4 - Renal dysplasia Coding Level of Care Code Est Pt Level 4 (77695) Diagnoses Unilateral cystic renal dysplasia Q61.4
[2025-10-19 11:35] VITALS: BP 112/84; PULSE 91; O2SAT 99; BMI 35.1
== END 2025-10-19 12:03 | disposition home or self-care (01) ==
LOC: HO.HKAS 11:32
PROVIDERS: PCP Internal Medicine; Visit Provider Internal Medicine Nephrology
DX: Q61.4 Renal dysplasia (principal)
CPT/HCPCS: 99214

== ENCOUNTER 2025-11-14 15:28 | Outpatient (AMB) | payer OTHER, SELFPAY ==
--- OUTSIDE RECORDS SUMMARY | 2025-04-13 09:45 | XMS_ITS ---
Author Organization [facility] [address] Address [address] [place] [address] Care Team Providers Care Adapted Physical Education Aide Name Role Phone JOHANA SAMANIEGO Unavailable [phone] REASON FOR VISIT 6 week f/u Encounters Encounter Location Date Provider Diagnosis [facility] [address] [place] [address] 04/13/2025 JOHANA SAMANIEGO Plan Of Treatment Next Appt Details Provider Name:JOHANA SAMANIEGO, 12/14/2025 03:00:00 PM, [address] , [place], [address], Progress Notes * Melissa WILSONDOB: [birth year] (45 yo F)Acc No.[id number]:04/13/2025 Patient: Allan Melissa wadsworth Provider: Sylvia SAMANIEGO PA-C :1980 A ge:44 Y S ex:Female Date:04/13/2025 Address:[address] [place], [place] [address] Subjective: * Chief Complaints: * 6 week f/u * Electronic signature of GALILEA SAMANIEGO PA-C on 11/14/2025 at 06:50 PM EST Sign off status: Pending * Provider: Sylvia SAMANIEGO PA-C Date: 0 04/13/2025 Generated for Printi ng/Faxing/eTransmitting on: 1 06:50 PM EST
--- OUTSIDE RECORDS SUMMARY | 2025-04-18 05:00 | XMS_ITS ---
Author Organization [facility] [address] Address [address] [place] [address] Care Team Providers Care Player Development Manager Name Role Phone JOHANA SAMANIEGO Unavailable [phone] REASON FOR VISIT 6 week f/u Encounters Encounter Location Date Provider Diagnosis [facility] [address] [place] [address] 04/18/2025 JOHANA SAMANIEGO Plan Of Treatment Next Appt Details Provider Name:JOHANA SAMANIEGO, 12/14/2025 03:00:00 PM, [address] , [place], [address], Progress Notes * Melissa WILSONDOB: [birth year] (45 yo F)Acc No.[id number]:04/18/2025 Patient: Allan Melissa wadsworth Provider: Sylvia SAMANIEGO PA-C :1980 A ge:44 Y S ex:Female Date:04/18/2025 Address:[address] [place], [place] [address] Subjective: * Chief Complaints: * 6 week f/u * Electronic signature of GALILEA SAMANIEGO PA-C on 11/14/2025 at 06:50 PM EST Sign off status: Pending * Provider: Sylvia SAMANIEGO PA-C Date: 0 04/18/2025 Generated for Printi ng/Faxing/eTransmitting on: 1 06:50 PM EST
--- NOTE | 2025-11-14 15:31 | MHC.PC.OV ---
Vital Signs 11/14/25 15:32 Height 5 ft 3 in Weight 202 lb 4 oz BMI 35.8 BP 118/78 Blood Pressure Location Rt brachial Position Sitting Respiration 17 Pulse 76 Pulse Source Pulse Oximeter Pulse Oximetry (%) 96 Oxygen Delivery Method Room Air Intake Visit Reasons: PE Allergies bupropion (From Wellbutrin) Adverse Reaction (Verified 11/14/25 15:33) Panic Medication List - Last Reconciled 11/14/25 by Idalia Clements MD albuterol sulfate 90 mcg/actuation (Ventolin HFA) 1 inh inhalation QID PRN 30 days buspirone 5 mg PO BID PRN 30 days escitalopram oxalate 10 mg PO DAILY 90 days metronidazole 0.75% appl topical BID spironolactone 50 mg PO BID tirzepatide (weight loss) (Zepbound) 12.5 mg subcut QWEEK tretinoin 0.05% appl topical Tobacco use date assessed: 11/14/25 Dental Screening Dental Screen Date: 11/14/25 Did you have a dental visit in the last 12 months?: Yes Did you have a dental problem in the last 6 months where you did not have access to dental care?: No Was dental information given to patient?: Patient has dentist HPI HPI Comments History of Present Illness Details History of Present Illness The patient is a 45 year old female presenting for a physical exam. Obesity: - The patient's BMI is elevated at 35.8. - She is taking Zepbound, with the dose now at 15 mg, up from 12.5 mg, which is prescribed by another provider. - She reports making initial progress with weight loss, reaching 194 lbs on her home scale, but has since stalled. - The patient has been stretching out her doses of Zepbound. - She affirms that she is also dieting and exercising. Multiple Right Renal Cysts: - The patient is followed by a mechanical equipment test engineer, Dr. Ledezma, for multiple right renal cysts, with her last visit in October. - An MRI of the abdomen in September confirmed multiple right renal cysts and an unremarkable left kidney, with the largest cyst measuring 1.6 cm. - Her kidney function is normal, and she is asymptomatic. - A repeat MRI is planned. 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 Anxiety: - The patient has a history of anxiety, which she reports is currently okay. - She takes escitalopram 10 mg daily and buspirone 5 mg twice a day as needed. 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 - A ferritin level checked by a GI specialist in September was 183, which is within an acceptable range. Dermatologic Conditions: - The patient sees a retail service technician for rosacea and acne and takes spironolactone prescribed by them. - She has a history of seborrheic keratosis, which was treated with cryotherapy by her retail service technician. History of Cervical Cancer: - The patient has a history of cervical cancer and underwent surgery in 2016. - She follows with an ENVIRONMENTAL SAMPLING TECHNICIAN at [facility]. Land Sickness: - The patient reports experiencing land sickness, a sensation of rocking, since returning from a cruise two weeks ago. - This has occurred after her last three cruises. Medical History: - Anxiety, managed with escitalopram and buspirone. - Obesity (BMI 35.8), treated with Zepbound. - Multiple right renal cysts, monitored by nephrology. - Hemochromatosis (heterozygous carrier). - Rosacea and acne, managed with spironolactone. - Seborrheic keratosis, previously treated. - Land sickness following cruises. - History of elevated liver enzymes. Surgical History: - Surgery for cervical cancer in 2016. Social History: - Reports dieting and exercising for weight management. - Recently went on a cruise. Family History: - Mother has hemochromatosis. Health Maintenance - Undergoes annual mammograms. - Follows with ENVIRONMENTAL SAMPLING TECHNICIAN care at [facility], with her next appointment in December. - Follows with dermatology for skin conditions. - Follows with nephrology annually for renal cysts. - The patient is due for a new set of fasting labs. - Liver enzymes were checked in August of this year through the PCP office. [place] [facility] - ENVIRONMENTAL SAMPLING TECHNICIAN: Zofia Ayuob at [facility]. - Dermatology. - Nephrology: Dr. Ledezma. - Gastroenterology: [facility]. - An unspecified provider for Zepbound prescription. Medications - Buspirone 5 mg twice a day, taken as needed for anxiety. - Escitalopram 10 mg daily for anxiety. - Spironolactone for rosacea and acne. - Zepbound (tirzepatide) 15 mg for weight management. [facility] [place] Surgical History No pertinent past surgical history Social History Housing: House Patient Tobacco Use Status: Never used Tobacco e-Cigarette/Vaping Use: Never Used service: No Current occupational status: employed Current occupational exposures/hazards: No Cognitive needs: No Hearing needs: No Vision needs: Yes Questionnaire Thrive Questionnaire Date Thrive assessed: 02/03/25 I am a: Patient What is your living situation today?: I have a steady place to live Within the past 12 months, did the food you bought not last and you didn't have the money to get more?: Never true Within the past 12 months, did you worry whether your food would run out before you got money to buy more?: Never true Do you have trouble paying for medicines?: No Do you have trouble getting transportation to medical appointments?: No Do you have trouble paying your heating and electricity bill?: No Do you have trouble taking care of your child, family member or friend?: No Do you have trouble with day-to-day activities such as bathing, preparing meals, shopping, managing finances, etc.?: No Are you currently unemployed and looking for a job?: No Are you interested in more education?: No Currently or been in a relationship where the following occur: No concerns reported THRIVE Score: 0 AUDIT C Alcohol Use Questionnaire (AUDIT-C) 1. How often do you have a drink containing alcohol?: Monthly or less 2. How many drinks containing alcohol do you have on a typical day when you are drinking?: 1 or 2 3. How often do you have six or more drinks on one occasion?: Never Total Score: 1 Score Reviewed/Action Taken: Yes ESTRELLA-7 AMB Questionnaire ESTRELLA-7 Date ESTRELLA - 7 assessed: 02/03/25 Source: Developed by Drs. Dickson Cates, Marni Boggs, Freeman Beckford and colleagues, with an educational monica from [employer]. Review of Systems Narrative Review of Systems - General: No fever no chills - Neurological: No headaches no dizziness - Ear nose throat: No sore throat no hearing difficulty no ear pain - Cardiovascular: No syncope, no chest pain, no palpitations - Gastrointestinal: No nausea vomiting or diarrhea - Endocrine: No polyuria polydipsia no heat intolerance - Genitourinary: No dysuria - Skin: No new complaints Physical exam (Primary Care) Vital Signs: Last Vital Signs Pulse 76 11/14/25 15:32 Resp 17 11/14/25 15:32 BP 118/78 11/14/25 15:32 Pulse Ox 96 11/14/25 15:32 Oxygen Delivery Method Room Air 11/14/25 15:32 BMI result Body Mass Index 35.8 Tobacco/Smoking Status: Tobacco use Status Tobacco use date assessed 11/14/25 11/14/25 15:35 Patient Tobacco Use Status Never used Tobacco 11/14/25 15:35 e-Cigarette/Vaping Use Never Used 11/14/25 15:35 Thrive Assessment: Date of Thrive Assessment Date Thrive assessed 02/03/25 11/14/25 15:35 Currently or been in a relationship where the following occur: No concerns reported Narrative Diagnostic results - Vitals: Blood pressure 118/78 mmHg; BMI 35.8. - Labs: Ferritin level was 183 in September. - Imaging: An MRI of the abdomen in September revealed multiple right renal cysts (largest 1.6 cm) and an unremarkable left kidney. - Genetic Testing: Positive for heterozygous single gene mutation for hemochromatosis. Physical Exam General: Cooperative, healthy appearing, comfortable, no acute distress Orientation: Patient oriented x3 Head: Normal to inspection Ears: Within normal limit visually Nose: Normal external nose present Face and sinus: Normal facial exam Eyes: Appearance normal, extraocular movement intact pupils reactive Neck: Normal visual inspection and supple Respiratory: Normal respiratory effort and able to speak in complete sentences. Clear to auscultation, no stridor Cardiovascular: S1 and S2 RRR, blood pressure well controlled at 118/78 GI: Normal to inspection. Soft to palpation and nontender breast exam thru Obgyn Skin: Turgor normal, no acute findings, seborrheic keratosis noted and treated Neuro: Patient oriented x3, motor sensory intact, balance intact, tandem pass, no signs of motion sickness Extremities: Normal to inspection . Coding Level of Care Code Est Pt Level 3 (43505) Diagnoses Encounter for general adult medical examination with abnormal findings Z00.01 Polycystic kidney Q61.3 Anxiety, generalized F41.1 Elevated alkaline phosphatase level R74.8 Class 2 obesity due to excess calories without serious comorbidity with body mass index (BMI) of 39.0 to 39.9 in adult E66.09; Z68.39 Body mass index: BMI 39.0-39.9 Obesity classification: adult class 2 (BMI 35 - 39.9) Serious obesity comorbidity presence: without serious comorbidity Impaired fasting blood sugar R73.01 Recurrent major depressive disorder, in full remission F33.42 Active/Remission status: in full remission Assessment & Plan Assessment & Plan (1) Encounter for general adult medical examination with abnormal findings: Code(s): Z00.01 - Encounter for general adult medical examination with abnormal findings Category: Medical (2) Polycystic kidney: Code(s): Q61.3 - Polycystic kidney, unspecified Category: Medical (3) Anxiety, generalized: Code(s): F41.1 - Generalized anxiety disorder Category: Medical (4) Elevated alkaline phosphatase level: Code(s): R74.8 - Abnormal levels of other serum enzymes Category: Medical (5) Obesity due to excess calories: Code(s): E66.09 - Other obesity due to excess calories Category: Medical Qualifiers: Body mass index: BMI 39.0-39.9 Obesity classification: adult class 2 (BMI 35 - 39.9) Serious obesity comorbidity presence: without serious comorbidity Qualified Code(s): E66.09 - Other obesity due to excess calories; Z68.39 - Body mass index [BMI] 39.0-39.9, adult (6) Impaired fasting blood sugar: Code(s): R73.01 - Impaired fasting glucose Category: Medical (7) Major depression, recurrent: Code(s): F33.9 - Major depressive disorder, recurrent, unspecified Category: Medical Qualifiers: Active/Remission status: in full remission Qualified Code(s): F33.42 - Major depressive disorder, recurrent, in full remission Plan Patient Instructions - Please schedule an appointment to have fasting blood tests done. - Continue taking your escitalopram and buspirone as prescribed for anxiety. - You will be notified if there are any issues with your lab results. - Schedule a follow-up appointment in six months. Orders: Orders Comprehensive [place]. Panel Fast Today E66.09 - Other obesity due to excess calories, F33.42 - Major depressive disorder, recurrent, in full remission, F41.1 - Generalized anxiety disorder, R73.01 - Impaired fasting glucose, R74.8 - Abnormal levels of other serum enzymes, Z00.01 - Encounter for general adult medical examination with abnormal findings, Z68.39 - Body mass index [BMI] 39.0-39.9, adult Lipid Panel Today E66.09 - Other obesity due to excess calories, F33.42 - Major depressive disorder, recurrent, in full remission, F41.1 - Generalized anxiety disorder, R73.01 - Impaired fasting glucose, R74.8 - Abnormal levels of other serum enzymes, Z00.01 - Encounter for general adult medical examination with abnormal findings, Z68.39 - Body mass index [BMI] 39.0-39.9, adult TSH reflex Free T4 Today E66.09 - Other obesity due to excess calories, F33.42 - Major depressive disorder, recurrent, in full remission, F41.1 - Generalized anxiety disorder, R73.01 - Impaired fasting glucose, R74.8 - Abnormal levels of other serum enzymes, Z00.01 - Encounter for general adult medical examination with abnormal findings, Z68.39 - Body mass index [BMI] 39.0-39.9, adult Complete Blood Count Auto Diff Today E66.09 - Other obesity due to excess calories, F33.42 - Major depressive disorder, recurrent, in full remission, F41.1 - Generalized anxiety disorder, R73.01 - Impaired fasting glucose, R74.8 - Abnormal levels of other serum enzymes, Z00.01 - Encounter for general adult medical examination with abnormal findings, Z68.39 - Body mass index [BMI] 39.0-39.9, adult
[2025-11-14 15:32] VITALS: BP 118/78; PULSE 76; RESP 17; O2SAT 96; BMI 35.8
--- OUTSIDE RECORDS SUMMARY | 2025-11-14 18:51 | XMS_ITS | Patient Health Record ---
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 Name Role Phone JOHANA SAMANIEGO Unavailable [phone] Allergies Allergen (clinical drug ingredient) Drug/Non Drug Allergy documented on EMR Reaction Allergy Type Onset Date Status Wellbutrin Unknown Drug Allergy Active Reason For Referral No Information Medications Medication SIG (Take, Route, Frequency, Duration) Notes Start Date End Date Status Lexapro 10 MG Tablet 1 tablet Orally Onc e a day Active busPIRone HCl 10 MG Tablet 1 tablet Oral ly Twice a day Active Zepbound 15 MG/0.5ML Solution Auto-injector 15 mg Subcutaneous weekly; Duration: 90 days 10/10/2025 Active Spironolactone 50 MG Tablet 1 tablet [...] Status W/U Status Risk Notes Problem Obesity (727720473) Other obesity (E66.8) Active confirmed Problem Anxiety (88778394) Anxiety (F41.9) Active confirmed Problem Obesity (838443623) Obesity (BMI 30-39.9) (E66.9) Active confirmed Problem Obese class II (62948361545200 5) BMI 37.0-37.9, adult (Z68.37) Active confirmed Problem Obese class II (94843711060526 5) BMI 35.0-35.9,adult (Z68.35) Active confirmed Problem Raynaud's disease (085178821) Raynaud's disease without gangrene (I73.00) Active confirmed Problem Obese class II (89226250590197 5) BMI 39.0-39.9,adult (Z68.39) Active confirmed Problem Obese class II (13468195835316 5) BMI 36.0-36.9,adult (Z68.36) Active confirmed Problem Obese class II (18580095435010 5) BMI 38.0-38.9,adult (Z68.38) Active confirmed Problem Body mass index 30.00 to 34.99 (18503210215196 7) BMI 34.0-34.9,adult (Z68.34) Active confirmed Problem Recurrent depression (109950211) Recurrent depression (F33.9) Active confirmed Problem History of malignant neoplasm of cervix (216345751) History of cervical cancer (Z85.41) Active confirmed Vital Signs Heart Rate 82 /min 10/10/2025 Oximetry 97 % 10/10/2025 Blood pressure diastolic 84 mm Hg 10/10/2025 Height 63 in 10/10/2025 Blood pressure systolic 120 mm Hg 10/10/2025 Weight 197.2 lbs 10/10/2025 BMI 34.93 kg/m2 10/10/2025 Encounters Encounter Location Date Provider Diagnosis [facility] [address] [place], [place] 12/05/2024 JOHANA SAMANIEGO Obesity (BMI 30-39.9 ) E66.9 ; BMI 37.0-37.9, adult Z68.37 ; Depression, unspecified depression type F32.A and Other acne L70.[address] [facility] [address] [place], [place] 01/17/2025 JOHANA SAMANIEGO Obesity (BMI 30-39.9 ) E66.9 ; BMI 37.0-37.9, adult Z68.37 ; Depression, unspecified depression type F32.A and Other acne L70.[address] [facility] [address] [place], [place] 02/28/2025 JOHANA SAMANIEGO Obesity (BMI 30-39.9 ) E66.9 ; BMI 36.0-36.9,adult Z68.36 ; Other acne L70.8 and Recurrent depression F33.[address] [facility] [address] [place], [place] 04/20/2025 JOHANA SAMANIEGO Obesity (BMI 30-39.9 ) E66.9 ; BMI 36.0-36.9,adult Z68.36 ; Other acne L70.8 ; Recurrent depression F33.9 and Encounter for examination of blood pressure without abnormal findings Z01.[address] [facility] [address] [place], [place] 06/06/2025 JOHANA SAMANIEGO Obesity (BMI 30-39.9 ) E66.9 ; BMI 36.0-36.9,adult Z68.36 ; Other acne L70.8 ; Recurrent depression F33.9 and Encounter for examination of blood pressure without abnormal findings Z01.[address] [facility] [address] 08/01/2025 JOHANA SAMANIEGO Obesity (BMI 30-39.9 ) E66.9 ; BMI 36.0-36.9,adult Z68.36 ; Other acne L70.8 ; Recurrent depression F33.9 and Encounter for examination of blood pressure without abnormal findings Z01.30 [facility] [address] [place] [address] 09/13/2025 JOHANA SAMANIEGO Obesity (BMI 30-39.9 ) E66.9 ; BMI 35.0-35.9,adult Z68.35 ; Other acne L70.8 ; Recurrent depression F33.9 and Encounter for examination of blood pressure without abnormal findings Z01.30 [facility] [address] [place], [place] 10/10/2025 JOHANA SAMANIEGO Obesity (BMI 30-39.9 ) E66.9 ; BMI 34.0-34.9,adult Z68.34 ; Other acne L70.8 ; Recurrent depression F33.9 and Encounter for examination of blood pressure without abnormal findings Z01.30 [facility] [address] [place] [id number] 05/05/2025 JOHANA SAMANIEGO [facility] [address] [place] [address] 10/23/2025 JOHANA SAMANIEGO [facility] [address] [facility] [address] [place] [address] 10/23/2025 JOHANA SAMANIEGO Obesity (BMI 30-39.9 ) E66.9 Assessments Encounter Date Diagnosis (ICD Code) Assessment [...] next visit.If compounded semaglutide, will go to [facility] for nursing visits, and follow-up in [facility] for provider visits with myself. [...] to Zepbound, patient is going to contact [employer] to see if there is coverage with that medication. Having some fatigue/bloating. Focusing on whole proteins. 09/08/2024: Weight 206 BMI 36.61. Body composition showing maintenance overall. Will discontinue Wegovy, and initiate PA for Zepbound 2.5 mg that she has not noticing significant effect on Wegovy anymore. Discussed proper use, side effects.Patient did call [employer] and they stated that they would cover [...] mg, Lexapro 10 mg, Discussed cortisol manager behavioral, and magnesium glycinate For adrenal fatigue #Acne: [...] Dictation was accomplished with the use of [employer] voice recognition software, prone to medical misidentifications [...] next visit.If compounded semaglutide, will go to [facility] for nursing visits, and follow-up in [facility] for provider visits with myself. [...] to Zepbound, patient is going to contact [employer] to see if there is coverage with that medication. Having some fatigue/bloating. Focusing on whole proteins. 09/08/2024: Weight 206 BMI 36.61. Body composition showing maintenance overall. Will discontinue Wegovy, and initiate PA for Zepbound 2.5 mg that she has not noticing significant effect on Wegovy anymore. Discussed proper use, side effects.Patient did call [employer] and they stated that they would cover [...] mg, Lexapro 10 mg, Discussed cortisol manager behavioral, and magnesium glycinate For adrenal fatigue #Acne: [...] Dictation was accomplished with the use of [employer] voice recognition software, prone to medical misidentifications [...] next visit.If compounded semaglutide, will go to [facility] for nursing visits, and follow-up in [facility] for provider visits with myself. [...] to Zepbound, patient is going to contact [employer] to see if there is coverage with that medication. Having some fatigue/bloating. Focusing on whole proteins. 09/08/2024: Weight 206 BMI 36.61. Body composition showing maintenance overall. Will discontinue Wegovy, and initiate PA for Zepbound 2.5 mg that she has not noticing significant effect on Wegovy anymore. Discussed proper use, side effects.Patient did call [employer] and they stated that they would cover [...] mg, Lexapro 10 mg, Discussed cortisol manager behavioral, and magnesium glycinate For adrenal fatigue #Acne: [...] Dictation was accomplished with the use of [employer] voice recognition software, prone to medical misidentifications [...] in the meantime which is strongly encouraged. [facility] provided. 04/27/2023: Weight 221.3, BMI 39.2-patient [...] next visit.If compounded semaglutide, will go to [facility] for nursing visits, and follow-up in [facility] for provider visits with myself. [...] to Zepbound, patient is going to contact [employer] to see if there is coverage with that medication. Having some fatigue/bloating. Focusing on whole proteins. 09/08/2024: Weight 206 BMI 36.61. Body composition showing maintenance overall. Will discontinue Wegovy, and initiate PA for Zepbound 2.5 mg that she has not noticing significant effect on Wegovy anymore. Discussed proper use, side effects.Patient did call [employer] and they stated that they would cover [...] mg, Lexapro 10 mg, Discussed cortisol manager behavioral, and magnesium glycinate For adrenal fatigue #Acne: [...] Dictation was accomplished with the use of [employer] voice recognition software, prone to medical misidentifications [...] next visit.If compounded semaglutide, will go to [facility] for nursing visits, and follow-up in [...] to Zepbound, patient is going to contact [employer] to see if there is coverage with that medication. Having some fatigue/bloating. Focusing on whole proteins. 09/08/2024: Weight 206 BMI 36.61. Body composition showing maintenance overall. Will discontinue Wegovy, and initiate PA for Zepbound 2.5 mg that she has not noticing significant effect on Wegovy anymore. Discussed proper use, side effects.Patient did call [employer] and they stated that they would cover [...] mg, Lexapro 10 mg, Discussed cortisol manager behavioral, and magnesium glycinate For adrenal fatigue #Acne: [...] Dictation was accomplished with the use of [employer] voice recognition software, prone to medical misidentifications [...] next visit.If compounded semaglutide, [facility], and follow-up in [facility] for provider visits with myself. [...] to Zepbound, patient is going to contact [employer] to see if there is coverage with that medication. Having some fatigue/bloating. Focusing on whole proteins. 09/08/2024: Weight 206 BMI 36.61. Body composition showing maintenance overall. Will discontinue Wegovy, and initiate PA for Zepbound 2.5 mg that she has not noticing significant effect on Wegovy anymore. Discussed proper use, side effects.Patient did call [employer] and they stated that they would cover [...] hormonal changes which she can follow with ASSISTANT STORE DIRECTOR as needed. #Depression: patient to continue buspirone 10 mg, Lexapro 10 mg, Discussed cortisol manager behavioral, and magnesium glycinate For adrenal fatigue #Acne: [...] Dictation was accomplished with the use of [employer] voice recognition software, prone to medical misidentifications [...] next visit.If compounded semaglutide, [facility], and follow-up in [facility] for provider visits with myself. [...] to Zepbound, patient is going to contact [employer] to see if there is coverage with that medication. Having some fatigue/bloating. Focusing on whole proteins. 09/08/2024: Weight 206 BMI 36.61. Body composition showing maintenance overall. Will discontinue Wegovy, and initiate PA for Zepbound 2.5 mg that she has not noticing significant effect on Wegovy anymore. Discussed proper use, side effects.Patient did call [employer] and they stated that they would cover [...] hormonal changes which she can follow with ASSISTANT STORE DIRECTOR as needed. #Depression: patient to continue buspirone 10 mg, Lexapro 10 mg, Discussed cortisol manager behavioral, and magnesium glycinate For adrenal fatigue #Acne: [...] Dictation was accomplished with the use of [employer] voice recognition software, prone to medical misidentifications [...] next visit.If compounded semaglutide, will go to [facility] for nursing visits, and follow-up in [facility] for provider visits with myself. [...] to Zepbound, patient is going to contact [employer] to see if there is coverage with that medication. Having some fatigue/bloating. Focusing on whole proteins. 09/08/2024: Weight 206 BMI 36.61. Body composition showing maintenance overall. Will discontinue Wegovy, and initiate PA for Zepbound 2.5 mg that she has not noticing significant effect on Wegovy anymore. Discussed proper use, side effects.Patient did call [employer] and they stated that they would cover [...] hormonal changes which she can follow with ASSISTANT STORE DIRECTOR as needed. 06/06/2025: Weight 205, BMI 36. Patient feeling really well, congratulated and effort. Increase Zepbound to 12.5 mg, follow-up in 6 weeks. Pleased with progress overall. #Depression: patient to continue buspirone 10 mg, Lexapro 10 mg, Discussed cortisol manager behavioral, and magnesium glycinate For adrenal fatigue #Acne: [...] Dictation was accomplished with the use of [employer] voice recognition software, prone to medical misidentifications [...] next visit.If compounded semaglutide, [facility], and follow-up in [facility] for provider visits with myself. [...] to Zepbound, patient is going to contact [employer] to see if there is coverage with that medication. Having some fatigue/bloating. Focusing on whole proteins. 09/08/2024: Weight 206 BMI 36.61. Body composition showing maintenance overall. Will discontinue Wegovy, and initiate PA for Zepbound 2.5 mg that she has not noticing significant effect on Wegovy anymore. Discussed proper use, side effects.Patient did call [employer] and they stated that they would cover [...] hormonal changes which she can follow with ASSISTANT STORE DIRECTOR as needed. 06/06/2025: Weight 205, BMI 36. Patient feeling really well, congratulated and effort. Increase Zepbound to 12.5 mg, follow-up in 6 weeks. Pleased with progress overall. 08/01/2025: Weight 203, BMI 36 continue Zepbound 12.5 mg, follow-up in 4 to 6 weeks. Doing well with increased muscle and decreased fat. #Depression: patient to continue buspirone 10 mg, Lexapro 10 mg, Discussed cortisol manager behavioral, and magnesium glycinate For adrenal fatigue #Acne: [...] Dictation was accomplished with the use of [employer] voice recognition software, prone to medical misidentifications [...] labs without concern. Patient was interested in [employer] had a conversation with her regarding three [...] in the meantime which is strongly encouraged. [facility] provided. 04/27/2023: Weight 221.3, BMI 39.2-patient [...] next visit.If compounded semaglutide, will go to [facility] for nursing visits, and follow-up in [facility] for provider visits with myself. [...] to Zepbound, patient is going to contact [employer] to see if there is coverage with that medication. Having some fatigue/bloating. Focusing on whole proteins. 09/08/2024: Weight 206 BMI 36.61. Body composition showing maintenance overall. Will discontinue Wegovy, and initiate PA for Zepbound 2.5 mg that she has not noticing significant effect on Wegovy anymore. Discussed proper use, side effects.Patient did call [employer] and they stated that they would cover [...] hormonal changes which she can follow with ASSISTANT STORE DIRECTOR as needed. 06/06/2025: Weight 205, BMI 36. [...] mg, Lexapro 10 mg, Discussed cortisol manager behavioral, and magnesium glycinate For adrenal fatigue #Acne: [...] Dictation was accomplished with the use of [employer] voice recognition software, prone to medical misidentifications [...] next visit.If compounded semaglutide, will go to [facility] for nursing visits, and follow-up in [facility] for provider visits with myself. [...] to Zepbound, patient is going to contact [employer] to see if there is coverage with that medication. Having some fatigue/bloating. Focusing on whole proteins. 09/08/2024: Weight 206 BMI 36.61. Body composition showing maintenance overall. Will discontinue Wegovy, and initiate PA for Zepbound 2.5 mg that she has not noticing significant effect on Wegovy anymore. Discussed proper use, side effects.Patient did call [employer] and they stated that they would cover [...] hormonal changes which she can follow with ASSISTANT STORE DIRECTOR as needed. 06/06/2025: Weight 205, BMI 36. [...] mg, Lexapro 10 mg, Discussed cortisol manager behavioral, and magnesium glycinate For adrenal fatigue #Acne: [...] Dictation was accomplished with the use of [employer] voice recognition software, prone to medical misidentifications [...] next visit.If compounded semaglutide, will go to [facility] for nursing visits, and follow-up in [...] to Zepbound, patient is going to contact [employer] to see if there is coverage with that medication. Having some fatigue/bloating. Focusing on whole proteins. 09/08/2024: Weight 206 BMI 36.61. Body composition showing maintenance overall. Will discontinue Wegovy, and initiate PA for Zepbound 2.5 mg that she has not noticing significant effect on Wegovy anymore. Discussed proper use, side effects.Patient did call [employer] and they stated that they would cover [...] hormonal changes which she can follow with ASSISTANT STORE DIRECTOR as needed. 06/06/2025: Weight 205, BMI 36. [...] supply. Will follow-up in November and discussed [id number] cost. #Depression: patient to continue buspirone 10 mg, Lexapro 10 mg, Discussed cortisol manager behavioral, and magnesium glycinate For adrenal fatigue #Acne: [...] Dictation was accomplished with the use of [employer] voice recognition software, prone to medical misidentifications [...] next visit.If compounded semaglutide, will go to [facility] for nursing visits, and follow-up in [facility] for provider visits with myself. [...] to Zepbound, patient is going to contact [employer] to see if there is coverage with that medication. Having some fatigue/bloating. Focusing on whole proteins. 09/08/2024: Weight 206 BMI 36.61. Body composition showing maintenance overall. Will discontinue Wegovy, and initiate PA for Zepbound 2.5 mg that she has not noticing significant effect on Wegovy anymore. Discussed proper use, side effects.Patient did call [employer] and they stated that they would cover [...] hormonal changes which she can follow with ASSISTANT STORE DIRECTOR as needed. 06/06/2025: Weight 205, BMI 36. [...] supply. Will follow-up in November and discussed [id number] cost. #Depression: patient to continue buspirone 10 mg, Lexapro 10 mg, Discussed cortisol manager behavioral, and magnesium glycinate For adrenal fatigue #Acne: [...] Dictation was accomplished with the use of [employer] voice recognition software, prone to medical misidentifications and grammatical errors. This is unintentional and the practitioner does try to identify and correct these, but some could still be present. Please do not hesitate to contact practitioner for clarification. 10/23/2025 Obesity (BMI 30-39.9) (ICD-10 - E66.9) 02/28/2025 Other acne (ICD-10 - L70.8) Angie [...] in the meantime which is strongly encouraged. [facility] provided. 04/27/2023: Weight 221.3, BMI 39.2-patient [...] next visit.If compounded semaglutide, will go to [facility] for nursing visits, and follow-up in [facility] for provider visits with myself. [...] to Zepbound, patient is going to contact [employer] to see if there is coverage with that medication. Having some fatigue/bloating. Focusing on whole proteins. 09/08/2024: Weight 206 BMI 36.61. Body composition showing maintenance overall. Will discontinue Wegovy, and initiate PA for Zepbound 2.5 mg that she has not noticing significant effect on Wegovy anymore. Discussed proper use, side effects.Patient did call [employer] and they stated that they would cover [...] mg, Lexapro 10 mg, Discussed cortisol manager behavioral, and magnesium glycinate For adrenal fatigue #Acne: [...] Dictation was accomplished with the use of [employer] voice recognition software, prone to medical misidentifications [...] next visit.If compounded semaglutide, will go to [facility] for nursing visits, and follow-up in [facility] for provider visits with myself. [...] to Zepbound, patient is going to contact [employer] to see if there is coverage with that medication. Having some fatigue/bloating. Focusing on whole proteins. 09/08/2024: Weight 206 BMI 36.61. Body composition showing maintenance overall. Will discontinue Wegovy, and initiate PA for Zepbound 2.5 mg that she has not noticing significant effect on Wegovy anymore. Discussed proper use, side effects.Patient did call [employer] and they stated that they would cover [...] hormonal changes which she can follow with ASSISTANT STORE DIRECTOR as needed. 06/06/2025: Weight 205, BMI 36. [...] supply. Will follow-up in November and discussed [id number] cost. #Depression: patient to continue buspirone 10 mg, Lexapro 10 mg, Discussed cortisol manager behavioral, and magnesium glycinate For adrenal fatigue #Acne: [...] Dictation was accomplished with the use of [employer] voice recognition software, prone to medical misidentifications [...] next visit.If compounded semaglutide, will go to [facility] for nursing visits, and follow-up in [facility] for provider visits with myself. [...] to Zepbound, patient is going to contact [employer] to see if there is coverage with that medication. Having some fatigue/bloating. Focusing on whole proteins. 09/08/2024: Weight 206 BMI 36.61. Body composition showing maintenance overall. Will discontinue Wegovy, and initiate PA for Zepbound 2.5 mg that she has not noticing significant effect on Wegovy anymore. Discussed proper use, side effects.Patient did call [employer] and they stated that they would cover [...] hormonal changes which she can follow with ASSISTANT STORE DIRECTOR as needed. 06/06/2025: Weight 205, BMI 36. [...] mg, Lexapro 10 mg, Discussed cortisol manager behavioral, and magnesium glycinate For adrenal fatigue #Acne: [...] Dictation was accomplished with the use of [employer] voice recognition software, prone to medical misidentifications [...] in the meantime which is strongly encouraged. [facility] provided. 04/27/2023: Weight 221.3, BMI 39.2-patient [...] next visit.If compounded semaglutide, will go to [facility] for nursing visits, and follow-up in [facility] for provider visits with myself. [...] to Zepbound, patient is going to contact [employer] to see if there is coverage with that medication. Having some fatigue/bloating. Focusing on whole proteins. 09/08/2024: Weight 206 BMI 36.61. Body composition showing maintenance overall. Will discontinue Wegovy, and initiate PA for Zepbound 2.5 mg that she has not noticing significant effect on Wegovy anymore. Discussed proper use, side effects.Patient did call [employer] and they stated that they would cover [...] hormonal changes which she can follow with ASSISTANT STORE DIRECTOR as needed. 06/06/2025: Weight 205, BMI 36. Patient feeling really well, congratulated and effort. Increase Zepbound to 12.5 mg, follow-up in 6 weeks. Pleased with progress overall. 08/01/2025: Weight 203, BMI 36 continue Zepbound 12.5 mg, follow-up in 4 to 6 weeks. Doing well with increased muscle and decreased fat. #Depression: patient to continue buspirone 10 mg, Lexapro 10 mg, Discussed cortisol manager behavioral, and magnesium glycinate For adrenal fatigue #Acne: [...] Dictation was accomplished with the use of [employer] voice recognition software, prone to medical misidentifications [...] next visit.If compounded semaglutide, will go to [facility] for nursing visits, and follow-up in [facility] for provider visits with myself. [...] to Zepbound, patient is going to contact [employer] to see if there is coverage with that medication. Having some fatigue/bloating. Focusing on whole proteins. 09/08/2024: Weight 206 BMI 36.61. Body composition showing maintenance overall. Will discontinue Wegovy, and initiate PA for Zepbound 2.5 mg that she has not noticing significant effect on Wegovy anymore. Discussed proper use, side effects.Patient did call [employer] and they stated that they would cover [...] hormonal changes which she can follow with ASSISTANT STORE DIRECTOR as needed. 06/06/2025: Weight 205, BMI 36. Patient feeling really well, congratulated and effort. Increase Zepbound to 12.5 mg, follow-up in 6 weeks. Pleased with progress overall. #Depression: patient to continue buspirone 10 mg, Lexapro 10 mg, Discussed cortisol manager behavioral, and magnesium glycinate For adrenal fatigue #Acne: [...] Dictation was accomplished with the use of TappnGo voice recognition software, prone to medical misidentifications [...] next visit.If compounded semaglutide, [facility], and follow-up in [facility] for provider visits with myself. [...] to Zepbound, patient is going to contact [employer] to see if there is coverage with that medication. Having some fatigue/bloating. Focusing on whole proteins. 09/08/2024: Weight 206 BMI 36.61. Body composition showing maintenance overall. Will discontinue Wegovy, and initiate PA for Zepbound 2.5 mg that she has not noticing significant effect on Wegovy anymore. Discussed proper use, side effects.Patient did call [employer] and they stated that they would cover [...] hormonal changes which she can follow with ASSISTANT STORE DIRECTOR as needed. #Depression: patient to continue buspirone 10 mg, Lexapro 10 mg, Discussed cortisol manager behavioral, and magnesium glycinate For adrenal fatigue #Acne: [...] Dictation was accomplished with the use of Tapp[employer]Go voice recognition software, prone to medical misidentifications [...] next visit.If compounded semaglutide, will go to [facility] for nursing visits, and follow-up in [facility] for provider visits with myself. [...] to Zepbound, patient is going to contact [employer] to see if there is coverage with that medication. Having some fatigue/bloating. Focusing on whole proteins. 09/08/2024: Weight 206 BMI 36.61. Body composition showing maintenance overall. Will discontinue Wegovy, and initiate PA for Zepbound 2.5 mg that she has not noticing significant effect on Wegovy anymore. Discussed proper use, side effects.Patient did call [employer] and they stated that they would cover [...] mg, Lexapro 10 mg, Discussed cortisol manager behavioral, and magnesium glycinate For adrenal fatigue #Acne: [...] Dictation was accomplished with the use of T[employer]Go voice recognition software, prone to medical misidentifications [...] next visit.If compounded semaglutide, will [facility], and follow-up in [facility] for provider visits with myself. [...] to Zepbound, patient is going to contact [employer] to see if there is coverage with that medication. Having some fatigue/bloating. Focusing on whole proteins. 09/08/2024: Weight 206 BMI 36.61. Body composition showing maintenance overall. Will discontinue Wegovy, and initiate PA for Zepbound 2.5 mg that she has not noticing significant effect on Wegovy anymore. Discussed proper use, side effects.Patient did call [employer] and they stated that they would cover [...] mg, Lexapro 10 mg, Discussed cortisol manager behavioral, and magnesium glycinate For adrenal fatigue #Acne: [...] Dictation was accomplished with the use of [employer]Go voice recognition software, prone to medical misidentifications [...] in the meantime which is strongly encouraged. [facility] provided. 04/27/2023: Weight 221.3, BMI 39.2-patient [...] next visit.If compounded semaglutide, will go to [facility] for nursing visits, and follow-up in [facility] for provider visits with myself. [...] to Zepbound, patient is going to contact [employer] to see if there is coverage with that medication. Having some fatigue/bloating. Focusing on whole proteins. 09/08/2024: Weight 206 BMI 36.61. Body composition showing maintenance overall. Will discontinue Wegovy, and initiate PA for Zepbound 2.5 mg that she has not noticing significant effect on Wegovy anymore. Discussed proper use, side effects.Patient did call [employer] and they stated that they would cover [...] mg, Lexapro 10 mg, Discussed cortisol manager behavioral, and magnesium glycinate For adrenal fatigue #Acne: [...] Dictation was accomplished with the use of [employer]Go voice recognition software, prone to medical misidentifications [...] in the meantime which is strongly encouraged. [facility] provided. 04/27/2023: Weight 221.3, BMI 39.2-patient [...] next visit.If compounded semaglutide, will go to [facility] for nursing visits, and follow-up in [facility] for provider visits with myself. [...] to Zepbound, patient is going to contact [employer] to see if there is coverage with that medication. Having some fatigue/bloating. Focusing on whole proteins. 09/08/2024: Weight 206 BMI 36.61. Body composition showing maintenance overall. Will discontinue Wegovy, and initiate PA for Zepbound 2.5 mg that she has not noticing significant effect on Wegovy anymore. Discussed proper use, side effects.Patient did call [employer] and they stated that they would cover [...] mg, Lexapro 10 mg, Discussed cortisol manager behavioral, and magnesium glycinate For adrenal fatigue #Acne: [...] Dictation was accomplished with the use of [employer] voice recognition software, prone to medical misidentifications [...] next visit.If compounded semaglutide, will go to [facility] for nursing visits, and follow-up in [facility] for provider visits with myself. [...] to Zepbound, patient is going to contact [employer] to see if there is coverage with that medication. Having some fatigue/bloating. Focusing on whole proteins. 09/08/2024: Weight 206 BMI 36.61. Body composition showing maintenance overall. Will discontinue Wegovy, and initiate PA for Zepbound 2.5 mg that she has not noticing significant effect on Wegovy anymore. Discussed proper use, side effects.Patient did call [employer] and they stated that they would cover [...] mg, Lexapro 10 mg, Discussed cortisol manager behavioral, and magnesium glycinate For adrenal fatigue #Acne: [...] Dictation was accomplished with the use of [employer] voice recognition software, prone to medical misidentifications [...] next visit.If compounded semaglutide, will go to [facility] for nursing visits, and follow-up in [facility] for provider visits with myself. [...] to Zepbound, patient is going to contact [employer] to see if there is coverage with that medication. Having some fatigue/bloating. Focusing on whole proteins. 09/08/2024: Weight 206 BMI 36.61. Body composition showing maintenance overall. Will discontinue Wegovy, and initiate PA for Zepbound 2.5 mg that she has not noticing significant effect on Wegovy anymore. Discussed proper use, side effects.Patient did call [employer] and they stated that they would cover [...] hormonal changes which she can follow with ASSISTANT STORE DIRECTOR as needed. #Depression: patient to continue buspirone 10 mg, Lexapro 10 mg, Discussed cortisol manager behavioral, and magnesium glycinate For adrenal fatigue #Acne: [...] Dictation was accomplished with the use of [employer] voice recognition software, prone to medical misidentifications [...] in the meantime which is strongly encouraged. [facility] provided. 04/27/2023: Weight 221.3, BMI 39.2-patient [...] next visit.If compounded semaglutide, will [facility], and follow-up in [facility] for provider visits with myself. [...] to Zepbound, patient is going to contact [employer] to see if there is coverage with that medication. Having some fatigue/bloating. Focusing on whole proteins. 09/08/2024: Weight 206 BMI 36.61. Body composition showing maintenance overall. Will discontinue Wegovy, and initiate PA for Zepbound 2.5 mg that she has not noticing significant effect on Wegovy anymore. Discussed proper use, side effects.Patient did call [employer] and they stated that they would cover [...] hormonal changes which she can follow with ASSISTANT STORE DIRECTOR as needed. 06/06/2025: Weight 205, BMI 36. Patient feeling really well, congratulated and effort. Increase Zepbound to 12.5 mg, follow-up in 6 weeks. Pleased with progress overall. #Depression: patient to continue buspirone 10 mg, Lexapro 10 mg, Discussed cortisol manager behavioral, and magnesium glycinate For adrenal fatigue #Acne: [...] Dictation was accomplished with the use of [employer] voice recognition software, prone to medical misidentifications [...] next visit.If compounded semaglutide, will go to [facility] for nursing visits, and follow-up in [facility] for provider visits with myself. [...] to Zep[employer], patient is going to contact [employer] to see if there is coverage with that medication. Having some fatigue/bloating. Focusing on whole proteins. 09/08/2024: Weight 206 BMI 36.61. Body composition showing maintenance overall. Will discontinue Wegovy, and initiate PA for Zepbound 2.5 mg that she has not noticing significant effect on Wegovy anymore. Discussed proper use, side effects.Patient did call [employer] and they stated that they would cover [...] hormonal changes which she can follow with ASSISTANT STORE DIRECTOR as needed. 06/06/2025: Weight 205, BMI 36. Patient feeling really well, congratulated and effort. Increase Zepbound to 12.5 mg, follow-up in 6 weeks. Pleased with progress overall. 08/01/2025: Weight 203, BMI 36 continue Zepbound 12.5 mg, follow-up in 4 to 6 weeks. Doing well with increased muscle and decreased fat. #Depression: patient to continue buspirone 10 mg, Lexapro 10 mg, Discussed cortisol manager behavioral, and magnesium glycinate For adrenal fatigue #Acne: [...] Dictation was accomplished with the use of [employer] voice recognition software, prone to medical misidentifications [...] next visit.If compounded semaglutide, will go to [facility] for nursing visits, and follow-up in [facility] for provider visits with myself. [...] to Zepbound, patient is going to contact [employer] to see if there is coverage with that medication. Having some fatigue/bloating. Focusing on whole proteins. 09/08/2024: Weight 206 BMI 36.61. Body composition showing maintenance overall. Will discontinue Wegovy, and initiate PA for Zepbound 2.5 mg that she has not noticing significant effect on Wegovy anymore. Discussed proper use, side effects.Patient did call [employer] and they stated that they would cover [...] hormonal changes which she can follow with ASSISTANT STORE DIRECTOR as needed. 06/06/2025: Weight 205, BMI 36. [...] mg, Lexapro 10 mg, Discussed cortisol manager behavioral, and magnesium glycinate For adrenal fatigue #Acne: [...] Dictation was accomplished with the use of T[employer]Go voice recognition software, prone to medical misidentifications [...] next visit.If compounded semaglutide, will go to [facility] for nursing visits, and follow-up in [facility] for provider visits with myself. [...] to Zepbound, patient is going to contact [employer] to see if there is coverage with that medication. Having some fatigue/bloating. Focusing on whole proteins. 09/08/2024: Weight 206 BMI 36.61. Body composition showing maintenance overall. Will discontinue Wegovy, and initiate PA for Zepbound 2.5 mg that she has not noticing significant effect on Wegovy anymore. Discussed proper use, side effects.Patient did call [employer] and they stated that they would cover [...] hormonal changes which she can follow with ASSISTANT STORE DIRECTOR as needed. 06/06/2025: Weight 205, BMI 36. [...] supply. Will follow-up in November and discussed [id number] cost. #Depression: patient to continue buspirone 10 mg, Lexapro 10 mg, Discussed cortisol manager behavioral, and magnesium glycinate For adrenal fatigue #Acne: [...] Dictation was accomplished with the use of [employer]Go voice recognition software, prone to medical misidentifications [...] next visit.If compounded semaglutide, will go to [facility] for nursing visits, and follow-up in [facility] for provider visits with myself. [...] to Zepbound, patient is going to contact [employer] to see if there is coverage with that medication. Having some fatigue/bloating. Focusing on whole proteins. 09/08/2024: Weight 206 BMI 36.61. Body composition showing maintenance overall. Will discontinue Wegovy, and initiate PA for Zepbound 2.5 mg that she has not noticing significant effect on Wegovy anymore. Discussed proper use, side effects.Patient did call [employer] and they stated that they would cover [...] hormonal changes which she can follow with ASSISTANT STORE DIRECTOR as needed. 06/06/2025: Weight 205, BMI 36. [...] supply. Will follow-up in November and discussed [id number] cost. #Depression: patient to continue buspirone 10 mg, Lexapro 10 mg, Discussed cortisol manager behavioral, and magnesium glycinate For adrenal fatigue #Acne: [...] Dictation was accomplished with the use of T[employer]Go voice recognition software, prone to medical misidentifications [...] next visit.If compounded semaglutide, will go to [facility] for nursing visits, and follow-up in [facility] for provider visits with myself. [...] to Zep[employer], patient is going to contact [employer] to see if there is coverage with that medication. Having some fatigue/bloating. Focusing on whole proteins. 09/08/2024: Weight 206 BMI 36.61. Body composition showing maintenance overall. Will discontinue Wegovy, and initiate PA for Zepbound 2.5 mg that she has not noticing significant effect on Wegovy anymore. Discussed proper use, side effects.Patient did call [employer] and they stated that they would cover [...] hormonal changes which she can follow with ASSISTANT STORE DIRECTOR as needed. 06/06/2025: Weight 205, BMI 36. [...] mg, Lexapro 10 mg, Discussed cortisol manager behavioral, and magnesium glycinate For adrenal fatigue #Acne: [...] Dictation was accomplished with the use of [employer]Go voice recognition software, prone to medical misidentifications [...] next visit.If compounded semaglutide, [facility], and follow-up in [facility] for provider visits with myself. [...] to Zepbound, patient is going to contact [employer] to see if there is coverage with that medication. Having some fatigue/bloating. Focusing on whole proteins. 09/08/2024: Weight 206 BMI 36.61. Body composition showing maintenance overall. Will discontinue Wegovy, and initiate PA for Zepbound 2.5 mg that she has not noticing significant effect on Wegovy anymore. Discussed proper use, side effects.Patient did call [employer] and they stated that they would cover [...] hormonal changes which she can follow with ASSISTANT STORE DIRECTOR as needed. 06/06/2025: Weight 205, BMI 36. Patient feeling really well, congratulated and effort. Increase Zepbound to 12.5 mg, follow-up in 6 weeks. Pleased with progress overall. 08/01/2025: Weight 203, BMI 36 continue Zepbound 12.5 mg, follow-up in 4 to 6 weeks. Doing well with increased muscle and decreased fat. #Depression: patient to continue buspirone 10 mg, Lexapro 10 mg, Discussed cortisol manager behavioral, and magnesium glycinate For adrenal fatigue #Acne: [...] Dictation was accomplished with the use of [employer] voice recognition software, prone to medical misidentifications [...] in the meantime which is strongly encouraged. [facility] provided. 04/27/2023: Weight 221.3, BMI 39.2-patient [...] next visit.If compounded semaglutide, will go to [facility] for nursing visits, and follow-up in [facility] for provider visits with myself. [...] to Zepbound, patient is going to contact [employer] to see if there is coverage with that medication. Having some fatigue/bloating. Focusing on whole proteins. 09/08/2024: Weight 206 BMI 36.61. Body composition showing maintenance overall. Will discontinue Wegovy, and initiate PA for Zepbound 2.5 mg that she has not noticing significant effect on Wegovy anymore. Discussed proper use, side effects.Patient did call [employer] and they stated that they would cover [...] hormonal changes which she can follow with ASSISTANT STORE DIRECTOR as needed. #Depression: patient to continue buspirone 10 mg, Lexapro 10 mg, Discussed cortisol manager behavioral, and magnesium glycinate For adrenal fatigue #Acne: [...] Dictation was accomplished with the use of [employer] voice recognition software, prone to medical misidentifications [...] next visit.If compounded semaglutide, will go to [facility] for nursing visits, and follow-up in [facility] for provider visits with myself. [...] to Zep[employer], patient is going to contact [employer] to see if there is coverage with that medication. Having some fatigue/bloating. Focusing on whole proteins. 09/08/2024: Weight 206 BMI 36.61. Body composition showing maintenance overall. Will discontinue Wegovy, and initiate PA for Zepbound 2.5 mg that she has not noticing significant effect on Wegovy anymore. Discussed proper use, side effects.Patient did call [employer] and they stated that they would cover [...] hormonal changes which she can follow with ASSISTANT STORE DIRECTOR as needed. 06/06/2025: Weight 205, BMI 36. Patient feeling really well, congratulated and effort. Increase Zepbound to 12.5 mg, follow-up in 6 weeks. Pleased with progress overall. #Depression: patient to continue buspirone 10 mg, Lexapro 10 mg, Discussed cortisol manager behavioral, and magnesium glycinate For adrenal fatigue #Acne: [...] Dictation was accomplished with the use of [employer] voice recognition software, prone to medical misidentifications [...] in the meantime which is strongly encouraged. [facility] provided. 04/27/2023: Weight 221.3, BMI 39.2-patient [...] next visit.If compounded semaglutide, will go to [facility] for nursing visits, and follow-up in [facility] for provider visits with myself. [...] to Zep[employer], patient is going to contact [employer] to see if there is coverage with that medication. Having some fatigue/bloating. Focusing on whole proteins. 09/08/2024: Weight 206 BMI 36.61. Body composition showing maintenance overall. Will discontinue Wegovy, and initiate PA for Zepbound 2.5 mg that she has not noticing significant effect on Wegovy anymore. Discussed proper use, side effects.Patient did call [employer] and they stated that they would cover [...] mg, Lexapro 10 mg, Discussed cortisol manager behavioral, and magnesium glycinate For adrenal fatigue #Acne: [...] Dictation was accomplished with the use of [employer] voice recognition software, prone to medical misidentifications [...] next visit.If compounded semaglutide, will go to [facility] for nursing visits, and follow-up in [facility] for provider visits with myself. [...] to Zep[employer], patient is going to contact [employer] to see if there is coverage with that medication. Having some fatigue/bloating. Focusing on whole proteins. 09/08/2024: Weight 206 BMI 36.61. Body composition showing maintenance overall. Will discontinue Wegovy, and initiate PA for Zepbound 2.5 mg that she has not noticing significant effect on Wegovy anymore. Discussed proper use, side effects.Patient did call [employer] and they stated that they would cover [...] hormonal changes which she can follow with ASSISTANT STORE DIRECTOR as needed. 06/06/2025: Weight 205, BMI 36. Patient feeling really well, congratulated and effort. Increase Zepbound to 12.5 mg, follow-up in 6 weeks. Pleased with progress overall. #Depression: patient to continue buspirone 10 mg, Lexapro 10 mg, Discussed cortisol manager behavioral, and magnesium glycinate For adrenal fatigue #Acne: [...] Dictation was accomplished with the use of [employer] voice recognition software, prone to medical misidentifications [...] next visit.If compounded semaglutide, will go to [facility] for nursing visits, and follow-up in [facility] for provider visits with myself. [...] to Zep[employer], patient is going to contact [employer] to see if there is coverage with that medication. Having some fatigue/bloating. Focusing on whole proteins. 09/08/2024: Weight 206 BMI 36.61. Body composition showing maintenance overall. Will discontinue Wegovy, and initiate PA for Zepbound 2.5 mg that she has not noticing significant effect on Wegovy anymore. Discussed proper use, side effects.Patient did call [employer] and they stated that they would cover [...] hormonal changes which she can follow with ASSISTANT STORE DIRECTOR as needed. 06/06/2025: Weight 205, BMI 36. Patient feeling really well, congratulated and effort. Increase Zepbound to 12.5 mg, follow-up in 6 weeks. Pleased with progress overall. 08/01/2025: Weight 203, BMI 36 continue Zepbound 12.5 mg, follow-up in 4 to 6 weeks. Doing well with increased muscle and decreased fat. #Depression: patient to continue buspirone 10 mg, Lexapro 10 mg, Discussed cortisol manager behavioral, and magnesium glycinate For adrenal fatigue #Acne: [...] Dictation was accomplished with the use of [employer] voice recognition software, prone to medical misidentifications and grammatical errors. This is unintentional and the practitioner does try to identify and correct these, but some could still be present. Please do not hesitate to contact practitioner for clarification. Plan Of Treatment Pending Test Test Name Order Date HEMOGLOBIN A1c 05/28/2023 INSULIN 05/28/2023 Next Appt Details Provider Name:JOHANA SAMANIEGO, 12/14/2025 03:00:00 PM, [address], [place], [id number], Insurance Providers Payer Name Payer Address Payer Phone Subscriber Number Group Number Insured Name Patient Relationship to Insured Coverage Start Date Coverage End Date [facility] [address] [place] [address] [id number] Angie Wilson Self - patient is the insured Medications Administered Medication Instructions Date of Administration Dosage Notes MICC B12 INJECTION 02/17/2023 MICC B12 INJECTION 03/26/2023 MICC B12 INJECTION 04/27/2023 MICC B12 INJECTION 05/28/2023 MICC B12 INJECTION 02/01/2024 lot# [id number] Semaglutide 09/07/2023 0.25 SEMA 0.25 Semaglutide 09/14/2023 Semaglutide 09/21/2023 Semaglutide 09/28/2023 Semaglutide 10/05/2023 Semaglutide 10/13/2023 1 mg Medical (General) History Medical History History ICD Code Depression F32.A Anxiety F41.9 Raynaud's disease without gangrene I73.0 0 History of cervical cancer Z85.41 Surgical History Surgery Date(Month/Year) trachiotomy 2015 lap inocente 2020
== END 2025-11-14 15:56 | disposition home or self-care (01) ==
LOC: HO.HMCC 15:29
PROVIDERS: PCP Internal Medicine; Visit Provider Internal Medicine
DX: Z00.01 Encounter for general adult medical examination with abnormal findings (principal); Q61.3 Polycystic kidney, unspecified; F41.1 Generalized anxiety disorder; R74.8 Abnormal levels of other serum enzymes; E66.09 Other obesity due to excess calories; Z68.39 Body mass index [BMI] 39.0-39.9, adult; R73.01 Impaired fasting glucose; F33.42 Major depressive disorder, recurrent, in full remission